=== PATIENT | female | born 1935 | race Caucasian/White ===

== ENCOUNTER → 2017-11-22 14:51 | Outpatient (CLI) | payer OTHER, SELFPAY ==
--- NOTE | 2017-11-22 | DI.MG.S_ITS ---
BILATERAL DIGITAL SCREENING MAMMOGRAM 3D/2D WITH CAD: 11/22/2017 CLINICAL: Routine screening. Family history of breast cancer. Comparison is made to exams dated: 11/16/2016 mammogram, 11/11/2015 mammogram, and 11/04/2014 mammogram - [facility]. The tissue of both breasts is heterogeneously dense. This may lower the sensitivity of mammography. Current study was also evaluated with a Computer Aided Detection (CAD) system. No significant masses, calcifications, or other findings are seen in either breast. There has been no significant interval change. IMPRESSION: NEGATIVE There is no mammographic evidence of malignancy. A 1 year screening mammogram is recommended. This exam was interpreted at Station ID: [id number]. NOTE: For mammograms, a report in lay terms will be sent to the patient. Approximately 15% of breast malignancies will not be visualized mammographically. In the management of a palpable breast mass, a negative mammogram must not discourage biopsy of a clinically suspicious lesion. Electronically Signed By: Eloy marrero/lula:11/22/2017 16:15:07 letter sent: Normal Exam ACR BI-RADS Category 1: Negative 3341F
== END ==
PROVIDERS: PCP Internal Medicine; Visit Provider Internal Medicine
DX: Z12.31 Encounter for screening mammogram for malignant neoplasm of breast (principal); Z80.3 Family history of malignant neoplasm of breast
CPT/HCPCS: 77063; 77067

== ENCOUNTER → 2018-03-01 14:00 | Outpatient (CLI) | payer OTHER, SELFPAY | PROVIDERS: PCP Internal Medicine | DX: Z23 Encounter for immunization (principal) | CPT/HCPCS: 90471; 90686 ==

== ENCOUNTER 2018-07-31 07:24 | Inpatient (IN) | payer OTHER, SELFPAY ==
[2018-07-31] VITALS (18 sets, daily range): BP systolic 114–140; BP diastolic 49–100; PULSE 62–68; RESP 12–23; TEMP 36.6–37.2; O2SAT 90–100; BMI 26.4
--- NOTE | 2018-07-31 07:43 | ED_ITS ---
HPI - General Adult General Chief complaint: Altered Mental Status Stated complaint: thinks having stroke Time Seen by Provider: 07/31/18 07:41 Source: patient and family Mode of arrival: ambulatory Limitations: other (Patient unable to provide any HPI.) History of Present Illness HPI narrative: Most of the history of present illness was provided by the patient's who is at bedside. He states that shortly after 2000 hr last evening they were sitting on the couch watching you to. He states that the patient started having problems like slurring her words. He also states that 1 time she slumped over in the couch. Never lost consciousness. He states he did not seek medical attention because the patient was stating that she was feeling okay. They went to bed last evening. He states when they woke up this morning she was now having problems finding words. He thought that she was getting worse. They arrived by private vehicle. No prior history of strokes. Not on blood thinners. Patient unable to provide any HPI. The only response again when I ask her questions is ?I am fine? Related Data Home Medications Medication Instructions Recorded Confirmed aspirin 81 mg PO DAILY #0 11/02/11 07/31/18 CALCIUM CARBONATE/VITAMIN D3 1 tab PO Q DAY #0 11/03/11 (Calcium 600 + Vit D3 Tablet) amlodipine [Norvasc] 5 mg PO DAILY 07/31/18 07/31/18 metoprolol succinate 07/31/18 simvastatin 20 mg PO BEDTIME 07/31/18 07/31/18 Previous Rx's Medication Instructions Recorded fluticasone 2 spray INTRANASAL HSP PRN #16 gm 08/02/16 Combivent Respimat 1 puff INH QID #4 inh 11/01/16 hydroxyzine HCl 1 tab PO Q4HP PRN #30 tab 07/03/17 azelastine 1 spray INTRANASAL HS #200 08/17/17 actuation mometasone-formoterol [Dulera] 2 inh INH BID #2 ea 09/15/17 Advair HFA 2 puff INH BID #3 ea 09/19/17 omeprazole 40 mg PO QPM #90 cap 06/18/18 Allergies Allergy/AdvReac Type Severity Reaction Status Date / Time cephalexin [CEPHALEXIN] Allergy Mild RASH Unverified 09/13/17 12:03 Cephalosporins Allergy Mild RASH Unverified 09/13/17 12:03 [CEPHALOSPORINS] Sulfa (Sulfonamide Allergy Mild RASH Unverified 09/13/17 12:03 Antibiotics) [SULFA (SULFONAMIDE ANTIBIOTICS)] amoxicillin [AMOXICILLIN] AdvReac Mild rash Unverified 09/13/17 12:03 HORSEFLY BITE Allergy Severe Uncoded 09/13/17 12:03 Review of Systems Review of Systems Provided by ROS Unobtainable: Unobtainable due to medical condition Neurologic Reports behavioral changes Comments: Slurring words and word-finding issues and unsteady this this morning Psychiatric Reports behavioral changes Hematologic/Lymphatic Comments: Not on blood thinners PFSH Medical History Essential hypertension (Chronic) Hyperlipidemia (Chronic) Chronic renal failure, stage 2 (mild) (Chronic 08/17/17) Chronic cholecystitis (Chronic) Menopausal syndrome (Chronic 11/02/11) Asthma (Chronic) Mass of breast (Inactive 11/02/11) History of pulmonary embolism (Inactive 11/02/11) Tachycardia (Acute) Surgical History Status post arthroscopy Family History Child Age: 48 Diabetes mellitus Sister Age: 75 Cancer Heart disease Osteoporosis Social History marital status: lives independently: Yes Family History Child Age: 48 Diabetes mellitus Sister Age: 75 Cancer Heart disease Osteoporosis Social History marital status: lives independently: Yes Exam Initial Vital Signs Initial Vital Signs: Vital Signs Temperature 98.4 F 07/31/18 07:24 Pulse Rate 64 07/31/18 07:24 Respiratory Rate 18 07/31/18 07:24 Blood Pressure 120/100 H 07/31/18 07:24 Pulse Oximetry 100 07/31/18 07:24 Const General: healthy appearing, comfortable and No acute distress Orientation: alert, awake and confused [facility] Head: normal to inspection and normocephalic Resp Effort & Inspection: normal respiratory effort Auscultation: clear to auscultation bilaterally Cardio Rate: regular rate Rhythm: regular rhythm Pulses: radial pulses present GI Inspection: non-distended Palpation: soft Skin Lesions: no lesions Rashes: no rashes Neuro General: alert and awake Speech: expressive aphasia and receptive aphasia Other: Patient would not follow commands. Would hold left and right arm up in the air without any drift. Right lower extremity patient was able to hold it in the air however tripped towards the bed. Left lower extremity she was able to hold it up in the air. Patient was unwilling/unable to do ejtoph-vz-ogml or bgja-ak-uaak. Unwilling/unable to follow commands for cranial nerve exam. Unable/unwilling to participate in orientation questioning. She did spontaneously move all 4 extremities. The words that she does say seem to be clear. Extrem General: normal to inspection and capillary refill normal Psych Appearance: grossly normal and well kempt Scores GCS [place] coma scale eye opening: Spontaneous [place] coma scale verbal response: Words [place] coma scale motor response: Localising [place] coma scale total score: 12 Course Orders Ordered: ED Orders 07/31/18 07:42 EKG-12 Lead Stat 07/31/18 07:56 CT angio head and neck Stat CT head/brain wo con Stat 07/31/18 08:05 Complete Blood Count AUTO DIFF Stat Comprehensive Metabolic Panel Stat Ethanol (ETOH) Stat Lipase Stat Partial Thromboplastin Time Stat Prothrombin Time INR Stat Troponin I Stat 07/31/18 11:36 MR stroke Stat Vital Signs - 8 hr 07/31/18 07:24 07/31/18 08:00 07/31/18 09:02 Temperature 98.4 F Pulse Rate 64 62 62 Respiratory Rate 18 23 17 Blood Pressure 120/100 H Blood Pressure [Right Arm] 129/54 L 127/57 L Pulse Oximetry 100 96 07/31/18 09:30 07/31/18 10:12 07/31/18 10:30 Temperature Pulse Rate 67 63 68 Respiratory Rate 20 15 15 Blood Pressure Blood Pressure [Right Arm] 130/54 L 126/51 L 119/49 L Pulse Oximetry 99 95 97 07/31/18 11:02 07/31/18 11:30 07/31/18 11:45 Temperature Pulse Rate 66 62 Respiratory Rate 17 13 Blood Pressure Blood Pressure [Right Arm] 131/57 L 140/49 L Pulse Oximetry 100 95 93 07/31/18 12:23 Temperature Pulse Rate 63 Respiratory Rate 16 Blood Pressure Blood Pressure [Right Arm] 125/50 L Pulse Oximetry 90 L Medical Decision Making Medical Records Medical records reviewed: Yes I reviewed the patient's medical records. Lab Data Lab results reviewed: Yes I reviewed the patient's lab results. Result diagrams: 07/31/18 08:05 07/31/18 08:05 Lab Results 07/31/18 07/31/18 07/31/18 Range/Units 08:05 08:05 08:05 WBC 11.1 H (4.5-11.0) X10^3/uL RBC 4.68 (4.0-5.2) X10^6/uL Hgb 14.7 (12.0-16.0) g/dL Hct 43.5 (36-46) % MCV 93.0 (80-100) fL MCH 31.5 (26-34) PG MCHC 33.9 (30-36) % RDW 14.2 (11.6-14.8) % Plt Count 280 (150-400) X10^3/uL Neut % (Auto) 71.1 (50-75) % Lymph % (Auto) 20.5 L (25-40) % [place] % (Auto) 6.5 (3-14) % Eos % (Auto) 0.9 L (2-4) % Baso % (Auto) 1.0 (0-2) % Neut # (Auto) 7900 H (6949-0365) /uL Lymph # (Auto) 2300 (3960-5080) /uL [place] # (Auto) 700 (0-900) /uL Eos # (Auto) 100 (0-450) /uL Baso # (Auto) 100 (0-100) /uL PT 11.3 (10.1-12.7) SECONDS INR 1.0 (0.9-1.3) APTT 38 H (26.4-36.2) SECONDS Sodium 141 (137-145) mmol/L Potassium 4.3 (3.4-5.1) mmol/L Chloride 103 (98-107) mmol/L Carbon Dioxide 25 (22-32) mmol/L BUN 20 H (7-17) mg/dL Creatinine 1.00 (0.52-1.04) mg/dL Estimated GFR 53.3 L (>60) mL/min BUN/Creatinine Ratio 20.0 (6-22) Glucose 99 (80-110) mg/dL Calcium 10.3 H (8.4-10.2) mg/dL Total Bilirubin 1.8 H (0.2-1.3) mg/dL AST 35 (14-36) IU/L ALT 23 (9-52) IU/L Alkaline Phosphatase 114 (38-126) U/L Troponin I < 0.012 (0.01-0.034) ng/mL Total Protein 9.1 H (6.3-8.2) g/dL Albumin 5.1 H (3.5-5.0) g/dL Globulin 4.0 (1.7-4.1) g/dL Albumin/Globulin Ratio 1.3 (1.0-2.8) Lipase 63 (23-300) U/L Ethyl Alcohol < 10 mg/dL Point of Care Testing Glucose POC 108 Urine Dip Bedside Urine Glucose Negative Bedside Urine Bilirubin - Negative Bedside Urine Ketone - Negative Urine Specific [place] 1.010 Bedside Urine Occult Blood - Negative Bedside Urine pH 8.5 Bedside Urine Protein - Negative Bedside Urine Urobilinogen - Negative Bedside Urine Nitrite - Negative Bedside Urine Leukocytes - Negative Esterase Point of care testing: Point of Care Testing Glucose POC 108 Urine Dip Bedside Urine Glucose Negative Bedside Urine Bilirubin - Negative Bedside Urine Ketone - Negative Urine Specific [place] 1.010 Bedside Urine Occult Blood - Negative Bedside Urine pH 8.5 Bedside Urine Protein - Negative Bedside Urine Urobilinogen - Negative Bedside Urine Nitrite - Negative Bedside Urine Leukocytes - Negative Esterase Imaging Data CT scan - head: Radiologist's impression: [address] [address] [address] Scan Report Signed Patient: Juliet Tolentino EMR#: [id number] : 8Acct:[id number] Age/Sex: 82 / FDate of Service: 07/31/18 Loc: ED Accession Number: [id number] Procedure: CT head/brain wo con Ordering Provider: Man Nelson D.O. PROCEDURE: CT HEAD/BRAIN WO CON INDICATIONS: possible stroke left sided weakness since yesterday TECHNIQUE: Noncontrast 4.5 mm thick angled axial sections acquired from the foramen magnum to the vertex, with coronal and sagittal reformats. For radiation dose reduction, the following was used: automated exposure control, adjustment of mA and/or kV according to patient size. COMPARISON: [facility], CT, HEAD WITHOUT CONTRAST, 09/29/2009, 20:36. FINDINGS: Image quality: Excellent. CSF spaces: Basal cisterns are patent. No extra-axial fluid collections. The ventricles are symmetric in size and shape. Brain: No intracranial bleeds or masses. There is cerebral volume loss for age, with resultant ventricular and sulcal prominence. There are periventricular and deep white matter chronic small vessel ischemic changes. There is intracranial internal carotid artery atherosclerosis. There is a small focus of low attenuation within the left thalamus, new compared to 2009. Skull and face: Calvarium and visualized facial bones appear intact, without suspicious lesions. Sinuses: Visualized sinuses and mastoids are clear. IMPRESSION: 1. 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 However, subacute ischemia cannot be definitively excluded. As clinically indicated, MRI may be obtained. 2. Moderate atrophy and chronic microvascular ischemic changes. Dictated by: Amelia Macdonald M.D. on 07/31/2018 at 9:12 Approved by: Amelia Macdonald M.D. on 07/31/2018 at 9:15 CTA head and neck: Radiologist's impression: [address] [address] [address] Scan Report Signed Patient: Juliet Tolentino EMR#: [id number] : 8Acct:[id number] Age/Sex: 82 / FDate of Service: 07/31/18 Loc: ED Accession Number: [id number] Procedure: CT angio head and neck Ordering Provider: Man Nelson D.O. PROCEDURE: CT ANGIO HEAD AND NECK INDICATIONS: possible stroke, left sided weakness since yesterday TECHNIQUE: Pre-contrast 4.5 mm thick sections acquired from the foramen magnum to the vertex. After the administration of intravenous contrast, 1 mm thick sections acquired from the aortic arch through the [place] of [place]. Post-contrast 4.5 mm thick sections then re- acquired from the foramen magnum to the vertex. 3-dimensional wtdnsbu-cviomvnor-hemaooalgd (MIP) and/or volume rendering reformats were acquired of the central intracranial vasculature and neck separately. COMPARISON: [facility], CT, HEAD WITHOUT CONTRAST, 09/29/2009, 20:36. [facility], CT, CT HEAD/BRAIN WO CON, 07/31/2018, 8:28. FINDINGS: Image quality: Excellent. BRAIN: The ventricular system and cortical sulci demonstrate atrophy, consistent for the patient's stated age. There are areas of hypodensity within the periventricular and subcortical white matter. There is no acute intra-or extra axial fluid collection. No acute hemorrhage, mass lesion or midline shift. Brainstem is unremarkable. . Globes are symmetrical. Sinuses are aerated. Osseous structures are intact. Previously noted left thalamic focus of hypoattenuation is again noted. . HEAD CT ANGIOGRAPHY: Anterior circulation: Intracranial internal carotid arteries are normal in size and flow. The flow within the paired anterior cerebral arteries is normal and symmetric. The flow within the middle cerebral arteries is normal and symmetric. The anterior communicating artery is seen. No aneurysms are seen. Posterior circulation: Visualized portions of the vertebral arteries demonstrate normal caliber, and join to form a normal appearing basilar artery. Flow within the posterior cerebral arteries is normal and symmetric. No aneurysms are seen. NECK CT ANGIOGRAPHY: Carotid system: The great vessels demonstrate a conventional anatomy as they arise from the aortic arch. The origins of the common carotid arteries appear patent. The common carotid arteries demonstrate normal caliber and courses. The bifurcation regions are both widely patent. The internal carotid arteries demonstrate normal calibers and courses. Posterior circulation: The origins of the vertebral arteries both appear widely patent. The more superior extracranial portions of both vertebral arteries also demonstrate normal courses and calibers. They join to form a normal appearing basilar artery. Soft tissues: Visualized neck soft tissues demonstrate no suspicious abnormalities. Bones: No suspicious bony lesions. Visualized cervical spine appears normally aligned. IMPRESSION: 1. Unchanged appearance of hypoattenuation within the left thalamus possibly representing volume averaging versus subacute ischemia. MRI is recommended if clinically indicated. 2. Moderate atrophy and chronic microvascular ischemic changes. 3.No areas of hemodynamically significant stenosis, vascular occlusion or aneurysmal dilation within the anterior or posterior circulation. 4. No areas of hemodynamically significant stenosis, vascular occlusion or aneurysmal dilation within the neck vasculature. Any quantitative measurements of stenosis were performed using NASCET criteria. Dictated by: Amelia Macdonald M.D. on 07/31/2018 at 9:15 ECG Data Attestation: I personally reviewed and interpreted this ECG as follows: Prior ECG tracings: not available for review Interpretation: Sinus rhythm Ventricular rate is 62 Normal axis Normal intervals Normal QRS No ST T wave changes MDM Narrative Medical decision making narrative: I discussed the case with Dr. Hernandez with Neurology at [facility] who evaluated the patient's CT scans who agreed that the patient was outside of the window for tPA and did not have findings on the CTA that would necessitate a intravascular procedure. Also discussed the case with Dr. Sears with [place] who attempted to find the patient a bed however due to the bed status at all of the local hospitals unable to find bed placement. Discussed the case with Dr. Leigh hospitalist here at this hospital who accepts the patient for continued evaluation and treatment. Patient is status has not changed since she arrived here in the ER. I have a strong suspicion of an acute CVA. Unable to perform the NIH scale secondary to the patient's ability to participate in the exam. MRI stroke protocol ordered out of the emergency department. Discharge Plan Departure Patient Disposition: Admitted As Inpatient Clinical Impression: CVA (cerebral vascular accident) Qualifiers: CVA mechanism: unspecified Qualified Code(s): I63.9 - Cerebral infarction, unspecified Referrals: Geoffrey Melvin MD [Primary Care Provider] -
--- NOTE | 2018-07-31 07:56 | DI.CT.S_ITS ---
PROCEDURE: CT HEAD/BRAIN WO CON INDICATIONS: possible stroke left sided weakness since yesterday TECHNIQUE: Noncontrast 4.5 mm thick angled axial sections acquired from the foramen magnum to the vertex, with coronal and sagittal reformats. For radiation dose reduction, the following was used: automated exposure control, adjustment of mA and/or kV according to patient size. COMPARISON: [facility], CT, HEAD WITHOUT CONTRAST, 09/29/2009, 20:36. FINDINGS: Image quality: Excellent. CSF spaces: Basal cisterns are patent. No extra-axial fluid collections. The ventricles are symmetric in size and shape. Brain: No intracranial bleeds or masses. There is cerebral volume loss for age, with resultant ventricular and sulcal prominence. There are periventricular and deep white matter chronic small vessel ischemic changes. There is intracranial internal carotid artery atherosclerosis. There is a small focus of low attenuation within the left thalamus, new compared to 2009. Skull and face: Calvarium and visualized facial bones appear intact, without suspicious lesions. Sinuses: Visualized sinuses and mastoids are clear. IMPRESSION: 1. Small focus of low attenuation within the left thalamus suspected to be parts sales representative of volume averaging. However, subacute ischemia cannot be definitively excluded. As clinically indicated, MRI may be obtained. 2. Moderate atrophy and chronic microvascular ischemic changes. Dictated by: Amelia Macdonald M.D. on 07/31/2018 at 9:12 Approved by: Amelia Macdonald M.D. on 07/31/2018 at 9:15
--- NOTE | 2018-07-31 07:56 | DI.CT.S_ITS ---
PROCEDURE: CT ANGIO HEAD AND NECK INDICATIONS: possible stroke, left sided weakness since yesterday TECHNIQUE: Pre-contrast 4.5 mm thick sections acquired from the foramen magnum to the vertex. After the administration of intravenous contrast, 1 mm thick sections acquired from the aortic arch through the [place] of [place]. Post-contrast 4.5 mm thick sections then re-acquired from the foramen magnum to the vertex. 3-dimensional hrpdnro-ctdhvuoiw-hrcgjdyuwf (MIP) and/or volume rendering reformats were acquired of the central intracranial vasculature and neck separately. COMPARISON: [facility], CT, HEAD WITHOUT CONTRAST, 09/29/2009, 20:36. [facility], CT, CT HEAD/BRAIN WO CON, 07/31/2018, 8:28. FINDINGS: Image quality: Excellent. BRAIN: The ventricular system and cortical sulci demonstrate atrophy, consistent for the patient's stated age. There are areas of hypodensity within the periventricular and subcortical white matter. There is no acute intra-or extra axial fluid collection. No acute hemorrhage, mass lesion or midline shift. Brainstem is unremarkable. . Globes are symmetrical. Sinuses are aerated. Osseous structures are intact. Previously noted left thalamic focus of hypoattenuation is again noted. . HEAD CT ANGIOGRAPHY: Anterior circulation: Intracranial internal carotid arteries are normal in size and flow. The flow within the paired anterior cerebral arteries is normal and symmetric. The flow within the middle cerebral arteries is normal and symmetric. The anterior communicating artery is seen. No aneurysms are seen. Posterior circulation: Visualized portions of the vertebral arteries demonstrate normal caliber, and join to form a normal appearing basilar artery. Flow within the posterior cerebral arteries is normal and symmetric. No aneurysms are seen. NECK CT ANGIOGRAPHY: Carotid system: The great vessels demonstrate a conventional anatomy as they arise from the aortic arch. The origins of the common carotid arteries appear patent. The common carotid arteries demonstrate normal caliber and courses. The bifurcation regions are both widely patent. The internal carotid arteries demonstrate normal calibers and courses. Posterior circulation: The origins of the vertebral arteries both appear widely patent. The more superior extracranial portions of both vertebral arteries also demonstrate normal courses and calibers. They join to form a normal appearing basilar artery. Soft tissues: Visualized neck soft tissues demonstrate no suspicious abnormalities. Bones: No suspicious bony lesions. Visualized cervical spine appears normally aligned. IMPRESSION: 1. Unchanged appearance of hypoattenuation within the left thalamus possibly representing volume averaging versus subacute ischemia. MRI is recommended if clinically indicated. 2. Moderate atrophy and chronic microvascular ischemic changes. 3.No areas of hemodynamically significant stenosis, vascular occlusion or aneurysmal dilation within the anterior or posterior circulation. 4. No areas of hemodynamically significant stenosis, vascular occlusion or aneurysmal dilation within the neck vasculature. Any quantitative measurements of stenosis were performed using NASCET criteria. Dictated by: Amelia Macdonald M.D. on 07/31/2018 at 9:15 Approved by: Amelia Macdonald M.D. on 07/31/2018 at 9:20
[2018-07-31 08:17] LABS: Add Manual Diff / Slide Review NO; Basophils Absolute Auto 100 /uL (0-100); Eosinophils Absolute Auto 100 /uL (0-450); Eosinophils Percent Auto 0.9 % (2-4); Hematocrit 43.5 % (36-46); Hemoglobin 14.7 g/dL (12.0-16.0); Lymphocytes Absolute Auto 2300 /uL (1100-4500); Lymphocytes Percent Auto 20.5 % (25-40); Mean Corpuscular HGB Conc 33.9 % (30-36); Mean Corpuscular Hemoglobin 31.5 PG (26-34); Monocytes Absolute Auto 700 /uL (0-900); Monocytes Percent Auto 6.5 % (3-14); Neutrophils Absolute Auto 7900 /uL (1500-7000); Neutrophils Percent Auto 71.1 % (50-75); Platelet Count 280 X10^3/uL (150-400); Red Blood Cell Count 4.68 X10^6/uL (4.0-5.2); Red Cell Distribution Width 14.2 % (11.6-14.8); White Blood Cell Count 11.1 X10^3/uL (4.5-11.0)
[2018-07-31 08:28] LABS: Alanine Aminotransferase 23 IU/L (9-52); Albumin 5.1 g/dL (3.5-5.0); Albumin Globulin Ratio 1.3 (1.0-2.8); Alkaline Phosphatase 114 U/L (38-126); Aspartate Aminotransferase 35 IU/L (14-36); Bilirubin Total 1.8 mg/dL (0.2-1.3); Blood Urea Nitrogen 20 mg/dL (7-17); Calcium 10.3 mg/dL (8.4-10.2); Carbon Dioxide 25 mmol/L (22-32); Chloride 103 mmol/L (98-107); Estimated Glomerular Filt Rate 53.3 mL/min (>60); Ethanol (ETOH) < 10 mg/dL; Glucose 99 mg/dL (80-110); HEMOLYSIS < 15 (0-50); Lipase 63 U/L (23-300); Potassium 4.3 mmol/L (3.4-5.1); Sodium 141 mmol/L (137-145); Total Protein 9.1 g/dL (6.3-8.2)
[2018-07-31 08:40] LABS: Troponin I < 0.012 ng/mL (0.01-0.034)
[2018-07-31 09:12] LABS: Prothrombin Time 11.3 SECONDS (10.1-12.7)
[2018-07-31 09:15] LABS: PTT Partial Thromboplastin Tim 38 SECONDS (26.4-36.2)
--- NOTE | 2018-07-31 09:58 | PC.NURSE ---
Patient desatting to low 80's O2 Saturation while sleeping. does not report any history of sleep apnea. Patient does have a dry cough with clear lungs and has for several days per . No other cold or flu symptoms. Dr. Nelson aware. Patient placed on 2L O2 while sleeping.
--- NOTE | 2018-07-31 11:36 | DI.MRI.S_ITS ---
PROCEDURE: MR STROKE Pre- and post-contrast brain MRI, non-contrast brain MR angiogram, pre- and postcontrast neck MR angiogram INDICATIONS: Aphasia. Confusion TECHNIQUE: Brain: Noncontrast axial T1 spin echo, axial T2 fast spin echo, sagittal and axial FLAIR, coronal T2 fast spin echo, axial gradient echo, axial diffusion and ADC through the brain. After the administration of contrast, axial 3D VIBE of the cranial vasculature and brain. Brain MRA: Non-contrast 3-D time of flight MR angiogram, with multiple ipznrth-krpijbyxm-yzngdkysay (MIP) reformats performed. Neck MRA: Axial and sagittal TruFISP through the neck. Coronal dynamic MR angiogram during administration of contrast in the arterial and venous phases, with 3-dimenstional hqchjlf-sisyiqbqc-zhiuubqskj (MIP) reformats constructed from subtraction images. COMPARISON: None. FINDINGS: Image quality: Excellent. BRAIN: CSF spaces: Ventricles are normal in size and shape. Basal cisterns are patent. No extra-axial fluid collections. Brain: No intracranial bleeds or mass effects. Scattered small white matter signal changes, probably represent chronic microvascular ischemic disease, versus statistically less likely demyelination or other infectious, inflammatory, neurodegenerative etiology, technically nonspecific. Bruce-white matter interface is normal. Acute ischemia is seen involving the left temporoparietal lobe, for example image 61 series 10. Brainstem appears normal. Normal intravascular flow voids are present. No abnormal intracranial enhancement. Skull and face: Calvarial marrow signal is normal. Orbits appear normal. Sinuses: Sinuses and mastoids are clear. BRAIN MR ANGIOGRAM: Anterior circulation: Intracranial internal carotid arteries are normal in size and enhancement. The left A1 segment is not seen likely congenitally atretic versus occluded. The flow within the paired anterior cerebral arteries is normal and symmetric. Diffuse sclerotic narrowing of the cavernous segment of the distal left ICA. There is long segment narrowing decreased flow of the distal left M1 segment with reconstitution of the sylvian vessels. No definite occlusion seen on the source images. Posterior circulation: There is short segment narrowing of the right V4 segment without definite occlusion. Normal left vertebral artery and normal appearing basilar artery. The flow within the posterior cerebral arteries is normal and symmetric. No stenoses, occlusions, or aneurysms. NECK MR ANGIOGRAM: Carotids: Great vessels demonstrate a conventional anatomy as they arise from the aortic arch. The origins of the common carotid arteries appear patent. The calibers and courses of both common carotid arteries are normal. The bifurcation regions appear normal bilaterally. The internal carotid arteries demonstrate normal course and caliber. Posterior circulation: Origin of the right vertebral artery not well seen. The origin of the left vertebral artery appears grossly patent. Short segment narrowing of the distal right V4 segment. Normal appearing basilar artery. Miscellaneous: Subclavian arteries appear patent. Pre-contrast images through the neck show no soft tissue abnormalities. Cervical spondylosis and multilevel listhesis. IMPRESSION: BRAIN MRI: Acute ischemia involving the left temporoparietal lobe. Diffuse small white matter signal changes, probably represent chronic microvascular ischemic disease, versus statistically less likely demyelination or other infectious, inflammatory, neurodegenerative etiology, technically nonspecific. BRAIN MR ANGIOGRAM: Narrowing of the distal left M1 segment, and decreased flow, with reconstitution of the sylvian vessels. NECK MR ANGIOGRAM: Short segment narrowing of the distal right V4 segment. No ICA stenosis. Dictated by: Khai Hanna M.D. on 07/31/2018 at 15:49 Approved by: Khai Hanna M.D. on 07/31/2018 at 16:04
--- NOTE | 2018-07-31 11:38 | PC.NURSE ---
Patient continues repeating some intelligible phrases including I'm fine and some scattered words that make sense to . She is worried about her work and has been attempting to get words out to explain to what he needs to do for her. He continues reassuring her I will take care of it, however she remains extremely anxious. She breathes quickly at 35bpm and continues repeating phrases that are mostly unintelligible. Clearly some aphasia is present. She also is having trouble processing information and does not follow all simple commands correctly.
--- NOTE | 2018-07-31 13:54 | PC.NURSE ---
back at bedside, confirmed MRI screening questions with him. Patient still aphasic with some limited understanding and ability to follow commands.
--- NOTE | 2018-07-31 15:08 | PM.HP.1 ---
History of Present Illness Date Patient Seen: 07/31/18 Chief complaint: thinks having stroke Narrative: Juliet Tolentino is a 82-year-old female with a past medical history significant for hypertension, hyperlipidemia, asthma, SVT, and history of prior PE after total hip arthroplasty who presented accompanied by her for garbled speech and ataxia. Due to patient's word salad, the entirety of her history of present illness was gathered from her . The patient's reports that yesterday evening his began having garbled speech at around 8:45 p.m. She told him several times that she was ?fine,? therefore, he did not take her to the ED and they went to bed. When they woke is morning she continued to have worsening garbled speech and he noticed that she was wobbly with ambulation so he decided to take her to the ED at that time. The patient has not been immobilized for prolonged period of time recently. They did travel to [place] on a [place] but this was not a prolonged period of immobilization. She is unable to follow commands. She has clear speech at times but continues to have word salad/incoherent sentences. She is moving all of her extremities therefore it is difficult to assess muscle weakness. She has never had a stroke before. CT brain without contrast did not demonstrate any acute intracranial abnormalities. CTA did not demonstrate acute CVA. MR stroke protocol was obtained and demonstrated an acute left temporoparietal CVA and she was admitted for further management. Patient History Medical History Essential hypertension (Chronic) Hyperlipidemia (Chronic) Chronic renal failure, stage 2 (mild) (Chronic 08/17/17) Chronic cholecystitis (Chronic) Menopausal syndrome (Chronic 11/02/11) Asthma (Chronic) Mass of breast (Inactive 11/02/11) History of pulmonary embolism (Inactive 11/02/11) Tachycardia (Acute) Surgical History H/O cataract removal with insertion of prosthetic lens (Acute) H/O total hip arthroplasty (Acute) Hx of cholecystectomy (Acute) Status post arthroscopy Family History Child Age: 48 Diabetes mellitus Sister Age: 75 Cancer Heart disease Osteoporosis Father Lung disease Mother Lung disease Social History marital status: household members: spouse lives independently: Yes Smoking Status: Never smoker alcohol intake: former Family & Social History Family History Child Age: 48 Diabetes mellitus Sister Age: 75 Cancer Heart disease Osteoporosis Father Lung disease Mother Lung disease Social History: lives independently Yes Meds Home Medications Medication Instructions Recorded Confirmed Type aspirin 81 mg PO DAILY #0 11/02/11 07/31/18 History CALCIUM CARBONATE/VITAMIN D3 1 tab PO DAILY #0 11/03/11 07/31/18 History (Calcium 600 + Vit D3 Tablet) Dulera 2 inh INH BID #2 ea 09/15/17 07/31/18 Rx Advair HFA 2 puff INH BID #3 ea 09/19/17 07/31/18 Rx amlodipine [Norvasc] 5 mg PO DAILY 07/31/18 07/31/18 History fluticasone 2 spray INTRANASAL BEDTIME PRN 07/31/18 07/31/18 History fluticasone-salmeterol 2 puff INHALATION BID 07/31/18 07/31/18 History hydroxyzine HCl 1 tab PO Q4HP PRN 07/31/18 07/31/18 History ipratropium-albuterol 1 puff INHALATION QID 07/31/18 07/31/18 History metoprolol succinate 37.5 mg PO BID 07/31/18 07/31/18 History omeprazole 40 mg PO BEDTIME 07/31/18 07/31/18 History simvastatin 20 mg PO BEDTIME 07/31/18 07/31/18 History Allergies Allergy/AdvReac Type Severity Reaction Status Date / Time cephalexin [CEPHALEXIN] Allergy Mild RASH Unverified 09/13/17 12:03 Cephalosporins Allergy Mild RASH Unverified 09/13/17 12:03 [CEPHALOSPORINS] Sulfa (Sulfonamide Allergy Mild RASH Unverified 09/13/17 12:03 Antibiotics) [SULFA (SULFONAMIDE ANTIBIOTICS)] amoxicillin [AMOXICILLIN] AdvReac Mild rash Unverified 09/13/17 12:03 Review of Systems Review of Systems A 10 system comprehensive review of systems was unobtainable due to patient's condition. Exam Vital Signs (past 8 hours): - 07/31/18 07:24 07/31/18 08:00 07/31/18 09:02 Temperature 98.4 F Pulse Rate 64 62 62 Respiratory Rate 18 23 17 Blood Pressure 120/100 H Blood Pressure [Right Arm] 129/54 L 127/57 L Pulse Oximetry 100 96 02/26/19 09:30 07/31/18 10:12 07/31/18 10:30 Temperature Pulse Rate 67 63 68 Respiratory Rate 20 15 15 Blood Pressure Blood Pressure [Right Arm] 130/54 L 126/51 L 119/49 L Pulse Oximetry 99 95 97 07/31/18 11:02 07/31/18 11:30 07/31/18 11:45 Temperature Pulse Rate 66 62 Respiratory Rate 17 13 Blood Pressure Blood Pressure [Right Arm] 131/57 L 140/49 L Pulse Oximetry 100 95 93 07/31/18 12:00 07/31/18 12:23 07/31/18 13:03 Temperature Pulse Rate 62 63 64 Respiratory Rate 12 16 23 Blood Pressure Blood Pressure [Right Arm] 121/54 L 125/50 L 114/51 L Pulse Oximetry 95 90 L 94 07/31/18 14:28 Temperature Pulse Rate 65 Respiratory Rate 18 Blood Pressure Blood Pressure [Right Arm] 132/65 Pulse Oximetry 92 Oxygen Delivery Method Nasal Cannula Oxygen Flow Rate 2 Narrative Exam Narrative: General: Elderly female lying in bed and in no acute distress, appears younger than stated age, flushed face, well-developed, well-nourished, garbled speech with word salad HEENT: Normocephalic, atraumatic. External ears without defect. Pupils equal, round, and reactive to light and accommodation. Anicteric sclerae, moist conjunctivae, and no lid lag. Oropharynx free of erythema and cobble stoning with moist mucosa. Neck: Supple with full range of motion. No jugular venous distension. No bruits. No lymphadenopathy or thyromegaly. Cardiovascular: Regular rate and rhythm without murmurs, rubs, or gallops appreciated Pulmonary: Clear to auscultation bilaterally without crackles, wheezes, or rhonchi. Normal respiratory effort with no use of accessory muscles. Abdomen: Soft, bowel sounds present, nontender, nondistended. No hepatosplenomegaly or masses appreciated. Extremities: No clubbing, cyanosis, or edema. Skin: Normal temperature, turgor, and texture; no rash, ulcers, or subcutaneous nodules appreciated. Neurological: Garbled speech with word salad, unable to follow commands but moves both upper and lower extremities. Objective Labs Result Diagrams: 07/31/18 08:05 07/31/18 08:05 Labs: Laboratory Results - last 24 hr 07/31/18 07/31/18 07/31/18 08:05 08:05 08:05 WBC 11.1 H RBC 4.68 Hgb 14.7 Hct 43.5 MCV 93.0 MCH 31.5 MCHC 33.9 RDW 14.2 Plt Count 280 Neut % (Auto) 71.1 Lymph % (Auto) 20.5 L Hooker % (Auto) 6.5 Eos % (Auto) 0.9 L Baso % (Auto) 1.0 Neut # (Auto) 7900 H Lymph # (Auto) 2300 Hooker # (Auto) 700 Eos # (Auto) 100 Baso # (Auto) 100 PT 11.3 INR 1.0 APTT 38 H Sodium 141 Potassium 4.3 Chloride 103 Carbon Dioxide 25 BUN 20 H Creatinine 1.00 Estimated GFR 53.3 L BUN/Creatinine Ratio 20.0 Glucose 99 Calcium 10.3 H Total Bilirubin 1.8 H AST 35 ALT 23 Alkaline Phosphatase 114 Troponin I < 0.012 Total Protein 9.1 H Albumin 5.1 H Globulin 4.0 Albumin/Globulin Ratio 1.3 Lipase 63 Ethyl Alcohol < 10 Assessment & Plan Assessment & Plan narrative: Juliet Tolentino is a 82-year-old female with a past medical history significant for hypertension, hyperlipidemia, asthma, SVT, and history of prior PE after total hip arthroplasty who presented accompanied by her for garbled speech and ataxia. 1. Acute left temporoparietal CVA, present on admission. Active. -Patient presented with garbled speech with word salad and ataxia since the night prior to admission to 07/30/2018. -CT brain without contrast and CTA did not demonstrate any acute intracranial abnormalities. -MR stroke protocol demonstrated a left ischemic temporoparietal CVA with narrowing of the M1 segment likely culprit lesion. Not embolic. -Continue NIH neuro checks every 4 hr. Not truly able to perform NIH stroke scale due to patient's inability to follow commands. -Allow for permissive hypertension. -Risk stratify with fasting lipid panel and hemoglobin A1c. -Ordered PT/OT/ST evaluation and treatment, pending. Patient would benefit from aggressive rehabilitation with inpatient stroke rehab. -Patient is on aspirin 81 mg daily and simvastatin now with new CVA. Continue aspirin 81 mg daily, add Plavix 75 mg daily in addition and switch patient from simvastatin 20 mg daily bedtime to atorvastatin 40 mg daily bedtime for stroke prophylaxis. -Continue to monitor closely on telemetry. Patient has been in normal sinus rhythm without ectopy thus far but does have a history of SVT. 2. Hypertension, chronic, present on admission. Stable. -Continue to allow for permissive hypertension for the next 24-48 hours. Blood pressure goal not on thrombolysis is to treat only if > 220 systolic or 120 Diastolic. -Held home amlodipine 5 mg daily and metoprolol succinate 37.5 mg twice daily for now. 3. Hyperlipidemia, chronic, present on admission. Stable. -Switched from simvastatin 20 mg daily to atorvastatin 40 mg daily at bedtime as above. 4. Asthma, present on admission. Stable and controlled. -Continue home inhalers. Patient is admitted under inpatient status with expected length of stay greater than 2 midnights due to severity of presenting symptoms, risk of adverse event, and complexity of treatment plan.
[2018-07-31 16:31] LABS: Cholesterol 221 mg/dL (140-199); HDL Cholesterol 80 mg/dL (40-60); LDL Cholesterol Calculated 118 mg/dL (<100); Triglycerides 114 mg/dL (35-150)
[2018-07-31 16:33] LABS: Hemoglobin A1C% w Est Avg Glu 5.7 % (4.0-6.0)
--- NOTE | 2018-07-31 17:25 | PT.IPTN ---
Physical Therapy Treatment Note M3 PT-IP Subjective Start: 07/31/18 15:10 Freq: NEEDED Status: Active Protocol: Document 07/31/18 17:23 (Rec: 07/31/18 17:25 [id number]) Subjective Physical Therapy Visit Type Type Patient Unavailable Visit Start Time 17:15 Notes Pt is unavailable due to ST eval upon assessment. Re- attempt tomorrow AM
[2018-07-31] MEDS: SODIUM CHLORIDE 0.9% 1,000 ML 100 ML IV (17:28)
--- NOTE | 2018-07-31 17:52 | CM.MNRNOTE ---
Addendum entered by Apryl Perez R.N. 07/31/18 21:54: Pt pleasant, unable to comprehend IVF continue as per orders w/o incidence. UA sent to lab Call light w/in reach, bed alarm on for pt safety. Continue w/plan of care. Original Note: Pt arrived to [facility], unable to express words properly. MD in to see, Speech therapist evaluated. NIH = 8, weakness to arms, expressive aphasia. IV NS @ 100cc/hr infusing via pump w/o incidence. Call light w/in reach, veiw room, bed alarm on for pt safety.
--- NOTE | 2018-07-31 18:19 | ST.IPIE ---
Care Team Visit Care Team Role Provider Type Geoffrey Melvin MD Primary Care Provider Physician Specialty: Internal Medicine Address: [address] [place] [address], [id number] Email: [email or web address] DO Emergency Provider Physician Specialty: Emergency Medicine Address: [address] [place] [address], [id number] Email: Sapphire Leigh DO Admit Provider Physician Attending Provider Specialty: Internal Medicine Address: [address] [place] [address] Email: Past Medical History (Last Reviewed 07/31/18 @ 17:34 by Sapphire Leigh DO) Essential hypertension (Chronic Medical) Hyperlipidemia (Chronic Medical) Chronic renal failure, stage 2 (mild) (Chronic Medical 08/17/17) Chronic cholecystitis (Chronic Medical) Menopausal syndrome (Chronic Medical 11/02/11) Asthma (Chronic Medical) Mass of breast (Inactive Medical 11/02/11) History of pulmonary embolism (Inactive Medical 11/02/11) Tachycardia (Acute Medical) ST IP Initial Evaulation Report [facility] START Clinical Swallow Evaluation Start: 07/31/18 17:49 Freq: Status: Active Protocol: Document 07/31/18 17:50 NASREEN (Rec: 07/31/18 18:19 NASREEN [email or web address]) Clinical Swallow Evaluation Session Time Visit Start Time 16:45 Visit Stop Time 17:45 Total Visit Minutes [address] 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 Per report, yesterday evening his began having garbled speech at around 8:45 p.m. She told him several times that she was ? fine,? therefore, he did not take her to the ED and they went to bed. When they woke is morning she continued to have worsening garbled speech and he noticed that she was wobbly with ambulation so he decided to take her to the ED at that time. MR stroke protocol was obtained and demonstrated an acute left temporoparietal CVA. Subjective Observations Pt was resting in bed and aroused to verbal greeting. Pt attempted to say she was trying to take snooze (I was sloozing) but agreeable to swallow evaluation. She was positioned upright in bed. She did require demonstration and tactile prompts to follow instructions to cross her arms for boosting in bed and c/o of discomfort with pillow behind her head in upright position in bed. She appeared to have some pain at her neck, as demonstrated by pointing to her neck and saying, No, no, no until pillow was removed. Evaluation Liquids Trialed Ice Chips Thin Solids Trialed Puree Dysphagia Mechanical Dysphagia Advanced Regular Administration Type Tea Spoon Cup Single Sip Cup Consecutive Sips Straw Dependent Feeding Oral Impairment Mildly Impaired Oral Strategies Upright at 90 degrees Oral Phase Comments Oral Peripheral Exam limited d /t pt difficulties following directions. Minimal possible right side facial droop present. All other structures appear symmetrical. No significant difference in left vs ride side strength. Pt has natural dentition that appears to be in adequate condition. Unable to visualize full dentition or soft palate as pt opened mouth only partially for visualization. Significant difficulties following oral commands is obvious, with some benefit from visual demonstration and tactile prompts, ~30-40% accuracy with this support. Oral Phase: Pt unable to follow commands for volitional swallow; instead tucked chin. Delayed oral acceptance and manipulation of ice chip upon first presentation. Improved acceptance with second chip but no swallow with either ice chip trial, though pt stated, Oh, that's good. Extensive and effortful mastication was observed with regular texture of dry turkey sandwich. Otherwise, oral prep and swallow phases appear to be WFL with timely swallow and appropriate adequate oral clearance. Pt was able to self-feed cup sips and all solid trials. Some confusion with straw was observed and required intermittent assistance as pt was attempting to drink from the lid of the cup. Pharyngeal Impairment WFL Pharyngeal Strategies Sitting Upright (90 deg) Pharyngeal Phase Comments No overt s/sx of aspiration observed with all trials of thin liquid from spoon, cup, and straw in single and consecutive sips, applesauce, diced peaches, egg salad, and turkey sandwich. Pt maintained clear voice throughout. Findings Dysphagia Type Mild Oral Dysphagia. Rehabilitation Potential Excellent Impressions Pt presents with mild oral dysphagia characterized by extensive and effortful mastication of advanced textures. Prognosis for dysphagia is excellent. General aspiration precautions were explained to the pt verbally but will need reinforcement, possibly with picture board, particularly need to be upright for all intake. Pt also presents with fluent Wernicke's type aphasia characterized by fluent speech primarily consisting of jargon and neologisms with intermittent islands of clear speech which largely appear to be appropriate to situation/ topic. Prosodic features and speech articulation are WNL. She exhibits moderate to severe auditory comprehension deficits for direct commands. Comprehension of conversational speech is improved but still significantly impaired. The pt only intermittently appears aware of her garbled speech, for example when unable to independently state her name. When given direct model of her name, the pt recognized it, attempted to say it with the Clinician but appeared unaware that she had not said it correctly at all. Further assessment of expressive and receptive language skills to be administered and prognosis for rehabilitation to be determined tomorrow. Diet Recommendations Liquids Order Thin Diet Order Dysphagia Advanced Medication Recommendations As Tolerated Aspiration Precautions Recommended Precautions Upright at 90 Degrees Small Bites/Sips Additional Precautions May require setup assistance and assistance drinking from straw. Treatment Plan Placement Recommendations after [facility] Facility Discharge Inpatient Rehab Facility Appropriate for Therapy Yes Therapy Recommendations Ongoing assessment of swallow safety to advance diet. Further assessment of expressive/receptive language skills and development of treatment goals. Dysphagia Goals Pt will tolerate least restrictive diet to meet her nutrition and hydration needs. Pt will follow general aspiration precautions with minimal visual/verbal prompts to reduce risk of aspiration.
[2018-07-31] MEDS: ASPIRIN EC 81 MG TABLET PO (19:28)
[2018-07-31] MEDS: CLOPIDOGREL 75 MG TABLET PO (19:28)
[2018-07-31 20:37] LABS: Bacteria Urine None Seen; RBC Urine None Seen (0-5/HPF); WBC Urine None Seen (0-5/HPF)
[2018-07-31] MEDS: ATORVASTATIN 20 MG TABLET 40 MG PO (20:37)
[2018-07-31 20:41] LABS: Appearance Urine UA CLEAR; Bilirubin Urine UA NEGATIVE (NEGATIVE); Color Urine UA YELLOW; Glucose Urine UA NEGATIVE (Negative); Ketones Urine UA 1+ (NEGATIVE); Leukocyte Esterase Urine UA NEGATIVE (NEGATIVE); Nitrite Urine UA NEGATIVE (Negative); Occult Blood Urine UA NEGATIVE (Negative); Protein Urine UA NEGATIVE (Negative); Urobilinogen Urine UA 0.2 E.U./dL (0.2)
[2018-07-31] MEDS: HEPARIN 5,000 UNIT/ML VIAL 5000 UNIT SUBCUT (20:43)
[2018-07-31 21:01] LABS: Culture Indicated Urine Cult Not Indicated; Urine Comments Microscopic Normal
[2018-07-31] MEDS: ALBUTEROL/IPRATROPIUM MDI 1 PUFF INH (21:27)
--- NOTE | 2018-07-31 21:57 | PC.NURSE ---
Shift summary Patient was admitted to acute care this late afternoon. This patient has severe and unintelligible speech. Patient can repeat I'm fine when asked how she is feeling. Does appear to follow commands to an extent. Constant cuing is needed to perform tasks. Patient denies pain, but has facial grimacing when the head of bed is lowered. Lungs are clear to auscultation. Dry cough present. Patient is on telemetry with normal sinus rhythm this shift. Has continuous normal saline running on left arm. Patient tolerated PO medications well. Urinalysis was performed this shift. Results were negative to growth. Patient appears relaxed and has been resting in bed the entire shift. Call light is placed within reach.
[2018-08-01] VITALS (12 sets, daily range): BP systolic 118–140; BP diastolic 56–67; PULSE 63–72; RESP 16–20; TEMP 36.6–37.1; O2SAT 95–98
[2018-08-01] MEDS: SODIUM CHLORIDE 0.9% 1,000 ML 100 ML IV (02:42)
--- NOTE | 2018-08-01 04:34 | PC.NURSE ---
Patient asleep most of night, but now awake and sitting up in bed. When asked if she needed to use bathroom states yes. Assisted to BSC with 2 assists with some noted weakness/dragging of left LE. Has expressive aphasia but does answer yes/no questions and occasionally one or more words is understandable and appropriate. Does not always follow directions so difficult to assess NIH accurately. Breath sounds CTA with RA sat of 96%. HRR with telemetry reading of SB. Denies nausea. BT present and abdomen is soft. Has been continent of urine. Turns self in bed. Denies pain. Fall risk score is high and bed alarm is activated.
[2018-08-01] MEDS: ALBUTEROL/IPRATROPIUM MDI 1 PUFF INH ×4 (05:43→17:54)
--- NOTE | 2018-08-01 09:29 | PM.PN.1 ---
Subjective Date Patient Seen: 08/01/18 Time Patient Seen: 09:29 Interval history: Patient admitted with a stroke from the ER yesterday to the hospitalist service She has an expressive and receptive aphasia. May have been some left-sided weakness as well. That seems to be improved. Did have evidence of a subacute infarction on MRI. Please see that report for details Exam Vital Signs (past 8 hours): - 08/01/18 04:16 08/01/18 04:17 08/01/18 05:44 Temperature 98.8 F Pulse Rate 64 Respiratory Rate 18 Blood Pressure 131/63 Pulse Oximetry 96 96 97 Oxygen Delivery Method Room Air Oxygen Flow Rate 0 Narrative Exam Narrative: Vitals-as above Eyes-conjunctiva lids and pupils unremarkable Ears, nose, mouth and throat-patient's hearing is unchanged, no new abnormalities of lips teeth and gums or nasal mucosa, hearing unchanged Neck-no bruits no lymphadenopathy Lungs-normal to percussion and palpation anteriorly and posteriorly with good breath sounds throughout. No wheezes no crackles. Heart- Normal S1-S2, regular rate and rhythm, no murmur, rub, or gallop. PMI normal in size and location Abdomen-positive bowel tones, soft, nontender, nondistended, no organomegaly, no masses palpable Extremities-no cyanosis clubbing or edema Neuro-patient moving all 4 extremities, no change in muscle strength which appears normal throughout upper and lower extremities, left and right, deep tendon reflexes normal and unchanged, no new sensory loss that I can determine although patient's aphasia makes it difficult to be sure were communicating appropriately, Objective Labs Result Diagrams: 07/31/18 08:05 07/31/18 08:05 Labs: Laboratory Results - last 24 hr 07/31/18 07/31/18 07/31/18 08:05 08:05 19:40 Hemoglobin A1c 5.7 Triglycerides 114 Cholesterol 221 H LDL Cholesterol, Calc 118 H HDL Cholesterol 80 H Urine Color Yellow Urine Appearance Clear Urine pH 7.0 Ur Specific New Site 1.010 Urine Protein Negative Urine Glucose (UA) Negative Urine Ketones 1+ H Urine Occult Blood Negative Urine Nitrate Negative Urine Bilirubin Negative Urine Urobilinogen 0.2 Ur Leukocyte Esterase Negative Urine RBC None seen Urine WBC None seen Urine Bacteria None seen Ur Culture Indicated? Cult not indicated Micro UA Comment Microscopic normal Assessment & Plan Assessment & Plan narrative: 1. CVA-continue with speech therapy primarily but also have occupational and physical therapy see her. No evidence of dysrhythmia and location and size of her stroke would argue against a being a thrombotic or embolic episode more likely small vessel disease which is consistent lack of findings on her CT angiogram as well. 2. Hypertension-patient remains off her antihypertensives but blood pressure is under good control. Actually might have been somewhat more helpful to have some permissive hypertension to maximize blood flow to the brain matter at risk but for now will remain off her antihypertensives 3. Hyperlipidemia-been switched to atorvastatin which is more affective and might reduce risk of further stroke 4. Asthma-stable. Continue with usual inhalers as ordered by hospitalist upon admission Quality VTE Deep Vein Thrombosis/Pulmonary Embolism Present on Admission: No
[2018-08-01] MEDS: CLOPIDOGREL 75 MG TABLET PO (09:38)
[2018-08-01] MEDS: ASPIRIN EC 81 MG TABLET PO (09:38)
[2018-08-01] MEDS: HEPARIN 5,000 UNIT/ML VIAL 5000 UNIT SUBCUT ×2 (09:38→20:58)
--- NOTE | 2018-08-01 10:53 | PT.IIE ---
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 (07/31/18) Surgical History (Last Updated 07/31/18 @ 17:35 by Sapphire Leigh DO) H/O cataract removal with insertion of prosthetic lens (Acute) H/O total hip arthroplasty (Acute) Hx of cholecystectomy (Acute) Status post arthroscopy Medical History (Last Reviewed 07/31/18 @ 17:34 by Sapphire Leigh DO) Essential hypertension (Chronic) Hyperlipidemia (Chronic) Chronic renal failure, stage 2 (mild) (Chronic 08/17/17) Chronic cholecystitis (Chronic) Menopausal syndrome (Chronic 11/02/11) Asthma (Chronic) Mass of breast (Inactive 11/02/11) History of pulmonary embolism (Inactive 11/02/11) Tachycardia (Acute) Physical Therapy Inpatient Evaluation/Re-Eval M1 PT/OT-IP Prior Functional Status Start: 07/31/18 15:10 Freq: NEEDED Status: Active Protocol: Document 08/01/18 09:45 (Rec: 08/01/18 10:53 [email or web address]) Medical Review Prior Functional Status Medical History Reviewed Yes Communication No deficits noted Mobility and Gait Pt was independent at home and community without using AD. Pt also drives as well. 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 Social History Household Members spouse Living Arrangements House Number of Floors (Floors) One Floor Number of Stairs To Enter/Railing? 2 LUÍS, 1 step down to her room inside of the house Home Environment Standard Height Toilet Tub/Shower Home Equipment Front Wheel Walker Straight Cane Grab Bars In Shower Employment Status Retired Additional Social History Comment Due to patient's word salad, the entirety of her history of present illness was gathered from her . Pt admitted to 07/31/18 due to garbled speech found by her . CT brain without contrast did not demonstrate any acute intracranial abnormalities. CTA did not demonstrate acute CVA. MR stroke protocol was obtained and demonstrated an acute left temporoparietal CVA and she was admitted for further management. Pt lives with her in a 1 story home. Pt was very active and independent who was volunteering at and able to amb couple miles a day occasionally. M2 PT-IP Current Condition Start: 07/31/18 15:10 Freq: NEEDED Status: Active Protocol: Document 08/01/18 09:45 HH (Rec: 08/01/18 10:53 [email or web address]) Physical Therapy Current Condition Current Condition Evaluation Date 08/01/18 Treatment Diagnosis L temporoparietal CVA, impaired gait and balance Onset Date 07/31/18 Weight Bearing Status Weight Bearing Status Weight Bear as Tolerated M3 PT-IP Subjective Start: 07/31/18 15:10 Freq: NEEDED Status: Active Protocol: Document 08/01/18 09:45 HH (Rec: 08/01/18 10:53 [email or web address]) Subjective Physical Therapy Visit Type Type Initial Evaluation Visit Start Time 09:45 Visit Stop Time 10:15 Total Visit Minutes 30 Notes Per RN, pt got up to use BSC with 2pa this am. Pt has aphasia (expressive> receptive ) and noticeable R visual field loss. Number of CIVIL DRAFTING TECHNICIAN Visits 0 Physical Therapy Visit Comments Patient Comments I feel fine but my language is not good. Patient Goals To return home with her . Therapy Pain Assessment Pain Present Pain Present Denied Pain M4 PT-IP Mobility and Gait Start: 07/31/18 15:10 Freq: NEEDED Status: Active Protocol: Document 08/01/18 09:45 HH (Rec: 08/01/18 10:53 [email or web address]) PT-Transfer Assessment Sit to and From Stand Sit to and from Stand Contact Guard Assistance Use of Upper Extremities Equipment Transfer Assistive Device Gait Belt Front Wheeled Walker Transfers Transfer Destination Bed Chair Transfer Technique Stand Step Pivot Transfer Ability Level of Assist Contact Guard Assistance 1 Person Assistance Use of Upper Extremities Comments Mobility Comments Pt was up in bedside chair upon assessment. Pt appeared to have difficulty following commmands from time to time and required constant tactile cues for guidance. Pt was able to stand up with CGA and stand infront of counter to brush teeth and comb hair with SBA. She then transferred herself back to chair with FWW CGA but demonstrated poor eccentric control from stand to sit. Gait Assessment Gait Gait Assistance Required: Contact Guard Assist Minimum Assistance 1 Person Assist Distance (Feet) 200 Able to Maintain Weight Bearing Status Yes During Gait Assistive Devices Assistive Device Gait Belt Front Wheeled Walker Gait Deviations General Gait Pattern Ataxic Decreased Stride Length Decreased Feet Clearance Narrow Based Gait Factors Limiting Gait Function Factors Limiting Gait Function Decreased Activity Tolerance Decreased Strength Poor Balance Poor Safety Awareness Comments Gait Comments Pt amb from bedside chair to hallway and returned to bedside chair. Attempted amb without AD but gait belt for first 20 fts. Pt presented ataxic gait and occasionally cross her steps over midline. She states I feel wobbly. FWW was given after and pt was able to amb with a steadier gait with uneven steps occasionally but cont required CGA/ min A from time to time due to her impaired balance and possible R side visual field loss. Pt also required tactile cues for directional guidance. Stair Climbing Assessment Comments Stair Climbing Comments did not attempt PT-Balance Assessment Sitting Balance and Reactions Static Sitting Balance Ability Good Dynamic Sitting Balance Ability Good Standing Balance and Reactions Static Standing Balance Ability Good Dynamic Standing Balance Ability Fair Comments Other Balance Tests/Deviations/Treatment Pt has difficulty : understanding instructions. M5 PT-IP Objective Assessments Start: 07/31/18 15:10 Freq: NEEDED Status: Active Protocol: Document 08/01/18 09:45 HH (Rec: 08/01/18 10:53 [email or web address]) Orientation Orientation/Cognition Level of Alertness Alert Orientation Name Age Birthday Month Language Function Ability Expressive Aphasia Receptive Aphasia Garbled Speech Word Finding Difficulties Safety Awareness Decreased Safety Awareness Gross Range of Motion Upper Extremity ROM Assessment Within Functional Limits Lower Extremity ROM Assessment Within Functional Limits Strength Upper Extremity Strength Assessment Left Impaired Lower Extremity Strength Assessment Left Impaired Comments Strength Comments Pt has difficulty following commands. She tends to move all of her extremities therefore it is difficult to assess muscle weakness. But she does demonstrate some degree of weakness on L UE while she was asked to pull and push therapist arm; uneven steps during amb. Coordination Assessment Gross Coordination Gross Coordination Impaired Assessment Coordination Comments Pt has difficulty following commands. Sensation Assessment Comments Sensation Comments Pt has difficulty understanding instructions. M6 PT-IP Treatment Start: 07/31/18 15:10 Freq: NEEDED Status: Active Protocol: Document 08/01/18 09:45 HH (Rec: 08/01/18 10:53 [email or web address]) Physical Therapy Treatment Education Education Provided Safety M7 PT-IP Assessment and Plan Start: 07/31/18 15:10 Freq: NEEDED Status: Active Protocol: Document 08/01/18 09:45 HH (Rec: 08/01/18 10:53 [email or web address]) PT Summary Assessment and Plan Potential Rehabilitation Potential Good Status of Condition at Evaluation Evolving Summary Impairments Strength Balance Coordination Cognition Bed Mobility Transfers Gait Activity Tolerance Assessment Summary Juliet Tolentino is a 82-year-old female admitted to post acute left temporoparietal CVA . Upon assessment, She is unable to follow commands. She has clear speech at times but continues to have word salad/incoherent sentences. She is moving all of her extremities therefore it is difficult to assess muscle weakness/ sensation deficits/ balance deficits. However, pt was able to tolerate session quite well with amb 200 ft with FWW CGA/min A. Pt seemed to understand how to use objects (comb/ tooth brush/ chair/ FWW) around but have difficulty understanding instructions and expressing her thoughts. There is noticeable ataxic gait, impaired balance and slight L sided weakness during transfer and gait assessment. Pt is far from baseline in terms of her functional level and is not safe to be d/c home due to high fall risks. But pt will be able to tolerate intensive stroke for 3 hours a day at acute rehab due to her good activity tolerance. Goals Bed Mobility Goal Contact Guard Assistance Transfer Goal Contact Guard Assistance Front Wheeled Walker Gait Goal Contact Guard Assistance Front Wheel Walker Gait Distance 500 Other Goals climb 2 steps with 1 rail Days to Meet Goals 5 Frequency of Treatment Frequency Of Treatment Twice a Day Treatment Plan Physical Therapy Treatment Plan Bed Mobility Training Transfer Training Gait Training Therapeutic Exercise Balance Retraining Discharge Planning Other Recommendations and Next Treatment gait training and transfer Focus training as maurice use FWW due to ataxic gait Recommendations To Nursing Amount of Assist Needed 1 Person Assist Discharge Recommendations PT Discharge Recommendations Acute Rehab Equipment Needed for Home Before FWW, shower chair Discharge
--- NOTE | 2018-08-01 12:24 | ST.IPIE ---
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 (07/31/18) Past Medical History (Last Reviewed 07/31/18 @ 17:34 by Sapphire Leigh DO) Essential hypertension (Chronic Medical) Hyperlipidemia (Chronic Medical) Chronic renal failure, stage 2 (mild) (Chronic Medical 08/17/17) Chronic cholecystitis (Chronic Medical) Menopausal syndrome (Chronic Medical 11/02/11) Asthma (Chronic Medical) Mass of breast (Inactive Medical 11/02/11) History of pulmonary embolism (Inactive Medical 11/02/11) Tachycardia (Acute Medical) ST IP Initial Evaulation Report 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 Per report, yesterday evening his began having garbled speech at around 8:45 p.m. She told him several times that she was ? fine,? therefore, he did not take her to the ED and they went to bed. When they woke is morning she continued to have worsening garbled speech and he noticed that she was wobbly with ambulation so he decided to take her to the ED at that time. MR stroke protocol was obtained and demonstrated an acute left temporoparietal CVA. Subjective Observations Pt was resting in bed and aroused to verbal greeting. Pt attempted to say she was trying to take snooze (I was sloozing) but agreeable to swallow evaluation. She was positioned upright in bed. She did require demonstration and tactile prompts to follow instructions to cross her arms for boosting in bed and c/o of discomfort with pillow behind her head in upright position in bed. She appeared to have some pain at her neck, as demonstrated by pointing to her neck and saying, No, no, no until pillow was removed. Evaluation Liquids Trialed Ice Chips Thin Solids Trialed Puree Dysphagia Mechanical Dysphagia Advanced Regular Administration Type Tea Spoon Cup Single Sip Cup Consecutive Sips Straw Dependent Feeding Oral Impairment Mildly Impaired Oral Strategies Upright at 90 degrees Oral Phase Comments Oral Peripheral Exam limited d /t pt difficulties following directions. Minimal possible right side facial droop present. All other structures appear symmetrical. No significant difference in left vs ride side strength. Pt has natural dentition that appears to be in adequate condition. Unable to visualize full dentition or soft palate as pt opened mouth only partially for visualization. Significant difficulties following oral commands is obvious, with some benefit from visual demonstration and tactile prompts, ~30-40% accuracy with this support. Oral Phase: Pt unable to follow commands for volitional swallow; instead tucked chin. Delayed oral acceptance and manipulation of ice chip upon first presentation. Improved acceptance with second chip but no swallow with either ice chip trial, though pt stated, Oh, that's good. Extensive and effortful mastication was observed with regular texture of dry turkey sandwich. Otherwise, oral prep and swallow phases appear to be WFL with timely swallow and appropriate adequate oral clearance. Pt was able to self-feed cup sips and all solid trials. Some confusion with straw was observed and required intermittent assistance as pt was attempting to drink from the lid of the cup. Pharyngeal Impairment WFL Pharyngeal Strategies Sitting Upright (90 deg) Pharyngeal Phase Comments No overt s/sx of aspiration observed with all trials of thin liquid from spoon, cup, and straw in single and consecutive sips, applesauce, diced peaches, egg salad, and turkey sandwich. Pt maintained clear voice throughout. Findings Dysphagia Type Mild Oral Dysphagia. Rehabilitation Potential Excellent Impressions Pt presents with mild oral dysphagia characterized by extensive and effortful mastication of advanced textures. Prognosis for dysphagia is excellent. General aspiration precautions were explained to the pt verbally but will need reinforcement, possibly with picture board, particularly need to be upright for all intake. Pt also presents with fluent Wernicke's type aphasia characterized by fluent speech primarily consisting of jargon and neologisms with intermittent islands of clear speech which largely appear to be appropriate to situation/ topic. Prosodic features and speech articulation are WNL. She exhibits moderate to severe auditory comprehension deficits for direct commands. Comprehension of conversational speech is improved but still significantly impaired. The pt only intermittently appears aware of her garbled speech, for example when unable to independently state her name. When given direct model of her name, the pt recognized it, attempted to say it with the Clinician but appeared unaware that she had not said it correctly at all. Further assessment of expressive and receptive language skills to be administered and prognosis for rehabilitation to be determined tomorrow. Diet Recommendations Liquids Order Thin Diet Order Dysphagia Advanced Medication Recommendations As Tolerated Aspiration Precautions Recommended Precautions Upright at 90 Degrees Small Bites/Sips Additional Precautions May require setup assistance and assistance drinking from straw. Treatment Plan Placement Recommendations after Snf Facility Discharge Inpatient Rehab Facility Appropriate for Therapy Yes Therapy Recommendations Ongoing assessement of swallow safety to advance diet. Further assessment of expressive/receptive language skills and development of treatment goals. Dysphagia Goals Pt will tolerate least restrictive diet to meet her nutrition and hydration needs. Pt will follow general aspiration precautions with minimal visual/verbal prompts to reduce risk of aspiration. HEALTH SAFETY MANAGER Language Evaluation Start: 07/31/18 17:49 Freq: Status: Active Protocol: Document 08/01/18 09:36 NASREEN (Rec: 08/01/18 09:37 NASREEN [id number]) Language Evaluation Session Time Visit Start Time 08:40 Visit Stop Time 09:25 Total Visit Minutes [address] 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 Per report, yesterday evening his began having garbled speech at around 8:45 p.m. She told him several times that she was ? fine,? therefore, he did not take her to the ED and they went to bed. When they woke is morning she continued to have worsening garbled speech and he noticed that she was wobbly with ambulation so he decided to take her to the ED at that time. MR stroke protocol was obtained and demonstrated an acute left temporoparietal CVA. Hearing Hearing Level Normal Vision Vision Status Not Impaired [place] Language Language(s) Spoken in the Home [place] Subjective Subjective The pt was awake in bed looking at newspaper. Her , Micha, was at bedside. Unclear if pt recognized HEALTH SAFETY MANAGER from yesterday's swallow evaluation. She was agreeable to language evaluation. - Informal Assessment Receptive Language Normal No: Moderate-Severe Expressive Language Normal No: Severe fluent expressive aphasia Articulation Normal Yes Cognition Normal Unable to test d/t receptive/ expressive deficits Assessment Findings Pt presents with severe Wernicke's type aphasia. Expressive language: Severe anomia. Speech is dominated by neologisms so that output consists of prosodic, fluent -sounding jargon with occasional islands of clear speech, which is inconsistently appropriate to topic/situation. Automatic speech, confrontational naming, and repetition: 0% Written expression: Pt able to copy own name with 77% accuracy. Unable to write own name or common item independently. Did not copy other word or alphabet letters, but instead perseverated on writing b and d. Receptive language: Pt only occasionally able to follow directions when part of an automatic task sequence. For example, she did not follow command to give me the spoon , but when a hand was extended toward the spoon, she gave the spoon. All apparent receptive language deficits are at least in part impacted by pt's difficulty following directions, making other aspects of comprehension difficult to measure and requiring ongoing assessment. Yes/No Questions: Unreliable, though pt is stimulable to pointing to Yes No words, which will be a good starting place for therapy. Picture-Word Matchin% acc (1/6 opportunities) Confrontational Identification of words, letters, pictures: 0% (Pt was asked to point to items on a communication board ) Single Word Reading: Given word book, pt expressed extensive utterances with word book produced intermittently x2, indicating some degree of comprehension. The pt exhibited extensive frustration in attempting to speak, sometimes recognizing and attempting to correct errors and at other times making no correction attempts. She seemed adamant to demonstrate or explain what she is able to do or knows in her mind, but she was unable to carry out demonstrations or explanations. During tasks involving real objects and in repetition tasks, the pt grabbed at objects and at the clinician's hands and even mouth, squeezing the clinician 's lips and cheeks. This appeared to demonstrate agitation and frustration as opposed to aggression. Education was provided to the pt and her regarding Wernicke's aphasia and need for intensive therapy from this point forward. Her ask what he could do to help. Yes/No card was left in pt's room, and the pt's was instructed to simply model answering such questions by pointing to the appropriate word in order to familiarize the pt with the task, which will be trained in treatment. Communication with the pt is likely to be very difficult at this time and may be best approached through yes/no questions, field of 2 object choices, and instructions given through natural conversation or actions and demonstration with tactile cues as needed rather than direct commands. Recommendations Intensive aphasia therapy and pt/family education. - Receptive Language - Expressive Language - Treatment Goals Short Term Goals The pt will participate in further assessment of expressive and receptive language skills to guide POC and determine most viable avenue for pt to communicate her wants and needs and comprehend information related to self, family, and care. Recommend training of responses to yes/no questions and word-object matching to facilitate basic communication in hospital setting. Correction Goals Given external supports as needed (e.g., communication board, visual choices, etc.), the pt will communicate her basic wants and needs to participate in medical decisions. Given external supports as needed, the pt will follow simple instructions to participate in therapeutic tasks, ADLs, and medical procedures.
--- NOTE | 2018-08-01 15:00 | PT.IPTN ---
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 (07/31/18) Physical Therapy Treatment Note M2 PT-IP Current Condition Start: 07/31/18 15:10 Freq: NEEDED Status: Active Protocol: Document 08/01/18 09:45 HH (Rec: 08/01/18 10:53 HH [id number]) Physical Therapy Current Condition Current Condition Evaluation Date 08/01/18 Treatment Diagnosis L temporoparietal CVA, impaired gait and balance Onset Date 07/31/18 Weight Bearing Status Weight Bearing Status Weight Bear as Tolerated M3 PT-IP Subjective Start: 07/31/18 15:10 Freq: NEEDED Status: Active Protocol: Document 08/01/18 15:00 GGD (Rec: 08/01/18 16:25 GGD [email or web address]) Subjective Physical Therapy Visit Type Type Treatment Note Visit Start Time 14:35 Visit Stop Time 15:00 Total Visit Minutes 25 Number of MANAGER CAMP Visits 1 Physical Therapy Visit Comments Patient Comments Pt willing to work with therapy. M4 PT-IP Mobility and Gait Start: 07/31/18 15:10 Freq: NEEDED Status: Active Protocol: Document 08/01/18 15:00 GGD (Rec: 08/01/18 16:25 GGD [id number]) PT-Transfer Assessment Sit to and From Stand Sit to and from Stand Contact Guard Assistance Use of Upper Extremities Equipment Transfer Assistive Device Gait Belt Front Wheeled Walker Transfers Transfer Destination Chair Transfer Technique Stand Step Pivot Transfer Ability Level of Assist Contact Guard Assistance 1 Person Assistance Use of Upper Extremities Gait Assessment Gait Gait Assistance Required: Contact Guard Assist Minimum Assistance 1 Person Assist Distance (Feet) 230 Able to Maintain Weight Bearing Status Yes During Gait Assistive Devices Assistive Device Gait Belt Front Wheeled Walker Gait Deviations General Gait Pattern Ataxic Decreased Stride Length Decreased Feet Clearance Narrow Based Gait Factors Limiting Gait Function Factors Limiting Gait Function Decreased Activity Tolerance Decreased Strength Poor Balance Poor Safety Awareness Comments Gait Comments Pt mild LOB with turns needing min A, and min A for FWW management. Stair Climbing Assessment Evaluation Level of Assist On Stairs Contact Guard Assistance Minimal Assistance Devices Stair Climbing Assistive Devices Left Railing Right Railing Technique/Endurance Stair Climbing Direction Ascend and Descend Stair Climbing Technique Step Over Step Number of Steps Climbed 3 Query Text: Stair Climbing Set # Repetitions (reps) 1 Comments Stair Climbing Comments mild LOB with descending steps , needing min A. PT-Balance Assessment Comments Other Balance Tests/Deviations/Treatment sit to stand from chair : without UE M5 PT-IP Objective Assessments Start: 07/31/18 15:10 Freq: NEEDED Status: Active Protocol: Document 08/01/18 09:45 HH (Rec: 08/01/18 10:53 [id number]) Orientation Orientation/Cognition Level of Alertness Alert Orientation Name Age Birthday Month Language Function Ability Expressive Aphasia Receptive Aphasia Garbled Speech Word Finding Difficulties Safety Awareness Decreased Safety Awareness Gross Range of Motion Upper Extremity ROM Assessment Within Functional Limits Lower Extremity ROM Assessment Within Functional Limits Strength Upper Extremity Strength Assessment Left Impaired Lower Extremity Strength Assessment Left Impaired Comments Strength Comments Pt has difficulty following commands. She tends to move all of her extremities therefore it is difficult to assess muscle weakness. But she does demonstrate some degree of weakness on L UE while she was asked to pull and push therapist arm; uneven steps during amb. Coordination Assessment Gross Coordination Gross Coordination Impaired Assessment Coordination Comments Pt has difficulty following commands. Sensation Assessment Comments Sensation Comments Pt has difficulty understanding instructions. M6 PT-IP Treatment Start: 07/31/18 15:10 Freq: NEEDED Status: Active Protocol: Document 08/01/18 09:45 HH (Rec: 08/01/18 10:53 [email or web address]) Physical Therapy Treatment Education Education Provided Safety M7 PT-IP Assessment and Plan Start: 07/31/18 15:10 Freq: NEEDED Status: Active Protocol: Document 08/01/18 15:00 GGD (Rec: 08/01/18 16:25 GGD [id number]) PT Summary Assessment and Plan Summary Assessment Summary Pt impulsive with mobility. She is unable to follow commands. She had mild LOB with gait with FWW. She improved with sit <> stand control. She is a high fall risk and would benefit from skilled rehab. Frequency of Treatment Frequency Of Treatment Twice a Day Treatment Plan Physical Therapy Treatment Plan Bed Mobility Training Transfer Training Gait Training Therapeutic Exercise Balance Retraining Discharge Planning Other Recommendations and Next Treatment gait training and transfer Focus training as maurice use FWW due to ataxic gait Recommendations To Nursing Amount of Assist Needed 1 Person Assist Discharge Recommendations PT Discharge Recommendations Acute Rehab Equipment Needed for Home Before FWW, shower chair Discharge
--- NOTE | 2018-08-01 16:47 | CM.DANOTE ---
DCP/Assessment: Reviewed chart. Patient is a 82yr old female admitted to [facility].. with stroke like symptoms. Pateint's PCP is Dr. Melvin. Primary payor is 1)[facility]. Met with patient explained CM/SW role. Patient sitting in recliner having lunch at time of visit. Per ST in AM rounds patient with speech deficit. PT/OT evaluations pending. Patient somewhat frustrated during assessment because of her limitations with speech. Patient can answer yes/no questions but has obvious difficulty with finding right words. Anticipate that patient may need SNF vs. intensive outpatient ST. Unclear at this time secondary to patient's deficit. Patient's spouse not in room. P: Pending. CM team to continue to follow closely and f/u with therapy recommendations. 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 Yes Advance Directives on File No History Provided By Patient Medical Record Has Patient been admitted in last 30 No days? Prior Living Arrangements House Household Members spouse Independent with ADL's Yes: Patient with speech deficits Is patient alert and oriented? Yes Caregiver for Another No Comment Pending needs Review Status In Process Please Provide Date Initial DC 08/01/18 Assessment Was Performed Next Review Type Continued Stay Review
[2018-08-01] MEDS: FLUTICASONE/SALMETEROL 250/50 14 PUFF DISKUS INH (17:54)
--- NOTE | 2018-08-01 18:01 | PC.NURSE ---
Profound expressive aphasia with word-finding and syntax deficits; comprehensive aphasia present as evidenced by patient's difficulty following directions; pt is cooperative and receptive to gestures and simple sentences; no motor deficits noted; altered gait mainly an issue of impulsive movements; 1-asst to bathroom; pt in chair with chair alarm and call light and belongings in reach.
--- NOTE | 2018-08-01 18:49 | OT.IP.EVAL ---
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 (07/31/18) Past Medical History (Last Reviewed 07/31/18 @ 17:34 by Sapphire Leigh DO) Essential hypertension (Chronic) Hyperlipidemia (Chronic) Chronic renal failure, stage 2 (mild) (Chronic 08/17/17) Chronic cholecystitis (Chronic) Menopausal syndrome (Chronic 11/02/11) Asthma (Chronic) Mass of breast (Inactive 11/02/11) History of pulmonary embolism (Inactive 11/02/11) Tachycardia (Acute) Surgical History (Last Updated 07/31/18 @ 17:35 by Sapphire Leigh DO) H/O cataract removal with insertion of prosthetic lens (Acute) H/O total hip arthroplasty (Acute) Hx of cholecystectomy (Acute) Status post arthroscopy Occupational Therapy Inpatient Evaluation/Re-Eval M1 PT/OT-IP Prior Functional Status Start: 07/31/18 15:10 Freq: NEEDED Status: Active Protocol: us: Active Protocol: Document 08/01/18 18:19 [facility] (Rec: 08/01/18 18:48 [facility] [id number]) Medical Review Prior Functional Status Medical History Reviewed Yes Communication No deficits noted Mobility and Gait Pt was independent at home and community without using AD. Pt also drives as well. 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 Social History Household Members spouse Living Arrangements House Number of Floors (Floors) One Floor Number of Stairs To Enter/Railing? 2 LUÍS, 1 step down to her room inside of the house Home Environment Standard Height Toilet Tub/Shower Home Equipment Front Wheel Walker Straight Cane Grab Bars In Shower Employment Status Retired Additional Social History Comment Due to patient's word salad, the entirety of her history of present illness was gathered from her . Pt admitted to 07/31/18 due to garbled speech found by her . CT brain without contrast did not demonstrate any acute intracranial abnormalities. CTA did not demonstrate acute CVA. MR stroke protocol was obtained and demonstrated an acute left temporoparietal CVA and she was admitted for further management. Pt lives with her in a 1 story home. Pt was very active and independent who was volunteering at and able to amb couple miles a day occasionally. 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 M2 OT-IP Current Condition Start: 08/01/18 18:19 Freq: Status: Active Protocol: Document 08/01/18 18:19 [facility] (Rec: 08/01/18 18:48 [facility] [id number]) Occupational Therapy Current Condition Current Condition Evaluation Date 08/01/18 Treatment Diagnosis Left temporaparietal CVA Diagnosis Onset Date 07/31/18 M3 OT- IP Subjective and Pain Start: 08/01/18 18:19 Freq: Status: Active Protocol: Document 08/01/18 18:19 [facility] (Rec: 08/01/18 18:48 [facility] [id number]) OT- Subjective Occupational Therapy Visit Type Type Initial Evaluation Visit Start Time 16:30 Visit Stop Time 17:15 Total Visit Minutes 45 Occupational Therapy Visit Comments Patient Comments Pt sitting in the recliner and present for OT eval. OT Pain Assessment Pain When Pain Assessed At Rest Pain Present Pain Present Denied Pain M4 OT- IP ADL's Start: 08/01/18 18:19 Freq: Status: Active Protocol: Document 08/01/18 18:19 [facility] (Rec: 08/01/18 18:48 [facility] [id number]) OT [id number] General Evaluation Diet Level for Self-Feeding Dysphagia diet Self-Feeding Ability Standby Assistance Comments OT Self-Feeding Comments Pt able to use utensil appropriately to self feed herself. Pt not actively using left hand to try to cut food with knife even though presented knife for pt to use. Pt able to cut brocoli with side of her fork. M5 OT- IP IADL's Start: 08/01/18 18:19 Freq: Status: Active Protocol: Document 08/01/18 18:19 [facility] (Rec: 08/01/18 18:48 [facility] [id number]) OT-Instrumental Activities of Daily Living Driving Driving Comments Prior pt completely independent with needs. M6 OT- IP Functional Cognition Start: 08/01/18 18:19 Freq: Status: Active Protocol: Document 08/01/18 18:19 [facility] (Rec: 08/01/18 18:48 [facility] [id number]) Cognitive Factors Limiting Selfcare Function Cognitive Ability Level of Alertness Alert Patient Orientation Name Attention Span Ability Capable of Focused Attention Unable to Focus Unable to Sustain Attention Ability to Follow Commands Able to Follow One Step Commands with Increased Time Able to Follow One Step Commands with Repetition Safety Awareness Underestimates Need for Assistance Problem Solving Ability Unable to Identify Errors Needs Assist to Identify Solutions Executive Function Ability Unable to Make Plans Unable to Organize Plans Unable to Remember Details Cognitive Tests ACL Pt not able to follow directions for [employer] at this time. Cognitive Comments Cognitive Assessment Comments Pt having word salad , and gets frustrated when not able have people understand her. Pt at times able to speak clearly esepcially for automatic responses. Pt not able to write letters when asked to copy letters. Pt having a hard time to understand directions. Pt able to follow directions for connecting numbers in sequence however when addition another variable of connecting numbers to letters in numerical and alphabetical sequence, pt unable to complete. Pt at times able to comprehend for example able to point to roses in floral arrrangement when asked , however when asked again not able to follow. Per PT to sequence through some grooming tasks while standing at the sink . OT- Vision and Hearing OT- Hearing Assessment OT- Hearing Assessment WFL OT- Vision Assessment Vision Assessment Comments To further assess. Pt able to scan numbers appropriately for [employer]. M7 OT- IP Mobility and Balance Start: 08/01/18 18:19 Freq: Status: Active Protocol: Document 08/01/18 18:19 [facility] (Rec: 08/01/18 18:48 [facility] [id number]) OT-Transfer Assessment Sit to and From Stand Sit to and from Stand Contact Guard Assistance Transfers Transfer Ability Contact Guard Assistance 1 Person Assistance Technique Transfer Destination Chair Transfer Technique Stand Step Pivot Devices Transfer Assistive Devices Gait Belt Front Wheeled Walker Comments Mobility Comments Pt able to stand with CGA and walk to the sink with CGA, pt a bit unsteady on her feet. OT- Balance Assessment Sitting Balance and Reactions Static Sitting Balance Ability Normal Dynamic Sitting Balance Ability Good Standing Balance and Reactions Static Standing Balance Ability Fair M8 OT- IP Objective Assessments Start: 08/01/18 18:19 Freq: Status: Active Protocol: Document 08/01/18 18:19 [facility] (Rec: 08/01/18 18:48 [facility] [id number]) OT Gross Range of Motion Upper Extremity Range of Motion Assessment Within Functional Limits OT- Coordination Assessment Comments Coordination Comments Pt able to pick pulling machine tender coins with both hands. M9 OT- IP Assessment and Plan Start: 08/01/18 18:19 Freq: Status: Active Protocol: Document 08/01/18 18:19 [facility] (Rec: 08/01/18 18:48 [facility] [id number]) OT Summary Assessment and Plan Potential Rehabilitation Potential Good Analytic Complexity at Evaluation Low Summary OT Impairments Balance Functional Cognition Functional Mobility Self-Feeding Grooming Dressing Toileting Bathing Toilet Transfers Shower Transfers Progress Towards Goals Slow Progress due to Activity Tolerance Slow Progress due to Cognition Assessment Summary Pt MOD complexity and main barriers are receptive and expressive aphasia, decreased dynamic balance, and decreased functional cognition for problem solving and executive thinking. Pt would benefit from intensive acute rehab. Goals Self-Feeding Goal Independent Grooming Goal Independent Dressing Goal Standby Assistance Toileting Goal Independent Bathing Goal Contact Guard Assistance Toilet Transfer Goal Standby Assistance Shower Transfer Goal Contact Guard Assistance Patient/Caregiver Education Goal Caregiver Independent Assisting Patient OT-Other Goals Shower and continue to assess vision. Days to Meet Goals 7 Frequency of Treatment Frequency Of Treatment Once a Day Treatment Plan OT Treatment Plan ADL Training Functional Cognition Training Functional Mobility Patient/Family Education Discharge Planning Other Treatment Recommendations and Next Shower and reassess vision. Treatment Focus Discharge Recommendations OT Discharge Recommendations Acute Rehab versus skilled rehab
--- NOTE | 2018-08-01 19:52 | PC.NURSE ---
Addendum entered by Kimberli Rondon 08/01/18 21:35: *patient continues to need a bed alarm per second to last sentence. Original Note: Patient has remained pleasant and cooperative. It was difficult to preform NIH stroke scale on this patient due to aphasia. Patient is unable to recite the words listed on the NIH scale such as mama and thanks, but when patient responds, the patient had little to no slurring of words. The patient is able to articulate words and phrases, however these responses are not appropriate to the questions asked. Patient has been able to express needs with simple words and gestures this shift. When the patient needs to use the bathroom, the patient says void and points to the bathroom door. The patient also been able to point to a water cup when thirsty, and gesture to move the head of bed up or down for comfort. This patient remains at high risk for falls. While assisting the patient to the bathroom, the patient neglected that there were blankets over lower extremities, then the patient abruptly stood up and tried to take a step with the blankets on. Student nurse moved blanket out of the way. Patient continues to need a bed. Bed is locked and call light is in place.
[2018-08-01] MEDS: ATORVASTATIN 20 MG TABLET 40 MG PO (20:58)
[2018-08-02] VITALS (14 sets, daily range): BP systolic 125–144; BP diastolic 58–80; PULSE 66–80; RESP 14–18; TEMP 36.4–37; O2SAT 94–98; BMI 26.6
--- NOTE | 2018-08-02 02:22 | PC.NURSE ---
Addendum entered by Zakia Gu R.N. 08/02/18 02:53: Attempted to restart IVF but patient adamant no that IVF not be restarted. Very clearly stated not need. Original Note: 0145 Patient awakened for assessment/vitals and displayed anger at any attempts to communicate. Occasional words vocalized including some profanity, but mostly demonstrating expressive aphasia. Not following all commands as also has some receptive aphasia although is able to make known when she needs to be toileted. Unable to perform NIH due to patient being uncooperative. Breath sounds CTA with RA sat of 94%. HRR with telemetry reading of SR. BT present and abdomen is soft. Did get up to BSC with 1-2 assists and did not note any dragging of foot tonight. Can be impulsive so is at high risk for falls and bed alarm is activated. Able to turn self in bed. Denies pain with FLACC of 0.
[2018-08-02] MEDS: ALBUTEROL/IPRATROPIUM MDI 1 PUFF INH ×4 (07:33→19:44)
[2018-08-02] MEDS: FLUTICASONE/SALMETEROL 250/50 14 PUFF DISKUS INH ×2 (07:33→19:44)
--- NOTE | 2018-08-02 08:35 | PM.PN.1 ---
Subjective Date Patient Seen: 08/02/18 Time Patient Seen: 08:35 Interval history: Patient per nursing notes seems to be stronger with her leg. It seems to move more appropriately Speech may be actually a little bit more comprehensible today. Her ability to understand seems to be improved a little bit. These are both fairly minimal however and very subjective Has been seen by PT OT and speech therapy. Recommendations are for detention placement or perhaps an acute rehab facility Exam Vital Signs (past 8 hours): - 08/02/18 01:40 08/02/18 01:45 08/02/18 06:28 Temperature 98.1 F 98.2 F Pulse Rate 67 66 Respiratory Rate 16 15 Blood Pressure 129/64 134/66 Pulse Oximetry 94 94 95 08/02/18 07:36 Temperature Pulse Rate 73 Respiratory Rate 16 Blood Pressure Pulse Oximetry 97 Fraction of Inspired Oxygen 21 Oxygen Delivery Method Room Air Oxygen Flow Rate 0 Objective Labs Result Diagrams: 07/31/18 08:05 07/31/18 08:05 Assessment & Plan Assessment & Plan narrative: 1. CVA-continue with skilled therapies here. I agree if appropriate discharge to an acute rehab facility would be an outstanding option. 2. History of hypertension-patient if anything is modestly hypotensive here. No change in treatment or medications 3. Asthma-patient's inhaled corticosteroid was restarted last evening. Somehow I failed to note that had not been ordered. Thus far she is asymptomatic. Overall patient is if anything perhaps minimally improved. I do expect there to be some degree of improvement given the location and nature of her stroke. She clearly will need some aggressive rehabilitation and I defer to the skilled therapies and discharge planning staff to help arrange appropriate discharged to an appropriate facility. Note: Greater than 30 minutes was spent evaluating the patient on the floor, including examining the patient, discussing clinical course with clinical and nursing staff, reviewing clinical course in the computer, preparing documentation and writing orders for continued management of care, discussing status with family as appropriate, reviewing plans for the next 24 hours with both patient/family and nursing staff as appropriate. Quality VTE Deep Vein Thrombosis/Pulmonary Embolism Present on Admission: No
--- NOTE | 2018-08-02 09:00 | ST.IPTN ---
MACHINE HOSE CUTTER Treatment Note MACHINE HOSE CUTTER Treatment Note Start: 07/31/18 17:49 Freq: Status: Active Protocol: Document 08/02/18 15:36 [facility] (Rec: 08/02/18 15:54 [facility] [id number]) Speech Pathology Treatment Note Session Time Total Visit Minutes 30 Setting Treatment Setting Acute Care Visit Type Note Type Treatment Note Next Note Type Next Note Type Treatment Note Subjective Identification Type Name Observations/Patient Presentation Patient was sitting up in the chair in her room. Her nurse and two student nurses present to give patient medication and administer NIH stroke scale. I observed ~5 minutes of this and then left the room . During this time, patient was observed to swallow her medication whole without liquids while making a grimacing face. She did not pick up truck driver the cup when I pointed to it, but when I placed it in her hand she took a sip and her face showed relief. She perseverated on the words void and agent . I returned ~30 minutes later to provide therapy. Patient's was present. Chief Complaint(s) Language Parent/Caretake Knowledge/Awareness of Fair MACHINE HOSE CUTTER Role in Treatment Objective Short Term Goals The pt will participate in further assessment of expressive and receptive language skills to guide POC and determine most viable avenue for pt to communicate her wants and needs and comprehend information related to self, family, and care. Recommend training of responses to yes/no questions and word-object matching to facilitate basic communication in hospital setting. Alf Goals Given external supports as needed (e.g., communication board, visual choices, etc.), the pt will communicate her basic wants and needs to participate in medical decisions. Given external supports as needed, the pt will follow simple instructions to participate in therapeutic tasks, ADLs, and medical procedures. Treatment Activities Following simple directions: patient was unable to independently follow commands without cues, however, when prompted with a visual model, she imitated actions such as touching her nose or sticking out her tongue. After this activity was over, she continued to perseverate on this task by touching her nose and ears in response to me asking yes/no questions. Yes/ questions: used visual cues for patient to point to yes/no. Earlier during the NIH stroke scale, I wrote down the numbers 20 and 80 and patient successfully pointed to 80 in response to How old are you?. Despite this, she did not point to yes/no questions on multiple attempts . This activity was discontinued when patient began to show frustration. Naming/imitation of speech: Prompted patient to name items around the room. Patient again perseverated by pointing to her nose or touching her ears. She was not able to imitate my words during naming . She was visibly frustrated at this point and gestured showing she did not comprehend my directions. This task was discontinued. Melodic Intonation Therapy: Sang Nathaly had a little martin and the alphabet song with patient. She was able to sing along using the right fatimah and fluent speech however, her words were jargon. She began to tear up at this time and managed to say this is stupid . Education was provided to the patient and her regarding aphasia, neuroplasticity and the importance of therapy. Therapy was discontinued. During discussion with her , patient stood up in her chair twice. She was adamant about proving what she was able to do and stated I want to walk now Assessment Patient Response to Treatment Fair Rehab Potential Good Impairments Identified Aphasia Auditory Comprehension Cognitive-Linguistic Skills Expressive Language Progress Towards Goals Slow Progress Assessment of Overall Progress Improving Assessment of Improvement Patient does have islands of clear speech and she has been able to communicate some ideas /wants. She continues to have moderate-severe receptive and expressive aphasia with lack of awareness of errors. Reviewed with Patient Goals Progress Being Made Patient/Caregiver Understanding Fair Plan Therapy Recommendations Continue with Current Program Comment Inpatient rehab upon d/c
[2018-08-02] MEDS: HEPARIN 5,000 UNIT/ML VIAL 5000 UNIT SUBCUT ×2 (09:15→20:39)
[2018-08-02] MEDS: ASPIRIN EC 81 MG TABLET PO (09:15)
[2018-08-02] MEDS: CLOPIDOGREL 75 MG TABLET PO (09:15)
--- NOTE | 2018-08-02 12:48 | PT.IPTN ---
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 (07/31/18) Physical Therapy Treatment Note M2 PT-IP Current Condition Start: 07/31/18 15:10 Freq: NEEDED Status: Active Protocol: Document 08/01/18 09:45 [facility] (Rec: 08/01/18 10:53 [facility] [id number]) Physical Therapy Current Condition Current Condition Evaluation Date 08/01/18 Treatment Diagnosis L temporoparietal CVA, impaired gait and balance Onset Date 07/31/18 Weight Bearing Status Weight Bearing Status Weight Bear as Tolerated M3 PT-IP Subjective Start: 07/31/18 15:10 Freq: NEEDED Status: Active Protocol: Document 08/02/18 10:55 [facility] (Rec: 08/02/18 12:47 [facility] [email or web address]) Subjective Physical Therapy Visit Type Type Treatment Note Visit Start Time 10:55 Visit Stop Time 11:15 Total Visit Minutes 20 Notes Pt amb with CATALOGUE COMPILER early this morning with FWW for 2 loops. Physical Therapy Visit Comments Patient Comments Pt agreeable to mobilize with PT with at bedside. Therapy Pain Assessment Pain Present Pain Present Denied Pain M4 PT-IP Mobility and Gait Start: 07/31/18 15:10 Freq: NEEDED Status: Active Protocol: Document 08/02/18 10:55 [facility] (Rec: 08/02/18 12:47 [facility] [id number]) PT-Transfer Assessment Sit to and From Stand Sit to and from Stand Contact Guard Assistance Use of Upper Extremities Equipment Transfer Assistive Device None Gait Belt Front Wheeled Walker Transfers Transfer Destination Chair Transfer Technique Stand Step Pivot Transfer Ability Level of Assist Contact Guard Assistance 1 Person Assistance Use of Upper Extremities Comments Mobility Comments Pt cont required cues during transfer to keep her FWW close / slow lowering from stand to sit. Gait Assessment Gait Gait Assistance Required: Contact Guard Assist Minimum Assistance 1 Person Assist Distance (Feet) 300 Able to Maintain Weight Bearing Status Yes During Gait Assistive Devices Assistive Device None Gait Belt Gait Deviations General Gait Pattern Ataxic Decreased Stride Length Decreased Feet Clearance Narrow Based Gait Factors Limiting Gait Function Factors Limiting Gait Function Decreased Activity Tolerance Decreased Strength Poor Balance Poor Safety Awareness Comments Gait Comments First attempt amb without AD today. Pt showed mild LOB with turns needing min A, cues for task sequences/ directional guidance. Stair Climbing Assessment Evaluation Level of Assist On Stairs Contact Guard Assistance Minimal Assistance Devices Stair Climbing Assistive Devices Left Railing Right Railing Technique/Endurance Stair Climbing Direction Ascend and Descend Stair Climbing Technique Step Over Step Number of Steps Climbed 3 Query Text: Stair Climbing Set # Repetitions (reps) 2 Comments Stair Climbing Comments mild LOB with descending steps , needing min A. M5 PT-IP Objective Assessments Start: 07/31/18 15:10 Freq: NEEDED Status: Active Protocol: Document 08/01/18 09:45 (Rec: 08/01/18 10:53 [email or web address]) Orientation Orientation/Cognition Level of Alertness Alert Orientation Name Age Birthday Month Language Function Ability Expressive Aphasia Receptive Aphasia Garbled Speech Word Finding Difficulties Safety Awareness Decreased Safety Awareness Gross Range of Motion Upper Extremity ROM Assessment Within Functional Limits Lower Extremity ROM Assessment Within Functional Limits Strength Upper Extremity Strength Assessment Left Impaired Lower Extremity Strength Assessment Left Impaired Comments Strength Comments Pt has difficulty following commands. She tends to move all of her extremities therefore it is difficult to assess muscle weakness. But she does demonstrate some degree of weakness on L UE while she was asked to pull and push therapist arm; uneven steps during amb. Coordination Assessment Gross Coordination Gross Coordination Impaired Assessment Coordination Comments Pt has difficulty following commands. Sensation Assessment Comments Sensation Comments Pt has difficulty understanding instructions. M6 PT-IP Treatment Start: 07/31/18 15:10 Freq: NEEDED Status: Active Protocol: Document 08/02/18 10:55 (Rec: 08/02/18 12:48 [email or web address]) Physical Therapy Treatment Other Treatments Other Treatment Performed marches in place M7 PT-IP Assessment and Plan Start: 07/31/18 15:10 Freq: NEEDED Status: Active Protocol: Document 08/02/18 10:55 (Rec: 08/02/18 12:47 [email or web address]) PT Summary Assessment and Plan Summary Assessment Summary Pt cont impulsive with mobility and required cues for task instructions. She cont showed mild LOB during turns and occasional foot crossing midline during amb. However, she amb without AD today CGA for a total of 300 feet. Pt cont demonstrates a need for constant SBA/CGA due to her high fall risks and impaired comprehension for safety instructions. Frequency of Treatment Frequency Of Treatment Twice a Day Treatment Plan Physical Therapy Treatment Plan Bed Mobility Training Transfer Training Gait Training Therapeutic Exercise Balance Retraining Discharge Planning Other Recommendations and Next Treatment gait training with or without Focus AD and transfer training as maurice balance training Recommendations To Nursing Amount of Assist Needed 1 Person Assist Discharge Recommendations PT Discharge Recommendations Acute Rehab Equipment Needed for Home Before FWW, shower chair Discharge
--- NOTE | 2018-08-02 12:51 | OT.IP.TRT ---
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 (07/31/18) Occupational Therapy Treatment Note M2 OT-IP Current Condition Start: 08/01/18 18:19 Freq: Status: Active Protocol: Document 08/01/18 18:19 [facility] (Rec: 08/01/18 18:48 [facility] [email or web address]) Occupational Therapy Current Condition Current Condition Evaluation Date 08/01/18 Treatment Diagnosis Left temporaparietal CVA Diagnosis Onset Date 07/31/18 M3 OT- IP Subjective and Pain Start: 08/01/18 18:19 Freq: Status: Active Protocol: Document 08/02/18 12:13 [facility] (Rec: 08/02/18 12:51 [facility] [email or web address]) OT- Subjective Occupational Therapy Visit Type Type Treatment Note Visit Start Time 11:30 Visit Stop Time 12:10 Total Visit Minutes 40 Occupational Therapy Visit Comments Patient Comments After encouragement, pt willing to take a shower. Pt agreeable to try to go to acute rehab for pt to get best possible outcomes for her speech and cognition before going home. OT Pain Assessment Pain When Pain Assessed At Rest Pain Present Pain Present Denied Pain M4 OT- IP ADL's Start: 08/01/18 18:19 Freq: Status: Active Protocol: Document 08/02/18 12:13 [facility] (Rec: 08/02/18 12:51 [facility] [email or web address]) OT ADL-Grooming General Evaluation Grooming Ability Standby Assistance Areas Needing Assistance Retrieving/Set-up of Grooming Items Comments OT Grooming Comments Pt able to comb her hair, wash her hands and face, OT ADL-Dressing General Eval Lower Body Dressing Ability Minimal Assistance Areas Needing Assistance Retrieving/Set-up of Clothing Socks Comments OT Dressing Comments Pt needing orientation for brief and assist to hope socks over her feet. OT ADL-Toileting General Evaluation Toileting Ability Standby Assistance Comments OT Toileting Comments Pt needing cues to point and give toilet paper to pt as forgot to wipe after using the toilet. OT ADL-Bathing Bathing Type Bathing Type Shower General Evaluation Bathing Ability Minimal Assistance Areas Needing Assistance Retrieving/Setting Up Items Wash/Dry Back Wash/Dry Lower Extremities Devices Bathing Equipment Hand Held Shower Sprayer Shower Chair without Arms Grab Bars Comments OT Bathing Comments Pt able to shower but needing REN to dry her feet, wash and dry back. Pt needing MOD vc for sequencing through task as pt forgetting to wash underneath her arms, and pericare area. Pt has a tub/shower at home and would benefit from a shower chair and in addition a grab bar or to assist to help get into and out of the shower and assist throughout task of showering for completeness and safety. M5 OT- IP IADL's Start: 08/01/18 18:19 Freq: Status: Active Protocol: Document 08/01/18 18:19 [facility] (Rec: 08/01/18 18:48 [facility] [email or web address]) OT-Instrumental Activities of Daily Living Driving Driving Comments Prior pt completely independent with needs. M6 OT- IP Functional Cognition Start: 08/01/18 18:19 Freq: Status: Active Protocol: Document 08/02/18 12:13 [facility] (Rec: 08/02/18 12:51 [facility] [email or web address]) Cognitive Factors Limiting Selfcare Function Cognitive Ability Level of Alertness Alert Patient Orientation Name Attention Span Ability Capable of Focused Attention Capable of Sustained Attention Unable to Sustain Attention Ability to Follow Commands Able to Follow One Step Commands with Increased Time Able to Follow One Step Commands with Repetition Memory Description Short Term Impaired Safety Awareness Underestimates Need for Assistance Problem Solving Ability Unable to Identify Errors Needs Assist to Identify Solutions Executive Function Ability Unable to Make Plans Unable to Organize Plans Unable to Remember Details Cognitive Comments Cognitive Assessment Comments Pt able to get appropriate words and phrases out at times , the water is too hot, oh I like that, I am just too tired. However mostly word salad. Pt able to read the words chocolate pudding, however when asked to read it again not able read it. OT- Vision and Hearing OT- Vision Assessment Vision Assessment Comments Noted some right neglect as not able to see tea on the right side of tray initially and knocked it over onto her lap and could not figure out what had happened. Pt also having difficulty to see and feel right side while trying to detach heart monitor leads. M7 OT- IP Mobility and Balance Start: 08/01/18 18:19 Freq: Status: Active Protocol: Document 08/02/18 12:13 [facility] (Rec: 08/02/18 12:51 [facility] [email or web address]) OT-Transfer Assessment Sit to and From Stand Sit to and from Stand Contact Guard Assistance Transfers Transfer Ability Contact Guard Assistance Minimal Assistance 1 Person Assistance Technique Transfer Destination Chair Shower Stall Toilet Transfer Technique Stand Step Pivot Devices Transfer Assistive Devices Gait Belt Front Wheeled Walker Comments Mobility Comments CGA for balance as a bit unsteady of her feet and REN for uneven surfaces REN for balance to step over threshold or shower. Pt a bit unsteady when lowering herself down to commode and needing use of grab bar to assist as well. OT- Balance Assessment Sitting Balance and Reactions Static Sitting Balance Ability Normal Dynamic Sitting Balance Ability Good Standing Balance and Reactions Static Standing Balance Ability Fair M8 OT- IP Objective Assessments Start: 08/01/18 18:19 Freq: Status: Active Protocol: Document 08/01/18 18:19 [facility] (Rec: 08/01/18 18:48 [facility] [email or web address]) OT Gross Range of Motion Upper Extremity Range of Motion Assessment Within Functional Limits OT- Coordination Assessment Comments Coordination Comments Pt able to mushroom picker coins with both hands. M9 OT- IP Assessment and Plan Start: 08/01/18 18:19 Freq: Status: Active Protocol: Document 08/02/18 12:13 [facility] (Rec: 08/02/18 12:51 [facility] [email or web address]) OT Summary Assessment and Plan Potential Rehabilitation Potential Good Analytic Complexity at Evaluation Low Summary OT Impairments Balance Functional Cognition Functional Mobility Self-Feeding Grooming Dressing Toileting Bathing Toilet Transfers Shower Transfers Progress Towards Goals Progressing Toward Goals Slow Progress due to Activity Tolerance Slow Progress due to Cognition Assessment Summary Pt able to get more appropriate words out especially during functional tasks when set-up for eating and doing showering needs. Pt still having trouble with problem solving through tasks of ADL's. Pt still having difficulty and dynamic balance and would benefit from acute rehab. Goals Self-Feeding Goal Independent Grooming Goal Independent Dressing Goal Standby Assistance Toileting Goal Independent Bathing Goal Contact Guard Assistance Toilet Transfer Goal Standby Assistance Shower Transfer Goal Contact Guard Assistance Patient/Caregiver Education Goal Caregiver Independent Assisting Patient Days to Meet Goals 6 Frequency of Treatment Frequency Of Treatment Once a Day Treatment Plan OT Treatment Plan ADL Training Functional Cognition Training Functional Mobility Patient/Family Education Discharge Planning Discharge Recommendations OT Discharge Recommendations Acute Rehab
--- NOTE | 2018-08-02 14:45 | PT.IPTN ---
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 (07/31/18) Physical Therapy Treatment Note M2 PT-IP Current Condition Start: 07/31/18 15:10 Freq: NEEDED Status: Active Protocol: Document 08/01/18 09:45 [facility] (Rec: 08/01/18 10:53 [facility] [id number]) Physical Therapy Current Condition Current Condition Evaluation Date 08/01/18 Treatment Diagnosis L temporoparietal CVA, impaired gait and balance Onset Date 07/31/18 Weight Bearing Status Weight Bearing Status Weight Bear as Tolerated M3 PT-IP Subjective Start: 07/31/18 15:10 Freq: NEEDED Status: Active Protocol: Document 08/02/18 14:47 [facility] (Rec: 08/02/18 15:05 [facility] [id number]) Subjective Physical Therapy Visit Type Type Treatment Note Visit Start Time 14:10 Visit Stop Time 14:40 Total Visit Minutes 30 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 M4 PT-IP Mobility and Gait Start: 07/31/18 15:10 Freq: NEEDED Status: Active Protocol: Document 08/02/18 14:47 [facility] (Rec: 08/02/18 15:05 [facility] [id number]) PT-Bed Mobility Assessment Rolling Level of Assist Independent Supine to Sit Supine to Sit Standby Assistance Sit to Supine Sit to Supine Standby Assistance Scooting Scooting to Edge of Bed Independent Scooting Up and Down in Bed Independent PT-Transfer Assessment Sit to and From Stand Sit to and from Stand Contact Guard Assistance Use of Upper Extremities Equipment Transfer Assistive Device None Gait Belt Transfers Transfer Destination Bed Transfer Ability Level of Assist Contact Guard Assistance 1 Person Assistance Use of Upper Extremities Gait Assessment Gait Gait Assistance Required: Contact Guard Assist 1 Person Assist Distance (Feet) 300 Able to Maintain Weight Bearing Status Yes During Gait Assistive Devices Assistive Device None Gait Belt Gait Deviations General Gait Pattern Ataxic Decreased Stride Length Decreased Feet Clearance Narrow Based Gait Factors Limiting Gait Function Factors Limiting Gait Function Decreased Activity Tolerance Decreased Strength Poor Balance Poor Safety Awareness Comments Gait Comments Mild unsteadiness with gait, but no LOB. Stair Climbing Assessment Evaluation Level of Assist On Stairs Contact Guard Assistance Minimal Assistance Devices Stair Climbing Assistive Devices Right Railing Technique/Endurance Stair Climbing Direction Ascend and Descend Stair Climbing Technique Step Over Step Number of Steps Climbed 3 Query Text: Stair Climbing Set # Repetitions (reps) 1 Comments Stair Climbing Comments Mild unsteadiness with descening steps. Functional Assessments Functional Tests Timed Up and Go 15 M5 PT-IP Objective Assessments Start: 07/31/18 15:10 Freq: NEEDED Status: Active Protocol: Document 08/01/18 09:45 [facility] (Rec: 08/01/18 10:53 [facility] [email or web address]) Orientation Orientation/Cognition Level of Alertness Alert Orientation Name Age Birthday Month Language Function Ability Expressive Aphasia Receptive Aphasia Garbled Speech Word Finding Difficulties Safety Awareness Decreased Safety Awareness Gross Range of Motion Upper Extremity ROM Assessment Within Functional Limits Lower Extremity ROM Assessment Within Functional Limits Strength Upper Extremity Strength Assessment Left Impaired Lower Extremity Strength Assessment Left Impaired Comments Strength Comments Pt has difficulty following commands. She tends to move all of her extremities therefore it is difficult to assess muscle weakness. But she does demonstrate some degree of weakness on L UE while she was asked to pull and push therapist arm; uneven steps during amb. Coordination Assessment Gross Coordination Gross Coordination Impaired Assessment Coordination Comments Pt has difficulty following commands. Sensation Assessment Comments Sensation Comments Pt has difficulty understanding instructions. M6 PT-IP Treatment Start: 07/31/18 15:10 Freq: NEEDED Status: Active Protocol: Document 08/02/18 14:47 [facility] (Rec: 08/02/18 15:05 [facility] [id number]) Physical Therapy Treatment Other Treatments Other Treatment Performed Heel toe gait M7 PT-IP Assessment and Plan Start: 07/31/18 15:10 Freq: NEEDED Status: Active Protocol: Document 08/02/18 14:47 [facility] (Rec: 08/02/18 15:05 [facility] [id number]) PT Summary Assessment and Plan Summary Assessment Summary Pt impulsive with mobility. She is improving with balance and stability with gait. Pt is at risk for falls. Frequency of Treatment Frequency Of Treatment Twice a Day Treatment Plan Physical Therapy Treatment Plan Bed Mobility Training Transfer Training Gait Training Therapeutic Exercise Balance Retraining Discharge Planning Other Recommendations and Next Treatment balance and dynamic gait. Focus Recommendations To Nursing Amount of Assist Needed 1 Person Assist Discharge Recommendations PT Discharge Recommendations Acute Rehab Equipment Needed for Home Before FWW, shower chair Discharge
--- NOTE | 2018-08-02 19:32 | PC.NURSE ---
Addendum entered by Sun Hernandez R.N. 08/02/18 22:32: @2210 pt tachycardic in the 150's per ICU and Tele; pt found sleeping and asymptomatic, although unable to verbally deny chest pain; BP 146/67; pulse strong and tachy in 130's; after 2 minutes, HR returned into the 80's; therapeutic communication provided to patient; Dr. Guevara notified regarding tachy episode; requests follow-up notification in the event of future tachycardia. Original Note: Comprehensive and active aphasia; NIH 4 r/t aphasia; pt expresses frustration with word-finding deficit, but receptive to reassurance; motor and sensory function intact; SBA with ambulation in hallway; bed alarm active
[2018-08-02] MEDS: ATORVASTATIN 20 MG TABLET 40 MG PO (20:40)
[2018-08-03] VITALS (16 sets, daily range): BP systolic 107–144; BP diastolic 59–74; PULSE 67–96; RESP 13–18; TEMP 36.3–37; O2SAT 94–99
--- NOTE | 2018-08-03 03:38 | PC.NURSE ---
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 More cooperative tonight by waiting until patient woke to go to the bathroom. NIH still difficult to assess due to patient's speech impairment but did mimic some of RN actions and words she does speak sound clear. Breath sounds CTA with RA sat of 96%. HRR. BT present and abdomen is soft. Is continent of urine and gets up with 1 assist + walker to bathroom. Able to turn self in bed. When asked denies pain. Fall risk score is high and bed alarm is activated.
[2018-08-03] MEDS: ALBUTEROL/IPRATROPIUM MDI 1 PUFF INH ×3 (06:05→17:37)
[2018-08-03] MEDS: FLUTICASONE/SALMETEROL 250/50 14 PUFF DISKUS INH ×2 (06:05→17:37)
--- NOTE | 2018-08-03 08:30 | P.PN_ITS ---
Subjective Date Patient Seen: 08/03/18 Time Patient Seen: 08:27 Interval history: I will patient from sleep this morning. She took a few moments or a couple of minutes to really orient. I think her speech is better this morning she is able to get more out that is intelligible and I think her ability to understand spoken word is much more significantly improved She got upset as I suggested that a inpatient rehab unit would be the best for her No other new complaints or issues identified Did have an episode of accelerated heart rate overnight and again while I was speaking with her this morning Exam Vital Signs (past 8 hours): - 08/03/18 02:22 08/03/18 02:23 08/03/18 05:32 Temperature 98.6 F 98.3 F Pulse Rate 73 81 Respiratory Rate 16 16 Blood Pressure 121/69 129/59 L Pulse Oximetry 96 96 96 08/03/18 06:05 Temperature Pulse Rate 70 Respiratory Rate 16 Blood Pressure Pulse Oximetry 99 Fraction of Inspired Oxygen 21 Oxygen Delivery Method Room Air Oxygen Flow Rate 0 Objective Labs Result Diagrams: 07/31/18 08:05 07/31/18 08:05 Assessment & Plan Assessment & Plan narrative: 1. CVA-patient's slowly improving to some degree with her aphasic both recept glo and expressive. I think she would benefit from an inpatient rehab unit for a couple of weeks anyway. Failing that the next best option I guess is going to be sending her home with outpatient in speech therapy as often as we can get that arranged for in the local community. She continues on Plavix plus aspirin as well as a high intensity statin therapy as the best method to prevent future strokes 2. SVT-patient with longstanding history of an SVT. She had her beta-js discontinued upon admission to allow for some permissive hypertension. Obviously she needs to be back on her beta-js which has been helpful in reducing her episodes of this SVT and I have restarted that this morning. Her other antihypertensive or so will remain off given her modest hypotension if anything. 3. Asthma-stable not an issue continue inhalers Overall patient I think would benefit from intensive rehab such as an acute inpatient unit. Note: Greater than 30 minutes was spent evaluating the patient on the floor, including examining the patient, discussing clinical course with clinical and nursing staff, reviewing clinical course in the computer, preparing documentation and writing orders for continued management of care, discussing status with family as appropriate, reviewing plans for the next 24 hours with both patient/family and nursing staff as appropriate. Quality VTE Deep Vein Thrombosis/Pulmonary Embolism Present on Admission: No
[2018-08-03] MEDS: HEPARIN 5,000 UNIT/ML VIAL 5000 UNIT SUBCUT ×2 (08:32→21:23)
[2018-08-03] MEDS: ASPIRIN EC 81 MG TABLET PO (08:32)
[2018-08-03] MEDS: SODIUM CHLORIDE 0.9% FLUSH 10 ML IV ×2 (08:32→21:43)
[2018-08-03] MEDS: CLOPIDOGREL 75 MG TABLET PO (08:32)
[2018-08-03] MEDS: POLYETHYLENE GLYCOL 3350 17 GM POWD.PACK PO (08:56)
[2018-08-03] MEDS: METOPROLOL ER 25 MG TABLET 37.5 MG PO ×2 (08:57→21:23)
--- NOTE | 2018-08-03 09:28 | PT.IPTN ---
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 (07/31/18) Physical Therapy Treatment Note M2 PT-IP Current Condition Start: 07/31/18 15:10 Freq: NEEDED Status: Active Protocol: Document 08/01/18 09:45 [facility] (Rec: 08/01/18 10:53 [email or web address]) Physical Therapy Current Condition Current Condition Evaluation Date 08/01/18 Treatment Diagnosis L temporoparietal CVA, impaired gait and balance Onset Date 07/31/18 Weight Bearing Status Weight Bearing Status Weight Bear as Tolerated M3 PT-IP Subjective Start: 07/31/18 15:10 Freq: NEEDED Status: Active Protocol: Document 08/03/18 08:58 [facility] (Rec: 08/03/18 09:28 [facility] [email or web address]) Subjective Physical Therapy Visit Type Type Treatment Note Visit Start Time 08:58 Visit Stop Time 09:19 Total Visit Minutes 21 Physical Therapy Visit Comments Patient Comments in room. Pt willing to get up and ambulate M4 PT-IP Mobility and Gait Start: 07/31/18 15:10 Freq: NEEDED Status: Active Protocol: Document 08/03/18 08:58 [facility] (Rec: 08/03/18 09:28 [facility] [email or web address]) PT-Transfer Assessment Sit to and From Stand Sit to and from Stand Standby Assistance Use of Upper Extremities Equipment Transfer Assistive Device None Gait Belt Transfers Transfer Destination Chair Transfer Technique Stand Step Pivot Transfer Ability Level of Assist Standby Assistance Use of Upper Extremities Comments Mobility Comments SBA for transfers. Able to follow directions for controlling stand>sit. Gait Assessment Gait Gait Assistance Required: Standby Assistance Contact Guard Assist Distance (Feet) 450 Able to Maintain Weight Bearing Status Yes During Gait Assistive Devices Assistive Device None Gait Belt Gait Deviations General Gait Pattern Ataxic Decreased Stride Length Decreased Feet Clearance Narrow Based Gait Factors Limiting Gait Function Factors Limiting Gait Function Decreased Activity Tolerance Decreased Strength Poor Balance Poor Safety Awareness Comments Gait Comments Mild unsteadiness with gait, but no LOB. M5 PT-IP Objective Assessments Start: 07/31/18 15:10 Freq: NEEDED Status: Active Protocol: Document 08/01/18 09:45 [facility] (Rec: 08/01/18 10:53 [email or web address]) Orientation Orientation/Cognition Level of Alertness Alert Orientation Name Age Birthday Month Language Function Ability Expressive Aphasia Receptive Aphasia Garbled Speech Word Finding Difficulties Safety Awareness Decreased Safety Awareness Gross Range of Motion Upper Extremity ROM Assessment Within Functional Limits Lower Extremity ROM Assessment Within Functional Limits Strength Upper Extremity Strength Assessment Left Impaired Lower Extremity Strength Assessment Left Impaired Comments Strength Comments Pt has difficulty following commands. She tends to move all of her extremities therefore it is difficult to assess muscle weakness. But she does demonstrate some degree of weakness on L UE while she was asked to pull and push therapist arm; uneven steps during amb. Coordination Assessment Gross Coordination Gross Coordination Impaired Assessment Coordination Comments Pt has difficulty following commands. Sensation Assessment Comments Sensation Comments Pt has difficulty understanding instructions. M6 PT-IP Treatment Start: 07/31/18 15:10 Freq: NEEDED Status: Active Protocol: Document 08/02/18 14:47 [facility] (Rec: 08/02/18 15:05 [facility] [id number]) Physical Therapy Treatment Other Treatments Other Treatment Performed Heel toe gait M7 PT-IP Assessment and Plan Start: 07/31/18 15:10 Freq: NEEDED Status: Active Protocol: Document 08/03/18 08:58 [facility] (Rec: 08/03/18 09:28 [facility] [email or web address]) PT Summary Assessment and Plan Summary Assessment Summary Pt impulsive with mobility. She is improving with balance and stability with gait. Pt is at risk for falls. Requiring cues for slowing down during ambulation. Frequency of Treatment Frequency Of Treatment Twice a Day Treatment Plan Physical Therapy Treatment Plan Bed Mobility Training Transfer Training Gait Training Therapeutic Exercise Balance Retraining Discharge Planning Other Recommendations and Next Treatment balance and dynamic gait. Focus Recommendations To Nursing Amount of Assist Needed 1 Person Assist Discharge Recommendations PT Discharge Recommendations Acute Rehab Equipment Needed for Home Before FWW, shower chair Discharge
--- NOTE | 2018-08-03 11:30 | ST.IPTN ---
Care Team Visit Care Team Role Provider Type Man Nelson DO Emergency Provider Physician Address: [address] [place] [address], [id number] Geoffrey Melvin MD Attending Provider Physician Primary Care Provider Address: [address] [place] [address], [id number] Sapphire Leigh DO Admit Provider Physician Other Providers Address: [address] [place] [address] REGISTERED NURSE PRACTITIONER Treatment Note REGISTERED NURSE PRACTITIONER Treatment Note Start: 07/31/18 17:49 Freq: Status: Active Protocol: Document 08/03/18 11:18 MRM (Rec: 08/03/18 11:30 MRM [id number]) Speech Pathology Treatment Note Session Time Visit Start Time 09:15 Visit Stop Time 09:45 Total Visit Minutes 30 Setting Treatment Setting Acute Care Visit Type Note Type Treatment Note Next Note Type Next Note Type Treatment Note Subjective Identification Type Name Observations/Patient Presentation Patient awake, but tired, sitting up in chair with , Micha, present in room . She was improved from yesterday in that her expressive langauge was more fluent and her islands of clear speech were increased in conversation. Chief Complaint(s) Language Parent/Caretake Knowledge/Awareness of Good REGISTERED NURSE PRACTITIONER Role in Treatment Objective Short Term Goals The pt will participate in further assessment of expressive and receptive language skills to guide POC and determine most viable avenue for pt to communicate her wants and needs and comprehend information related to self, family, and care. Recommend training of responses to yes/no questions and word-object matching to facilitate basic communication in hospital setting. Shelter Goals Given external supports as needed (e.g., communication board, visual choices, etc.), the pt will communicate her basic wants and needs to participate in medical decisions. Given external supports as needed, the pt will follow simple instructions to participate in therapeutic tasks, ADLs, and medical procedures. Treatment Activities Expressive langauge training: Identificaiton of various pictures and providing names. Able to accurately describe pictures on communicaiton board and in aphasia work book [id number]. Word finding continues to be challenging, but she was able to use sentence-length context to describe the object and function of each item pictured . She was able to provide the appropriate name for the items pictured ~65% of the time. In conversation, she was able to indicate how she was feeling, describe her morning and request to stop therapy when she was tired. Receptive langauge: Improving receptive lanuage skills, but continue to be impaired. She is able to participate in conversation and can keep up with topical discussions WFL. However, following 1-step directions (ex: point to the nurse) continue to be very challenging. Specific requests and/or instructions are difficult for her to complete. With [id number] assistance, she was able to point to specific items on a page, but unable from verbal cues only. She can follow general instructions, however. REGISTERED NURSE PRACTITIONER provided page and asked What can you tell me about what you see here? REGISTERED NURSE PRACTITIONER also pointed to page. Patient was then able to discern what was being asked and successfully began describing what was on each page. She informed REGISTERED NURSE PRACTITIONER that writing was still hard for her, but she declined to participate in any writing tasks. Able to demonstrate ability to read in that she looked on the communication board and located the alphabet, stated the day of the week from written list and month from written list. Assessment Patient Response to Treatment Good Rehab Potential Excellent Impairments Identified Aphasia Auditory Comprehension Cognitive-Linguistic Skills Expressive Language Progress Towards Goals Good Progress Assessment of Overall Progress Improving Assessment of Improvement Patient improving in expressive and receptive language skills. She was able to particiapte in yes/no questions in coversation and provide approriate responses to indicate that her breakfast went well, she had talked with her doctor today and worked wiht physical therapy. She was able to successfully particiapte in word finding task with REGISTERED NURSE PRACTITIONER and demonstrate improved conversational fluency with maintenance of appropriate topics. She was able to successfully shift from one topic to another, demonstrating improved receptive langauge skills. However, when asked specific detail-oriented questions or when given a specific instruction, she had difficulty comprehending this. Written expression has yet to be assessed due to patient's request to not do this today. Patient's asked REGISTERED NURSE PRACTITIONER several questions about inpatient rehab. REGISTERED NURSE PRACTITIONER provided eduation regarding how inpatient rehab can prepare pateints for discharge home and provide intensive intervention to address remanining deficits from CVA. Patient's stated that he would like to have his discharge to inpatient rehab and the patient indicated that she would be okay with this option. They appear to understand the great challenge of discharging home without any extended therapy after leaving [facility]. Excellent session. Continue skilled intervention to address aphasia. Reviewed with Patient Goals Progress Being Made Patient/Caregiver Understanding Good Plan Therapy Recommendations Continue with Current Program Comment Inpatient rehab upon d/c
--- NOTE | 2018-08-03 13:04 | OT.IP.TRT ---
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 (07/31/18) Occupational Therapy Treatment Note M2 OT-IP Current Condition Start: 08/01/18 18:19 Freq: Status: Active Protocol: Document 08/01/18 18:19 [facility] (Rec: 08/01/18 18:48 [facility] [email or web address]) Occupational Therapy Current Condition Current Condition Evaluation Date 08/01/18 Treatment Diagnosis Left temporaparietal CVA Diagnosis Onset Date 07/31/18 M3 OT- IP Subjective and Pain Start: 08/01/18 18:19 Freq: Status: Active Protocol: Document 08/03/18 12:31 [facility] (Rec: 08/03/18 13:04 [facility] [email or web address]) OT- Subjective Occupational Therapy Visit Type Type Treatment Note Visit Start Time 11:13 Visit Stop Time 11:38 Total Visit Minutes 25 Occupational Therapy Visit Comments Patient Comments Pt agreeable to do OT . M4 OT- IP ADL's Start: 08/01/18 18:19 Freq: Status: Active Protocol: Document 08/03/18 12:31 [facility] (Rec: 08/03/18 13:04 [facility] [email or web address]) OT ADL-Grooming General Evaluation Grooming Ability Independent Comments OT Grooming Comments Today pt able to scan appropriately for all grooming items by the sink and able to do all grooming needs, even trying to use tweezers to pick hairs on her chin. OT ADL-Oral Care General Eval Oral Care Ability Independent M5 OT- IP IADL's Start: 08/01/18 18:19 Freq: Status: Active Protocol: Document 08/01/18 18:19 [facility] (Rec: 08/01/18 18:48 [facility] [email or web address]) OT-Instrumental Activities of Daily Living Driving Driving Comments Prior pt completely independent with needs. M6 OT- IP Functional Cognition Start: 08/01/18 18:19 Freq: Status: Active Protocol: Document 08/03/18 12:31 [facility] (Rec: 08/03/18 13:04 [facility] [email or web address]) Cognitive Factors Limiting Selfcare Function Cognitive Ability Level of Alertness Alert Patient Orientation Name Place Situation Attention Span Ability Capable of Focused Attention Capable of Sustained Attention Ability to Follow Commands Able to Follow One Step Commands Memory Description Short Term Impaired Safety Awareness Underestimates Need for Assistance Problem Solving Ability Needs Assist to Identify Solutions Cognitive Comments Cognitive Assessment Comments Pt able to get words and phrases out better today , especially when talking about functional tasks at hand. Oh the water is low for the foster. ( as noticing flower vase needing water) I want to pluck the hair on my chin. ( while pt looking at the mirror ) It was nice to see you. He is 89years old and doing great ( while talking to friends who came to visit). Pt able to make some needs known verbally , at times in conjuction with hand gestures, pt increased awareness for contact cause and effect for situations. OT- Vision and Hearing OT- Vision Assessment Vision Assessment Comments Double checked visual scanning and pt able able to appropriately scan right and left , okay for peripheral vision as well. Pt able to look appropriately to the right in order to find foster on the window sill. M7 OT- IP Mobility and Balance Start: 08/01/18 18:19 Freq: Status: Active Protocol: Document 08/03/18 12:31 [facility] (Rec: 08/03/18 13:04 [facility] [email or web address]) OT-Transfer Assessment Sit to and From Stand Sit to and from Stand Standby Assistance Transfers Transfer Ability Standby Assistance Contact Guard Assistance Technique Transfer Destination Chair Transfer Technique Stand Step Pivot Devices Transfer Assistive Devices None Comments Mobility Comments Pt doing better with mobility , however had loss of balance when trying to reach up to get item from closet. Pt able to place knee on the window sill to water and tends to her foster. OT- Balance Assessment Sitting Balance and Reactions Static Sitting Balance Ability Normal Dynamic Sitting Balance Ability Normal Standing Balance and Reactions Static Standing Balance Ability Good Dynamic Standing Balance Ability Fair M8 OT- IP Objective Assessments Start: 08/01/18 18:19 Freq: Status: Active Protocol: Document 08/01/18 18:19 [facility] (Rec: 08/01/18 18:48 [facility] [email or web address]) OT Gross Range of Motion Upper Extremity Range of Motion Assessment Within Functional Limits OT- Coordination Assessment Comments Coordination Comments Pt able to potato picker coins with both hands. M9 OT- IP Assessment and Plan Start: 08/01/18 18:19 Freq: Status: Active Protocol: Document 08/03/18 12:31 [facility] (Rec: 08/03/18 13:04 [facility] [email or web address]) OT Summary Assessment and Plan Potential Rehabilitation Potential Excellent Analytic Complexity at Evaluation Low Summary OT Impairments Balance Functional Cognition Functional Mobility Dressing Toileting Bathing Toilet Transfers Shower Transfers Progress Towards Goals Progressing Toward Goals Slow Progress due to Cognition Assessment Summary Pt able to make needs know better today. Pt will benefit from acute rehab to focus on receptive and expressive aphasia, dynamic balance, and independence for IADL needs. Goals Self-Feeding Goal Independent Grooming Goal Independent Dressing Goal Independent Toileting Goal Independent Bathing Goal Contact Guard Assistance Toilet Transfer Goal Standby Assistance Shower Transfer Goal Contact Guard Assistance Patient/Caregiver Education Goal Caregiver Independent Assisting Patient Days to Meet Goals 5 Frequency of Treatment Frequency Of Treatment Once a Day Treatment Plan OT Treatment Plan ADL Training Functional Cognition Training Functional Mobility Patient/Family Education Discharge Planning Discharge Recommendations OT Discharge Recommendations Acute Rehab
--- NOTE | 2018-08-03 14:24 | PT.IPTN ---
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 (07/31/18) Physical Therapy Treatment Note M2 PT-IP Current Condition Start: 07/31/18 15:10 Freq: NEEDED Status: Active Protocol: Document 08/01/18 09:45 [facility] (Rec: 08/01/18 10:53 [facility] [id number]) Physical Therapy Current Condition Current Condition Evaluation Date 08/01/18 Treatment Diagnosis L temporoparietal CVA, impaired gait and balance Onset Date 07/31/18 Weight Bearing Status Weight Bearing Status Weight Bear as Tolerated M3 PT-IP Subjective Start: 07/31/18 15:10 Freq: NEEDED Status: Active Protocol: Document 08/03/18 14:23 [facility] (Rec: 08/03/18 14:24 [facility]GD [id number]) Subjective Physical Therapy Visit Type Type Patient Refusal Notes Pt refused states that she is tired and want's to sleep. M4 Discharge Recommendations PT Discharge Recommendations Acute Rehab Equipment Needed for Home Before FWW, shower chair Discharge
--- NOTE | 2018-08-03 15:28 | CM.DPNOTE ---
Reviewed chart and discussed pt's needs in multi-disciplinary rounds this morning. Therapy team continues to recommend acute inpt rehab. Met w/pt, spouse and Dr Melvin at bedside this morning; reviewed recommendations for DC. Dr Melvin agrees w/therapy team and is recommending acute inpt rehab. Pt feeling very overwhelmed this morning, teary and continues to repeat I want to go home, I want to go home. With more discussion, pt agreeable, as is spouse, to attempt acute inpt rehab at [facility]. This PROPERTY ASSISTANT discussed process through [facility] and [facility]. All understand and agree this will be attempted and b/u plan will likely be home w/supportive spouse and weekly outpt [employer] in clinic setting. Discussed referral w/ Quyn[facility] at [facility] P# [phone] F# [phone]. Faxed clinical packet. Then faxed clinical packet w/request to review for auth for acute inpt rehab attn Gorge Tao. Gorge W/e contact will be different. Following closely. Monday: f/u w/ both Gorge and [facility]. DEE DEE Drummond
--- NOTE | 2018-08-03 18:27 | PC.NURSE ---
Pt. visiting with family and friends. Pt has aphasia and is frustrated but in good spirits. She get's frustrated w/ stumbling over words, but there is improvement from yesterday. Pt. wants to be ambulating by herself, still needs stand by assist, and is impulsive with getting out of chair and bed, Pt. has bed alarm. She ate dinner with no difficulty tonight.
[2018-08-03] MEDS: ATORVASTATIN 20 MG TABLET 40 MG PO (21:22)
[2018-08-04] VITALS (12 sets, daily range): BP systolic 110–148; BP diastolic 47–82; PULSE 62–92; RESP 15–20; TEMP 36.3–37.1; O2SAT 94–100
--- NOTE | 2018-08-04 01:48 | PC.NURSE ---
Addendum entered by Mehnaz Gale R.N. 08/04/18 04:38: pt up to [facility] and I was able to complete my NIH assessment. pt denying pain. SBA with FWW, but patient is impulsive and quick to change positions. pt has distinct expressive aphasia with word salad. Patient unable to communicate what town she was in or what the date is. She was able to formulate words, but the words didn't make sense to the question/topic. Original Note: pt awakes to verbal cues. Receptive to care and vital signs, but fell right asleep afterwards. pt able to communicate her lack of pain and that she is comfortable. Patient responds appropriately regarding use of call light. VS stable. Unwilling/wants to sleep and unable to conduct full NIH assessment.
[2018-08-04] MEDS: FLUTICASONE/SALMETEROL 250/50 14 PUFF DISKUS INH ×2 (05:40→20:01)
[2018-08-04] MEDS: ALBUTEROL/IPRATROPIUM MDI 1 PUFF INH ×4 (05:40→20:01)
[2018-08-04] MEDS: ASPIRIN EC 81 MG TABLET PO (08:48)
[2018-08-04] MEDS: METOPROLOL ER 25 MG TABLET 37.5 MG PO ×2 (08:48→22:44)
[2018-08-04] MEDS: CLOPIDOGREL 75 MG TABLET PO (08:48)
[2018-08-04] MEDS: HEPARIN 5,000 UNIT/ML VIAL 5000 UNIT SUBCUT ×2 (08:48→22:45)
[2018-08-04] MEDS: POLYETHYLENE GLYCOL 3350 17 GM POWD.PACK PO (08:51)
[2018-08-04] MEDS: SODIUM CHLORIDE 0.9% FLUSH 10 ML IV ×2 (08:52→22:45)
--- NOTE | 2018-08-04 09:25 | PT.IPTN ---
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 (07/31/18) Physical Therapy Treatment Note M2 PT-IP Current Condition Start: 07/31/18 15:10 Freq: NEEDED Status: Active Protocol: Document 08/01/18 09:45 [facility] (Rec: 08/01/18 10:53 [facility] [id number]) Physical Therapy Current Condition Current Condition Evaluation Date 08/01/18 Treatment Diagnosis L temporoparietal CVA, impaired gait and balance Onset Date 07/31/18 Weight Bearing Status Weight Bearing Status Weight Bear as Tolerated M3 PT-IP Subjective Start: 07/31/18 15:10 Freq: NEEDED Status: Active Protocol: Document 08/04/18 09:25 [facility] (Rec: 08/04/18 12:12 [facility] [email or web address]) Subjective Physical Therapy Visit Type Type Treatment Note Visit Start Time 10:30 Visit Stop Time 11:00 Total Visit Minutes 30 Number of DATABASE REPORTING CONSULTANT Visits 3 Physical Therapy Visit Comments Patient Comments Pt willing to work with therapy. reports pt had balance issues before and she is walking about the same. M4 PT-IP Mobility and Gait Start: 07/31/18 15:10 Freq: NEEDED Status: Active Protocol: Document 08/04/18 09:25 [facility] (Rec: 08/04/18 12:12 [facility] [email or web address]) PT-Transfer Assessment Sit to and From Stand Sit to and from Stand Contact Guard Assistance Use of Upper Extremities Equipment Transfer Assistive Device None Gait Belt Transfers Transfer Destination Chair Transfer Ability Level of Assist Contact Guard Assistance Use of Upper Extremities Comments Mobility Comments Pt had LOB with first sit to stand from bed pt LOB and returnded to sitting on bed. PT need cues for controlled sit to stand. Gait Assessment Gait Gait Assistance Required: Standby Assistance Contact Guard Assist Distance (Feet) 300 Able to Maintain Weight Bearing Status Yes During Gait Assistive Devices Assistive Device None Gait Belt Gait Deviations General Gait Pattern Decreased Stride Length Decreased Feet Clearance Narrow Based Gait Factors Limiting Gait Function Factors Limiting Gait Function Difficulty Following Directions Poor Balance Poor Safety Awareness Comments Gait Comments Pt able to turn with steadiness and has fast gait pace. Stair Climbing Assessment Evaluation Level of Assist On Stairs Contact Guard Assistance Devices Stair Climbing Assistive Devices None Technique/Endurance Stair Climbing Direction Ascend and Descend Stair Climbing Technique Step Over Step Number of Steps Climbed 3 Query Text: Stair Climbing Set # Repetitions (reps) 1 Comments Stair Climbing Comments mild unsteadiness with steps. PT-Balance Assessment Comments Other Balance Tests/Deviations/Treatment NBOS with EC, SLS with min A : on Left. R 8 secs and L 2 secs . M5 PT-IP Objective Assessments Start: 07/31/18 15:10 Freq: NEEDED Status: Active Protocol: Document 08/01/18 09:45 [facility] (Rec: 08/01/18 10:53 [facility] [email or web address]) Orientation Orientation/Cognition Level of Alertness Alert Orientation Name Age Birthday Month Language Function Ability Expressive Aphasia Receptive Aphasia Garbled Speech Word Finding Difficulties Safety Awareness Decreased Safety Awareness Gross Range of Motion Upper Extremity ROM Assessment Within Functional Limits Lower Extremity ROM Assessment Within Functional Limits Strength Upper Extremity Strength Assessment Left Impaired Lower Extremity Strength Assessment Left Impaired Comments Strength Comments Pt has difficulty following commands. She tends to move all of her extremities therefore it is difficult to assess muscle weakness. But she does demonstrate some degree of weakness on L UE while she was asked to pull and push therapist arm; uneven steps during amb. Coordination Assessment Gross Coordination Gross Coordination Impaired Assessment Coordination Comments Pt has difficulty following commands. Sensation Assessment Comments Sensation Comments Pt has difficulty understanding instructions. M6 PT-IP Treatment Start: 07/31/18 15:10 Freq: NEEDED Status: Active Protocol: Document 08/02/18 14:47 GGD (Rec: 08/02/18 15:05 GGD [id number]) Physical Therapy Treatment Other Treatments Other Treatment Performed Heel toe gait M7 PT-IP Assessment and Plan Start: 07/31/18 15:10 Freq: NEEDED Status: Active Protocol: Document 08/04/18 09:25 [facility]GD (Rec: 08/04/18 12:12 GGD [email or web address]) PT Summary Assessment and Plan Summary Assessment Summary Pt is impulsive with mobility with mobility and difficulty to follow direction. She had decrease balance on right le needing min A. She would benefit from IRF to improve balance and return to baseline . Frequency of Treatment Frequency Of Treatment Twice a Day Treatment Plan Physical Therapy Treatment Plan Bed Mobility Training Transfer Training Gait Training Therapeutic Exercise Balance Retraining Discharge Planning Other Recommendations and Next Treatment balance and dynamic gait. Focus Recommendations To Nursing Amount of Assist Needed 1 Person Assist Discharge Recommendations PT Discharge Recommendations Acute Rehab Equipment Needed for Home Before FWW, shower chair Discharge
--- NOTE | 2018-08-04 10:49 | OT.IP.TRT ---
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 (07/31/18) Occupational Therapy Treatment Note M2 OT-IP Current Condition Start: 08/01/18 18:19 Freq: Status: Active Protocol: Document 08/01/18 18:19 CCC (Rec: 08/01/18 18:48 CCC [email or web address]) Occupational Therapy Current Condition Current Condition Evaluation Date 08/01/18 Treatment Diagnosis Left temporparietal CVA Diagnosis Onset Date 07/31/18 M3 OT- IP Subjective and Pain Start: 08/01/18 18:19 Freq: Status: Active Protocol: Document 08/04/18 11:49 PJM (Rec: 08/04/18 16:59 PJM [id number]) OT- Subjective Occupational Therapy Visit Type Type Treatment Note Visit Start Time 11:01 Visit Stop Time 11:49 Notes Pt's here at start of session, but he had to leave to go to a meeting. Pt agreeable to shower with gestures and context needed to improve her comprehension. Occupational Therapy Visit Comments Patient Comments Expressive language interferes with pt speaking fluently and in context about 50% of the time. Significant word finding deficits and occasional jargon noted. Patient/Caregiver Goals to go home and get back to normal. OT Pain Assessment Pain When Pain Assessed After Treatment Pain Present Pain Present Denied Pain M4 OT- IP ADL's Start: 08/01/18 18:19 Freq: Status: Active Protocol: Document 08/04/18 11:49 PJM (Rec: 08/04/18 16:59 PJM [id number]) OT ADL-Grooming General Evaluation Grooming Ability Standby Assistance Areas Needing Assistance Combing/Brushing Hair OT ADL-Oral Care General Eval Oral Care Ability Minimal Assistance Devices Oral Care Devices Toothbrush Comments Oral Care Comments Pt needs min verbal cues and gestures to initiate rinsing mouth after brushing teeth to avoid skipping this step of task. OT ADL-Dressing General Eval Upper Body Dressing Ability Standby Assistance Areas Needing Assistance Underpants/Brief Socks Comments OT Dressing Comments hospital gown OT ADL-Toileting General Evaluation Toileting Ability Standby Assistance OT ADL-Bathing General Evaluation Bathing Ability Minimal Assistance Devices Bathing Equipment Shower Chair without Arms Grab Bars Comments OT Bathing Comments Pt impulsive and disorganized during shower with 2 episodes of mild loss of balance. Pt needs mod verbal cues to use grab bars for safety. Pt unable to problem solve unfamiliar soap dispenser (but did have previous shower here 2 days ago) and appears apraxic when attempting to use it. M5 OT- IP IADL's Start: 08/01/18 18:19 Freq: Status: Active Protocol: Document 08/04/18 11:49 PJM (Rec: 08/04/18 16:59 PJ [email or web address]) OT-Instrumental Activities of Daily Living Deficits IADL Deficits Identified Deficits Home Safety Awareness Awareness of Need for Assistance at Home Decreased Awareness Ability to Problem Solve Emergency Unable to Problem Solve Situations Medication Management Medication Management Comments Pt will need close supervision of all medication management due to inability to read labels. Money Management Money Management Comments Pt will need close supervision for all money management due to potential for aphasic errors. Meal Preparation Meal Preparation Comments Pt will need close supervision/assistance due to impulsivity, decreased attention/concentration and decreased sequencing. Public Health Technologist Public Health Technologist Comments Pt will need close supervision for safety Driving Driving Concerns Identified Regarding Safety Driving Comments pt should not drive at this time due to decreased attention/concentration, impulsivity M6 OT- IP Functional Cognition Start: 08/01/18 18:19 Freq: Status: Active Protocol: Document 08/04/18 11:49 PJM (Rec: 08/04/18 16:59 PJ [id number]) Cognitive Factors Limiting Selfcare Function Cognitive Ability Level of Alertness Alert Attention Span Ability Capable of Focused Attention Unable to Sustain Attention Ability to Follow Commands Able to Follow One Step Commands with Increased Time Able to Follow One Step Commands with Repetition Safety Awareness Underestimates Need for Assistance Problem Solving Ability Unable to Identify Errors Needs Assist to Identify Solutions Executive Function Ability Unable to Filter Distractions Cognitive Comments Cognitive Assessment Comments Pt presents with significant impulsivity, significantly decreased attention/ concentration and appears internally distracted at times as she tries to process information. She is unorganized and sometimes skips steps during basic self care tasks. Significant receptive language deficits noted but pt able to follow one step commands with repetition, context and demo. She appears to have significantly decreased insight into her deficits, but is aware that her words don't come out right. OT- Vision and Hearing OT- Hearing Assessment OT- Hearing Assessment WFL OT- Vision Assessment Visual Acuity WFL Glasses All The Time M7 OT- IP Mobility and Balance Start: 08/01/18 18:19 Freq: Status: Active Protocol: Document 08/04/18 11:49 PJM (Rec: 08/04/18 16:59 PJM [email or web address]) OT-Transfer Assessment Sit to and From Stand Sit to and from Stand Contact Guard Assistance Transfers Transfer Ability Contact Guard Assistance Technique Transfer Destination Chair Shower Stall Toilet Transfer Technique Stand Step Pivot Devices Transfer Assistive Devices Gait Belt OT- Gait Assessment Gait Gait Assistance Required: Contact Guard Assist Distance (Feet) 20 Assistive Devices Assistive Device Gait Belt OT- Balance Assessment Sitting Balance and Reactions Static Sitting Balance Ability Good Dynamic Sitting Balance Ability Good Standing Balance and Reactions Static Standing Balance Ability Good Dynamic Standing Balance Ability Fair Comments Other Balance Tests/Deviations/Treatment Two episodes of mild loss of : balance noted during standing portion of shower. M8 OT- IP Objective Assessments Start: 08/01/18 18:19 Freq: Status: Active Protocol: Document 08/04/18 11:49 PJM (Rec: 08/04/18 16:59 PJM [email or web address]) OT Gross Range of Motion Upper Extremity Range of Motion Assessment Within Functional Limits OT Strength Upper Extremity Strength Assessment Within Functional Limits OT- Coordination Assessment Comments Coordination Comments apraxia interferes with dexterity at times OT-Muscle Tone Assessment Muscle Tone WNL Yes OT Sensation Assessment Comments Summary Comments no functional deficits noted; unable to formally assess due to aphasia Edema Edema Absent M9 OT- IP Assessment and Plan Start: 08/01/18 18:19 Freq: Status: Active Protocol: Document 08/04/18 11:49 PJM (Rec: 08/04/18 16:59 PJM [email or web address]) OT Summary Assessment and Plan Potential Rehabilitation Potential Good Summary OT Impairments Balance Functional Cognition Functional Mobility Grooming Dressing Toileting Bathing Toilet Transfers Shower Transfers Progress Towards Goals Progressing Toward Goals Assessment Summary Pt making daily progress but still has significant deficits in expressive/receptive language ,functional cognition, mobility, self care skills and IADLS as described above. She is alert, pleasant and cooperative but continues to demonstrate significant impulsivity, poor attention/ concentration and appears internally distracted at times as she tries to process information. She is unorganized and sometimes skips steps during basic self care tasks. Significant receptive language deficits noted but pt able to follow one step commands with repetition, context and demo. She appears to have significantly decreased insight into her deficits, but is aware that her words don't come out right. Due to her receptive language skills she is unable to fully comprehend her discharge options. Pt would significantly benefit from an intensive acute in pt rehab program to address all her deficits and progress to some selected IADL tasks, as she is far below her baseline level of function. Her supportive is strongly in favor of this rehab plan and can provide 24 hr assistance at home after rehab program. Frequency of Treatment Frequency Of Treatment Once a Day Treatment Plan OT Treatment Plan ADL Training Functional Cognition Training Functional Mobility Patient/Family Education Discharge Planning Discharge Recommendations OT Discharge Recommendations Acute Rehab
--- NOTE | 2018-08-04 12:28 | CM.DPC ---
Addendum entered by DEE DEE Kerns 08/04/18 16:00: ADD: HOMERO spoke to Rain at [facility] and she has been in contact with Eli at [facility] and both are still working on auth/acceptance. HOMERO called Eli ([phone]) at [facility] and she confirms that pt's clinicals are on their Medical Directors desk to review right away in the morning and Eli stated that their two questions were 1) Does pt have a strong d/c plan to home from Inpt Rehab? 2) Is pt still agreeable to Inpt Rehab. HOMERO updated her that therapy team feel pt has strong d/c plan and also pt's Expressive and Receptive Aphasia will make it difficult for pt to fully agree/understand her decision and difference between home and Inpt Rehab. Eli requested SW to call her in the morning to determine if pt has been accepted. DEE DEE Kerns Original Note: DCP Acute Inpt Rehab planning: Per MD, still recommending Inpt Rehab at d/ and pt could be stable for discharge today if rehab facility found. HOMERO called [facility] w/e number and My will confirm that pt is being reviewed for Inpt Rehab auth. Return call from Rain at [facility] requesting additional PT/OT/ST notes to review and Rain provided with the contact phone numbers from [facility] as Rain plans to call [facility] to confirm they can accept prior to providing auth. HOMERO faxed requested PT/OT/ST notes to [facility] at [facility] to review. HOMERO called Jennifer at [facility] ([phone]) who confirmed that their Dramatic Reader is reviewing pt's clinicals towards determining if pt meets criteria for Inpt Rehab. HOMERO updated RN and senior financial consultant. Plan: HOMERO to follow closely for return call from Rain at [facility] for determination of Inpt Rehab auth and confirmation from [facility] that they can accept. DEE DEE Kerns
--- NOTE | 2018-08-04 12:58 | PM.PN.1 ---
Subjective Date Patient Seen: 08/04/18 Time Patient Seen: 11:15 Interval history: Pt continues to have significant expressive and receptive aphasia. As per nursing and OT, has been somewhat impulsive with movements as well, rapidly rising from bed, etc. OT noted some mild apraxia and motor issues when performing movements that were not familiar to her, such as using the soap dispenser. She was unable to express any concerns to me this morning. Exam Vital Signs (past 8 hours): - 08/04/18 05:41 08/04/18 08:00 08/04/18 08:25 Temperature 97.4 F L Pulse Rate 68 66 Respiratory Rate 16 16 Blood Pressure 127/59 L Pulse Oximetry 97 97 97 Fraction of Inspired Oxygen 21 Oxygen Delivery Method Room Air Oxygen Flow Rate 0 Narrative Exam Narrative: Gen: NAD, sitting comfortably in chair, speaking clearly word choices not forming coherent sentences CV: RRR, no murmurs REsp: clear to auscultation bilaterally Abd: soft, nontender, normoactive bowel sounds Ext: no edema Neuro: CN II-XII intact, ambulating well, 5/5 strength UE and LE Objective Labs Result Diagrams: 07/31/18 08:05 07/31/18 08:05 Assessment & Plan Assessment & Plan narrative: 82yo woman with HTN, hyperlipidemia, CKD stage 2, paroxysmal SVT, and asthma who presented with significant aphasia, found to have acute CVA. 1) CVA: With receptive and expressive aphasia, some motor processing issues as well. Very slow improvement from prior days. - Agree with need for intensive inpatient therapy - On Statin, Plavix, Aspirin as appropriate 2) SVT: Paroxysmal. Multiple episodes in hospital when beta-js initially held due to hypotension. Restarted yesterday, no recurrence of SVT overnight. - Continue Metoprolol 3) Hypertension: With relative hypotension more recently. - Continue to hold home Amlodipine 4) Asthma: Symptoms stable - Continue home inhalers FEN: Advanced dysphagia diet DVT prophylaxis: Heparin BID Dispo: Pt medically stable for discharge at this point. Strongly recommend inpatient rehab. If this is not possible, then will need intensive outpatient therapy. Anticipate will end up with difficulty caring for the pt at home as well, would benefit from home health if possible. Quality VTE Deep Vein Thrombosis/Pulmonary Embolism Present on Admission: No
--- NOTE | 2018-08-04 14:15 | PT.IPTN ---
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 (07/31/18) Physical Therapy Treatment Note M2 PT-IP Current Condition Start: 07/31/18 15:10 Freq: NEEDED Status: Active Protocol: Document 08/01/18 09:45 HH (Rec: 08/01/18 10:53 HH [email or web address]) Physical Therapy Current Condition Current Condition Evaluation Date 08/01/18 Treatment Diagnosis L temporoparietal CVA, impaired gait and balance Onset Date 07/31/18 Weight Bearing Status Weight Bearing Status Weight Bear as Tolerated M3 PT-IP Subjective Start: 07/31/18 15:10 Freq: NEEDED Status: Active Protocol: Document 08/04/18 14:15 GGD (Rec: 08/04/18 15:52 GGD [email or web address]) Subjective Physical Therapy Visit Type Type Treatment Note Visit Start Time 14:15 Visit Stop Time 14:50 Total Visit Minutes 35 Number of VP HR DIVERSITY Visits 4 Physical Therapy Visit Comments Patient Comments Pt willing to work with therapy. M4 PT-IP Mobility and Gait Start: 07/31/18 15:10 Freq: NEEDED Status: Active Protocol: Document 08/04/18 14:15 GGD (Rec: 08/04/18 15:52 GGD [email or web address]) PT-Transfer Assessment Sit to and From Stand Sit to and from Stand Contact Guard Assistance Use of Upper Extremities Equipment Transfer Assistive Device None Gait Belt Transfers Transfer Destination Chair Toilet Transfer Ability Level of Assist Contact Guard Assistance Use of Upper Extremities Comments Mobility Comments control sit to stand from chair x 5 Gait Assessment Gait Gait Assistance Required: Standby Assistance Contact Guard Assist Distance (Feet) 720 Able to Maintain Weight Bearing Status Yes During Gait Assistive Devices Assistive Device None Gait Belt Gait Deviations General Gait Pattern Decreased Stride Length Decreased Feet Clearance Narrow Based Gait Factors Limiting Gait Function Factors Limiting Gait Function Difficulty Following Directions Poor Balance Poor Safety Awareness Comments Gait Comments Pt SBA for use of toilet. PT-Balance Assessment Comments Other Balance Tests/Deviations/Treatment tandem balance EO, SLS with : min A on Left. Heel/toe gait, heel raises, standing hip abduction, mini squats Functional Assessments Functional Tests 6 Minute Walk Test 708 Other Functional Tests Performed Coyne balance 44/56 M5 PT-IP Objective Assessments Start: 07/31/18 15:10 Freq: NEEDED Status: Active Protocol: Document 08/01/18 09:45 HH (Rec: 08/01/18 10:53 [id number]) Orientation Orientation/Cognition Level of Alertness Alert Orientation Name Age Birthday Month Language Function Ability Expressive Aphasia Receptive Aphasia Garbled Speech Word Finding Difficulties Safety Awareness Decreased Safety Awareness Gross Range of Motion Upper Extremity ROM Assessment Within Functional Limits Lower Extremity ROM Assessment Within Functional Limits Strength Upper Extremity Strength Assessment Left Impaired Lower Extremity Strength Assessment Left Impaired Comments Strength Comments Pt has difficulty following commands. She tends to move all of her extremities therefore it is difficult to assess muscle weakness. But she does demonstrate some degree of weakness on L UE while she was asked to pull and push therapist arm; uneven steps during amb. Coordination Assessment Gross Coordination Gross Coordination Impaired Assessment Coordination Comments Pt has difficulty following commands. Sensation Assessment Comments Sensation Comments Pt has difficulty understanding instructions. M6 PT-IP Treatment Start: 07/31/18 15:10 Freq: NEEDED Status: Active Protocol: Document 08/02/18 14:47 GGD (Rec: 08/02/18 15:05 GGD [id number]) Physical Therapy Treatment Other Treatments Other Treatment Performed Heel toe gait M7 PT-IP Assessment and Plan Start: 07/31/18 15:10 Freq: NEEDED Status: Active Protocol: Document 08/04/18 14:15 GGD (Rec: 08/04/18 15:52 GGD [email or web address]) PT Summary Assessment and Plan Summary Assessment Summary Pt improving with gait. She had decrease unsteadiness. She need min A for balance with heel/toe gait, SLS and tandem. She is at greater fall risk with a coyne of 44/56. She is impulsive and needs mod visual cues. She would benefit from IRF. Frequency of Treatment Frequency Of Treatment Twice a Day Treatment Plan Physical Therapy Treatment Plan Bed Mobility Training Transfer Training Gait Training Therapeutic Exercise Balance Retraining Discharge Planning Other Recommendations and Next Treatment balance and dynamic gait. Focus Recommendations To Nursing Amount of Assist Needed 1 Person Assist Discharge Recommendations PT Discharge Recommendations Acute Rehab
[2018-08-04] MEDS: ATORVASTATIN 20 MG TABLET 40 MG PO (22:45)
[2018-08-05] VITALS (8 sets, daily range): BP systolic 114–123; BP diastolic 56–76; PULSE 59–73; RESP 12–18; TEMP 36.7–36.8; O2SAT 94–98
[2018-08-05] MEDS: FLUTICASONE/SALMETEROL 250/50 14 PUFF DISKUS INH (04:30)
[2018-08-05] MEDS: ALBUTEROL/IPRATROPIUM MDI 1 PUFF INH ×2 (04:30→08:49)
--- NOTE | 2018-08-05 04:58 | PC.NURSE ---
Refused to restart her IV access. States leave me alone, I'm tired & want to sleep. Checked CBG. @ 0300 83, will cont. POC & monitor.
[2018-08-05] MEDS: HEPARIN 5,000 UNIT/ML VIAL 5000 UNIT SUBCUT (09:06)
[2018-08-05] MEDS: ASPIRIN EC 81 MG TABLET PO (09:06)
[2018-08-05] MEDS: CLOPIDOGREL 75 MG TABLET PO (09:06)
[2018-08-05] MEDS: METOPROLOL ER 25 MG TABLET 37.5 MG PO (09:06)
[2018-08-05] MEDS: SODIUM CHLORIDE 0.9% FLUSH 10 ML IV (09:07)
--- NOTE | 2018-08-05 10:03 | CM.DPC ---
Addendum entered by DEE DEE Kerns 08/05/18 12:22: ADD: Return call from Eli at [facility] stating that their J2Ee Programmer does not feel that pt meets criteria for Inpt Rehab as her main discipline is ST and no real other disciplines. HOMERO discussed pt's need for PT/OT constant cues and physical examples rather than her ability to ambulate distances and Doreenradha stated that if [facility] auth'd Inpt Rehab she could make a good case and advocate for pt to be accepted at their facility. HOMERO called [facility] with update and requested Physician Review for Inpt Rehab auth. Return call from [facility] stating she had spoken with Eli and was told that they cannot accept the pt and she does not meet criteria. Therefore [facility] also does not feel pt would meet criteria for inpt rehab auth[facility]obe [facility] stated that if family were agreeable the next closest Inpt Rehab is [facility] but no guarantee that they will accept pt either. HOMERO updated Dr. Whitley and she requests PT to see pt prior to d/c and before she rounds on the pt again for discharge towards plan of likely home with outpt ST. HOMERO met bedside with pt, spouse, and adult son and updated on above information and they are disappointed as they were anticipating intensive Inpt Rehab to help the pt with her expressive and receptive aphasia. SW discussed HH and the need for pt to be homebound and they confirm that they do not feel pt would meet criteria for HH. HOMERO discussed outpt ST and likely need to call outpt facilities and [facility] to determine pt's benefits for outpt ST and they acknowledge understanding. SW provided the pt's Medicare Rights and spouse and son acknowledge understanding and pt was able to mostly participate in discussion but still has word salad. Spouse gave verbal signature on Medicare Message as he was helping pt with her lunch. No current concerns with discharging home today. HOMERO updated RN, PT, and efficiency miner. Plan: SW to follow for likely pt d/c home this afternoon with family assist and outpt ST. PT providing family with list of local DME companies and loner companies for any home needs. No SW needs at this time. DEE DEE Kerns Original Note: DCP Cont: HOMERO called Eli at [facility] right away this morning to follow up on the status of pt review and Eli stated that she was also reviewing the clinicals to assist their medical microbiologist towards an answer today and HOMERO updated that pt is medically stable for discharge today still and Eli is trying to expedite the review. Return call from Eli stating their J2Ee Programmer is requesting an updated MD note (yesterdays is alright) and vitals from today. HOMERO faxed those requested documents to Eli at [phone] and called her per her request on her cell ([phone]) and informed her the fax was on its way. HOMERO called Nan at [facility] to update on status and confirmed that they need an accepting facility prior to having their J2Ee Programmer review pt's clinicals to make their own determination on insurance auth. HOMERO updated Dr. Whitley who will check back in once we have heard back from [facility] and [facility]. Plan: HOMERO to follow closely for final review from [facility] before [facility] can make an auth determination. Both aware that pt is medically stable for discharge. DEE DEE Kerns
--- NOTE | 2018-08-05 11:29 | PM.DS.1 ---
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 Due to patient's word salad, the entirety of her history of present illness was gathered from her . The patient's reports that yesterday evening his began having garbled speech at around 8:45 p.m. She told him several times that she was ?fine,? therefore, he did not take her to the ED and they went to bed. When they woke is morning she continued to have worsening garbled speech and he noticed that she was wobbly with ambulation so he decided to take her to the ED at that time. The patient has not been immobilized for prolonged period of time recently. They did travel to [place] on a [place] but this was not a prolonged period of immobilization. She is unable to follow commands. She has clear speech at times but continues to have word salad/incoherent sentences. She is moving all of her extremities therefore it is difficult to assess muscle weakness. She has never had a stroke before. CT brain without contrast did not demonstrate any acute intracranial abnormalities. CTA did not demonstrate acute CVA. MR stroke protocol was obtained and demonstrated an acute left temporoparietal CVA and she was admitted for further management. Discharge Providers Date of admission: 07/31/18 14:12 Discharge Date: 08/05/18 Primary care physician: Geoffrey Melvin MD Consults: 07/31/18 14:25 Consult to Occupational Therapy Evaluate & Treat Comment: Physician Instructions: Evaluate and treat Consult to Physical Therapy Evaluate & Treat Comment: Physician Instructions: Evaluate and Treat 07/31/18 16:58 Consult to Dietitian, Adult Routine Comment: Reason For Exam: Stroke protocal 07/31/18 17:48 Consult to Speech Therapy Evaluate & Treat Comment: Physician Instructions: Evaluate and treat Discharge provider: Thi Whitley MD Summary Discharge Diagnosis: Acute CVA Paroxysmal SVT Hypertension Asthma Hospital Course: The pt presented with new onset expressive and receptive aphasia, 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 The pt had no worsening of her symptoms during her hospitalization, and minimal improvement in her symptoms with therapy. She was started on Plavix in addition to her daily baby Aspirin, and her statin was transitioned from simvastatin to atorvastatin. Her antihypertensives were initially held to allow for permissive hypertension. Her BP never morris above 140 systolic. She did have several brief episodes of SVT, and her PO Metoprolol was restarted. No further episodes of SVT were noted. The pt was evaluated by PT and OT. Both recommend acute inpatient rehab to help with her aphasia. Despite working with the pts [facility], [place], and [facility] closely, the pt was denied placement in acute rehab. She will be discharged home with outpatient therapy, ideally for speech and occupational therapy. These referrals will be made as an outpatient. We will continue to hold her home Amlodipine due to consistently lower BPs while in the hospital. At the time of discharge, the pt continued to have profound receptive and expressive aphasia, with little ability to effectively communicate. She will f/u with Dr Melvin within the next week. Status at Discharge Functional status at discharge: independent ambulation Overall status at discharge: patient is not back to baseline Time Spent with Patient Greater than 30 minutes Exam Vital Signs (past 8 hours): - 08/05/18 04:21 08/05/18 04:30 08/05/18 08:25 Temperature 98.1 F 98.3 F Pulse Rate 59 L 62 68 Respiratory Rate 18 12 16 Blood Pressure 115/60 122/73 Pulse Oximetry 94 98 95 08/05/18 08:53 08/05/18 08:58 08/05/18 11:22 Temperature 98.0 F Pulse Rate 73 73 Respiratory Rate 14 17 Blood Pressure 123/76 Pulse Oximetry 97 97 94 Fraction of Inspired Oxygen 21 Oxygen Delivery Method Room Air Oxygen Flow Rate 0 Narrative Exam Narrative: Gen: NAD, sitting comfortably in chair, speaking clearly word choices not forming coherent sentences CV: RRR, no murmurs REsp: clear to auscultation bilaterally Abd: soft, nontender, normoactive bowel sounds Ext: no edema Neuro: CN II-XII intact, 5/5 strength UE and LE Objective Imaging CT scan - head: Radiologist's impression: PROCEDURE: CT HEAD/BRAIN WO CON INDICATIONS: possible stroke left sided weakness since yesterday TECHNIQUE: Noncontrast 4.5 mm thick angled axial sections acquired from the foramen magnum to the vertex, with coronal and sagittal reformats. For radiation dose reduction, the following was used: automated exposure control, adjustment of mA and/or kV according to patient size. COMPARISON: [facility], CT, HEAD WITHOUT CONTRAST, 09/29/2009, 20:36. FINDINGS: Image quality: Excellent. CSF spaces: Basal cisterns are patent. No extra-axial fluid collections. The ventricles are symmetric in size and shape. Brain: No intracranial bleeds or masses. There is cerebral volume loss for age, with resultant ventricular and sulcal prominence. There are periventricular and deep white matter chronic small vessel ischemic changes. There is intracranial internal carotid artery atherosclerosis. There is a small focus of low attenuation within the left thalamus, new compared to 2010. Skull and face: Calvarium and visualized facial bones appear intact, without suspicious lesions. Sinuses: Visualized sinuses and mastoids are clear. IMPRESSION: 1. Small focus of low attenuation within the left thalamus suspected to be metals sales representative of volume averaging. However, subacute ischemia cannot be definitively excluded. As clinically indicated, MRI may be obtained. 2. Moderate atrophy and chronic microvascular ischemic changes. Dictated by: Amelia Macdonald M.D. on 07/31/2018 at 9:12 MRI - head: Radiologist's impression: PROCEDURE: MR STROKE Pre- and post-contrast brain MRI, non-contrast brain MR angiogram, pre- and postcontrast neck MR angiogram INDICATIONS: Aphasia. Confusion TECHNIQUE: Brain: Noncontrast axial T1 spin echo, axial T2 fast spin echo, sagittal and axial FLAIR, coronal T2 fast spin echo, axial gradient echo, axial diffusion and ADC through the brain. After the administration of contrast, axial 3D VIBE of the cranial vasculature and brain. Brain MRA: Non-contrast 3-D time of flight MR angiogram, with multiple ryucbpx-ftkkjotnv-fnocbugjjr (MIP) reformats performed. Neck MRA: Axial and sagittal TruFISP through the neck. Coronal dynamic MR angiogram during administration of contrast in the arterial and venous phases, with 3-dimenstional ydangvb-gmxnbkcxy-rjxuztabst (MIP) reformats constructed from subtraction images. COMPARISON: None. FINDINGS: Image quality: Excellent. BRAIN: CSF spaces: Ventricles are normal in size and shape. Basal cisterns are patent. No extra-axial fluid collections. Brain: No intracranial bleeds or mass effects. Scattered small white matter signal changes, probably represent chronic microvascular ischemic disease, versus statistically less likely demyelination or other infectious, inflammatory, neurodegenerative etiology, technically nonspecific. Bruce-white matter interface is normal. Acute ischemia is seen involving the left temporoparietal lobe, for example image 61 series 10. Brainstem appears normal. Normal intravascular flow voids are present. No abnormal intracranial enhancement. Skull and face: Calvarial marrow signal is normal. Orbits appear normal. Sinuses: Sinuses and mastoids are clear. BRAIN MR ANGIOGRAM: Anterior circulation: Intracranial internal carotid arteries are normal in size and enhancement. The left A1 segment is not seen likely congenitally atretic versus occluded. The flow within the paired anterior cerebral arteries is normal and symmetric. Diffuse sclerotic narrowing of the cavernous segment of the distal left ICA. There is long segment narrowing decreased flow of the distal left M1 segment with reconstitution of the sylvian vessels. No definite occlusion seen on the source images. Posterior circulation: There is short segment narrowing of the right V4 segment without definite occlusion. Normal left vertebral artery and normal appearing basilar artery. The flow within the posterior cerebral arteries is normal and symmetric. No stenoses, occlusions, or aneurysms. NECK MR ANGIOGRAM: Carotids: Great vessels demonstrate a conventional anatomy as they arise from the aortic arch. The origins of the common carotid arteries appear patent. The calibers and courses of both common carotid arteries are normal. The bifurcation regions appear normal bilaterally. The internal carotid arteries demonstrate normal course and caliber. Posterior circulation: Origin of the right vertebral artery not well seen. The origin of the left vertebral artery appears grossly patent. Short segment narrowing of the distal right V4 segment. Normal appearing basilar artery. Miscellaneous: Subclavian arteries appear patent. Pre-contrast images through the neck show no soft tissue abnormalities. Cervical spondylosis and multilevel listhesis. IMPRESSION: BRAIN MRI: Acute ischemia involving the left temporoparietal lobe. Diffuse small white matter signal changes, probably represent chronic microvascular ischemic disease, versus statistically less likely demyelination or other infectious, inflammatory, neurodegenerative etiology, technically nonspecific. BRAIN MR ANGIOGRAM: Narrowing of the distal left M1 segment, and decreased flow, with reconstitution of the sylvian vessels. NECK MR ANGIOGRAM: Short segment narrowing of the distal right V4 segment. No ICA stenosis. Dictated by: Khai Hanna M.D. on 07/31/2018 at 15:49 head/neck CTA: Radiologist's impression: PROCEDURE: CT ANGIO HEAD AND NECK INDICATIONS: possible stroke, left sided weakness since yesterday TECHNIQUE: Pre-contrast 4.5 mm thick sections acquired from the foramen magnum to the vertex. After the administration of intravenous contrast, 1 mm thick sections acquired from the aortic arch through the [place] of [place]. Post-contrast 4.5 mm thick sections then re-acquired from the foramen magnum to the vertex. 3-dimensional tvajjiv-eocmuxhwp-negexftukw (MIP) and/or volume rendering reformats were acquired of the central intracranial vasculature and neck separately. COMPARISON: [facility], CT, HEAD WITHOUT CONTRAST, 09/29/2009, 20:36. [facility], CT, CT HEAD/BRAIN WO CON, 07/31/2018, 8:28. FINDINGS: Image quality: Excellent. BRAIN: The ventricular system and cortical sulci demonstrate atrophy, consistent for the patient's stated age. There are areas of hypodensity within the periventricular and subcortical white matter. There is no acute intra-or extra axial fluid collection. No acute hemorrhage, mass lesion or midline shift. Brainstem is unremarkable. . Globes are symmetrical. Sinuses are aerated. Osseous structures are intact. Previously noted left thalamic focus of hypoattenuation is again noted. . HEAD CT ANGIOGRAPHY: Anterior circulation: Intracranial internal carotid arteries are normal in size and flow. The flow within the paired anterior cerebral arteries is normal and symmetric. The flow within the middle cerebral arteries is normal and symmetric. The anterior communicating artery is seen. No aneurysms are seen. Posterior circulation: Visualized portions of the vertebral arteries demonstrate normal caliber, and join to form a normal appearing basilar artery. Flow within the posterior cerebral arteries is normal and symmetric. No aneurysms are seen. NECK CT ANGIOGRAPHY: Carotid system: The great vessels demonstrate a conventional anatomy as they arise from the aortic arch. The origins of the common carotid arteries appear patent. The common carotid arteries demonstrate normal caliber and courses. The bifurcation regions are both widely patent. The internal carotid arteries demonstrate normal calibers and courses. Posterior circulation: The origins of the vertebral arteries both appear widely patent. The more superior extracranial portions of both vertebral arteries also demonstrate normal courses and calibers. They join to form a normal appearing basilar artery. Soft tissues: Visualized neck soft tissues demonstrate no suspicious abnormalities. Bones: No suspicious bony lesions. Visualized cervical spine appears normally aligned. IMPRESSION: 1. Unchanged appearance of hypoattenuation within the left thalamus possibly representing volume averaging versus subacute ischemia. MRI is recommended if clinically indicated. 2. Moderate atrophy and chronic microvascular ischemic changes. 3.No areas of hemodynamically significant stenosis, vascular occlusion or aneurysmal dilation within the anterior or posterior circulation. 4. No areas of hemodynamically significant stenosis, vascular occlusion or aneurysmal dilation within the neck vasculature. Any quantitative measurements of stenosis were performed using NASCET criteria. Dictated by: Amelia Macdonald M.D. on 07/31/2018 at 9:15 Labs Result Diagrams: 07/31/18 08:05 07/31/18 08:05 Discharge Plan Discharge Plan Patient Disposition: Home Discharge Med Rec/Prescriptions Prescriptions: New atorvastatin 40 mg tablet 40 mg PO DAILY Qty: 30 RF: 5 clopidogrel 75 mg tablet 75 mg PO DAILY Qty: 30 RF: 6 ranitidine HCl 150 mg tablet 150 mg PO BID Qty: 60 RF: 4 Continued aspirin 81 mg Tablet,Delayed Release (Dr/Ec) 81 mg PO DAILY Qty: 0 RF: 0 CALCIUM CARBONATE/VITAMIN D3 (Calcium 600 + Vit D3 Tablet) 1 tab PO DAILY Qty: 0 RF: 0 Dulera 100 MCG/5 MCG HFA aerosol inhaler 2 inh INH BID Qty: 2 RF: 11 Advair HFA 230 MCG/21 MCG HFA aerosol inhaler 2 puff INH BID Qty: 3 RF: 3 metoprolol succinate 25 mg Tablet Extended Release 24 Hr 37.5 mg PO BID RF: 0 fluticasone-salmeterol 230-21 mcg/actuation Hfa Aerosol Inhaler 2 puff INHALATION BID RF: 0 ipratropium-albuterol 20-100 mcg/actuation Mist 1 puff INHALATION QID RF: 0 fluticasone 16 GM spray,suspension 2 spray Intranasal BEDTIME PRN (Reason: Allergy Symptoms) RF: 0 Discontinued amlodipine [Norvasc] 5 mg tablet 5 mg PO DAILY RF: 0 simvastatin 20 MG tablet 20 mg PO BEDTIME RF: 0 omeprazole 40 mg capsule,delayed release(DR/EC) 40 mg PO BEDTIME RF: 0 hydroxyzine HCl 25 MG tablet 1 tab PO Q4HP PRN (Reason: unknown) RF: 0 Follow up/Referrals: Geoffrey Melvin MD [Primary Care Provider] - 1 Week Provider Discharge Instructions Diet: Diet as Tolerated Visit Report/Discharge Packet Instructions: Aphasia, Receptive Aphasia, DI for Aphasia, Left-side Stroke, DI for Visual Field Disturbances Discharge Data Primary Care Provider: Geoffrey Melvin Attending Provider: Geoffrey Melvin Admit Date/Time: 07/31/18 14:12 Quality VTE Deep Vein Thrombosis/Pulmonary Embolism Present on Admission: No
--- NOTE | 2018-08-05 15:00 | PT.IPTN ---
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 (07/31/18) Physical Therapy Treatment Note M2 PT-IP Current Condition Start: 07/31/18 15:10 Freq: NEEDED Status: Active Protocol: Document 08/01/18 09:45 HH (Rec: 08/01/18 10:53 HH [id number]) Physical Therapy Current Condition Current Condition Evaluation Date 08/01/18 Treatment Diagnosis L temporoparietal CVA, impaired gait and balance Onset Date 07/31/18 Weight Bearing Status Weight Bearing Status Weight Bear as Tolerated M3 PT-IP Subjective Start: 07/31/18 15:10 Freq: NEEDED Status: Active Protocol: Document 08/05/18 13:30 CLB (Rec: 08/05/18 14:59 CLB [id number]) Subjective Physical Therapy Visit Type Type Treatment Note Visit Start Time 13:30 Visit Stop Time 14:00 Total Visit Minutes 30 Number of ENVIRONMENTAL FIELD TEAM MEMBER Visits 5 Physical Therapy Visit Comments Patient Comments Pt up walking in room and willing to work with therapy. M4 PT-IP Mobility and Gait Start: 07/31/18 15:10 Freq: NEEDED Status: Active Protocol: Document 08/05/18 13:30 CLB (Rec: 08/05/18 14:59 CLB [id number]) PT-Transfer Assessment Sit to and From Stand Sit to and from Stand Contact Guard Assistance Use of Upper Extremities Equipment Transfer Assistive Device None Gait Belt Transfers Transfer Destination Chair Transfer Ability Level of Assist Contact Guard Assistance Use of Upper Extremities Comments Mobility Comments Pt able to hope her own shoes. Gait Assessment Gait Gait Assistance Required: Standby Assistance Contact Guard Assist Distance (Feet) 600 Able to Maintain Weight Bearing Status Yes During Gait Assistive Devices Assistive Device None Gait Belt Gait Deviations General Gait Pattern Decreased Stride Length Decreased Feet Clearance Narrow Based Gait Factors Limiting Gait Function Factors Limiting Gait Function Difficulty Following Directions Poor Balance Poor Safety Awareness Comments Gait Comments Pt able to ambulate in chavez with SBA-CGA w/o AD. Pt required cues to watch obstacles on right side. Stair Climbing Assessment Evaluation Level of Assist On Stairs Contact Guard Assistance Devices Stair Climbing Assistive Devices None Technique/Endurance Stair Climbing Direction Ascend and Descend Stair Climbing Technique Step Over Step Number of Steps Climbed 3 Query Text: Stair Climbing Set # Repetitions (reps) 1 Comments Stair Climbing Comments Pt able to climb stairs with CGA. M5 PT-IP Objective Assessments Start: 07/31/18 15:10 Freq: NEEDED Status: Active Protocol: Document 08/01/18 09:45 HH (Rec: 08/01/18 10:53 HH [id number]) Orientation Orientation/Cognition Level of Alertness Alert Orientation Name Age Birthday Month Language Function Ability Expressive Aphasia Receptive Aphasia Garbled Speech Word Finding Difficulties Safety Awareness Decreased Safety Awareness Gross Range of Motion Upper Extremity ROM Assessment Within Functional Limits Lower Extremity ROM Assessment Within Functional Limits Strength Upper Extremity Strength Assessment Left Impaired Lower Extremity Strength Assessment Left Impaired Comments Strength Comments Pt has difficulty following commands. She tends to move all of her extremities therefore it is difficult to assess muscle weakness. But she does demonstrate some degree of weakness on L UE while she was asked to pull and push therapist arm; uneven steps during amb. Coordination Assessment Gross Coordination Gross Coordination Impaired Assessment Coordination Comments Pt has difficulty following commands. Sensation Assessment Comments Sensation Comments Pt has difficulty understanding instructions. M6 PT-IP Treatment Start: 07/31/18 15:10 Freq: NEEDED Status: Active Protocol: Document 08/05/18 13:30 CLB (Rec: 08/05/18 14:59 CLB [id number]) Physical Therapy Treatment Other Treatments Other Treatment Performed SLS with Min A on Left. heel/ toe gait CGA, standing hip abduction,Mini squats M7 PT-IP Assessment and Plan Start: 07/31/18 15:10 Freq: NEEDED Status: Active Protocol: Document 08/05/18 13:30 CLB (Rec: 08/05/18 14:59 CLB [id number]) PT Summary Assessment and Plan Summary Assessment Summary Pt requires Mod visual cues for theraputic activites. Pt able to wash hands at sink and brush her teeth. Pt required Min A for SLS and CGA for heel /toes walking. Pt was given list of DME equipment as OT suggested shower chair and pt may also requires use of FWW for home use. 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 Goals Bed Mobility Goal Contact Guard Assistance Transfer Goal Contact Guard Assistance Front Wheeled Walker Gait Goal Contact Guard Assistance Front Wheel Walker Gait Distance 500 Other Goals climb 2 steps with 1 rail Days to Meet Goals 5 Frequency of Treatment Frequency Of Treatment Twice a Day Treatment Plan Physical Therapy Treatment Plan Bed Mobility Training Transfer Training Gait Training Therapeutic Exercise Balance Retraining Discharge Planning Other Recommendations and Next Treatment balance and dynamic gait. Focus Recommendations To Nursing Amount of Assist Needed 1 Person Assist Discharge Recommendations PT Discharge Recommendations Acute Rehab Equipment Needed for Home Before FWW, shower chair Discharge
--- NOTE | 2018-08-05 15:06 | PC.NURSE ---
Discharge d/c instructions provided to pt and her . aware to contact Dr Melvin tomorrow to make f/u apt. to make referral for outpt therapy. PIV removed without issue. pt gets frustrated with education as she is confused about discussion with therapy apts. She continues to have expressive/receptive aphasia. questions about how much therapy insurance will cover, referred pt to contact insurance company tomorrow when outpt representatives are working. Pt left in w/c with RN escort and to car.
== END 2018-08-05 14:30 | disposition home or self-care (01) | DRG 65 ==
LOC: ED 13:42 → AC 14:12
PROVIDERS: Admitting Provider Internal Medicine; Emergency Provider Emergency Medicine; PCP Internal Medicine; Visit Provider Internal Medicine
DX: I63.512 Cerebral infarction due to unspecified occlusion or stenosis of left middle cerebral artery (principal); I47.1 Supraventricular tachycardia; R47.02 Dysphasia; R27.8 Other lack of coordination; I12.9 Hypertensive chronic kidney disease with stage 1 through stage 4 chronic kidney disease, or unspecified chronic kidney disease; N18.2 Chronic kidney disease, stage 2 (mild); E78.5 Hyperlipidemia, unspecified; J45.909 Unspecified asthma, uncomplicated
CPT/HCPCS: 36591; 70450; 70496; 70498; 70553; 80053; 80061; 80320; 81001; 81003; 82962; 83036; 83690; 84484; 85025; 85610; 85730; 92507; 92523; 92610; 93005; 93010; 94640; 94760; 97110; 97112; 97116; 97162; 97166; 97530; 97535; 99232; 99233; 99238; 99285; J1644; Q9967

== ENCOUNTER → 2018-11-02 14:41 | Outpatient (CLI) | payer OTHER, SELFPAY ==
[2018-07-31 16:51] VITALS: BMI 26.4
[2018-11-02 15:39] LABS: BUN Creatinine Ratio 20.7 (6-22); Blood Urea Nitrogen 31 mg/dL (7-17); Carbon Dioxide 32 mmol/L (22-32); Chloride 97 mmol/L (98-107); Estimated Glomerular Filt Rate 33.3 mL/min (>60); Glucose 108 mg/dL (80-110); HEMOLYSIS < 15 (0-50); Potassium 3.3 mmol/L (3.4-5.1); Sodium 139 mmol/L (137-145)
[2018-11-02 16:19] LABS: Free T4, Direct Thyroxine 1.45 ng/dL (0.78-2.19)
[2018-11-02 16:33] LABS: Thyroid Stimulating Hormone 1.02 uIU/mL (0.47-4.68)
== END ==
PROVIDERS: PCP Internal Medicine; Visit Provider Internal Medicine
DX: I10 Essential (primary) hypertension (principal); E78.5 Hyperlipidemia, unspecified
CPT/HCPCS: 36415; 80048; 84439; 84443

== ENCOUNTER → 2018-11-23 12:10 | Outpatient (CLI) | payer OTHER, SELFPAY ==
[2018-07-31 16:51] VITALS: BMI 26.4
--- NOTE | 2018-11-23 | DI.MG.S_ITS ---
BILATERAL DIGITAL SCREENING MAMMOGRAM 3D/2D WITH CAD: 11/23/2018 CLINICAL: Routine screening. Family history of breast cancer. Comparison is made to exams dated: 11/22/2017 mammogram, 11/16/2016 mammogram, 11/11/2015 mammogram, and 11/04/2014 mammogram - [facility]. The tissue of both breasts is heterogeneously dense. This may lower the sensitivity of mammography. Current study was also evaluated with a Computer Aided Detection (CAD) system. There are calcifications in the left breast central to the nipple anterior depth which appear more prominent than prior exams. No other significant masses, calcifications, or other findings are seen in either breast. IMPRESSION: INCOMPLETE: NEEDS ADDITIONAL IMAGING EVALUATION The calcifications in the left breast central to the nipple anterior depth are indeterminate. Magnification views as well as additional views with possible ultrasound are recommended. This exam was interpreted at Station ID: [id number]. NOTE: For mammograms, a report in lay terms will be sent to the patient. Approximately 15% of breast malignancies will not be visualized mammographically. In the management of a palpable breast mass, a negative mammogram must not discourage biopsy of a clinically suspicious lesion. Electronically Signed By: Richy Turner M.D. ecl/:11/23/2018 18:54:00 letter sent: Additional Imaging Needed ACR BI-RADS Category 0: Incomplete 3340F
== END ==
PROVIDERS: PCP Internal Medicine; Visit Provider Internal Medicine
DX: Z12.31 Encounter for screening mammogram for malignant neoplasm of breast (principal); Z80.3 Family history of malignant neoplasm of breast
CPT/HCPCS: 77063; 77067

== ENCOUNTER → 2018-12-21 08:25 | Outpatient (CLI) | payer OTHER, SELFPAY ==
[2018-07-31 16:51] VITALS: BMI 26.4
--- NOTE | 2018-12-21 | DI.MG.S_ITS ---
UNILATERAL LEFT DIGITAL DIAGNOSTIC MAMMOGRAM 3D/2D WITH ADDITIONAL VIEWS: 12/21/2018 Comparison is made to exams dated: 11/23/2018 mammogram, 11/22/2017 mammogram, and 11/16/2016 mammogram - [facility]. The tissue of left breast is heterogeneously dense. This may lower the sensitivity of mammography. There is a round equal density mass with a circumscribed margin in the left breast at 1 o'clock anterior depth. There also are a regional round calcifications in the left breast central to the nipple anterior depth. These are seen in additional views. IMPRESSION: INCOMPLETE: NEEDS ADDITIONAL IMAGING EVALUATION The round equal density mass in the left breast at 1 o'clock anterior depth is indeterminate. An ultrasound is recommended. The regional round calcifications in the left breast central to the nipple anterior depth are probably benign. These calcifications were more prominant on the screening mammogram. A follow-up mammogram in 6 months is recommended. A follow-up mammogram in 6 months is recommended to demonstrate stability. This exam was interpreted at Station ID: [id number]. NOTE: For mammograms, a report in lay terms will be sent to the patient. Approximately 15% of breast malignancies will not be visualized mammographically. In the management of a palpable breast mass, a negative mammogram must not discourage biopsy of a clinically suspicious lesion. Electronically Signed By: Vinicio Rivero M.D. slc/:12/21/2018 09:25:55 letter sent: Additional Imaging Needed ACR BI-RADS Category 0: Incomplete 3340F
--- NOTE | 2018-12-21 08:26 | DI.US.S_ITS ---
LIMITED ULTRASOUND OF LEFT BREAST: 12/21/2018 CLINICAL: Additional evaluation requested from prior study. Comparison is made to exams dated: 12/21/2018 mammogram, 11/23/2018 mammogram, 11/22/2017 mammogram, and 11/16/2016 mammogram - [facility]. Real-time and Doppler ultrasound of the left breast 1 o'clock region were performed. Bruce scale images of the real-time examination were reviewed. There is an 8 x 6 x 5 mm round complicated cyst with a septated internal wall in the left breast central at 1:00 o'clock middle depth 3 cm from the nipple. This round complicated cyst is hypoechoic with a well-defined boundary and posterior acoustic enhancement. This correlates with mammography findings. There are related rim calcifications. Color flow imaging demonstrates that there is no increase in vascularity. IMPRESSION: PROBABLY BENIGN The 8 mm round complicated cyst in the left breast is consistent with a complicated cyst and is probably benign. A follow-up mammogram and an ultrasound in 6 months is recommended to demonstrate stability. This exam was interpreted at Station ID: [id number]. Electronically Signed By: Vinicio Rivero M.D. [facility]/:12/21/2018 11:09:49 letter sent: Followup Recommended Ultrasound BI-RADS: 3 Probably benign
== END ==
PROVIDERS: PCP Internal Medicine; Visit Provider Internal Medicine
DX: N63.20 Unspecified lump in the left breast, unspecified quadrant (principal)
CPT/HCPCS: 76642; 77065; G0279

== ENCOUNTER 2019-01-23 10:30 | Outpatient (RCR) | payer OTHER, SELFPAY ==
[2018-07-31 16:51] VITALS: BMI 26.4
--- NOTE | 2018-10-17 15:47 | ST.OPTN ---
Care Team Visit Care Team Role Provider Type Geoffrey Melvin MD Attending Provider Physician Primary Care Provider Address: [address] [place] [address], [id number] PLANT OPERATIONS VICE PRESIDENT Treatment Note PLANT OPERATIONS VICE PRESIDENT Treatment Note Start: 08/15/18 17:53 Freq: Status: Active Protocol: Document 10/17/18 15:31 NASREEN (Rec: 10/17/18 15:47 NASREEN [id number]) Speech Pathology Treatment Note Session Time Visit Start Time 14:30 Visit Stop Time 15:22 Total Visit Minutes 52 Visit Information Visit Number 11/12 Plan of Care Dates 08/13/18 - 11/03/18 Insurance Information [employer] *$20 copay Setting Treatment Setting Outpatient Care Visit Type Note Type Treatment Note Next Note Type Next Note Type Treatment Note General Information General Information This 82-yr-old female was hospitalized at [facility] from 07/31/18 - 08/05, presenting with new onset expressive and receptive aphasia, 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 The pt had no worsening of her symptoms during her hospitalization, and minimal improvement in her symptoms with therapy. 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 Subjective Others Present Family Observations/Patient Presentation Pt arrived on time with , who was present throughout. The pt has stopped volunteering at [facility] and [employer] d/t difficulty completing tasks secondary to stroke. She brought a book with her that she is enjoying reading about the history of [place]. Chief Complaint(s) Speech Language Rehab Expectation/Goals: Patient Goals Improve expressive language ability Patient Knowledge/Awareness of PLANT OPERATIONS VICE PRESIDENT Role Good in Treatment Parent/Caretake Knowledge/Awareness of Excellent PLANT OPERATIONS VICE PRESIDENT Role in Treatment Patient/Caregiver Compliance with Home Excellent Exercise Program Objective Short Term Goals 1. Given descriptions of objects in writing, the pt will match descriptions to pictures/names of objects with 80% accuracy to improve her naming and reading skills. 2. Given visual/written prompts as needed, the pt will follow simple oral instructions to increase her ability to perform ADLs and maintain highest level of independence. 3. Given minimal v/v prompts, the pt will write her first and last names with 80% accuracy to increase functional writing skills. [facility] Goals 1. Given visual/written prompts as needed, the pt will produce simple sentences with 80% accuracy to express her wants/needs/opinions and increase ability to participate in functional conversations. 2. Given minimal v/v prompts, the pt will write biographical information with 80% accuracy to increase functional writing skills. GOAL DISCONTINUED. PT ABLE TO WRITE 1ST/LAST NAMES. 3. Given short paragraphs in writing, the pt will demonstrate reading comprehension by answering questions or matching pictures with 80% accuracy to improve reading skills and maintain/ improve ability to participate in hobbies and ADLs. 3. The pt will follow 2-step oral instructions to increase her ability to perform ADLs and maintain highest level of independence. Treatment Activities The pt read aloud a few sentences from her book, exhibiting significant apraxic and paraphasia symptoms, primarily with multisyllabic words. Difficult to determine reading comprehension via conversation and oral questions and answers. The pt reports comprehension from reading silents but acknowledged difficulty in oral production. Education was provided to pt/ spouse RE Aphasia vs Apraxia of Speech. Questions were answered. The pt reported ongoing difficulty and frustration producing address and phone number. Attempted to train phone number recall with written sequencing task including area code only. Given initial demonstration only, the pt was unable to accurately sequence 3 numbers. Given visual model, she sequenced numbers correctly in 4/4 (100%) attempts and independently stopped referring to visual model. The model was removed and she sequenced numbers correctly in 5/6 (83%) of attempts. Two distractor numbers were added, and the pt chose and sequenced numbers in 3/5 (60%) attempts. With errors, however, she became extremely frustrated and then tearful. The task was ended and the pt communicated that she does not care about her phone number or need to know it because it is written down at home. Discussed with pt the option of keeping an identification card in her purse containing address and phone number and abandoning attempts to verbally recall personal information. She was in agreement with this recommendation. An Aphasia Identification Card was provided to her, which she agreed to complete. Assessment Patient Response to Treatment Good Rehab Potential Good Impairments Identified Aphasia Attention Auditory Comprehension Expressive Language Reading Comprehension Receptive Language Speech Intelligibility Progress Towards Goals Good Progress Assessment of Overall Progress Improving Assessment of Improvement The pt exhibited stimulability to sequencing digits of phone number. However, the task is extremely frustrating and discouraging to her and will therefore be abandoned. In it' s place, the pt will carry biographical information with her, as well as information indicating she has had a stroke. This tool will aid her in communicating personal information in functional situations and communicating with people who are unfamiliar with her situation/condition. The pt was appreciative of this modification. Reviewed with Patient Goals Progress Being Made Home Exercise Program Patient/Caregiver Understanding Good Plan Length of Session 45 Minutes Therapeutic Contents Auditory Comprehension Client Education Expressive Language Training Home Exercise Program Intelligibility Reading Comprehension Receptive Language Training Written Expression Provided Patient/Caregiver Instruction Home Exercise Program Plan of Care Questions/Concerns Therapy Recommendations Continue with Current Program
--- NOTE | 2018-10-22 11:36 | ST.OPTN ---
Care Team Visit Care Team Role Provider Type Geoffrey Melvin MD Attending Provider Physician Primary Care Provider Address: [address] [address], [id number] TERRITORY BUSINESS MANAGER Treatment Note TERRITORY BUSINESS MANAGER Treatment Note Start: 08/15/18 17:53 Freq: Status: Active Protocol: Document 10/22/18 09:22 NASREEN (Rec: 10/22/18 10:32 NASREEN [id number]) Speech Pathology Treatment Note Session Time Visit Start Time 09:30 Visit Stop Time 10:15 Total Visit Minutes 45 Visit Information Visit Number /10 Plan of Care Dates 08/13/18 - 11/03/18 Insurance Information [employer] *$20 copay Setting Treatment Setting Outpatient Care Visit Type Note Type Treatment Note Next Note Type Next Note Type Treatment Note General Information General Information This 82-yr-old female was hospitalized at [facility] from 07/31/18 - 08/05, presenting with new onset expressive and receptive aphasia, 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 The pt had no worsening of her symptoms during her hospitalization, and minimal improvement in her symptoms with therapy. 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 Subjective Others Present Family Observations/Patient Presentation Pt arrived on time with , who was present throughout. Chief Complaint(s) Speech Language Rehab Expectation/Goals: Patient Goals Improve expressive language ability Patient Knowledge/Awareness of TERRITORY BUSINESS MANAGER Role Good in Treatment Parent/Caretake Knowledge/Awareness of Excellent TERRITORY BUSINESS MANAGER Role in Treatment Patient/Caregiver Compliance with Home Excellent Exercise Program Objective Short Term Goals 1. Given descriptions of objects in writing, the pt will match descriptions to pictures/names of objects with 80% accuracy to improve her naming and reading skills. 2. Given visual/written prompts as needed, the pt will follow simple oral instructions to increase her ability to perform ADLs and maintain highest level of independence. 3. Given minimal v/v prompts, the pt will write her first and last names with 80% accuracy to increase functional writing skills. GOAL MET Long-Term Goals 1. Given visual/written prompts as needed, the pt will produce simple sentences with 80% accuracy to express her wants/needs/opinions and increase ability to participate in functional conversations. 2. Given minimal v/v prompts, the pt will write biographical information with 80% accuracy to increase functional writing skills. GOAL DISCONTINUED. PT ABLE TO WRITE 1ST/LAST NAMES. 3. Given short paragraphs in writing, the pt will demonstrate reading comprehension by answering questions or matching pictures with 80% accuracy to improve reading skills and maintain/ improve ability to participate in hobbies and ADLs. 3. The pt will follow 2-step oral instructions to increase her ability to perform ADLs and maintain highest level of independence. Treatment Activities Pt returned with Aphasia ID/ Communication card completed, which was laminated and returned to her. Using [employer] [facility] isaias, the pt matched words to pictures: Fo2 words 100%, Fo4 Words 95% acc min verbal cues. She matched written descriptions to pictures: Fx2 descriptions 100%. She completed written [id number] blank sentences with Fo4 words with 100% acc in 5 trials with min-mod verbal cues. The pt read words aloud with 63% acc and sentences with with 70% accuracy. Errors tended to be phonemic pharaphasias with perseveration on a word in a previous sentence x1. She benefited somewhat from segmentation of words/ sentences to increase attention and reduce assumptions and/or too-rapid of processing attempts. Skilled feedback was provided. Assessment Patient Response to Treatment Good Rehab Potential Good Impairments Identified Aphasia Attention Auditory Comprehension Expressive Language Reading Comprehension Receptive Language Speech Intelligibility Progress Towards Goals Good Progress Assessment of Overall Progress Improving Assessment of Improvement The pt's reading skills are improving with some benefit from segmentation. She frequently self-corrects and improves speech/reading production with repetition. Matching written text to pictures is strong, indicating greater comprehension than is necessarily evidenced by oral productions. She continues to require cues for attention, as accuracy decreases with increased rate of speech. Reviewed with Patient Goals Progress Being Made Home Exercise Program Patient/Caregiver Understanding Good Plan Length of Session 45 Minutes Therapeutic Contents Auditory Comprehension Client Education Expressive Language Training Home Exercise Program Intelligibility Reading Comprehension Receptive Language Training Written Expression Provided Patient/Caregiver Instruction Home Exercise Program Plan of Care Questions/Concerns Therapy Recommendations Continue with Current Program
--- NOTE | 2018-11-14 13:55 | ST.OPTN ---
Care Team Visit Care Team Role Provider Type Geoffrey Melvin MD Attending Provider Physician Primary Care Provider Address: [address] [place] [address], [id number] CONFIGURATION MANAGEMENT ANALYST Treatment Note CONFIGURATION MANAGEMENT ANALYST Treatment Note Start: 08/15/18 17:53 Freq: Status: Active Protocol: Document 11/14/18 13:23 NASREEN (Rec: 11/14/18 13:34 NASREEN [id number]) Speech Pathology Treatment Note Session Time Visit Start Time 13:30 Visit Stop Time 14:20 Total Visit Minutes 50 Visit Information Visit Number 06/14 Plan of Care Dates 11/14/18 - 02/14/19 Insurance Information [employer] *$20 copay Setting Treatment Setting Outpatient Care Visit Type Note Type Progress Note Next Note Type Next Note Type Treatment Note General Information General Information This 82-yr-old female was hospitalized at [facility] from 07/31/18 - 08/05, presenting with new onset expressive and receptive aphasia, 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 The pt had no worsening of her symptoms during her hospitalization, and minimal improvement in her symptoms with therapy. 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 Subjective Others Present Family Observations/Patient Presentation Pt arrived on time with , who was present throughout. Chief Complaint(s) Speech Language Rehab Expectation/Goals: Patient Goals Improve expressive language ability Patient Knowledge/Awareness of CONFIGURATION MANAGEMENT ANALYST Role Good in Treatment Parent/Caretake Knowledge/Awareness of Excellent CONFIGURATION MANAGEMENT ANALYST Role in Treatment Patient/Caregiver Compliance with Home Excellent Exercise Program Objective Short Term Goals 1. Given descriptions of objects in writing, the pt will match descriptions to pictures/names of objects with 80% accuracy to improve her naming and reading skills. 2. Given visual/written prompts as needed, the pt will follow simple oral instructions to increase her ability to perform ADLs and maintain highest level of independence. 3. Given minimal v/v prompts, the pt will write her first and last names with 80% accuracy to increase functional writing skills. GOAL MET [facility] Goals 1. Given visual/written prompts as needed, the pt will produce simple sentences with 80% accuracy to express her wants/needs/opinions and increase ability to participate in functional conversations. GOAL MET NEW GOAL: Given conversation topics salient to the pt and visual aids as needed (e.g., maps/pictures related to topics), she will communicate with <25% of speech exhibiting paraphasias and WFD in order to increase expressive communication skills. 2. Given minimal v/v prompts, the pt will write biographical information with 80% accuracy to increase functional writing skills. GOAL DISCONTINUED. PT ABLE TO WRITE 1ST/LAST NAMES. 3. Given short paragraphs in writing, the pt will demonstrate reading comprehension by answering questions or matching pictures with 80% accuracy to improve reading skills and maintain/ improve ability to participate in hobbies and ADLs. EXCELLENT PROGRESS, CONTINUE 3. The pt will follow 2-step oral instructions to increase her ability to perform ADLs and maintain highest level of independence. MAKING PROGRESS, CONTINUE Treatment Activities Conversation: Pt conversed with greater ease and real word usage as compared to previous sessions. She retold stories from a book she is reading, demonstrating adequate reading comprehension and recall skills. She exhibited occasional WFD, which were often supplied by her and/or produced by pt with phonemic cues. Pt completed written directions task. She read instructions aloud with 78% accuracy, mild perseveration on previous word displayed. She frequently self-corrected or was able to correct with min prompts. Occasional need to segment multisyllabic words , which was beneficial. She completed directions with 86% accuracy, mod verbal prompts. Assessment Patient Response to Treatment Good Rehab Potential Good Impairments Identified Aphasia Attention Auditory Comprehension Expressive Language Reading Comprehension Receptive Language Speech Intelligibility Progress Towards Goals Good Progress Assessment of Overall Progress Improving Assessment of Improvement Over course of tx, Juliet has demonstrated improved reading skills (both oral motor reading tasks and comprehension), which brings her much jennifer as reading is a valued hobby. Oral expression has improved significantly with fewer episodes of paraphasias. Challenges remain in area of word-finding difficulties and articulation of multisyllabic words. She is moderately responsive to phonemic cues and even more responsive to reading the target word with use of spelling and segmentation strategies as needed. She has also progressed nicely with her ability to write personal information, which increases her independence in checking into appointments, etc. She struggles with recall of her house address and phone number; however, these are available to her in formats that allow her to show them to others or copy them herself as needed. She carries a card with her that contains such information as well as informs the reader of her stroke and difficulty with communication. Juliet continues to be easily frustrated with deficits in areas of oral production and word retrieval, particularly as they related to stories she is trying to tell or questions she wants to ask. Occasional tearfulness accompanies her frustration, although she tends to redirect to new tasks with some ease. Reviewed with Patient Goals Progress Being Made Home Exercise Program Patient/Caregiver Understanding Good Plan Amount of Therapy Recommended 2-3 Months Frequency of Treatment Once a Week Length of Session 45 Minutes Treatment Emphasis Next Session Word/memory recall and oral directions with map use Therapeutic Contents Auditory Comprehension Client Education Expressive Language Training Home Exercise Program Intelligibility Reading Comprehension Receptive Language Training Written Expression Provided Patient/Caregiver Instruction Home Exercise Program Plan of Care Questions/Concerns Therapy Recommendations Continue with Current Program
--- NOTE | 2018-11-19 13:34 | ST.OPTN ---
Care Team Visit Care Team Role Provider Type Geoffrey Melvin MD Attending Provider Physician Primary Care Provider Address: [address] [place] [address], [id number] STRAIN TECHNICIAN Treatment Note STRAIN TECHNICIAN Treatment Note Start: 08/15/18 17:53 Freq: Status: Active Protocol: Document 11/19/18 13:24 NASREEN (Rec: 11/19/18 13:34 NASREEN [email or web address]) Speech Pathology Treatment Note Session Time Visit Start Time 12:30 Visit Stop Time 13:15 Total Visit Minutes 45 Visit Information Visit Number 07/15 Plan of Care Dates 11/14/18 - 02/14/19 Insurance Information [employer] *$20 copay Setting Treatment Setting Outpatient Care Visit Type Note Type Progress Note Next Note Type Next Note Type Treatment Note General Information General Information This 82-yr-old female was hospitalized at from 07/31/18 - 08/05, presenting with new onset expressive and receptive aphasia, 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 The pt had no worsening of her symptoms during her hospitalization, and minimal improvement in her symptoms with therapy. 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 Subjective Others Present Family Observations/Patient Presentation Pt arrived on time with , who was present throughout. The pt brought back homework targeting following written directions, which the couple reported she had some difficulty with. Chief Complaint(s) Speech Language Rehab Expectation/Goals: Patient Goals Improve expressive language ability Patient Knowledge/Awareness of STRAIN TECHNICIAN Role Good in Treatment Parent/Caretake Knowledge/Awareness of Excellent STRAIN TECHNICIAN Role in Treatment Patient/Caregiver Compliance with Home Excellent Exercise Program Objective Short Term Goals 1. Given descriptions of objects in writing, the pt will match descriptions to pictures/names of objects with 80% accuracy to improve her naming and reading skills. 2. Given visual/written prompts as needed, the pt will follow simple oral instructions to increase her ability to perform ADLs and maintain highest level of independence. 3. Given minimal v/v prompts, the pt will write her first and last names with 80% accuracy to increase functional writing skills. GOAL MET Trip Follower Goals 1. Given visual/written prompts as needed, the pt will produce simple sentences with 80% accuracy to express her wants/needs/opinions and increase ability to participate in functional conversations. GOAL MET NEW GOAL: Given conversation topics salient to the pt and visual aids as needed (e.g., maps/pictures related to topics), she will communicate with <25% of speech exhibiting paraphasias and WFD in order to increase expressive communication skills. 2. Given minimal v/v prompts, the pt will write biographical information with 80% accuracy to increase functional writing skills. GOAL DISCONTINUED. PT ABLE TO WRITE 1ST/LAST NAMES. 3. Given short paragraphs in writing, the pt will demonstrate reading comprehension by answering questions or matching pictures with 80% accuracy to improve reading skills and maintain/ improve ability to participate in hobbies and ADLs. EXCELLENT PROGRESS, CONTINUE 3. The pt will follow 2-step oral instructions to increase her ability to perform ADLs and maintain highest level of independence. MAKING PROGRESS, CONTINUE Treatment Activities Reading sentences aloud: 91% accuracy. Error: incorrect prepositions, object names. When prompted to re-read, she corrected words ~90% of the time. Naming shapes: 4/4 (100% acc) Following written 1-step 2- component instructions: Simple instructions 100%, min cues; Moderately complex instructions 65% cues increasing over duration of task. Pt required reading all instructions multiple times prior to carrying out task. Confusion observed with segmenting components of instructions. Assessment Patient Response to Treatment Good Rehab Potential Good Impairments Identified Aphasia Attention Auditory Comprehension Expressive Language Reading Comprehension Receptive Language Speech Intelligibility Progress Towards Goals Good Progress Assessment of Overall Progress Improving Assessment of Improvement The pt exhibited increased difficulty/confusion following 1-step, 2-component written instructions over duration of task, seemingly due to fatigue and increased difficulty with moderately increased complexity of task. As she progressed with the task, she exhibited greater difficulty differentiating between the object to manipulate and the action to be taken. She benefited from visual and verbal isolation of the components. At one point she did become weepy and was suggested a break but she declined and kept working. Skilled feedback was provided including importance of taking breaks. The pt was given additional HEP tasks including the ones completed today and new tasks. She exhibited interest in the task, despite mild frustration. Reviewed with Patient Goals Progress Being Made Home Exercise Program Patient/Caregiver Understanding Good Plan Amount of Therapy Recommended 2-3 Months Frequency of Treatment Once a Week Length of Session 45 Minutes Treatment Emphasis Next Session Word/memory recall and oral directions with map use Therapeutic Contents Auditory Comprehension Client Education Expressive Language Training Home Exercise Program Intelligibility Reading Comprehension Receptive Language Training Written Expression Provided Patient/Caregiver Instruction Home Exercise Program Plan of Care Questions/Concerns Therapy Recommendations Continue with Current Program
--- NOTE | 2018-12-12 17:15 | ST.OPTN ---
Care Team Visit Care Team Role Provider Type Geoffrey Melvin MD Attending Provider Physician Primary Care Provider Address: [address] [place] [address], [id number] BEAD SUPERVISOR Treatment Note BEAD SUPERVISOR Treatment Note Start: 08/15/18 17:53 Freq: Status: Active Protocol: Document 12/12/18 13:39 NASREEN (Rec: 12/12/18 13:45 NASREEN [id number]) Speech Pathology Treatment Note Session Time Visit Start Time 12:30 Visit Stop Time 13:18 Total Visit Minutes 48 Visit Information Visit Number 08/12 Plan of Care Dates 11/14/18 - 02/14/19 Insurance Information [employer] *$20 copay Setting Treatment Setting Outpatient Care Visit Type Note Type Treatment Note Next Note Type Next Note Type Treatment Note General Information General Information This 82-yr-old female was hospitalized at [facility] from 07/31/18 - 08/05, presenting with new onset expressive and receptive aphasia, 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 The pt had no worsening of her symptoms during her hospitalization, and minimal improvement in her symptoms with therapy. 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 Subjective Others Present Family Observations/Patient Presentation Pt arrived on time with , who was present throughout. Chief Complaint(s) Speech Language Rehab Expectation/Goals: Patient Goals Improve expressive language ability Patient Knowledge/Awareness of BEAD SUPERVISOR Role Good in Treatment Parent/Caretake Knowledge/Awareness of Excellent BEAD SUPERVISOR Role in Treatment Patient/Caregiver Compliance with Home Excellent Exercise Program Objective Short Term Goals 1. Given descriptions of objects in writing, the pt will match descriptions to pictures/names of objects with 80% accuracy to improve her naming and reading skills. GOAL MET 2. Given visual/written prompts as needed, the pt will follow simple oral instructions to increase her ability to perform ADLs and maintain highest level of independence. 3. Given minimal v/v prompts, the pt will write her first and last names with 80% accuracy to increase functional writing skills. GOAL MET Fdc Goals 1. Given visual/written prompts as needed, the pt will produce simple sentences with 80% accuracy to express her wants/needs/opinions and increase ability to participate in functional conversations. GOAL MET NEW GOAL: Given conversation topics salient to the pt and visual aids as needed (e.g., maps/pictures related to topics), she will communicate with <25% of speech exhibiting paraphasias and WFD in order to increase expressive communication skills. 2. Given minimal v/v prompts, the pt will write biographical information with 80% accuracy to increase functional writing skills. GOAL DISCONTINUED. PT ABLE TO WRITE 1ST/LAST NAMES. 3. Given short paragraphs in writing, the pt will demonstrate reading comprehension by answering questions or matching pictures with 80% accuracy to improve reading skills and maintain/ improve ability to participate in hobbies and ADLs. EXCELLENT PROGRESS, CONTINUE 3. The pt will follow 2-step oral instructions to increase her ability to perform ADLs and maintain highest level of independence. MAKING PROGRESS, CONTINUE Treatment Activities Conversation: The pt was very verbose, telling about her and her 's recent travels. She spoke in complete phrases /sentences >90% of opportunities with occasional paraphasias, greater semantic than phonemic, and self- correcting ~60% of such errors . Given a map, the pt was able to name cities, [place] and highways accurately and easily and discuss routes driven and places visited with significantly improved ease. Confrontational namin% acc, min phonemic cues or carrier phrases Convergent Namin% acc, min cues Reading short sentences: 86% word accuracy. Pt tends to make assumptions and read ahead or very quickly and errors are produced. Moderate self-monitoring occurring, greater need for redirection than in conversation. When redirected, pt is usually able to correctly read, with some assistance required occasionally for multisyllabic words. The pt is self- segmenting and cueing to work through many multisyllabic words. Assessment Patient Response to Treatment Good Rehab Potential Good Impairments Identified Aphasia Attention Auditory Comprehension Expressive Language Reading Comprehension Receptive Language Speech Intelligibility Progress Towards Goals Good Progress Assessment of Overall Progress Improving Assessment of Improvement Excellent progress in real word production and speech intellgibility. The pt is producing complete phrases and sentences with syntax WNL. Occasional semantic greater than phonemic paraphasias and WFD occur. The pt self- monitors well and self- corrects or attempts to self- correct most errors in speech. She is highly responsive to phonemic cueing. Pt has progressed well with naming tasks, again with similar paraphasias and receptivity to phonemic cues. Her frequently provides target words, which the pt appears to appreciate, as she uses them and often looks to him for assistance. ' Reading: Pt demonstrates consistent reading skills, with occasional errors in reading aloud but demonstrating excellent comprehension. Reviewed with Patient Goals Progress Being Made Home Exercise Program Patient/Caregiver Understanding Good Plan Amount of Therapy Recommended 2-3 Months Frequency of Treatment Once a Week Length of Session 45 Minutes Treatment Emphasis Next Session Review goals and discuss POC with pt/spouse Therapeutic Contents Auditory Comprehension Client Education Expressive Language Training Home Exercise Program Intelligibility Reading Comprehension Receptive Language Training Written Expression Provided Patient/Caregiver Instruction Home Exercise Program Plan of Care Questions/Concerns Therapy Recommendations Continue with Current Program
--- NOTE | 2018-12-17 14:41 | ST.OPTN ---
Care Team Visit Care Team Role Provider Type Geoffrey Melvin MD Attending Provider Physician Primary Care Provider Address: [address] [place] [address], [phone] OIL SALES AND SERVICE REP Treatment Note OIL SALES AND SERVICE REP Treatment Note Start: 08/15/18 17:53 Freq: Status: Active Protocol: Document 12/17/18 14:26 NASREEN (Rec: 12/17/18 14:33 NASREEN [email or web address]) Speech Pathology Treatment Note Session Time Visit Start Time 13:30 Visit Stop Time 14:15 Total Visit Minutes 45 Visit Information Visit Number 09/12 Plan of Care Dates 11/14/18 - 02/14/19 Insurance Information [employer] *$20 copay Setting Treatment Setting Outpatient Care Visit Type Note Type Treatment Note Next Note Type Next Note Type Treatment Note General Information General Information This 82-yr-old female was hospitalized at [facility] from 07/31/18 - 08/05, presenting with new onset expressive and receptive aphasia, 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 The pt had no worsening of her symptoms during her hospitalization, and minimal improvement in her symptoms with therapy. 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 Subjective Others Present Family Observations/Patient Presentation Pt arrived on time with , who was present throughout. Chief Complaint(s) Speech Language Rehab Expectation/Goals: Patient Goals Improve expressive language ability Patient Knowledge/Awareness of OIL SALES AND SERVICE REP Role Good in Treatment Parent/Caretake Knowledge/Awareness of Excellent OIL SALES AND SERVICE REP Role in Treatment Patient/Caregiver Compliance with Home Excellent Exercise Program Objective Short Term Goals 1. Given visual/written prompts as needed, the pt will complete auditory comprehension tasks (e.g., follow simple oral instructions, answer questions about voice mail messages, etc.) with 80% accuracy to increase her ability to perform ADLs and maintain highest level of independence. 2. The pt will complete [facility] intake form ( completed by volunteers) accurately in 90% of opportunities to improve communication skills necessary to resume volunteer position as per PLOF. Inbound Sales Advisor Goals 1. Given conversation topics salient to the pt and visual aids as needed (e.g., maps/ pictures related to topics), she will communicate with <25% of speech exhibiting paraphasias and WFD in order to increase expressive communication skills. 2. Given short paragraphs in writing, the pt will demonstrate reading comprehension by answering questions or matching pictures with 80% accuracy to improve reading skills and maintain/ improve ability to participate in hobbies and ADLs. GOAL MET 3. The pt will complete auditory comprehension tasks ( e.g., recording others' personal information, following 2-step oral instructions,e tc.) to increase her ability to resume volunteer responsibilities maintain highest level of independence. Treatment Activities Skilled education/feedback provided RE tx goals and POC. Reviewed goals and progress and consulted with pt/spouse RE current function and personal goals. 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 Pt's spouse identified auditory comprehension of TV programs as more challenging compared to PLOF. Agreed to continue auditory comprehension goals and incorporate writing goal targeting volunteer work responsibilities. Assessment Patient Response to Treatment Good Rehab Potential Good Impairments Identified Aphasia Attention Auditory Comprehension Expressive Language Reading Comprehension Receptive Language Speech Intelligibility Progress Towards Goals Good Progress Assessment of Overall Progress Improving Assessment of Improvement Pt continues to make excellent progress in verbal expression with occasional paraphasias and WFDs present, 25% or less. Paraphasia examples: back seat or back side for back room; by my house and by my alone for by myself; and shuff for stuff. Paraphasias infrequently result in communication breakdowns. The pt exhibited excellent circumlocution to elicit word from listeners when she was unable to recall the word herself, thereby avoiding a communication breakdown. Reviewed with Patient Goals Progress Being Made Home Exercise Program Patient/Caregiver Understanding Good Plan Amount of Therapy Recommended 2-3 Months Frequency of Treatment Once a Week Length of Session 45 Minutes Treatment Emphasis Next Session Review goals and discuss POC with pt/spouse Therapeutic Contents Auditory Comprehension Client Education Expressive Language Training Home Exercise Program Intelligibility Reading Comprehension Receptive Language Training Written Expression Provided Patient/Caregiver Instruction Home Exercise Program Plan of Care Questions/Concerns Therapy Recommendations Continue with Current Program
--- NOTE | 2018-12-24 17:55 | ST.OPTN ---
Care Team Visit Care Team Role Provider Type Geoffrey Melvin MD Attending Provider Physician Primary Care Provider Address: [address] [place] [address], [id number] NYLON HOT WIRE CUTTER Treatment Note NYLON HOT WIRE CUTTER Treatment Note Start: 08/15/18 17:53 Freq: Status: Active Protocol: Document 12/24/18 17:45 NASREEN (Rec: 12/24/18 17:55 NASREEN [id number]) Speech Pathology Treatment Note Session Time Visit Start Time 13:30 Visit Stop Time 14:15 Total Visit Minutes 45 Visit Information Visit Number 10/12 Plan of Care Dates 11/14/18 - 02/14/19 Insurance Information [employer] *$20 copay Setting Treatment Setting Outpatient Care Visit Type Note Type Treatment Note Next Note Type Next Note Type Treatment Note General Information General Information This 82-yr-old female was hospitalized at [facility] from 07/31/18 - 08/05, presenting with new onset expressive and receptive aphasia, 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 The pt had no worsening of her symptoms during her hospitalization, and minimal improvement in her symptoms with therapy. 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 Subjective Others Present Family Observations/Patient Presentation Pt arrived on time with , who was present throughout. Chief Complaint(s) Speech Language Rehab Expectation/Goals: Patient Goals Improve expressive language ability Patient Knowledge/Awareness of NYLON HOT WIRE CUTTER Role Good in Treatment Parent/Caretake Knowledge/Awareness of Excellent NYLON HOT WIRE CUTTER Role in Treatment Patient/Caregiver Compliance with Home Excellent Exercise Program Objective Short Term Goals 1. Given visual/written prompts as needed, the pt will complete auditory comprehension tasks (e.g., follow simple oral instructions, answer questions about voice mail messages, etc.) with 80% accuracy to increase her ability to perform ADLs and maintain highest level of independence. 2. 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 Carpet Binder Goals 1. Given conversation topics salient to the pt and visual aids as needed (e.g., maps/ pictures related to topics), she will communicate with <25% of speech exhibiting paraphasias and WFD in order to increase expressive communication skills. 2. Given short paragraphs in writing, the pt will demonstrate reading comprehension by answering questions or matching pictures with 80% accuracy to improve reading skills and maintain/ improve ability to participate in hobbies and ADLs. GOAL MET 3. The pt will complete auditory comprehension tasks ( e.g., recording others' personal information, following 2-step oral instructions,e tc.) to increase her ability to resume volunteer responsibilities maintain highest level of independence. Treatment Activities Pt completed auditory comprehension tasks: Following 1-step directions 75% acc; 2- step directions 40% acc. Pt benefited from verbal repetition of each step x2 each but still required mod- max verbal cues to complete 2- step directions. Pt able to complete steps when able to read directions, however still required min-mod cues to orient between target object and action to be taken on it. Assessment Patient Response to Treatment Good Rehab Potential Good Impairments Identified Aphasia Attention Auditory Comprehension Expressive Language Reading Comprehension Receptive Language Speech Intelligibility Progress Towards Goals Good Progress Assessment of Overall Progress Improving Assessment of Improvement Mild auditory comprehension deficits in simple 1-step tasks, increased to moderate- severe deficits in following 2 -step directions. Reading is a strength for the pt, though following written directions continues to require effort and multiple reading, extended time with occasional cueing. The pt initially was in good spirits and engaged in lively conversation about volunteer opportunities and visits with friends. Once experiencing difficulties with tasks, her disposition became much more disheartened and frustrated, demonstrating impact of deficits on emotional state. Reviewed with Patient Goals Progress Being Made Home Exercise Program Patient/Caregiver Understanding Good Plan Amount of Therapy Recommended 2-3 Months Frequency of Treatment Once a Week Length of Session 45 Minutes Treatment Emphasis Next Session Review goals and discuss POC with pt/spouse Therapeutic Contents Auditory Comprehension Client Education Expressive Language Training Home Exercise Program Intelligibility Reading Comprehension Receptive Language Training Written Expression Provided Patient/Caregiver Instruction Home Exercise Program Plan of Care Questions/Concerns Therapy Recommendations Continue with Current Program
--- NOTE | 2018-12-31 17:22 | ST.OPTN ---
Care Team Visit Care Team Role Provider Type Geoffrey Melvin MD Attending Provider Physician Primary Care Provider Address: [address] [place] [address], [id number] LEGAL INSTRUMENTS EXAMINER Treatment Note LEGAL INSTRUMENTS EXAMINER Treatment Note Start: 08/15/18 17:53 Freq: Status: Active Protocol: Document 12/31/18 16:58 NASREEN (Rec: 12/31/18 17:22 NASREEN [id number]) Speech Pathology Treatment Note Session Time Visit Start Time 13:30 Visit Stop Time 14:15 Total Visit Minutes 45 Visit Information Visit Number 11/12 Plan of Care Dates 11/14/18 - 02/14/19 Insurance Information [employer] *$20 copay Setting Treatment Setting Outpatient Care Visit Type Note Type Treatment Note Next Note Type Next Note Type Treatment Note General Information General Information This 82-yr-old female was hospitalized at [facility] from 07/31/18 - 08/05, presenting with new onset expressive and receptive aphasia, 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 The pt had no worsening of her symptoms during her hospitalization, and minimal improvement in her symptoms with therapy. 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 Subjective Others Present Family Observations/Patient Presentation Pt arrived on time with , who was present throughout. Chief Complaint(s) Speech Language Rehab Expectation/Goals: Patient Goals Improve expressive language ability Patient Knowledge/Awareness of LEGAL INSTRUMENTS EXAMINER Role Good in Treatment Parent/Caretake Knowledge/Awareness of Excellent LEGAL INSTRUMENTS EXAMINER Role in Treatment Patient/Caregiver Compliance with Home Excellent Exercise Program Objective Short Term Goals 1. Given visual/written prompts as needed, the pt will complete auditory comprehension tasks (e.g., follow simple oral instructions, answer questions about voice mail messages, etc.) with 80% accuracy to increase her ability to perform ADLs and maintain highest level of independence. 2. The pt will complete [facility] intake form ( completed by volunteers) accurately in 90% of opportunities to improve communication skills necessary to resume volunteer position as per PLOF. Tip Length Checker Goals 1. Given conversation topics salient to the pt and visual aids as needed (e.g., maps/ pictures related to topics), she will communicate with <25% of speech exhibiting paraphasias and WFD in order to increase expressive communication skills. 2. Given short paragraphs in writing, the pt will demonstrate reading comprehension by answering questions or matching pictures with 80% accuracy to improve reading skills and maintain/ improve ability to participate in hobbies and ADLs. GOAL MET 3. The pt will complete auditory comprehension tasks ( e.g., recording others' personal information, following 2-step oral instructions,e tc.) to increase her ability to resume volunteer responsibilities maintain highest level of independence. 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 The pt strongly desires to return to this position. Attempted to perform role-play tasks in which the pt would gather and write appropriate questions and information. She exhibited initial confusion and was assisted in understanding by both the Clinician and the pt' s . The pt performed role playing task with ~30% accuracy of expressive language. When having difficulty writing numbers, she effectively solved the problem by asking the person to write their phone number in the appropriate place. Simple statements were generated, which the pt was able to read in isolation. When attempting to carryover to role play activity, she became increasingly flustered and frustrated. In simple writing tasks (written description of person), she exhibited semantic paraphasias (e.g., jacket for shirt) which could cause significant confusion in real time activities. The pt insisted she would not be left alone to complete her role, would therefore always have assistance, and that the LEGAL INSTRUMENTS EXAMINER and were making too big a deal of it. Consulted with pt/spouse RE POC. The pt will be resuming limited volunteer work at [facility] in the next 2 wks. Agreed to f/u in 3 wks ( after these experiences) and determine duration of tx at that time. Assessment Patient Response to Treatment Good Rehab Potential Good Impairments Identified Aphasia Attention Auditory Comprehension Expressive Language Reading Comprehension Receptive Language Speech Intelligibility Progress Towards Goals Good Progress Assessment of Overall Progress Improving Assessment of Improvement The pt continues to exhibit improving expressive language in spontaneous conversation with intermittent paraphasias which do not typically create communication breakdowns. She exhibits greater difficulty producing specific targeted language during structured tasks, with interference from increased stress. She was not responsive to attempts to role play functional tasks, which resulted in frustration counterproductive to treatment goals. Given the progress the pt has made to date, her thorough enjoyment of talking with others and the benefit that practice has had on her rehabilitation, and her desire and opportunity to return to volunteer work (albeit limited ), it is recommended and was agreed to follow up with treatment in 3 weeks for evaluation of continuation or discharge from skilled intervention. Reviewed with Patient Goals Home Exercise Program Patient/Caregiver Understanding Good Plan Comment Follow up in 3 wks. Treatment Emphasis Next Session Review goals and discuss POC with pt/spouse Therapeutic Contents Auditory Comprehension Client Education Expressive Language Training Home Exercise Program Intelligibility Reading Comprehension Receptive Language Training Written Expression Provided Patient/Caregiver Instruction Home Exercise Program Plan of Care Questions/Concerns Therapy Recommendations Continue with Current Program
--- NOTE | 2019-01-23 11:55 | ST.OPDS ---
Care Team Visit Care Team Role Provider Type Geoffrey Melvin MD Attending Provider Physician Primary Care Provider Address: [address] [place] [address], [address], [place], [address] APPLICATIONS SUPPORT ENGINEER Treatment Note APPLICATIONS SUPPORT ENGINEER Treatment Note Start: 08/15/18 17:53 Freq: Status: Active Protocol: Document 01/23/19 11:19 NASREEN (Rec: 01/23/19 11:55 NASREEN [id number]) Speech Pathology Treatment Note Session Time Visit Start Time 10:30 Visit Stop Time 11:05 Total Visit Minutes 35 Visit Information Visit Number 12/12 Plan of Care Dates 11/14/18 - 02/14/19 Insurance Information [employer] *$20 copay Setting Treatment Setting Outpatient Care Visit Type Note Type Discharge Summary General Information General Information This 82-yr-old female was hospitalized at 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 The pt had no worsening of her symptoms during her hospitalization, and minimal improvement in her symptoms with therapy. 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 Subjective Others Present Family Observations/Patient Presentation Pt arrived on time with , who was present throughout. The pt informed that she had attempted volunteering with 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 She resigned from that work and expressed being disappointed in having to give that up. She was intermittently tearful throughout the session, expressing concern that she would never recover her communication skills as per PLOF. I loved my life. I want to be like I was. I don't want to like this. She expressed continued frustration with WFDs but declined the APPLICATIONS SUPPORT ENGINEER's invitation to continue skilled intervention around this skill . Discussed options of discharge from services for a while to give the pt a break, with the option to resume again if/when she felt services could again be beneficial. This plan was agreed to by the pt, her and the Clinician. Chief Complaint(s) Speech Language Rehab Expectation/Goals: Patient Goals Improve expressive language ability Patient Knowledge/Awareness of APPLICATIONS SUPPORT ENGINEER Role Good in Treatment Parent/Caretake Knowledge/Awareness of Excellent APPLICATIONS SUPPORT ENGINEER Role in Treatment Patient/Caregiver Compliance with Home Excellent Exercise Program Objective Short Term Goals 1. Given visual/written prompts as needed, the pt will complete auditory comprehension tasks (e.g., follow simple oral instructions, answer questions about voice mail messages, etc.) with 80% accuracy to increase her ability to perform ADLs and maintain highest level of independence. GOAL NOT MET. ~65% ACCURACY ACHIEVED. 2. The pt will complete [facility] intake form ( completed by volunteers) accurately in 90% of opportunities to improve communication skills necessary to resume volunteer position as per PLOF. GOAL DISCONTINUED. Brake Repairer Air Goals 1. Given conversation topics salient to the pt and visual aids as needed (e.g., maps/ pictures related to topics), she will communicate with <25% of speech exhibiting paraphasias and WFD in order to increase expressive communication skills. GOAL MET 2. Given short paragraphs in writing, the pt will demonstrate reading comprehension by answering questions or matching pictures with 80% accuracy to improve reading skills and maintain/ improve ability to participate in hobbies and ADLs. GOAL MET 3. The pt will complete auditory comprehension tasks ( e.g., recording others' personal information, following 2-step oral instructions,e tc.) to increase her ability to resume volunteer responsibilities maintain highest level of independence. GOAL NOT MET Treatment Activities Consulted with pt/spouse RE POC. Education and skilled feedback provided RE progress to date and prognosis. During conversation, the pt exhibited minimal episodes of paraphasias (~15% of speech) and 2 episodes of WFD that briefly interfered with communication, which is a significant improvement in expressive language skills. During WFD episodes, the pt deferred to her , who was able to provide target words. During one episode, the pt's did not immediately know to what she was referring, and the pt's frustration level significantly increased. She independently employed word recall strategies including describing the person/ situation to which she was referring, which eventually assisted her in repairing the potential communication breakdown. Skilled feedback was provided, as well as prompts and recommendation for the pt to slow down, take a deep breath to help her relax and work through the episode. She verbalized understanding but was not immediately responsive to prompts. Assessment Patient Response to Treatment Good Rehab Potential Good Impairments Identified Aphasia Attention Auditory Comprehension Expressive Language Reading Comprehension Receptive Language Speech Intelligibility Progress Towards Goals Good Progress Assessment of Overall Progress Improving Assessment of Improvement The pt continues to exhibit improving expressive language in spontaneous conversation with intermittent paraphasias which do not typically create communication breakdowns. Significant progress was perceived today as compared to previous sessions, as the pt spoke in complete sentences of increased length and syntactic complexity as compared to previous sessions. Paraphasias and WFDs were minimal; however, when WFDs occurred, the pt became highly frustrated. She independently employed word recall strategies, which were successful in either the pt or her producing target words. No unrepaired communication breakdown occurred. Over the course of treatment, the pt has also made good progress with reading skills. Errors appear to be impacted by attention deficits vs comprehension impairments. Auditory comprehension is strong in spontaneous conversation, reduced moderately in structured tasks , which again appears to be impacted by attention and memory skills vs comprehension . Prognosis is good for this patient to continue making progress, particularly in expressive language skills, as evidenced by progress made to date and most recently since last session. She benefits from her enthusiasm for socializing and conversing with others. She continues to express frustration with her deficits and fear of not regaining skills and ability to participate in activities as per PLOF. Over the course of treatment, she has exhibited occasional resistance to certain therapeutic tasks, likely because they reveal areas of challenge, which then increase her frustration and grief. The pt has expressed a desire to discontinue skilled intervention. This clinician agrees that a break from Speech Therapy may benefit the pt to relieve some of the attention and stress of her deficits. It is highly recommended that, with her 's assistance, the pt pursue new volunteer opportunities in order to maintain highest level of quality of life and opportunities for ongoing socialization and conversation to promote expressive language rehabilitation in the absence of skilled intervention. Several suggestions of volunteer opportunities were presented to the pt, none of which she expressed interest in. It is expected that the pt would benefit from resuming Speech Therapy in 4-6 mos, and this recommendation was made. Reviewed with Patient Goals Progress Being Made Home Exercise Program Patient/Caregiver Understanding Good Plan Therapeutic Contents Auditory Comprehension Client Education Expressive Language Training Home Exercise Program Intelligibility Reading Comprehension Receptive Language Training Written Expression Provided Patient/Caregiver Instruction Home Exercise Program Plan of Care Questions/Concerns Therapy Recommendations Discharge from Speech Therapy
== END 2019-01-25 10:13 | disposition home or self-care (01) ==
LOC: SP 10:30
PROVIDERS: PCP Internal Medicine; Visit Provider Internal Medicine
DX: I63.9 Cerebral infarction, unspecified (principal); Z86.73 Personal history of transient ischemic attack (TIA), and cerebral infarction without residual deficits; R47.01 Aphasia
CPT/HCPCS: 92507; 96105

== ENCOUNTER 2019-04-15 20:35 | Emergency (ER) | payer OTHER, SELFPAY ==
[2018-07-31 16:51] VITALS: BMI 26.4
--- NOTE | 2019-04-15 20:49 | ED.DIZZY ---
HPI - Dizziness General Chief Complaint: Dizziness Stated Complaint: DIZZY COLD Time Seen by Provider: 04/15/19 20:49 Source: patient and family (Her ) Mode of arrival: Ambulatory Limitations: no limitations History of Present Illness HPI Narrative: The patient suffered from a CVA earlier this year. As well she has a right facial droop, and right-sided weakness. She has issues with confusion, and occasionally slurs her speech. She has ataxia, but is ambulatory. She had her took a walk earlier today. After returning home she laid down to take a nap. However she slept for 3 hours, much longer than she generally naps in the afternoon. Upon awakening she seemed dizzy. Her feels she was more confused than normal. She does have memory problems. The patient answers questions for herself. She follows commands and shows no acute clinical concerns other than the dizziness. She denies headache. She has no visual changes. She has no ear pressure or rhinorrhea. She has no sore throat. She denies chest pain, palpitations or dyspnea. She has not been coughing. The right-sided weakness is noted, but is apparently at baseline. She takes aspirin include Plavix daily. Related Data Home Medications Medication Instructions Recorded Confirmed aspirin 81 mg PO DAILY #0 11/02/11 03/11/19 CALCIUM CARBONATE/VITAMIN D3 1 tab PO DAILY #0 11/03/11 03/11/19 (Calcium 600 + Vit D3 Tablet) Previous Rx's Medication Instructions Recorded fluticasone propionate 50 2 spray INTRANASAL BEDTIME #16 gram 08/06/18 mcg/actuation nasal spray,suspension metoprolol succinate 50 mg 50 mg PO DAILY #90 tab 08/20/18 tablet,extended release 24 hr pantoprazole 40 mg tablet,delayed 40 mg PO DAILY #90 tab 08/20/18 release hydrochlorothiazide 25 mg tablet 25 mg PO DAILY #90 tab 09/18/18 fluticasone propionate-salmeterol 2 puff INHALATION BID #32 gram 09/25/18 230 mcg-21 mcg/actuation HFA inhaler potassium chloride 10 mEq 10 meq PO DAILY #90 cap 11/05/18 capsule,extended release ipratropium 20 mcg-albuterol 100 1 puff INHALATION QID #4 gram 11/13/18 mcg/actuation mist for inhalation atorvastatin 40 mg tablet 40 mg PO DAILY #90 tab 12/31/18 citalopram 10 mg tablet 10 mg PO DAILY #90 tab 12/31/18 clopidogrel 75 mg tablet 75 mg PO DAILY #90 tab 03/11/19 meclizine 25 mg PO TID PRN #20 tab 04/15/19 Allergies Allergy/AdvReac Type Severity Reaction Status Date / Time cephalexin [CEPHALEXIN] Allergy Mild RASH Verified 03/11/19 11:57 Cephalosporins Allergy Mild RASH Verified 03/11/19 11:57 [CEPHALOSPORINS] Sulfa (Sulfonamide Allergy Mild RASH Verified 03/11/19 11:57 Antibiotics) [SULFA (SULFONAMIDE ANTIBIOTICS)] amoxicillin [AMOXICILLIN] AdvReac Mild rash Verified 03/11/19 11:57 Review of Systems Review of Systems ROS Unobtainable: All systems reviewed & are unremarkable except as noted in HPI and below Constitutional Constitutional: Denies body ache(s), Denies chills, Denies difficulty sleeping, Denies fever(s), Denies frequent falls, Denies headache(s), Denies lethargy and Denies weakness (No change from baseline) Eyes Eyes: Denies blind spots, Denies change in vision, Denies eye discharge and Denies loss of vision ENT Ears, Nose, Mouth, and Throat: Denies change in voice, Reports dizziness, Denies headache(s), Denies neck pain and Denies sore throat Cardiovascular Cardiovascular: Denies chest pain, Denies irregular heart rhythm, Denies lightheadedness, Denies palpitations, Denies dyspnea and Denies orthopnea Respiratory Respiratory: Denies cough, Denies dyspnea and Denies wheezing Gastrointestinal Gastrointestinal: Denies abdominal pain, Denies change in bowel habits, Denies diarrhea, Denies nausea and Denies vomiting Genitourinary Genitourinary: Denies dysuria Musculoskeletal Musculoskeletal: Reports abnormal gait (Normal for her), Denies back pain and Denies neck pain Integumentary/Breasts Skin/Breast: Denies pruritus, Denies erythema, Denies rash and Denies wounds Neurologic Neurologic: Reports abnormal gait (Normal for her), Reports confusion, Reports dizziness, Denies frequent falls, Denies headache(s), Denies loss of vision, Reports memory loss and Denies weakness (No change from baseline) Psychiatric Psychiatric: Denies anxiety, Reports confusion, Denies depression and Reports memory loss Endocrine Endocrine: Denies palpitations Allergic/Immunologic Allergic/Immunologic: Denies wheezing Patient History Medical History Asthma (Chronic) Chronic cholecystitis (Chronic) Chronic renal failure, stage 2 (mild) (Chronic 08/17/17) Essential hypertension (Chronic) History of pulmonary embolism (Inactive 11/02/11) History of stroke (Chronic ~07/2018) Hyperlipidemia (Chronic) Mass of breast (Inactive 11/02/11) Menopausal syndrome (Chronic 11/02/11) Paroxysmal SVT (supraventricular tachycardia) (Chronic) Tachycardia (Acute) Surgical History H/O cataract removal with insertion of prosthetic lens (Acute) H/O total hip arthroplasty (Acute) Hx of cholecystectomy (Acute) Status post arthroscopy Family History Child Age: 49 Diabetes mellitus Sister Age: 76 Cancer Heart disease Osteoporosis Father Lung disease Mother Lung disease Social History marital status: household members: spouse lives independently: Yes Smoking Status: Never smoker alcohol intake: former alcohol intake frequency: a few times a week Substance Use Type: does not use Exam Initial Vital Signs Initial Vital Signs: Vital Signs Temperature 98.0 F 04/15/19 20:50 Pulse Rate 58 L 04/15/19 20:50 Respiratory Rate 14 04/15/19 20:50 Blood Pressure 117/67 04/15/19 20:50 Pulse Oximetry 100 04/15/19 20:50 Const General: cooperative and well developed Nutritional Appearance: well nourished Orientation: alert, awake, oriented x3 and confused Other: She generally answers all questions, but is seeming slightly inaccurate at times. Her notes confusion daily, perhaps a little more now than usual. HENMO Head: normocephalic and atraumatic Ears: external ears normal and TM's normal bilaterally Nose: external nose normal Face and sinus: sinuses nontender and No dry mucous membranes Mouth: oral mucosae normal and moist mucous membranes Throat: tonsils normal and uvula midline Eyes General: appearance normal, both eyes and all related structures Eyelids: eyelids normal Conjunctivae: conjunctivae normal Sclera: sclerae normal Pupils: PERRL EOM: EOM intact bilaterally Neck Neck: No supple, No lymphadenopathy, No tender and No JVD Chest Chest: normal inspection of the chest Resp Effort & Inspection: normal respiratory effort and able to speak in complete sentences Auscultation: clear to auscultation bilaterally, no rales, no rhonchi and no wheezes Cardio Rate: regular rate Rhythm: regular rhythm Heart Sounds: S1 normal, S2 normal, no click, no gallops, no murmurs and no rubs Pulses: normal peripheral pulses GI Inspection: non-distended Palpation: soft, no hepatosplenomegaly, No guarding, No pulsatile mass and No tender Auscultation: normal bowel sounds Back/Spine/Pelvis Back: No CVA tenderness Skin General: no rashes or lesions noted and No petechiae Neuro General: alert, oriented x3, gait normal and no focal motor deficits Speech: speech normal Sensory Exam: no sensory deficits noted Extrem Other: No acute deficits in her extremities. Slight right hand weakness with [employer]. Bilateral lower extremity weakness, but symmetric. She is apparently baseline. Psych Appearance: well kempt Mental Status: mental status grossly normal Attitude: cooperative Thought Content: normal Scores NIH Stroke Scale Level of Conciousness: Alert, keenly responsive Ask month/age: Answers both questions correctly. Open/close eyes, close hand: Performs both tasks correctly Best gaze horizontal: Normal Visual mccallum: No visual loss Facial palsy: Normal symetrical movement Left arm drift: No drift for full 10 sec Right arm drift: No drift for full 10 sec Left leg drift: No drift for full 10 sec Right leg drift: No drift for full 10 sec Limb ataxia: Absent Sensory on face/arms/legs: Normal, no sensory loss Best language: No aphasia, normal Dysarthria: Normal Extinction or inattention: No abnormality Total NIH Stroke scale score: 0 Course Course Course Narrative: Weakness is noted on the right side, but suggested to her baseline. NIHSS is 0. The patient's dizziness has improved with meclizine. Her is concerned she was initially a little more confused than usual. She had no focal numbness or weakness. She had no obvious speech changes. CT revealed an old infarct, no acute findings. She was given potassium for mild hypokalemia. She will be discharged home with meclizine for dizziness. She is advised to recheck with her doctor later this week. Orders Ordered: ED Orders 04/15/19 21:02 XR chest 1V Stat 04/15/19 21:03 CT head/brain wo con Stat 04/15/19 21:30 Complete Blood Count AUTO DIFF Stat Comprehensive Metabolic Panel Stat Prothrombin Time INR Stat Troponin I Stat Discontinued Medications Meclizine HCl (Antivert) 25 mg PO NOW ONE Stop: 04/15/19 21:03 Last Admin: 04/15/19 21:23 Dose: 25 mg Documented by: ADAM Potassium Chloride (Potassium Chloride) 20 meq PO NOW ONE Stop: 04/15/19 22:33 Last Admin: 04/15/19 22:47 Dose: 20 meq Documented by: SEE Vital Signs Vital signs: Vital Signs - 8 hr 04/15/19 20:50 04/15/19 21:39 04/15/19 23:06 Temperature 98.0 F Pulse Rate 58 L 60 56 L Respiratory Rate 14 17 16 Blood Pressure 117/67 116/54 L Blood Pressure [Left Arm] 116/57 L Pulse Oximetry 100 97 99 MDM - Dizziness Lab Data Result diagrams: 04/15/19 21:30 04/15/19 21:30 Labs: Lab Results 04/15/19 04/15/19 04/15/19 Range/Units 21:30 21:30 21:30 WBC 7.7 (4.5-11.0) X10^3/uL RBC 3.82 L (4.0-5.2) X10^6/uL Hgb 12.5 (12.0-16.0) g/dL Hct 36.5 (36-46) % MCV 95.6 (80-100) fL MCH 32.7 (26-34) PG MCHC 34.2 (30-36) % RDW 13.2 (11.6-14.8) % Plt Count 229 (150-400) X10^3/uL Neut % (Auto) 64.9 (50-75) % Lymph % (Auto) 25.1 (25-40) % Tyler % (Auto) 7.7 (3-14) % Eos % (Auto) 1.8 L (2-4) % Baso % (Auto) 0.5 (0-2) % Neut # (Auto) 5000 (6367-1293) /uL Lymph # (Auto) 1900 (5974-2395) /uL Tyler # (Auto) 600 (0-900) /uL Eos # (Auto) 100 (0-450) /uL Baso # (Auto) 0 (0-100) /uL PT 11.0 (10.1-12.7) SECONDS INR 1.0 (0.9-1.3) Sodium 140 (137-145) mmol/L Potassium 3.1 L (3.4-5.1) mmol/L Chloride 103 (98-107) mmol/L Carbon Dioxide 26 (22-32) mmol/L BUN 36 H (7-17) mg/dL Creatinine 1.50 H (0.52-1.04) mg/dL Estimated GFR 33.3 L (>60) mL/min BUN/Creatinine Ratio 24.0 H (6-22) Glucose 141 H (80-110) mg/dL Calcium 9.8 (8.4-10.2) mg/dL Total Bilirubin 1.5 H (0.2-1.3) mg/dL AST 29 (14-36) IU/L ALT 15 (<35) IU/L Alkaline Phosphatase 75 (38-126) U/L Troponin I < 0.012 (0.01-0.034) ng/mL Total Protein 7.3 (6.3-8.2) g/dL Albumin 4.5 (3.5-5.0) g/dL Globulin 2.8 (1.7-4.1) g/dL Albumin/Globulin Ratio 1.6 (1.0-2.8) Imaging Data Chest x-ray: Radiologist's impression: [address] [address] XRay Report Signed Patient: Juliet Tolentino EMR#: [id number] : 1936Acct:[id number] Age/Sex: 83 / FDate of Service: 04/15/19 Loc: ED Accession Number: [id number] Procedure: XR chest 1V Ordering Provider: Damir Gonzalez MD PROCEDURE: XR CHEST 1V INDICATIONS: Dizziness. H/O CVA TECHNIQUE: One view of the chest was acquired. COMPARISON: [facility], , CHEST 2 VIEW, 10/27/2010, 8:04. FINDINGS: Surgical changes and devices: None. Lungs and pleura: Lungs are mildly hyperinflated. Parenchymal opacity medial at the right infrahilar region. Left lung is clear. No pleural effusions or pneumothorax. Mediastinum: Mediastinal contours appear normal. Heart size is mildly enlarged, stable. Bones and chest wall: No suspicious bony lesions. Overlying soft tissues appear unremarkable. IMPRESSION: 1. Mild, stable cardiomegaly without significant congestive heart failure. 2. Chronic mild hyperinflation suggesting underlying emphysema. 3. Possible small consolidation medial right lower lung. Clinical correlation recommended. Dictated by: Audrey Douglas M.D. on 04/15/2019 at 21:35 Approved by: Audrey Douglas M.D. on 04/15/2019 at 21:38 CT scan - head: Radiologist's impression: 127 Damir Gonzalez MD Find Patient Imaging - Juliet Tolentino 83 F 1935 ACTIVITY DATE EXAM STATUS AUTHOR 04/15/19 21:03 Signed Audrey Douglas 04/15/19 21:02 [place] [address] CT Scan Report Signed Patient: Juliet Tolentino EMR#: [id number] : 8Acct:[id number] Age/Sex: 83 / FDate of Service: 04/15/19 Loc: ED Accession Number: [id number] Procedure: CT head/brain wo con Ordering Provider: Damir Gonzalez MD PROCEDURE: CT HEAD/BRAIN WO CON INDICATIONS: Dizziness. H/O CVA TECHNIQUE: Noncontrast 4.5 mm thick angled axial sections acquired from the foramen magnum to the vertex, with coronal and sagittal reformats. For radiation dose reduction, the following was used: automated exposure control, adjustment of mA and/or kV according to patient size. COMPARISON: [facility], MR, MR STROKE, 07/31/2018, 14:59. [facility], CT, CT HEAD/BRAIN WO CON, 07/31/2018, 8:28. FINDINGS: Image quality: Excellent. CSF spaces: Basal cisterns are patent. No extra-axial fluid collections. The ventricles are symmetric in size and shape. Brain: No intracranial bleeds or masses. There is cerebral volume loss for age, with resultant ventricular and sulcal prominence. There has been interval evolution of a left temporoparietal infarct with development of white matter gliosis and focal frontoparietal lacunar infarcts These findings are superimposed on moderate diffuse white matter hypodensity indicative of chronic microvascular ischemic changes. There is intracranial internal carotid artery atherosclerosis. Skull and face: Calvarium and visualized facial bones appear intact, without suspicious lesions. Sinuses: Visualized sinuses and mastoids are clear. IMPRESSION: 1. No CT evidence of acute intracranial hemorrhage or mass effect. 2. Interval evolution of moderate-sized left temporoparietal infarct with resultant white matter changes. Dictated by: Audrey Douglas M.D. on 04/15/2019 at 21:38 Approved by: Audrey Douglas M.D. on 04/15/2019 at 21:45 ECG Data Attestation: I personally reviewed and interpreted this ECG as follows: (Normal sinus rhythm rate 60 beats per minute. Q-waves in 3 and AVF. Normal intervals. No acute ST T wave changes. No ectopy.) Discharge Plan Departure Patient Disposition: Home Clinical Impression: Dizziness, Acute hypokalemia Discharge Date/Time: 04/15/19 23:07 Instructions: DI for Dizziness-Nonvertigo, Hypokalemia Activity Restrictions/Additional Instructions: Continue your current medications. Meclizine every 6 hours as needed for dizziness. Recheck with her doctor later this week, return here as needed. Prescriptions: New meclizine 25 mg tablet 25 mg PO TID PRN (Reason: dizziness) Qty: 20 RF: 0 No Action aspirin 81 mg Tablet,Delayed Release (Dr/Ec) 81 mg PO DAILY Qty: 0 RF: 0 CALCIUM CARBONATE/VITAMIN D3 (Calcium 600 + Vit D3 Tablet) 1 tab PO DAILY Qty: 0 RF: 0 fluticasone propion-salmeterol 230-21 mcg/actuation HFA aerosol inhaler 2 puff INHALATION BID Qty: 32 RF: 3 potassium chloride 10 mEq capsule, extended release 10 meq PO DAILY Qty: 90 RF: 3 ipratropium-albuterol 20-100 mcg/actuation mist 1 puff INHALATION QID Qty: 4 RF: 6 fluticasone propionate 50 mcg/actuation spray,suspension 2 spray Intranasal BEDTIME Qty: 16 RF: 3 hydrochlorothiazide 25 mg tablet 25 mg PO DAILY Qty: 90 RF: 3 atorvastatin 40 mg tablet 40 mg PO DAILY Qty: 90 RF: 3 citalopram 10 mg tablet 10 mg PO DAILY Qty: 90 RF: 3 clopidogrel 75 mg tablet 75 mg PO DAILY Qty: 90 RF: 3 pantoprazole 40 mg tablet,delayed release (DR/EC) 40 mg PO DAILY Qty: 90 RF: 3 metoprolol succinate 50 mg tablet extended release 24 hr 50 mg PO DAILY Qty: 90 RF: 3 Referrals: Geoffrey Melvin MD [Primary Care Provider] -
[2019-04-15 20:50] VITALS: BP 117/67; PULSE 58; RESP 14; TEMP 36.7; O2SAT 100; BMI 21.0
--- NOTE | 2019-04-15 21:02 | DI.RAD.S_ITS ---
PROCEDURE: XR CHEST 1V INDICATIONS: Dizziness. H/O CVA TECHNIQUE: One view of the chest was acquired. COMPARISON: [facility], , CHEST 2 VIEW, 10/27/2010, 8:04. FINDINGS: Surgical changes and devices: None. Lungs and pleura: Lungs are mildly hyperinflated. Parenchymal opacity medial at the right infrahilar region. Left lung is clear. No pleural effusions or pneumothorax. Mediastinum: Mediastinal contours appear normal. Heart size is mildly enlarged, stable. Bones and chest wall: No suspicious bony lesions. Overlying soft tissues appear unremarkable. IMPRESSION: 1. Mild, stable cardiomegaly without significant congestive heart failure. 2. Chronic mild hyperinflation suggesting underlying emphysema. 3. Possible small consolidation medial right lower lung. Clinical correlation recommended. Dictated by: Audrey Douglas M.D. on 04/15/2019 at 21:35 Approved by: Audrey Douglas M.D. on 04/15/2019 at 21:38
--- NOTE | 2019-04-15 21:03 | DI.CT.S_ITS ---
PROCEDURE: CT HEAD/BRAIN WO CON INDICATIONS: Dizziness. H/O CVA TECHNIQUE: Noncontrast 4.5 mm thick angled axial sections acquired from the foramen magnum to the vertex, with coronal and sagittal reformats. For radiation dose reduction, the following was used: automated exposure control, adjustment of mA and/or kV according to patient size. COMPARISON: [facility], MR, MR STROKE, 07/31/2018, 14:59. [facility], CT, CT HEAD/BRAIN WO CON, 07/31/2018, 8:28. FINDINGS: Image quality: Excellent. CSF spaces: Basal cisterns are patent. No extra-axial fluid collections. The ventricles are symmetric in size and shape. Brain: No intracranial bleeds or masses. There is cerebral volume loss for age, with resultant ventricular and sulcal prominence. There has been interval evolution of a left temporoparietal infarct with development of white matter gliosis and focal frontoparietal lacunar infarcts These findings are superimposed on moderate diffuse white matter hypodensity indicative of chronic microvascular ischemic changes. There is intracranial internal carotid artery atherosclerosis. Skull and face: Calvarium and visualized facial bones appear intact, without suspicious lesions. Sinuses: Visualized sinuses and mastoids are clear. IMPRESSION: 1. No CT evidence of acute intracranial hemorrhage or mass effect. 2. Interval evolution of moderate-sized left temporoparietal infarct with resultant white matter changes. Dictated by: Audrey Douglas M.D. on 04/15/2019 at 21:38 Approved by: Audrey Douglas M.D. on 04/15/2019 at 21:45
[2019-04-15] MEDS: MECLIZINE HCL 12.5 MG TABLET 25 MG PO (21:23)
[2019-04-15 21:39] VITALS: BP 116/57; PULSE 60; RESP 17; O2SAT 97
[2019-04-15 21:46] LABS: Add Manual Diff / Slide Review NO; Basophils Absolute Auto 0 /uL (0-100); Basophils Percent Auto 0.5 % (0-2); Eosinophils Absolute Auto 100 /uL (0-450); Eosinophils Percent Auto 1.8 % (2-4); Hematocrit 36.5 % (36-46); Hemoglobin 12.5 g/dL (12.0-16.0); Lymphocytes Absolute Auto 1900 /uL (1100-4500); Lymphocytes Percent Auto 25.1 % (25-40); Mean Corpuscular HGB Conc 34.2 % (30-36); Mean Corpuscular Hemoglobin 32.7 PG (26-34); Mean Corpuscular Volume 95.6 fL (80-100); Monocytes Absolute Auto 600 /uL (0-900); Monocytes Percent Auto 7.7 % (3-14); Neutrophils Absolute Auto 5000 /uL (1500-7000); Neutrophils Percent Auto 64.9 % (50-75); Platelet Count 229 X10^3/uL (150-400); Red Blood Cell Count 3.82 X10^6/uL (4.0-5.2); Red Cell Distribution Width 13.2 % (11.6-14.8); White Blood Cell Count 7.7 X10^3/uL (4.5-11.0)
[2019-04-15 21:54] LABS: Alanine Aminotransferase 15 IU/L (<35); Albumin 4.5 g/dL (3.5-5.0); Albumin Globulin Ratio 1.6 (1.0-2.8); Alkaline Phosphatase 75 U/L (38-126); Aspartate Aminotransferase 29 IU/L (14-36); Bilirubin Total 1.5 mg/dL (0.2-1.3); Blood Urea Nitrogen 36 mg/dL (7-17); Calcium 9.8 mg/dL (8.4-10.2); Carbon Dioxide 26 mmol/L (22-32); Chloride 103 mmol/L (98-107); Estimated Glomerular Filt Rate 33.3 mL/min (>60); Globulin 2.8 g/dL (1.7-4.1); Glucose 141 mg/dL (80-110); HEMOLYSIS < 15 (0-50); Potassium 3.1 mmol/L (3.4-5.1); Sodium 140 mmol/L (137-145); Total Protein 7.3 g/dL (6.3-8.2)
[2019-04-15 22:06] LABS: Troponin I < 0.012 ng/mL (0.01-0.034)
[2019-04-15] MEDS: POTASSIUM CHLORIDE 20 MEQ/15 ML UDC PO (22:47)
[2019-04-15 23:06] VITALS: BP 116/54; PULSE 56; RESP 16; O2SAT 99
== END 2019-04-15 23:07 | disposition home or self-care (01) ==
PROVIDERS: Emergency Provider Emergency Medicine; PCP Internal Medicine
DX: R42 Dizziness and giddiness (principal); E87.6 Hypokalemia; R41.0 Disorientation, unspecified; Z86.73 Personal history of transient ischemic attack (TIA), and cerebral infarction without residual deficits
CPT/HCPCS: 36415; 70450; 71045; 80053; 84484; 85025; 85610; 93005; 99282; 99285

== ENCOUNTER → 2019-06-26 13:38 | Outpatient (CLI) | payer OTHER, SELFPAY ==
[2018-07-31 16:51] VITALS: BMI 26.4
--- NOTE | 2019-06-26 13:39 | DI.US.S_ITS ---
ULTRASOUND OF LEFT BREAST: 06/26/2019 CLINICAL: 6 month follow-up of cysts. Comparison is made to exams dated: 06/26/2019 mammogram, 12/21/2018 ultrasound, 12/21/2018 mammogram, 11/23/2018 mammogram, 11/22/2017 mammogram, and 11/16/2016 mammogram - [facility]. Color flow and real-time ultrasound of the left breast were performed. Bruce scale images of the real-time examination were reviewed. There is a 0.4 cm x 0.4 cm x 0.5 cm round cyst with a thin internal wall in the left breast central to the nipple middle depth 3 cm from the nipple. Septation is no longer well seen. This round cyst is hypoechoic with a well-defined boundary and posterior acoustic enhancement. This abnormality is decreased in size and correlates with mammography findings. There are related rim calcifications. Color flow imaging demonstrates that there is no increase in vascularity. IMPRESSION: BENIGN There is no sonographic evidence of malignancy. The 0.5 cm round cyst in the left breast has decreased in size, is consistent with a minimally complicated cyst and is benign. Return to annual mammogram screening schedule is recommended. Findings and recommendations were conveyed to the patient at time of exam. This exam was interpreted at Station ID: [id number]. Electronically Signed By: Audrey murphy/:06/26/2019 16:17:25 letter sent: Normal Exam Ultrasound BI-RADS: 2 Benign
--- NOTE | 2019-06-26 13:39 | DI.MG.S_ITS ---
UNILATERAL LEFT DIGITAL DIAGNOSTIC MAMMOGRAM 3D/2D: 06/26/2019 CLINICAL: Patient returns for a 6 month follow up of the left breast. Comparison is made to exams dated: 12/21/2018 mammogram, 11/23/2018 mammogram, and 11/22/2017 mammogram - [facility]. The tissue of left breast is heterogeneously dense. This may lower the sensitivity of mammography. There is a stable round equal density mass with a circumscribed margin in the left breast at 1 o'clock anterior depth. There also are multiple stable calcifications in the left breast central to the nipple anterior depth. These are not significantly changed in morphology, distribution, or number. No other significant masses or calcifications are seen in the breast. IMPRESSION: INCOMPLETE: NEEDS ADDITIONAL IMAGING EVALUATION The stable round equal density mass in the left breast at 1 o'clock anterior depth is indeterminate. An ultrasound is recommended. This was performed immediately following this exam. Calcifications in the left breast are stable, and likely benign. This exam was interpreted at Station ID: [id number]. NOTE: For mammograms, a report in lay terms will be sent to the patient. Approximately 15% of breast malignancies will not be visualized mammographically. In the management of a palpable breast mass, a negative mammogram must not discourage biopsy of a clinically suspicious lesion. Electronically Signed By: Audrey murphy/:06/26/2019 14:33:00 ACR BI-RADS Category 0: Incomplete [id number]
== END ==
PROVIDERS: PCP Internal Medicine; Visit Provider Internal Medicine
DX: R92.8 Other abnormal and inconclusive findings on diagnostic imaging of breast (principal); R92.1 Mammographic calcification found on diagnostic imaging of breast; N60.02 Solitary cyst of left breast
CPT/HCPCS: 76642; 77065; G0279

== ENCOUNTER → 2019-07-15 12:20 | Outpatient (CLI) | payer OTHER, SELFPAY ==
[2018-07-31 16:51] VITALS: BMI 26.4
[2019-07-15 14:09] LABS: Blood Urea Nitrogen 33 mg/dL (7-17); Calcium 10.2 mg/dL (8.4-10.2); Carbon Dioxide 29 mmol/L (22-32); Chloride 103 mmol/L (98-107); Estimated Glomerular Filt Rate 33.3 mL/min (>60); Glucose 90 mg/dL (80-110); HEMOLYSIS < 15 (0-50); Potassium 4.8 mmol/L (3.4-5.1); Sodium 143 mmol/L (137-145)
== END ==
PROVIDERS: PCP Internal Medicine; Referring Provider Internal Medicine; Visit Provider Internal Medicine
DX: I10 Essential (primary) hypertension (principal)
CPT/HCPCS: 36415; 80048

== ENCOUNTER → 2019-12-28 09:35 | Outpatient (CLI) | payer OTHER, SELFPAY ==
[2018-07-31 16:51] VITALS: BMI 26.4
--- NOTE | 2019-12-28 | DI.MG.S_ITS ---
BILATERAL DIGITAL SCREENING MAMMOGRAM 3D/2D WITH CAD: 12/28/2019 CLINICAL: Routine screening. Family history of breast cancer. Comparison is made to exams dated: 11/23/2018 mammogram, 11/22/2017 mammogram, 11/16/2016 mammogram, 11/11/2015 mammogram, and 11/04/2014 mammogram - [facility]. The tissue of both breasts is heterogeneously dense. This may lower the sensitivity of mammography. Current study was also evaluated with a Computer Aided Detection (CAD) system. There are benign calcifications in both breasts. No significant masses, calcifications, or other findings are seen in either breast. There has been no significant interval change. IMPRESSION: There is no mammographic evidence of malignancy. A 1 year screening mammogram is recommended. This exam was interpreted at Station ID: [id number]. NOTE: For mammograms, a report in lay terms will be sent to the patient. Approximately 15% of breast malignancies will not be visualized mammographically. In the management of a palpable breast mass, a negative mammogram must not discourage biopsy of a clinically suspicious lesion. Electronically Signed By: Vinicio alfaro/lula:12/30/2019 09:19:58 letter sent: Normal Exam ACR BI-RADS Category 2: Benign Finding(s) 3342F
== END ==
PROVIDERS: PCP Internal Medicine; Referring Provider Internal Medicine; Visit Provider Internal Medicine
DX: Z12.31 Encounter for screening mammogram for malignant neoplasm of breast (principal); Z80.3 Family history of malignant neoplasm of breast
CPT/HCPCS: 77063; 77067

== ENCOUNTER → 2020-05-05 09:06 | Outpatient (CLI) | payer OTHER, SELFPAY ==
[2018-07-31 16:51] VITALS: BMI 26.4
[2020-05-05 10:39] LABS: Alanine Aminotransferase 18 IU/L (<35); Albumin 3.9 g/dL (3.5-5.0); Albumin Globulin Ratio 1.4 (1.0-2.8); Alkaline Phosphatase 69 U/L (38-126); Aspartate Aminotransferase 32 IU/L (14-36); BUN Creatinine Ratio 21.5 (6-22); Bilirubin Total 1.3 mg/dL (0.2-1.3); Blood Urea Nitrogen 35 mg/dL (7-17); Calcium 9.5 mg/dL (8.4-10.2); Carbon Dioxide 34 mmol/L (22-32); Chloride 102 mmol/L (98-107); Cholesterol 156 mg/dL (140-199); Estimated Glomerular Filt Rate 30.2 mL/min (>60); Globulin 2.7 g/dL (1.7-4.1); Glucose 96 mg/dL (80-110); HDL Cholesterol 74 mg/dL (40-60); HEMOLYSIS < 15 (0-50); LDL Cholesterol Calculated 65 mg/dL (<100); Potassium 4.1 mmol/L (3.4-5.1); Sodium 138 mmol/L (137-145); Total Protein 6.6 g/dL (6.3-8.2); Triglycerides 84 mg/dL (35-150)
== END ==
PROVIDERS: PCP Internal Medicine; Referring Provider Internal Medicine; Visit Provider Internal Medicine
DX: E78.5 Hyperlipidemia, unspecified (principal); I10 Essential (primary) hypertension
CPT/HCPCS: 36415; 80053; 80061

== ENCOUNTER → 2020-11-09 11:21 | Outpatient (CLI) | payer OTHER, SELFPAY ==
[2020-05-11 10:56] VITALS: BMI 26.4
[2020-11-09 12:38] LABS: Alanine Aminotransferase 20 IU/L (<35); Albumin 4.1 g/dL (3.5-5.0); Albumin Globulin Ratio 1.3 (1.0-2.8); Alkaline Phosphatase 77 U/L (38-126); Aspartate Aminotransferase 37 IU/L (14-36); BUN Creatinine Ratio 18.6 (6-22); Bilirubin Total 1.2 mg/dL (0.2-1.3); Blood Urea Nitrogen 29 mg/dL (7-17); Calcium 9.8 mg/dL (8.4-10.2); Carbon Dioxide 28 mmol/L (22-32); Chloride 103 mmol/L (98-107); Estimated Glomerular Filt Rate 31.7 mL/min (>60); Globulin 3.1 g/dL (1.7-4.1); Glucose 91 mg/dL (80-110); HEMOLYSIS < 15 (0-50); Sodium 139 mmol/L (137-145); Total Protein 7.2 g/dL (6.3-8.2)
== END ==
PROVIDERS: PCP Internal Medicine; Referring Provider Internal Medicine; Visit Provider Internal Medicine
DX: E78.2 Mixed hyperlipidemia (principal); I10 Essential (primary) hypertension; N18.32 Chronic kidney disease, stage 3b
CPT/HCPCS: 36415; 80053

== ENCOUNTER → 2020-12-30 10:04 | Outpatient (CLI) | payer OTHER, SELFPAY ==
[2020-05-11 10:56] VITALS: BMI 26.4
--- NOTE | 2020-12-30 | DI.MG.S_ITS ---
BILATERAL DIGITAL SCREENING MAMMOGRAM 3D/2D WITH CAD: 12/30/2020 CLINICAL: Routine screening. Family history of breast cancer. Comparison is made to exams dated: 12/28/2019 mammogram, 06/26/2019 mammogram, 12/21/2018 mammogram, 11/23/2018 mammogram, and 11/22/2017 mammogram - [facility]. The tissue of both breasts is heterogeneously dense. This may lower the sensitivity of mammography. Current study was also evaluated with a Computer Aided Detection (CAD) system. There are benign calcifications in both breasts. No significant masses, calcifications, or other findings are seen in either breast. There has been no significant interval change. IMPRESSION: BENIGN There is no mammographic evidence of malignancy. A 1 year screening mammogram is recommended. This exam was interpreted at Station ID: [id number]. NOTE: For mammograms, a report in lay terms will be sent to the patient. Approximately 15% of breast malignancies will not be visualized mammographically. In the management of a palpable breast mass, a negative mammogram must not discourage biopsy of a clinically suspicious lesion. Electronically Signed By: Arpit clemente/lula:12/30/2020 10:33:13 letter sent: Normal Exam ACR BI-RADS Category 2: Benign Finding(s) 3342F
== END ==
PROVIDERS: PCP Internal Medicine; Referring Provider Internal Medicine; Visit Provider Internal Medicine
DX: Z12.31 Encounter for screening mammogram for malignant neoplasm of breast (principal); Z80.3 Family history of malignant neoplasm of breast
CPT/HCPCS: 77063; 77067

== ENCOUNTER → 2021-09-23 11:40 | Outpatient (CLI) | payer OTHER, SELFPAY ==
[2020-05-11 10:56] VITALS: BMI 26.4
[2021-09-23 12:07] LABS: Add Manual Diff / Slide Review NO; Basophils Absolute Auto 0 /uL (0-100); Basophils Percent Auto 0.5 % (0-2); Eosinophils Absolute Auto 100 /uL (0-450); Hematocrit 33.5 % (36-46); Hemoglobin 11.4 g/dL (12.0-16.0); Lymphocytes Absolute Auto 2300 /uL (1100-4500); Lymphocytes Percent Auto 24.6 % (25-40); Mean Corpuscular Hemoglobin 30.8 PG (26-34); Mean Corpuscular Volume 90.7 fL (80-100); Monocytes Absolute Auto 800 /uL (0-900); Monocytes Percent Auto 8.2 % (3-14); Neutrophils Absolute Auto 6300 /uL (1500-7000); Neutrophils Percent Auto 65.7 % (50-75); Platelet Count 263 X10^3/uL (150-400); Red Cell Distribution Width 14.4 % (11.6-14.8); White Blood Cell Count 9.6 X10^3/uL (4.5-11.0)
[2021-09-23 12:26] LABS: Alanine Aminotransferase 16 IU/L (<35); Albumin 4.3 g/dL (3.5-5.0); Albumin Globulin Ratio 1.5 (1.0-2.8); Alkaline Phosphatase 75 U/L (38-126); Aspartate Aminotransferase 33 IU/L (14-36); BUN Creatinine Ratio 20.2 (6-22); Bilirubin Total 1.2 mg/dL (0.2-1.3); Blood Urea Nitrogen 35 mg/dL (7-17); Calcium 9.3 mg/dL (8.4-10.2); Carbon Dioxide 30 mmol/L (22-32); Chloride 103 mmol/L (98-107); Cholesterol 156 mg/dL (140-199); Estimated Glomerular Filt Rate 29 mL/min (>60); Globulin 2.8 g/dL (1.7-4.1); Glucose 84 mg/dL (80-110); HDL Cholesterol 60 mg/dL (40-60); HEMOLYSIS < 15 (0-50); LDL Cholesterol Calculated 69 mg/dL (<100); Potassium 3.9 mmol/L (3.4-5.1); Sodium 141 mmol/L (137-145); Total Protein 7.1 g/dL (6.3-8.2); Triglycerides 133 mg/dL (35-150)
== END ==
PROVIDERS: PCP Internal Medicine; Referring Provider Internal Medicine; Visit Provider Internal Medicine
DX: E78.2 Mixed hyperlipidemia (principal); I10 Essential (primary) hypertension; N18.32 Chronic kidney disease, stage 3b; Z79.899 Other long term (current) drug therapy
CPT/HCPCS: 36415; 80053; 80061; 85025

== ENCOUNTER → 2022-09-27 11:30 | Outpatient (CLI) | payer OTHER, SELFPAY ==
[2020-05-11 10:56] VITALS: BMI 26.4
[2022-09-27 13:25] LABS: Alanine Aminotransferase 15 IU/L (<35); Albumin 4.3 g/dL (3.5-5.0); Albumin Globulin Ratio 1.5 (1.0-2.8); Alkaline Phosphatase 91 U/L (38-126); Aspartate Aminotransferase 28 IU/L (14-36); BUN Creatinine Ratio 16.9 (6-22); Bilirubin Total 1.6 mg/dL (0.2-1.3); Blood Urea Nitrogen 30 mg/dL (7-17); Calcium 9.4 mg/dL (8.4-10.2); Carbon Dioxide 30 mmol/L (22-32); Chloride 100 mmol/L (98-107); Cholesterol 150 mg/dL (140-199); Estimated Glomerular Filt Rate 28 mL/min (>60); Globulin 2.8 g/dL (1.7-4.1); Glucose 86 mg/dL (80-110); HDL Cholesterol 55 mg/dL (40-60); HEMOLYSIS < 15 (0-50); LDL Cholesterol Calculated 71 mg/dL (<100); Potassium 4.1 mmol/L (3.4-5.1); Sodium 139 mmol/L (137-145); Total Protein 7.1 g/dL (6.3-8.2); Triglycerides 121 mg/dL (35-150)
== END ==
PROVIDERS: PCP Internal Medicine; Referring Provider Internal Medicine; Visit Provider Internal Medicine
DX: E78.5 Hyperlipidemia, unspecified (principal); I10 Essential (primary) hypertension; N18.32 Chronic kidney disease, stage 3b
CPT/HCPCS: 36415; 80053; 80061

== ENCOUNTER → 2023-04-03 10:13 | Outpatient (CLI) | payer OTHER, SELFPAY ==
[2020-05-11 10:56] VITALS: BMI 26.4
--- NOTE | 2023-04-03 10:49 | DI.RAD.S_ITS ---
PROCEDURE: XR ACUTE ABDOMEN SERIES INDICATIONS: diarrhea TECHNIQUE: One view chest and two views of the abdomen were acquired. COMPARISON: [facility], , ABDOMEN ACUTE SERIES, 10/16/2015, 14:55. FINDINGS: Surgical changes and devices: Right upper quadrant surgical clips. Partially visualized right hip arthroplasty. Chest: Lungs are clear. Heart size is normal. No pleural effusions. No pneumoperitoneum. Moderate to large hiatal hernia. Abdomen: Bowel gas pattern is normal. No suspicious calcifications. Visualized solid organ contours appear normal. Bones: No suspicious bony lesions. Levocurvature of the spine. Multilevel degenerative changes. Severe degenerative changes of the left hip IMPRESSION: No acute radiographic abnormalities within the chest or abdomen. Moderate to large hiatal hernia. Dictated by: Jsaon Rosario M.D. on 04/03/2023 at 12:21 Approved by: Jason Rosario M.D. on 04/03/2023 at 12:23
[2023-04-03 11:03] LABS: Add Manual Diff / Slide Review NO; Basophils Absolute Auto 0 /uL (0-100); Basophils Percent Auto 0.5 % (0-2); Eosinophils Absolute Auto 100 /uL (0-450); Eosinophils Percent Auto 0.9 % (2-4); Hemoglobin 11.2 g/dL (12.0-16.0); Lymphocytes Absolute Auto 2000 /uL (1100-4500); Lymphocytes Percent Auto 26.6 % (25-40); Mean Corpuscular HGB Conc 33.8 % (30-36); Mean Corpuscular Hemoglobin 30.2 PG (26-34); Mean Corpuscular Volume 89.4 fL (80-100); Monocytes Absolute Auto 900 /uL (0-900); Monocytes Percent Auto 12.2 % (3-14); Neutrophils Absolute Auto 4400 /uL (1500-7000); Neutrophils Percent Auto 59.8 % (50-75); Platelet Count 275 X10^3/uL (150-400); Red Blood Cell Count 3.69 X10^6/uL (4.0-5.2); Red Cell Distribution Width 15.9 % (11.6-14.8); White Blood Cell Count 7.4 X10^3/uL (4.5-11.0)
[2023-04-03 11:51] LABS: TSH w/ Reflex to FT4 1.85 uIU/mL (0.47-4.68)
[2023-04-03 12:56] LABS: Alanine Aminotransferase 13 IU/L (<35); Albumin 4.4 g/dL (3.5-5.0); Albumin Globulin Ratio 1.3 (1.0-2.8); Alkaline Phosphatase 89 U/L (38-126); Aspartate Aminotransferase 26 IU/L (14-36); BUN Creatinine Ratio 18.5 (6-22); Bilirubin Total 1.1 mg/dL (0.2-1.3); Blood Urea Nitrogen 32 mg/dL (7-17); Calcium 10.1 mg/dL (8.4-10.2); Carbon Dioxide 28 mmol/L (22-32); Chloride 100 mmol/L (98-107); Estimated Glomerular Filt Rate 29 mL/min (>60); Globulin 3.3 g/dL (1.7-4.1); Glucose 77 mg/dL (80-110); HEMOLYSIS < 15 (0-50); Potassium 3.5 mmol/L (3.4-5.1); Sodium 140 mmol/L (137-145); Total Protein 7.7 g/dL (6.3-8.2)
[2023-04-05 13:56] LABS: Tissue Transglutaminase IgA <2 U/mL (0-3); Tissue Transglutaminase IgG <2 U/mL (0-5)
[2023-04-10 15:47] LABS: Calprotectin, Stool 169 ug/g (0-120)
== END ==
LOC: LAB 10:14 → RAD 10:48
PROVIDERS: PCP Internal Medicine; Referring Provider Internal Medicine; Visit Provider Internal Medicine
DX: R19.7 Diarrhea, unspecified (principal); K44.9 Diaphragmatic hernia without obstruction or gangrene
CPT/HCPCS: 36415; 74022; 80053; 83516; 83993; 84443; 85025; 86140

== ENCOUNTER 2023-08-02 12:15 | Outpatient (RCR) | payer OTHER, SELFPAY ==
[2020-05-11 10:56] VITALS: BMI 26.4
--- NOTE | 2023-06-20 17:28 | PT.OIE ---
Current Diagnoses Pain in left hip (06/20/23) Pain in right knee (06/20/23) Muscle weakness (generalized) (06/20/23) Unsteadiness on feet (06/20/23) Unspecified abnormalities of gait and mobility (06/20/23) History of falling (06/20/23) Past Medical History (Last Updated 05/15/23 @ 10:02 by Geoffrey Melvin MD) Asthma Chronic cholecystitis Chronic renal failure, stage 3b Essential hypertension History of pulmonary embolism (11/02/11) History of stroke (~07/2018) Hyperlipidemia Mass of breast (11/02/11) Menopausal syndrome (11/02/11) Paroxysmal SVT (supraventricular tachycardia) Tachycardia Past Surgical History (Last Reviewed 04/15/19 @ 22:49 by Damir Gonzalez MD) H/O cataract removal with insertion of prosthetic lens H/O total hip arthroplasty Hx of cholecystectomy Status post arthroscopy Visit Care Team Role Provider Type Geoffrey Melvin MD Attending Provider Physician Family Provider Primary Care Provider Referring Provider Specialty: Internal Medicine Address: [address] [place] [address], [address], [facility] Email: [email or web address] Physical Therapy Initial Evaluation PT-OP-A Visit Information Start: 06/20/23 16:51 Freq: Status: Active Protocol: Document 06/20/23 16:00 DCW (Rec: 06/20/23 17:07 [facility] [id number]) Out-Patient Physical Therapy Visit Information Visit Information Visit Type Initial Evaluation Visit Start Time 16:00 Visit Stop Time 16:45 Total Visit Minutes 45 Visit Number 1 Number of BASKET WEAVER Visits 0 Evaluation Information Evaluation Date 06/20/23 PT-OP-B Current Condition Start: 06/20/23 16:51 Freq: Status: Active Protocol: Document 06/20/23 16:00 DCW (Rec: 06/20/23 17:07 DC [id number]) Current Condition History of Current Condition Current Complaints History of falls, worsening balance/instability History of Current Condition Pt is an 87 year old female presenting with a long- standing history of declining balance, poor activity tolerance, weakness, and falls . Attends with her for today's evaluation. 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 Admits her right knee and left hip now bother her quite a bit. Is normally more stiff and unstable when first standing up from sitting . Has had at least two falls, but was nothing serious. Thinks she may have tripped. Pt has difficulty with history and following directions without repeated instructions and/or tactile cues. Relies on for a lot of history. does state that she doesn't do much throughout the day, they go for a walk that is ~1/5 of a mile daily. Pt cannot think of anything she actually wants to do, does admit she doesn't do much, but there is not anything else she has any desire to do. PT-OP-C Subjective Start: 06/20/23 16:51 Freq: Status: Active Protocol: Document 06/20/23 16:00 DCW (Rec: 06/20/23 17:07 DC [id number]) OP-PT Subjective Patient Comments Patient Comments My knee (right) and hip (left ) hurt when I first stand up. PT-OP-D Balance Start: 06/20/23 16:51 Freq: Status: Active Protocol: Document 06/20/23 16:00 DCW (Rec: 06/20/23 17:07 DCW [id number]) Balance Tests Sanchez Balance Test Sanchez Balance Test Score 40/56 Sanchez Impairment Rating 20 to 39% Impaired (Score 34- 44) Sanchez Balance Assessment Evaluation Sitting to Standing Ability Several Tries w/Hands Unsupported Stance Safely- 2 minutes Sitting Unsupported, Feet on Floor Safely- 2 minutes Standing to Sitting Ability Assist, Control w/Hands Transfer Ability Safely, Hand Use Unsupported Stance- Eyes Closed Safely, 10 seconds Unsupported Stance- Eyes Open Independent, 1 minute Reaching Forward Standing Safely, 5 inches Pick- Up Object From Floor Supervision Look Behind Shoulder - Standing Turns Sideways Only Turning 360 Degrees Turns slowly, but safely Unsupported Stance, Alternating Feet on 4 Steps w/Supervision Stair Unsupported Tandem Stance Holds Tandem- 30 seconds Unilateral Leg Stance Lifts Leg/Unable to Hold Total Score Sanchez Total Score (out of 56 points) 40 Sanchez Impairment Rating 20 to 39% Impaired (Score 34- 44) PT-OP-E Functional Tests Start: 06/20/23 16:51 Freq: Status: Active Protocol: Document 06/20/23 16:00 DCW (Rec: 06/20/23 17:07 [facility] [id number]) Functional Tests Dynamic Gait Index (DGI) Score 13 DGI Impairment Rating 40 to <60% Impaired (Score 10- 14) PT-OP-M Strength Start: 06/20/23 16:51 Freq: Status: Active Protocol: Document 06/20/23 16:00 DCW (Rec: 06/20/23 17:07 [facility] [id number]) Hip Strength Hip Manual Muscle Testing Right Flexion (L2) 4- Good- Extension (S1) 4 Good Abduction 4- Good- Adduction 4+ Good+ External Rotation 4- Good- Internal Rotation 4- Good- Left Flexion (L2) 4 Good Abduction 4- Good- Adduction 4+ Good+ External Rotation 4- Good- Internal Rotation 4- Good- Knee Strength Knee Manual Muscle Testing Right Flexion (S2) 4- Good- Extension (L3) 4- Good- Left Flexion (S2) 4- Good- Extension (L3) 4- Good- Ankle/Foot Strength Ankle and Foot Manual Muscle Testing Right Dorsiflexion (L4) 4+ Good+ Left Dorsiflexion (L4) 4+ Good+ PT-OP-Q Treatments Start: 06/20/23 16:51 Freq: Status: Active Protocol: Document 06/20/23 16:00 DC (Rec: 06/20/23 17:07 [facility] [id number]) Gait Training Gait Activity SPC Description SPC gait training Device Used SPC Level of Assistance CGA, verbal/tactile cues Distance/Duration x100' PT-OP-T Assessment and Plan Start: 06/20/23 16:51 Freq: Status: Active Protocol: Document 06/20/23 16:00 DC (Rec: 06/20/23 17:28 [facility] [id number]) Physical Therapy Assessment Rehab Potential Rehabilitation Potential Good Evaluation Complexity Number of Personal Factors/Comorbidities 3 or More Number of Body Systems Impaired 4 or More Clinical Presentation at Evaluation Unstable Impairments Impairments Activity Tolerance,Balance, Coordination,Functional Activities,Functional Mobility ,Gait,Posture,ROM,Soft Tissue Mobility,Strength Goals Three Impairment Pt does not use an assistive device despite falls history Assisted Goal (LTG) Pt to exhibit ability to ambulate using a single point cane with appropriate two- point technique 80% of the time with no verbal cues in order to improve ability to safely ambulate in the community. LTG Duration 08/19/23 Two Impairment Pt scores as an increased falls risk, per Sanchez (40/56) and DGI () Blasting Worker Goal (LTG) Pt to demonstrate a decreased falls risk by increasing score on the DGI by at least five points to a 1824 LTG Duration 08/19/23 One Impairment Pt does not have an appropriate home exercise program Short Term Goal (STG) Pt to be independent and compliant with an appropriate HEP STG Duration 07/21/23 Assessment Summary Assessment Pt presents with signs and symptoms consistent with referring diagnosis. Pt exhibits an increased risk of falls, per scores on the Sanchez (40/56) and DGI (). Additionally, pt shows bilateral LE weakness, which appears to significantly impact her overall ability to balance. Multiple times during testing, pt began to lean backwards to the point where she had to take a step to stabilize. Pt did appear to have trouble with following instruction, required multiple repeated instructions and tactile cues. Did trial SPC today, after training for sequencing, pt almost immediately demonstrate improved gait speed and less path deviation. Pt should benefit from skilled therapy focusing on balance and gait training, LE strengthening, activity tolerance, and assistive device training. Physical Therapy Plan Frequency and Duration Frequency of Treatment 2x/Week Plan of Care Start Date 06/20/23 Plan of Care End Date 08/19/23 Therapeutic Interventions Therapeutic Interventions Balance Training,Coordination Training,Gait Training,Home Exercise Program,Neuromuscular Re-education,Patient/ Caregiver Education,Self-Care/ Home Management,Soft Tissue Mobilization,Therapeutic Activities,Therapeutic Exercises Modalities Cold Pack/Ice Massage,Electric Stimulation,Hot Packs, Ultrasound Next Visit Focus/Plan Next Note Type Treatment Note Next Visit Plan Balance and gait training, LE strengthening
--- NOTE | 2023-06-20 17:29 | PT.OPPOC ---
Physical, Occupational & Speech Therapy At [facility] Current Diagnoses Pain in left hip (06/20/23) Pain in right knee (06/20/23) Muscle weakness (generalized) (06/20/23) Unsteadiness on feet (06/20/23) Unspecified abnormalities of gait and mobility (06/20/23) History of falling (06/20/23) Visit Care Team Role Provider Type Geoffrey Melvin MD Attending Provider Physician Family Provider Primary Care Provider Referring Provider Specialty: Internal Medicine Address: [address] [place] [address], [address], [facility] Email: [email or web address] Plan Of Care PT-OP-T Assessment and Plan Start: 06/20/23 16:51 Freq: Status: Active Protocol: Document 06/20/23 16:00 DCW (Rec: 06/20/23 17:28 DCW [id number]) Physical Therapy Assessment Rehab Potential Rehabilitation Potential Good Evaluation Complexity Number of Personal Factors/Comorbidities 3 or More Number of Body Systems Impaired 4 or More Clinical Presentation at Evaluation Unstable Impairments Impairments Activity Tolerance,Balance, Coordination,Functional Activities,Functional Mobility ,Gait,Posture,ROM,Soft Tissue Mobility,Strength Goals Three Impairment Pt does not use an assistive device despite falls history Assisted Goal (LTG) Pt to exhibit ability to ambulate using a single point cane with appropriate two- point technique 80% of the time with no verbal cues in order to improve ability to safely ambulate in the community. LTG Duration 08/19/23 Two Impairment Pt scores as an increased falls risk, per Sanchez (40/56) and DGI () Palm Gatherer Goal (LTG) Pt to demonstrate a decreased falls risk by increasing score on the DGI by at least five points to a 18 LTG Duration 08/19/23 One Impairment Pt does not have an appropriate home exercise program Short Term Goal (STG) Pt to be independent and compliant with an appropriate HEP STG Duration 07/21/23 Assessment Summary Assessment Pt presents with signs and symptoms consistent with referring diagnosis. Pt exhibits an increased risk of falls, per scores on the Sanchez (40/56) and DGI (13/24). Additionally, pt shows bilateral LE weakness, which appears to significantly impact her overall ability to balance. Multiple times during testing, pt began to lean backwards to the point where she had to take a step to stabilize. Pt did appear to have trouble with following instruction, required multiple repeated instructions and tactile cues. Did trial SPC today, after training for sequencing, pt almost immediately demonstrate improved gait speed and less path deviation. Pt should benefit from skilled therapy focusing on balance and gait training, LE strengthening, activity tolerance, and assistive device training. Physical Therapy Plan Frequency and Duration Frequency of Treatment 2x/Week Plan of Care Start Date 06/20/23 Plan of Care End Date 08/19/23 Therapeutic Interventions Therapeutic Interventions Balance Training,Coordination Training,Gait Training,Home Exercise Program,Neuromuscular Re-education,Patient/ Caregiver Education,Self-Care/ Home Management,Soft Tissue Mobilization,Therapeutic Activities,Therapeutic Exercises Modalities Cold Pack/Ice Massage,Electric Stimulation,Hot Packs, Ultrasound Next Visit Focus/Plan Next Note Type Treatment Note Next Visit Plan Balance and gait training, LE strengthening Plan of Care Dates Plan of Care Start Date 06/20/23 Plan of Care End Date 08/19/23 Electronically Signed by: Jeffry Atwood, PT 06/20/23 8745 If you are in agreement with this Plan of Care, please return a signed and dated copy. I have reviewed this Plan of Care and certify that the skilled therapy services above are required to meet the patient?s needs. Physician Signature Date Printed Name and Credentials Clinical Instructor Signature Printed Name and Credentials
--- NOTE | 2023-06-20 17:30 | PT.OPPOC ---
Physical, Occupational & Speech Therapy At [facility] Current Diagnoses Pain in left hip (06/20/23) Pain in right knee (06/20/23) Muscle weakness (generalized) (06/20/23) Unsteadiness on feet (06/20/23) Unspecified abnormalities of gait and mobility (06/20/23) History of falling (06/20/23) Visit Care Team Role Provider Type Geoffrey Melvin MD Attending Provider Physician Family Provider Primary Care Provider Referring Provider Specialty: Internal Medicine Address: [address] [place] [address], [address], [facility] Email: [email or web address] Plan Of Care PT-OP-T Assessment and Plan Start: 06/20/23 16:51 Freq: Status: Active Protocol: Document 06/20/23 16:00 DCW (Rec: 06/20/23 17:28 DCW [id number]) Physical Therapy Assessment Rehab Potential Rehabilitation Potential Good Evaluation Complexity Number of Personal Factors/Comorbidities 3 or More Number of Body Systems Impaired 4 or More Clinical Presentation at Evaluation Unstable Impairments Impairments Activity Tolerance,Balance, Coordination,Functional Activities,Functional Mobility ,Gait,Posture,ROM,Soft Tissue Mobility,Strength Goals Three Impairment Pt does not use an assistive device despite falls history Mcc Goal (LTG) Pt to exhibit ability to ambulate using a single point cane with appropriate two- point technique 80% of the time with no verbal cues in order to improve ability to safely ambulate in the community. LTG Duration 08/19/23 Two Impairment Pt scores as an increased falls risk, per Sanchez (40/56) and DGI () Pmo Consultant Goal (LTG) Pt to demonstrate a decreased falls risk by increasing score on the DGI by at least five points to a 18 LTG Duration 08/19/23 One Impairment Pt does not have an appropriate home exercise program Short Term Goal (STG) Pt to be independent and compliant with an appropriate HEP STG Duration 07/21/23 Assessment Summary Assessment Pt presents with signs and symptoms consistent with referring diagnosis. Pt exhibits an increased risk of falls, per scores on the Sanchez (40/56) and DGI (13/24). Additionally, pt shows bilateral LE weakness, which appears to significantly impact her overall ability to balance. Multiple times during testing, pt began to lean backwards to the point where she had to take a step to stabilize. Pt did appear to have trouble with following instruction, required multiple repeated instructions and tactile cues. Did trial SPC today, after training for sequencing, pt almost immediately demonstrate improved gait speed and less path deviation. Pt should benefit from skilled therapy focusing on balance and gait training, LE strengthening, activity tolerance, and assistive device training. Physical Therapy Plan Frequency and Duration Frequency of Treatment 2x/Week Plan of Care Start Date 06/20/23 Plan of Care End Date 08/19/23 Therapeutic Interventions Therapeutic Interventions Balance Training,Coordination Training,Gait Training,Home Exercise Program,Neuromuscular Re-education,Patient/ Caregiver Education,Self-Care/ Home Management,Soft Tissue Mobilization,Therapeutic Activities,Therapeutic Exercises Modalities Cold Pack/Ice Massage,Electric Stimulation,Hot Packs, Ultrasound Next Visit Focus/Plan Next Note Type Treatment Note Next Visit Plan Balance and gait training, LE strengthening Plan of Care Dates Plan of Care Start Date 06/20/23 Plan of Care End Date 08/19/23 Electronically Signed by: Jeffry Atwood, PT 06/20/23 1444 If you are in agreement with this Plan of Care, please return a signed and dated copy. I have reviewed this Plan of Care and certify that the skilled therapy services above are required to meet the patient?s needs. Physician Signature Date Printed Name and Credentials Clinical Instructor Signature Printed Name and Credentials
--- NOTE | 2023-06-23 12:51 | PT.OTN ---
Current Diagnoses Pain in left hip (06/23/23) Pain in right knee (06/23/23) Muscle weakness (generalized) (06/23/23) Unsteadiness on feet (06/23/23) Unspecified abnormalities of gait and mobility (06/23/23) History of falling (06/23/23) Physical Therapy Treatment Note PT-OP-A Visit Information Start: 06/20/23 16:51 Freq: Status: Active Protocol: Document 06/23/23 12:00 DCW (Rec: 06/23/23 12:51 DCW [id number]) Out-Patient Physical Therapy Visit Information Visit Information Visit Type Treatment Note Visit Note PT Sarah provided assistance during heel/toe raises as providing PT was called away momentarily. Visit Start Time 12:00 Visit Stop Time 12:45 Total Visit Minutes 45 Visit Number 2 Number of ENGINE TESTER Visits 0 Evaluation Information Evaluation Date 06/20/23 PT-OP-B Current Condition Start: 06/20/23 16:51 Freq: Status: Active Protocol: Document 06/20/23 16:00 DCW (Rec: 06/20/23 17:07 DCW [id number]) Current Condition History of Current Condition Current Complaints History of falls, worsening balance/instability History of Current Condition Pt is an 87 year old female presenting with a long- standing history of declining balance, poor activity tolerance, weakness, and falls . Attends with her for today's evaluation. 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 Admits her right knee and left hip now bother her quite a bit. Is normally more stiff and unstable when first standing up from sitting . Has had at least two falls, but was nothing serious. Thinks she may have tripped. Pt has difficulty with history and following directions without repeated instructions and/or tactile cues. Relies on for a lot of history. does state that she doesn't do much throughout the day, they go for a walk that is ~1/5 of a mile daily. Pt cannot think of anything she actually wants to do, does admit she doesn't do much, but there is not anything else she has any desire to do. PT-OP-C Subjective Start: 06/20/23 16:51 Freq: Status: Active Protocol: Document 06/23/23 12:00 DCW (Rec: 06/23/23 12:51 DCW [id number]) OP-PT Subjective Patient Comments Patient Comments Pt notes she has not fallen in the snow. PT-OP-D Balance Start: 06/20/23 16:51 Freq: Status: Active Protocol: Document 06/20/23 16:00 DCW (Rec: 06/20/23 17:07 DCW [id number]) Balance Tests Sanchez Balance Test Sanchez Balance Test Score 40/56 Sanchez Impairment Rating 20 to 39% Impaired (Score 34- 44) Sanchez Balance Assessment Evaluation Sitting to Standing Ability Several Tries w/Hands Unsupported Stance Safely- 2 minutes Sitting Unsupported, Feet on Floor Safely- 2 minutes Standing to Sitting Ability Assist, Control w/Hands Transfer Ability Safely, Hand Use Unsupported Stance- Eyes Closed Safely, 10 seconds Unsupported Stance- Eyes Open Independent, 1 minute Reaching Forward Standing Safely, 5 inches Pick- Up Object From Floor Supervision Look Behind Shoulder - Standing Turns Sideways Only Turning 360 Degrees Turns slowly, but safely Unsupported Stance, Alternating Feet on 4 Steps w/Supervision Stair Unsupported Tandem Stance Holds Tandem- 30 seconds Unilateral Leg Stance Lifts Leg/Unable to Hold Total Score Sanchez Total Score (out of 56 points) 40 Sanchez Impairment Rating 20 to 39% Impaired (Score 34- 44) PT-OP-E Functional Tests Start: 06/20/23 16:51 Freq: Status: Active Protocol: Document 06/20/23 16:00 DCW (Rec: 06/20/23 17:07 DC [id number]) Functional Tests Dynamic Gait Index (DGI) Score 1324 DGI Impairment Rating 40 to <60% Impaired (Score 10- 14) PT-OP-M Strength Start: 06/20/23 16:51 Freq: Status: Active Protocol: Document 06/20/23 16:00 DCW (Rec: 06/20/23 17:07 DCW [id number]) Hip Strength Hip Manual Muscle Testing Right Flexion (L2) 4- Good- Extension (S1) 4 Good Abduction 4- Good- Adduction 4+ Good+ External Rotation 4- Good- Internal Rotation 4- Good- Left Flexion (L2) 4 Good Abduction 4- Good- Adduction 4+ Good+ External Rotation 4- Good- Internal Rotation 4- Good- Knee Strength Knee Manual Muscle Testing Right Flexion (S2) 4- Good- Extension (L3) 4- Good- Left Flexion (S2) 4- Good- Extension (L3) 4- Good- Ankle/Foot Strength Ankle and Foot Manual Muscle Testing Right Dorsiflexion (L4) 4+ Good+ Left Dorsiflexion (L4) 4+ Good+ PT-OP-Q Treatments Start: 06/20/23 16:51 Freq: Status: Active Protocol: Document 06/23/23 12:00 DCW (Rec: 06/23/23 12:51 [facility] [id number]) Cardio Equipment Recumbent Elliptical (Biodex) Duration (Minutes) 4 Resistance 5 Seat Position 8 Other Stopped d/t increased knee pain Therapeutic Exercises Sitting Exercises LAQ Sitting Exercise Name LAQ Side bilateral Resistance 4# Standing Exercises Heel raises Standing Exercise Name Heel/toe raises Side bilateral Comments pt was rocking back for toe raises Other Exercises Sit Stands Other Exercise Name Sit<->Stands Reps/Minutes x5 Toe-taps Other Exercise Name Toe-taps Side bilateral Resistance 4# Equipment Used 6 Gait Training Gait Activity SPC Description SPC gait training Device Used SPC Level of Assistance CGA, verbal/tactile cues Distance/Duration x300' Neuro Re-Education Treatment Balance Activities Tandem Details Tandem Stance Hurdles Details Hurdles Comments Fwd/Side-stepping NBOS Details NBOS /c head turns PT-OP-T Assessment and Plan Start: 06/20/23 16:51 Freq: Status: Active Protocol: Document 06/23/23 12:00 DCW (Rec: 06/23/23 12:51 [facility] [id number]) Physical Therapy Assessment Impairments Impairments Activity Tolerance,Balance, Coordination,Functional Activities,Functional Mobility ,Gait,Posture,ROM,Soft Tissue Mobility,Strength Goals Three Impairment Pt does not use an assistive device despite falls history Jail Goal (LTG) Pt to exhibit ability to ambulate using a single point cane with appropriate two- point technique 80% of the time with no verbal cues in order to improve ability to safely ambulate in the community. LTG Duration 08/19/23 Two Impairment Pt scores as an increased falls risk, per Sanchez (40/56) and DGI () Jail Goal (LTG) Pt to demonstrate a decreased falls risk by increasing score on the DGI by at least five points to a LTG Duration 08/19/23 One Impairment Pt does not have an appropriate home exercise program Short Term Goal (STG) Pt to be independent and compliant with an appropriate HEP STG Duration 07/21/23 Assessment Summary Assessment Pt continues to need repeated instruction on most activities , however was able to perform all exercises today with instruction and visual cues. Showing fairly good balance with NBOS and on foam, although continues to have tendency to retro lean, may benefit from further ankle strengthening. Physical Therapy Plan Frequency and Duration Frequency of Treatment 2x/Week Plan of Care Start Date 06/20/23 Plan of Care End Date 08/19/23 Therapeutic Interventions Therapeutic Interventions Balance Training,Coordination Training,Gait Training,Home Exercise Program,Neuromuscular Re-education,Patient/ Caregiver Education,Self-Care/ Home Management,Soft Tissue Mobilization,Therapeutic Activities,Therapeutic Exercises Modalities Cold Pack/Ice Massage,Electric Stimulation,Hot Packs, Ultrasound Next Visit Focus/Plan Next Note Type Treatment Note Next Visit Plan Balance and gait training, LE strengthening
--- NOTE | 2023-06-27 13:00 | PT.OTN ---
Current Diagnoses Pain in left hip (06/27/23) Pain in right knee (06/27/23) Muscle weakness (generalized) (06/27/23) Unsteadiness on feet (06/27/23) Unspecified abnormalities of gait and mobility (06/27/23) History of falling (06/27/23) Physical Therapy Treatment Note PT-OP-A Visit Information Start: 06/20/23 16:51 Freq: Status: Active Protocol: Document 06/27/23 12:18 SP (Rec: 06/27/23 13:05 SP [id number]) Out-Patient Physical Therapy Visit Information Visit Information Visit Type Treatment Note Visit Note present in tx, reports can assist pt with ther ex home. Visit Start Time 12:18 Visit Stop Time 13:00 Total Visit Minutes 42 Visit Number 3 Number of STERILE PRODUCTS PROCESSOR Visits 1 Evaluation Information Evaluation Date 06/20/23 PT-OP-B Current Condition Start: 06/20/23 16:51 Freq: Status: Active Protocol: Document 06/20/23 16:00 DCW (Rec: 06/20/23 17:07 DCW [id number]) Current Condition History of Current Condition Current Complaints History of falls, worsening balance/instability History of Current Condition Pt is an 87 year old female presenting with a long- standing history of declining balance, poor activity tolerance, weakness, and falls . Attends with her for today's evaluation. 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 Admits her right knee and left hip now bother her quite a bit. Is normally more stiff and unstable when first standing up from sitting . Has had at least two falls, but was nothing serious. Thinks she may have tripped. Pt has difficulty with history and following directions without repeated instructions and/or tactile cues. Relies on for a lot of history. does state that she doesn't do much throughout the day, they go for a walk that is ~1/5 of a mile daily. Pt cannot think of anything she actually wants to do, does admit she doesn't do much, but there is not anything else she has any desire to do. PT-OP-C Subjective Start: 06/20/23 16:51 Freq: Status: Active Protocol: Document 06/27/23 12:18 SP (Rec: 06/27/23 13:05 SP [id number]) OP-PT Subjective Patient Comments Patient Comments Pt reports L hip hurting her today. PT-OP-D Balance Start: 06/20/23 16:51 Freq: Status: Active Protocol: Document 06/20/23 16:00 DCW (Rec: 06/20/23 17:07 DCW [id number]) Balance Tests Sanchez Balance Test Sanchez Balance Test Score 40/56 Sanchez Impairment Rating 20 to 39% Impaired (Score 34- 44) Sanchez Balance Assessment Evaluation Sitting to Standing Ability Several Tries w/Hands Unsupported Stance Safely- 2 minutes Sitting Unsupported, Feet on Floor Safely- 2 minutes Standing to Sitting Ability Assist, Control w/Hands Transfer Ability Safely, Hand Use Unsupported Stance- Eyes Closed Safely, 10 seconds Unsupported Stance- Eyes Open Independent, 1 minute Reaching Forward Standing Safely, 5 inches Pick- Up Object From Floor Supervision Look Behind Shoulder - Standing Turns Sideways Only Turning 360 Degrees Turns slowly, but safely Unsupported Stance, Alternating Feet on 4 Steps w/Supervision Stair Unsupported Tandem Stance Holds Tandem- 30 seconds Unilateral Leg Stance Lifts Leg/Unable to Hold Total Score Sanchez Total Score (out of 56 points) 40 Sanchez Impairment Rating 20 to 39% Impaired (Score 34- 44) PT-OP-E Functional Tests Start: 06/20/23 16:51 Freq: Status: Active Protocol: Document 06/20/23 16:00 DCW (Rec: 06/20/23 17:07 DCW [id number]) Functional Tests Dynamic Gait Index (DGI) Score 1324 DGI Impairment Rating 40 to <60% Impaired (Score 10- 14) PT-OP-M Strength Start: 06/20/23 16:51 Freq: Status: Active Protocol: Document 06/20/23 16:00 DCW (Rec: 06/20/23 17:07 DCW [id number]) Hip Strength Hip Manual Muscle Testing Right Flexion (L2) 4- Good- Extension (S1) 4 Good Abduction 4- Good- Adduction 4+ Good+ External Rotation 4- Good- Internal Rotation 4- Good- Left Flexion (L2) 4 Good Abduction 4- Good- Adduction 4+ Good+ External Rotation 4- Good- Internal Rotation 4- Good- Knee Strength Knee Manual Muscle Testing Right Flexion (S2) 4- Good- Extension (L3) 4- Good- Left Flexion (S2) 4- Good- Extension (L3) 4- Good- Ankle/Foot Strength Ankle and Foot Manual Muscle Testing Right Dorsiflexion (L4) 4+ Good+ Left Dorsiflexion (L4) 4+ Good+ PT-OP-Q Treatments Start: 06/20/23 16:51 Freq: Status: Active Protocol: Document 06/27/23 12:18 SP (Rec: 06/27/23 13:05 SP [id number]) Cardio Equipment Recumbent Elliptical ([employer]) Duration (Minutes) 5 Resistance 3 Seat Position 6 Other painfree- 300 steps Therapeutic Exercises Supine Exercises stretching Supine Exercise Name IN PT: piriformis Side left Resistance manual Reps/Minutes 15 SH x2 Comments cued for ok stretch in painfree range, painfull L hip in sitting Sidelying Exercises clamshell Sidelying Exercise Name added to HEP Side left Resistance AROM Reps/Minutes 2x8 reps Comments cues for proper form, assisted cues for carry over home. Sitting Exercises Hip IR band Sitting Exercise Name added to HEP Side bilateral Resistance TB #1 around ankles- provided HO and TB Equipment Used small green ball between B knees- (TP roll home) Reps/Minutes 10 Comments more range R than L, painfree- said assist cues for carry over home LAQ Sitting Exercise Name LAQ- added to HEP Side bilateral Resistance > TB #1 loop at ankles - provided HO and TB Equipment Used kick to therapist hand target Reps/Minutes 2x10 Comments painfree- - said assist cues for carry over home Other Exercises Sit Stands Other Exercise Name Sit<->Stands- added to HEP- Provided HO for home Resistance 1 UE> no UE Reps/Minutes x5 1 UE then no UE Comments cued hip hinge fwd, slow descend Manual Therapy Treatment Soft Tissue Mobilization L hip Body Location L quad, ITB, TFL Mobilization Type Myofascial Release,Strumming Intensity/Depth Moderate Body Position Hooklying Comments gentle STMs, decreased tightness and less tension support report L hip discomfort upon arrival. PT-OP-T Assessment and Plan Start: 06/20/23 16:51 Freq: Status: Active Protocol: Document 06/27/23 12:18 SP (Rec: 06/27/23 13:05 SP [id number]) Physical Therapy Assessment Goals Three Impairment Pt does not use an assistive device despite falls history Custodial Goal (LTG) Pt to exhibit ability to ambulate using a single point cane with appropriate two- point technique 80% of the time with no verbal cues in order to improve ability to safely ambulate in the community. LTG Duration 08/19/23 Two Impairment Pt scores as an increased falls risk, per Sanchez (40/56) and DGI () Drier Operator Goal (LTG) Pt to demonstrate a decreased falls risk by increasing score on the DGI by at least five points to a 18 LTG Duration 08/19/23 One Impairment Pt does not have an appropriate home exercise program Short Term Goal (STG) Pt to be independent and compliant with an appropriate HEP STG Duration 07/21/23 Assessment Summary Assessment Pt responded well to gentle manual and feedback from pt given. Good response to ther ex painfree, tiring. Pt has short term memory, requires cues for set up and proper form during ther ex given as HEP for progression carryover outside therapy, present during tx and stated can give her same support and cues for carry over home progression. Pt reported L hip felt better end tx. Next tx will continue balance, strength and use of SPC for safety gait with in agreement would be beneficial. Physical Therapy Plan Frequency and Duration Frequency of Treatment 2x/Week Plan of Care Start Date 06/20/23 Plan of Care End Date 08/19/23 Therapeutic Interventions Therapeutic Interventions Balance Training,Coordination Training,Gait Training,Home Exercise Program,Neuromuscular Re-education,Patient/ Caregiver Education,Self-Care/ Home Management,Soft Tissue Mobilization,Therapeutic Activities,Therapeutic Exercises Modalities Cold Pack/Ice Massage,Electric Stimulation,Hot Packs, Ultrasound Next Visit Focus/Plan Next Note Type Treatment Note Next Visit Plan Assess respone to ther ex and manual last tx for carry over home HEP. POC: Balance and gait training , LE strengthening
--- NOTE | 2023-06-30 13:03 | PT.OTN ---
Current Diagnoses Pain in left hip (06/30/23) Pain in right knee (06/30/23) Muscle weakness (generalized) (06/30/23) Unsteadiness on feet (06/30/23) Unspecified abnormalities of gait and mobility (06/30/23) History of falling (06/30/23) Physical Therapy Treatment Note PT-OP-A Visit Information Start: 06/20/23 16:51 Freq: Status: Active Protocol: Document 06/30/23 12:15 SP (Rec: 06/30/23 13:07 SP [id number]) Out-Patient Physical Therapy Visit Information Visit Information Visit Type Treatment Note Visit Note present in tx, reports can assist pt with ther ex home. Visit Start Time 12:15 Visit Stop Time 13:03 Visit Number 4 Number of SPINNING BATH PATROLLER Visits 2 Evaluation Information Evaluation Date 06/20/23 PT-OP-B Current Condition Start: 06/20/23 16:51 Freq: Status: Active Protocol: Document 06/20/23 16:00 DCW (Rec: 06/20/23 17:07 DCW [id number]) Current Condition History of Current Condition Current Complaints History of falls, worsening balance/instability History of Current Condition Pt is an 87 year old female presenting with a long- standing history of declining balance, poor activity tolerance, weakness, and falls . Attends with her for today's evaluation. 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 Admits her right knee and left hip now bother her quite a bit. Is normally more stiff and unstable when first standing up from sitting . Has had at least two falls, but was nothing serious. Thinks she may have tripped. Pt has difficulty with history and following directions without repeated instructions and/or tactile cues. Relies on for a lot of history. does state that she doesn't do much throughout the day, they go for a walk that is ~1/5 of a mile daily. Pt cannot think of anything she actually wants to do, does admit she doesn't do much, but there is not anything else she has any desire to do. PT-OP-C Subjective Start: 06/20/23 16:51 Freq: Status: Active Protocol: Document 06/30/23 12:15 SP (Rec: 06/30/23 13:07 SP [id number]) OP-PT Subjective Patient Comments Patient Comments Pt reports doing ok today, no pain. She demonstrates painting on body with sqinting facial expressions when something is bothering her, has difficulty word finding or describing how feels, not consistant many times with body language. PT-OP-D Balance Start: 06/20/23 16:51 Freq: Status: Active Protocol: Document 06/20/23 16:00 DCW (Rec: 06/20/23 17:07 DCW [id number]) Balance Tests Sanchez Balance Test Sanchez Balance Test Score 40/56 Sanchez Impairment Rating 20 to 39% Impaired (Score 34- 44) Sanchez Balance Assessment Evaluation Sitting to Standing Ability Several Tries w/Hands Unsupported Stance Safely- 2 minutes Sitting Unsupported, Feet on Floor Safely- 2 minutes Standing to Sitting Ability Assist, Control w/Hands Transfer Ability Safely, Hand Use Unsupported Stance- Eyes Closed Safely, 10 seconds Unsupported Stance- Eyes Open Independent, 1 minute Reaching Forward Standing Safely, 5 inches Pick- Up Object From Floor Supervision Look Behind Shoulder - Standing Turns Sideways Only Turning 360 Degrees Turns slowly, but safely Unsupported Stance, Alternating Feet on 4 Steps w/Supervision Stair Unsupported Tandem Stance Holds Tandem- 30 seconds Unilateral Leg Stance Lifts Leg/Unable to Hold Total Score Sanchez Total Score (out of 56 points) 40 Sanchez Impairment Rating 20 to 39% Impaired (Score 34- 44) PT-OP-E Functional Tests Start: 06/20/23 16:51 Freq: Status: Active Protocol: Document 06/20/23 16:00 DCW (Rec: 06/20/23 17:07 DC [id number]) Functional Tests Dynamic Gait Index (DGI) Score 13/24 DGI Impairment Rating 40 to <60% Impaired (Score 10- 14) PT-OP-M Strength Start: 06/20/23 16:51 Freq: Status: Active Protocol: Document 06/20/23 16:00 DCW (Rec: 06/20/23 17:07 DCW [id number]) Hip Strength Hip Manual Muscle Testing Right Flexion (L2) 4- Good- Extension (S1) 4 Good Abduction 4- Good- Adduction 4+ Good+ External Rotation 4- Good- Internal Rotation 4- Good- Left Flexion (L2) 4 Good Abduction 4- Good- Adduction 4+ Good+ External Rotation 4- Good- Internal Rotation 4- Good- Knee Strength Knee Manual Muscle Testing Right Flexion (S2) 4- Good- Extension (L3) 4- Good- Left Flexion (S2) 4- Good- Extension (L3) 4- Good- Ankle/Foot Strength Ankle and Foot Manual Muscle Testing Right Dorsiflexion (L4) 4+ Good+ Left Dorsiflexion (L4) 4+ Good+ PT-OP-Q Treatments Start: 06/20/23 16:51 Freq: Status: Active Protocol: Document 06/30/23 12:15 SP (Rec: 06/30/23 13:07 SP [id number]) Cardio Equipment Recumbent Elliptical ([employer]) Duration (Minutes) 5 Resistance 3>2 Seat Position 6 Other painfree- 300 steps Gym Equipment Shuttle Recovery unilateral squat Details tactile cue L knee lateral midline Resistance 25# Reps/Time 2x10, max cues ext/control eccentric flexion each rep bilateral squat Details yellow ball between B knees Resistance 62# 2 teal Reps/Time x15 Therapeutic Exercises Supine Exercises KFO Supine Exercise Name trialed in PT for painfree ROM L hip vs manual/stretching Side left Resistance L>R Reps/Minutes 5 reps x2 Comments tactile cues for painfree range, improvement in ROM stretching Supine Exercise Name IN PT: piriformis, FIg 4 Side left Resistance manual Reps/Minutes 15 SH x2 Comments cued for ok stretch in painfree limited range, painful L hip in sitting-hld Sidelying Exercises clamshell Sidelying Exercise Name reviewed HEP Side left Resistance AROM, RLE AAROM (tends to lift ankle) Reps/Minutes x10 reps max vc/tactile cues for maintain ankle together/ back still/no roll Comments cues for proper form, assisted cues for carry over home. Sitting Exercises LAQ Sitting Exercise Name LAQ- added to HEP Side bilateral Resistance 4# leg wt Equipment Used kick to therapist hand target Reps/Minutes 2x10 Comments painfree- - said assist cues for carry over home Other Exercises Sit Stands Other Exercise Name Sit<->Stands- reviewed HEP Resistance 1 UE 3 reps > no UE Reps/Minutes 3 reps Rue on chair > x5 reps x2 no UE (LOB retro initial STS /s UEs) Comments cued scoot fwdhip hinge fwd come to stand, slow descend- improves with reps Toe-taps Other Exercise Name Toe-taps Side bilateral Resistance 4# Equipment Used 6 step, near but not need rail Reps/Minutes x10 Comments CG-5%A trunk stab, max cues for patterning Gait Training Gait Activity SPC Description SPC gait training Device Used SPC Level of Assistance CGA, verbal/tactile cues Distance/Duration 180 ft and around clinic between stations Treatment Focus patterning in LUE with RLE, Comments Discussed with wooden cane 5 to tall for her (elbow height), stated will go to [employer] after PT to borrow adjustable SPC. Improves 90% consistant patterning in LUE with RLE vs in RUE just drags behind her. More lateral stability with SPC use. Manual Therapy Treatment Soft Tissue Mobilization L hip Body Location L quad, ITB, TFL Mobilization Type Myofascial Release,Strumming Intensity/Depth Moderate Body Position Hooklying Comments gentle STMs, decreased tightness and less tension support report L hip discomfort upon arrival. PT-OP-T Assessment and Plan Start: 06/20/23 16:51 Freq: Status: Active Protocol: Document 06/30/23 12:15 SP (Rec: 06/30/23 13:07 SP [id number]) Physical Therapy Assessment Goals Three Impairment Pt does not use an assistive device despite falls history Mcfp Goal (LTG) Pt to exhibit ability to ambulate using a single point cane with appropriate two- point technique 80% of the time with no verbal cues in order to improve ability to safely ambulate in the community. LTG Duration 08/19/23 Two Impairment Pt scores as an increased falls risk, per Sanchez (40/56) and DGI () Tool Keeper Goal (LTG) Pt to demonstrate a decreased falls risk by increasing score on the DGI by at least five points to a LTG Duration 08/19/23 One Impairment Pt does not have an appropriate home exercise program Short Term Goal (STG) Pt to be independent and compliant with an appropriate HEP 06/27,: added clamshell AROM sidelying, resisted LAQ & IR, STS 1 UE support. STG Duration 07/21/23 progressing 06/30/23 Assessment Summary Assessment Pt requires Max verbal and tactile cues for set up/proper form with guided assistance for all ther ex. She tires quickly with standing exercises, requires seated rest. Improved sequence patterning SPC in LUE with RLE and able to complete some STS without UE support post 3 reps with 1 UE. Discussed with CGA by if doing without UEs due to risk for retro LOB noted x1 during tx, verbalized understood for safety. Physical Therapy Plan Frequency and Duration Frequency of Treatment 2x/Week Plan of Care Start Date 06/20/23 Plan of Care End Date 08/19/23 Therapeutic Interventions Therapeutic Interventions Balance Training,Coordination Training,Gait Training,Home Exercise Program,Neuromuscular Re-education,Patient/ Caregiver Education,Self-Care/ Home Management,Soft Tissue Mobilization,Therapeutic Activities,Therapeutic Exercises Modalities Cold Pack/Ice Massage,Electric Stimulation,Hot Packs, Ultrasound Next Visit Focus/Plan Next Note Type Treatment Note Next Visit Plan Assess respone to ther ex and manual last tx for carry over home HEP. POC: Balance and gait training , LE strengthening
--- NOTE | 2023-07-05 13:00 | PT.OTN ---
Current Diagnoses Pain in left hip (07/05/23) Pain in right knee (07/05/23) Muscle weakness (generalized) (07/05/23) Unsteadiness on feet (07/05/23) Unspecified abnormalities of gait and mobility (07/05/23) History of falling (07/05/23) Physical Therapy Treatment Note PT-OP-A Visit Information Start: 06/20/23 16:51 Freq: Status: Active Protocol: Document 07/05/23 12:17 SP (Rec: 07/05/23 13:03 SP [id number]) Out-Patient Physical Therapy Visit Information Visit Information Visit Type Treatment Note Visit Note present in tx, reports can assist pt with ther ex home. Visit Start Time 12:17 Visit Stop Time 13:00 Visit Number 5 Number of DIGITAL ACCOUNT SUPERVISOR Visits 3 Evaluation Information Evaluation Date 06/20/23 PT-OP-B Current Condition Start: 06/20/23 16:51 Freq: Status: Active Protocol: Document 06/20/23 16:00 DCW (Rec: 06/20/23 17:07 DCW [id number]) Current Condition History of Current Condition Current Complaints History of falls, worsening balance/instability History of Current Condition Pt is an 87 year old female presenting with a long- standing history of declining balance, poor activity tolerance, weakness, and falls . Attends with her for today's evaluation. 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 Admits her right knee and left hip now bother her quite a bit. Is normally more stiff and unstable when first standing up from sitting . Has had at least two falls, but was nothing serious. Thinks she may have tripped. Pt has difficulty with history and following directions without repeated instructions and/or tactile cues. Relies on for a lot of history. does state that she doesn't do much throughout the day, they go for a walk that is ~1/5 of a mile daily. Pt cannot think of anything she actually wants to do, does admit she doesn't do much, but there is not anything else she has any desire to do. PT-OP-C Subjective Start: 06/20/23 16:51 Freq: Status: Active Protocol: Document 07/05/23 12:17 SP (Rec: 07/05/23 13:03 SP [id number]) OP-PT Subjective Patient Comments Patient Comments Pt reports no pain arrival and felt ok after last tx, varified same findings . Pt and went for a walk at [employer] ( 2 laps pt approx 1/10 mile, 4 laps ) and did well. states she refuses using SPC with him. They did pecan picker/ brought the adjustable SPC today got on Fri from [employer]. PT-OP-D Balance Start: 06/20/23 16:51 Freq: Status: Active Protocol: Document 06/20/23 16:00 DCW (Rec: 06/20/23 17:07 DCW [id number]) Balance Tests Sanchez Balance Test Sanchez Balance Test Score 40/56 Sanchez Impairment Rating 20 to 39% Impaired (Score 34- 44) Sanchez Balance Assessment Evaluation Sitting to Standing Ability Several Tries w/Hands Unsupported Stance Safely- 2 minutes Sitting Unsupported, Feet on Floor Safely- 2 minutes Standing to Sitting Ability Assist, Control w/Hands Transfer Ability Safely, Hand Use Unsupported Stance- Eyes Closed Safely, 10 seconds Unsupported Stance- Eyes Open Independent, 1 minute Reaching Forward Standing Safely, 5 inches Pick- Up Object From Floor Supervision Look Behind Shoulder - Standing Turns Sideways Only Turning 360 Degrees Turns slowly, but safely Unsupported Stance, Alternating Feet on 4 Steps w/Supervision Stair Unsupported Tandem Stance Holds Tandem- 30 seconds Unilateral Leg Stance Lifts Leg/Unable to Hold Total Score Sanchez Total Score (out of 56 points) 40 Sanchez Impairment Rating 20 to 39% Impaired (Score 34- 44) PT-OP-E Functional Tests Start: 06/20/23 16:51 Freq: Status: Active Protocol: Document 06/20/23 16:00 DCW (Rec: 06/20/23 17:07 DCW [id number]) Functional Tests Dynamic Gait Index (DGI) Score 1324 DGI Impairment Rating 40 to <60% Impaired (Score 10- 14) PT-OP-M Strength Start: 06/20/23 16:51 Freq: Status: Active Protocol: Document 06/20/23 16:00 DCW (Rec: 06/20/23 17:07 DCW [id number]) Hip Strength Hip Manual Muscle Testing Right Flexion (L2) 4- Good- Extension (S1) 4 Good Abduction 4- Good- Adduction 4+ Good+ External Rotation 4- Good- Internal Rotation 4- Good- Left Flexion (L2) 4 Good Abduction 4- Good- Adduction 4+ Good+ External Rotation 4- Good- Internal Rotation 4- Good- Knee Strength Knee Manual Muscle Testing Right Flexion (S2) 4- Good- Extension (L3) 4- Good- Left Flexion (S2) 4- Good- Extension (L3) 4- Good- Ankle/Foot Strength Ankle and Foot Manual Muscle Testing Right Dorsiflexion (L4) 4+ Good+ Left Dorsiflexion (L4) 4+ Good+ PT-OP-Q Treatments Start: 06/20/23 16:51 Freq: Status: Active Protocol: Document 07/05/23 12:17 SP (Rec: 07/05/23 13:03 SP [id number]) Gym Equipment Shuttle Recovery unilateral squat Details tactile cue L knee lateral midline Resistance 25# dark navy Reps/Time 2x12, max cues ext/control eccentric flexion each rep bilateral squat Details yellow ball between B knees Resistance 62# 1 dark, 1 teal Reps/Time x20 Therapeutic Exercises Sitting Exercises Hip IR band Sitting Exercise Name added to HEP Side bilateral Resistance TB #1 around ankles, use image follow Equipment Used small green ball between B knees- (TP roll home) Reps/Minutes 10 Comments tactile cue for ROM/directions to move to for strengthening LAQ Sitting Exercise Name LAQ- added to HEP Side bilateral Resistance 4# leg wt Equipment Used kick to therapist hand target Reps/Minutes 2x10 Comments painfree- - said tries to help pt at home, suggested use HO/tactile Standing Exercises HS curls Standing Exercise Name inPT Side bilateral Resistance 4# leg wt Equipment Used demo to follow, 1 UE contact table Mod WB Reps/Minutes 2x10 Comments cued pt count out, good form Heel raises Standing Exercise Name Heel/toe raises Side bilateral Resistance 4# leg wt Equipment Used demo to follow, 1 UE contact table Mod WB Reps/Minutes 2x10 Comments cues no lean back with tactile cues at back- improved 1st set pt counting Other Exercises Sit Stands Other Exercise Name Sit<->Stands- reviewed HEP Resistance UE front vs on lap at 18 table- L>R knee pain Equipment Used 20 table painfree no UEs is ok Reps/Minutes 3 reps x2 sets Comments Pt very challenged motor planning with cues scoot fwd come stand 18 table Toe-taps Other Exercise Name Toe-taps Side bilateral Resistance 4# Equipment Used 4 step, near but not need rail Reps/Minutes x10 Comments CG-5%A trunk stab, max cues for patterning Gait Training Gait Activity SPC Description SPC gait training Device Used SPC adjustable from [employer] Level of Assistance CGA, verbal/tactile cues Distance/Duration around clinic between areas Treatment Focus patterning in LUE with RLE Comments Mod cues for proper patterning . Tried to discuss importance and improvement in stability use of SPC but pt not understanding with decreased memory recall. Improves 50% consistant patterning in LUE with RLE with education. PT-OP-T Assessment and Plan Start: 06/20/23 16:51 Freq: Status: Active Protocol: Document 07/05/23 12:17 SP (Rec: 07/05/23 13:03 SP [id number]) Physical Therapy Assessment Goals Three Impairment Pt does not use an assistive device despite falls history [facility] Goal (LTG) Pt to exhibit ability to ambulate using a single point cane with appropriate two- point technique 80% of the time with no verbal cues in order to improve ability to safely ambulate in the community. LTG Duration 08/19/23 Two Impairment Pt scores as an increased falls risk, per Sanchez (40/56) and DGI () [facility] Goal (LTG) Pt to demonstrate a decreased falls risk by increasing score on the DGI by at least five points to a LTG Duration 08/19/23 One Impairment Pt does not have an appropriate home exercise program Short Term Goal (STG) Pt to be independent and compliant with an appropriate HEP 06/27,: added clamshell AROM sidelying, resisted LAQ & IR, STS 1 UE support. STG Duration 07/21/23 progressing 06/30/23 Assessment Summary Assessment Pt reports no pain during gait with but lower endurance compared to need go back to car earlier. Pt requires Max cues for proper form and demonstration to follow during ther ex, discussed with continue at home with HOs and provide tactile cues as DIGITAL ACCOUNT SUPERVISOR did in tx for range ex, verbalized understanding. Pt required increase cuing and assist pt motor planning scoot fwd during STS today off 18 table did fine 20 table. Asked measure height surfaces/chairs home pt uses for carryover in PT. Physical Therapy Plan Frequency and Duration Frequency of Treatment 2x/Week Plan of Care Start Date 06/20/23 Plan of Care End Date 08/19/23 Therapeutic Interventions Therapeutic Interventions Balance Training,Coordination Training,Gait Training,Home Exercise Program,Neuromuscular Re-education,Patient/ Caregiver Education,Self-Care/ Home Management,Soft Tissue Mobilization,Therapeutic Activities,Therapeutic Exercises Modalities Cold Pack/Ice Massage,Electric Stimulation,Hot Packs, Ultrasound Next Visit Focus/Plan Next Note Type Treatment Note Next Visit Plan Recheck and ask pt/ if pt performing HEP, ask how L knee feeling, response to PT. POC: Balance and gait training , LE strengthening
--- NOTE | 2023-07-07 12:00 | PT.OTN ---
Current Diagnoses Pain in left hip (07/07/23) Pain in right knee (07/07/23) Muscle weakness (generalized) (07/07/23) Unsteadiness on feet (07/07/23) Unspecified abnormalities of gait and mobility (07/07/23) History of falling (07/07/23) Physical Therapy Treatment Note PT-OP-A Visit Information Start: 06/20/23 16:51 Freq: Status: Active Protocol: Document 07/07/23 11:15 DCW (Rec: 07/07/23 12:00 DCW [id number]) Out-Patient Physical Therapy Visit Information Visit Information Visit Type Treatment Note Visit Note present in tx, reports can assist pt with ther ex home. Visit Start Time 11:15 Visit Stop Time 12:00 Visit Number 6 Number of BANQUET STEWARD Visits 0 Evaluation Information Evaluation Date 06/20/23 PT-OP-B Current Condition Start: 06/20/23 16:51 Freq: Status: Active Protocol: Document 06/20/23 16:00 DCW (Rec: 06/20/23 17:07 DCW [id number]) Current Condition History of Current Condition Current Complaints History of falls, worsening balance/instability History of Current Condition Pt is an 87 year old female presenting with a long- standing history of declining balance, poor activity tolerance, weakness, and falls . Attends with her for today's evaluation. 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 Admits her right knee and left hip now bother her quite a bit. Is normally more stiff and unstable when first standing up from sitting . Has had at least two falls, but was nothing serious. Thinks she may have tripped. Pt has difficulty with history and following directions without repeated instructions and/or tactile cues. Relies on for a lot of history. does state that she doesn't do much throughout the day, they go for a walk that is ~1/5 of a mile daily. Pt cannot think of anything she actually wants to do, does admit she doesn't do much, but there is not anything else she has any desire to do. PT-OP-C Subjective Start: 06/20/23 16:51 Freq: Status: Active Protocol: Document 07/07/23 11:15 DCW (Rec: 07/07/23 12:00 DCW [id number]) OP-PT Subjective Patient Comments Patient Comments Pt's notes pt didn't do her HEP yesterday, but they 've been regularly walking around [place]. PT-OP-D Balance Start: 06/20/23 16:51 Freq: Status: Active Protocol: Document 06/20/23 16:00 DCW (Rec: 06/20/23 17:07 DCW [id number]) Balance Tests Sanchez Balance Test Sanchez Balance Test Score 40/56 Sanchez Impairment Rating 20 to 39% Impaired (Score 34- 44) Sanchez Balance Assessment Evaluation Sitting to Standing Ability Several Tries w/Hands Unsupported Stance Safely- 2 minutes Sitting Unsupported, Feet on Floor Safely- 2 minutes Standing to Sitting Ability Assist, Control w/Hands Transfer Ability Safely, Hand Use Unsupported Stance- Eyes Closed Safely, 10 seconds Unsupported Stance- Eyes Open Independent, 1 minute Reaching Forward Standing Safely, 5 inches Pick- Up Object From Floor Supervision Look Behind Shoulder - Standing Turns Sideways Only Turning 360 Degrees Turns slowly, but safely Unsupported Stance, Alternating Feet on 4 Steps w/Supervision Stair Unsupported Tandem Stance Holds Tandem- 30 seconds Unilateral Leg Stance Lifts Leg/Unable to Hold Total Score Sanchez Total Score (out of 56 points) 40 Sanchez Impairment Rating 20 to 39% Impaired (Score 34- 44) PT-OP-E Functional Tests Start: 06/20/23 16:51 Freq: Status: Active Protocol: Document 06/20/23 16:00 DCW (Rec: 06/20/23 17:07 DCW [id number]) Functional Tests Dynamic Gait Index (DGI) Score 13/24 DGI Impairment Rating 40 to <60% Impaired (Score 10- 14) PT-OP-M Strength Start: 06/20/23 16:51 Freq: Status: Active Protocol: Document 06/20/23 16:00 DCW (Rec: 06/20/23 17:07 DCW [id number]) Hip Strength Hip Manual Muscle Testing Right Flexion (L2) 4- Good- Extension (S1) 4 Good Abduction 4- Good- Adduction 4+ Good+ External Rotation 4- Good- Internal Rotation 4- Good- Left Flexion (L2) 4 Good Abduction 4- Good- Adduction 4+ Good+ External Rotation 4- Good- Internal Rotation 4- Good- Knee Strength Knee Manual Muscle Testing Right Flexion (S2) 4- Good- Extension (L3) 4- Good- Left Flexion (S2) 4- Good- Extension (L3) 4- Good- Ankle/Foot Strength Ankle and Foot Manual Muscle Testing Right Dorsiflexion (L4) 4+ Good+ Left Dorsiflexion (L4) 4+ Good+ PT-OP-Q Treatments Start: 06/20/23 16:51 Freq: Status: Active Protocol: Document 07/07/23 11:15 DCW (Rec: 07/07/23 12:00 DCW [id number]) Cardio Equipment Recumbent Elliptical (Biodex) Duration (Minutes) 5 Resistance 3 Seat Position 6 Other painfree- 300 steps Gym Equipment Shuttle Recovery unilateral squat Resistance 25# teal Reps/Time 2x12, max cues ext/control eccentric flexion each rep bilateral squat Details yellow ball between B knees Resistance 62# 1 dark, 1 teal Reps/Time x20 Therapeutic Exercises Standing Exercises HS curls Side bilateral Resistance 4# leg wt Equipment Used demo to follow, 1 UE contact table Mod WB Reps/Minutes 2x10 Comments cued pt count out, good form Heel raises Standing Exercise Name Heel/toe raises Side bilateral Resistance 4# leg wt Equipment Used demo to follow, 1 UE contact table Mod WB Reps/Minutes 2x10 Comments cues no lean back with tactile cues at back- improved 1st set pt counting Other Exercises Toe-taps Other Exercise Name Toe-taps Side bilateral Resistance 4# Equipment Used 6 step, rail PRN Reps/Minutes x10 Comments CG-5%A trunk stab, max cues for patterning Gait Training Gait Activity SPC Description SPC gait training Device Used SPC Level of Assistance CGA, verbal/tactile cues Distance/Duration 340' Treatment Focus patterning in LUE with RLE Comments Mod cues for proper patterning . Tried to discuss importance and improvement in stability use of SPC but pt not understanding with decreased memory recall. Improves 50% consistant patterning in LUE with RLE with education. Neuro Re-Education Treatment Balance Activities Foam Details Foam marching Surface Large blue Tandem Details Tandem Stance Equipment // bars Hurdles Details Hurdles Comments Fwd/Side-stepping PT-OP-T Assessment and Plan Start: 06/20/23 16:51 Freq: Status: Active Protocol: Document 07/07/23 11:15 DCW (Rec: 07/07/23 12:00 DON [id number]) Physical Therapy Assessment Impairments Impairments Activity Tolerance,Balance, Coordination,Functional Activities,Functional Mobility ,Gait,Posture,ROM,Soft Tissue Mobility,Strength Goals Three Impairment Pt does not use an assistive device despite falls history Intermediate Goal (LTG) Pt to exhibit ability to ambulate using a single point cane with appropriate two- point technique 80% of the time with no verbal cues in order to improve ability to safely ambulate in the community. LTG Duration 08/19/23 Two Impairment Pt scores as an increased falls risk, per Sanchez (40/56) and DGI () [employer] Specialist Goal (LTG) Pt to demonstrate a decreased falls risk by increasing score on the DGI by at least five points to a LTG Duration 08/19/23 One Impairment Pt does not have an appropriate home exercise program Short Term Goal (STG) Pt to be independent and compliant with an appropriate HEP 06/27,: added clamshell AROM sidelying, resisted LAQ & IR, STS 1 UE support. STG Duration 07/21/23 progressing 06/30/23 Assessment Summary Assessment Pt fairly inconsistent with SPC use outside of therapy. Is showing good improvements with general balance, did not have any instances of retro LOB today. Physical Therapy Plan Frequency and Duration Frequency of Treatment 2x/Week Plan of Care Start Date 06/20/23 Plan of Care End Date 08/19/23 Therapeutic Interventions Therapeutic Interventions Balance Training,Coordination Training,Gait Training,Home Exercise Program,Neuromuscular Re-education,Patient/ Caregiver Education,Self-Care/ Home Management,Soft Tissue Mobilization,Therapeutic Activities,Therapeutic Exercises Modalities Cold Pack/Ice Massage,Electric Stimulation,Hot Packs, Ultrasound Next Visit Focus/Plan Next Note Type Treatment Note Next Visit Plan Recheck and ask pt/ if pt performing HEP, ask how L knee feeling, response to PT. POC: Balance and gait training , LE strengthening
--- NOTE | 2023-07-12 13:06 | PT.OTN ---
Current Diagnoses Pain in left hip (07/12/23) Pain in right knee (07/12/23) Muscle weakness (generalized) (07/12/23) Unsteadiness on feet (07/12/23) Unspecified abnormalities of gait and mobility (07/12/23) History of falling (07/12/23) Physical Therapy Treatment Note PT-OP-A Visit Information Start: 06/20/23 16:51 Freq: Status: Active Protocol: Document 07/12/23 12:15 SP (Rec: 07/12/23 13:09 SP [id number]) Out-Patient Physical Therapy Visit Information Visit Information Visit Type Treatment Note Visit Note present in tx, reports can assist pt with ther ex home. Visit Start Time 12:15 Visit Stop Time 13:06 Visit Number 7 Number of CUSTOMER FIELD REPRESENTATIVE Visits 1 Evaluation Information Evaluation Date 06/20/23 PT-OP-B Current Condition Start: 06/20/23 16:51 Freq: Status: Active Protocol: Document 06/20/23 16:00 DCW (Rec: 06/20/23 17:07 DCW [id number]) Current Condition History of Current Condition Current Complaints History of falls, worsening balance/instability History of Current Condition Pt is an 87 year old female presenting with a long- standing history of declining balance, poor activity tolerance, weakness, and falls . Attends with her for today's evaluation. 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 Admits her right knee and left hip now bother her quite a bit. Is normally more stiff and unstable when first standing up from sitting . Has had at least two falls, but was nothing serious. Thinks she may have tripped. Pt has difficulty with history and following directions without repeated instructions and/or tactile cues. Relies on for a lot of history. does state that she doesn't do much throughout the day, they go for a walk that is ~1/5 of a mile daily. Pt cannot think of anything she actually wants to do, does admit she doesn't do much, but there is not anything else she has any desire to do. PT-OP-C Subjective Start: 06/20/23 16:51 Freq: Status: Active Protocol: Document 07/12/23 12:15 SP (Rec: 07/12/23 13:09 SP [id number]) OP-PT Subjective Patient Comments Patient Comments Pt's reported her L knee has been hurting lately, wondered if should get her a knee brace. PT-OP-D Balance Start: 06/20/23 16:51 Freq: Status: Active Protocol: Document 06/20/23 16:00 DCW (Rec: 06/20/23 17:07 DCW [id number]) Balance Tests Sanchez Balance Test Sanchez Balance Test Score 40/56 Sanchez Impairment Rating 20 to 39% Impaired (Score 34- 44) Sanchez Balance Assessment Evaluation Sitting to Standing Ability Several Tries w/Hands Unsupported Stance Safely- 2 minutes Sitting Unsupported, Feet on Floor Safely- 2 minutes Standing to Sitting Ability Assist, Control w/Hands Transfer Ability Safely, Hand Use Unsupported Stance- Eyes Closed Safely, 10 seconds Unsupported Stance- Eyes Open Independent, 1 minute Reaching Forward Standing Safely, 5 inches Pick- Up Object From Floor Supervision Look Behind Shoulder - Standing Turns Sideways Only Turning 360 Degrees Turns slowly, but safely Unsupported Stance, Alternating Feet on 4 Steps w/Supervision Stair Unsupported Tandem Stance Holds Tandem- 30 seconds Unilateral Leg Stance Lifts Leg/Unable to Hold Total Score Sanchez Total Score (out of 56 points) 40 Sanchez Impairment Rating 20 to 39% Impaired (Score 34- 44) PT-OP-E Functional Tests Start: 06/20/23 16:51 Freq: Status: Active Protocol: Document 06/20/23 16:00 DCW (Rec: 06/20/23 17:07 DCW [id number]) Functional Tests Dynamic Gait Index (DGI) Score 1324 DGI Impairment Rating 40 to <60% Impaired (Score 10- 14) PT-OP-M Strength Start: 06/20/23 16:51 Freq: Status: Active Protocol: Document 06/20/23 16:00 DCW (Rec: 06/20/23 17:07 DCW [id number]) Hip Strength Hip Manual Muscle Testing Right Flexion (L2) 4- Good- Extension (S1) 4 Good Abduction 4- Good- Adduction 4+ Good+ External Rotation 4- Good- Internal Rotation 4- Good- Left Flexion (L2) 4 Good Abduction 4- Good- Adduction 4+ Good+ External Rotation 4- Good- Internal Rotation 4- Good- Knee Strength Knee Manual Muscle Testing Right Flexion (S2) 4- Good- Extension (L3) 4- Good- Left Flexion (S2) 4- Good- Extension (L3) 4- Good- Ankle/Foot Strength Ankle and Foot Manual Muscle Testing Right Dorsiflexion (L4) 4+ Good+ Left Dorsiflexion (L4) 4+ Good+ PT-OP-Q Treatments Start: 06/20/23 16:51 Freq: Status: Active Protocol: Document 07/12/23 12:15 SP (Rec: 07/12/23 13:09 SP [id number]) Cardio Equipment Recumbent Elliptical (Biodex) Duration (Minutes) 6 Resistance 3 Seat Position 6 Other painfree- 322 steps Gym Equipment Shuttle Recovery unilateral squat Resistance 25# teal Reps/Time 2x13 L, , max cues ext/control eccentric flexion each rep bilateral squat Details tactile cues between B knees Resistance 62# 1 dark, 1 teal Reps/Time x20 Therapeutic Exercises Sitting Exercises hip abd Sitting Exercise Name added to HEP Side bilateral Resistance TB #3 squaxin green Reps/Minutes 2 reps x 30 sec each Comments tactile cue lateral thigh to support maintain hip abd R>L LAQ Sitting Exercise Name LAQ- reviewed HEP Side bilateral Resistance 4# leg wt, Teal #2 TB at ankles Equipment Used kick to therapist hand target Reps/Minutes 2x10, x5 review HEP Comments painfree- - said tries to help pt at home, suggested use HO/tactile Other Exercises Sit Stands Other Exercise Name Sit<->Stands- reviewed HEP Resistance UE front vs on lap at 18 table- L>R knee pain Equipment Used BIG chair Reps/Minutes x10 reps Comments cued fwd scoot front chair, wt shift ascend, reach back slow controlled sit Manual Therapy Treatment Soft Tissue Mobilization B knees Body Location quad, patellar tendon Mobilization Type Strumming Intensity/Depth Superficial Body Position Supine Comments good feedback response, Joint Mobilizations patellar glides Joint L>R Direction med/lat, L lat tilting (tends medial tilt) Grade II B knee Joint tibiofemoral glide Direction PA, AP Grade II Body Position Hooklying Comments good feedback PT-OP-T Assessment and Plan Start: 06/20/23 16:51 Freq: Status: Active Protocol: Document 07/12/23 12:15 SP (Rec: 07/12/23 13:09 SP [id number]) Physical Therapy Assessment Goals Three Impairment Pt does not use an assistive device despite falls history Longterm Goal (LTG) Pt to exhibit ability to ambulate using a single point cane with appropriate two- point technique 80% of the time with no verbal cues in order to improve ability to safely ambulate in the community. LTG Duration 08/19/23 Two Impairment Pt scores as an increased falls risk, per Sanchez (40/56) and DGI () Longterm Goal (LTG) Pt to demonstrate a decreased falls risk by increasing score on the DGI by at least five points to a 18 LTG Duration 08/19/23 One Impairment Pt does not have an appropriate home exercise program Short Term Goal (STG) Pt to be independent and compliant with an appropriate HEP 06/27,: added clamshell AROM sidelying, resisted LAQ & IR, STS 1 UE support. STG Duration 07/21/23 progressing 06/30/23 Assessment Summary Assessment Pt decreased/no L knee pain post manual. Reported R knee discomfort during STS demonstrated by rubbing her R knee. R knee pain went away post resisted hip abd and LAQ with max cues and target to complete ROM painfree to. CUSTOMER FIELD REPRESENTATIVE had perform today so can give her cues as needed for tolerant ROM and performance with better understanding. Discussed with that can trial knee sleeve knowing she at times wears CORRY wrap that finds helps. Pt improved more consistant SPC with LLE short distances in gym today, demonstrates almost even elba, no adverse affects to an individual knee end tx. Physical Therapy Plan Frequency and Duration Frequency of Treatment 2x/Week Plan of Care Start Date 06/20/23 Plan of Care End Date 08/19/23 Therapeutic Interventions Therapeutic Interventions Balance Training,Coordination Training,Gait Training,Home Exercise Program,Neuromuscular Re-education,Patient/ Caregiver Education,Self-Care/ Home Management,Soft Tissue Mobilization,Therapeutic Activities,Therapeutic Exercises Modalities Cold Pack/Ice Massage,Electric Stimulation,Hot Packs, Ultrasound Next Visit Focus/Plan Next Note Type Treatment Note Next Visit Plan Recheck bring HOs to write cues in for carryover home. Ask pt/ if pt performing HEP using HOs, ask how L & R knee feeling, response to PT. POC: Balance and gait training , LE strengthening
--- NOTE | 2023-07-17 15:57 | PT.OTN ---
Current Diagnoses Pain in left hip (07/17/23) Pain in right knee (07/17/23) Muscle weakness (generalized) (07/17/23) Unsteadiness on feet (07/17/23) Unspecified abnormalities of gait and mobility (07/17/23) History of falling (07/17/23) Physical Therapy Treatment Note PT-OP-A Visit Information Start: 06/20/23 16:51 Freq: Status: Active Protocol: Document 07/17/23 15:15 DCW (Rec: 07/17/23 15:57 DCW [id number]) Out-Patient Physical Therapy Visit Information Visit Information Visit Type Treatment Note Visit Note present in tx Visit Start Time 15:15 Visit Stop Time 16:00 Visit Number 8 Number of TRIPPER Visits 0 Evaluation Information Evaluation Date 06/20/23 PT-OP-B Current Condition Start: 06/20/23 16:51 Freq: Status: Active Protocol: Document 06/20/23 16:00 DCW (Rec: 06/20/23 17:07 DCW [id number]) Current Condition History of Current Condition Current Complaints History of falls, worsening balance/instability History of Current Condition Pt is an 87 year old female presenting with a long- standing history of declining balance, poor activity tolerance, weakness, and falls . Attends with her for today's evaluation. 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 Admits her right knee and left hip now bother her quite a bit. Is normally more stiff and unstable when first standing up from sitting . Has had at least two falls, but was nothing serious. Thinks she may have tripped. Pt has difficulty with history and following directions without repeated instructions and/or tactile cues. Relies on for a lot of history. does state that she doesn't do much throughout the day, they go for a walk that is ~1/5 of a mile daily. Pt cannot think of anything she actually wants to do, does admit she doesn't do much, but there is not anything else she has any desire to do. PT-OP-C Subjective Start: 06/20/23 16:51 Freq: Status: Active Protocol: Document 07/17/23 15:15 DCW (Rec: 07/17/23 15:57 DCW [id number]) OP-PT Subjective Patient Comments Patient Comments Pt's L knee is still bothering her. notes she hasn' t done her exercises. PT-OP-D Balance Start: 06/20/23 16:51 Freq: Status: Active Protocol: Document 06/20/23 16:00 DCW (Rec: 06/20/23 17:07 DCW [id number]) Balance Tests Sanchez Balance Test Sanchez Balance Test Score 40/56 Sanchez Impairment Rating 20 to 39% Impaired (Score 34- 44) Sanchez Balance Assessment Evaluation Sitting to Standing Ability Several Tries w/Hands Unsupported Stance Safely- 2 minutes Sitting Unsupported, Feet on Floor Safely- 2 minutes Standing to Sitting Ability Assist, Control w/Hands Transfer Ability Safely, Hand Use Unsupported Stance- Eyes Closed Safely, 10 seconds Unsupported Stance- Eyes Open Independent, 1 minute Reaching Forward Standing Safely, 5 inches Pick- Up Object From Floor Supervision Look Behind Shoulder - Standing Turns Sideways Only Turning 360 Degrees Turns slowly, but safely Unsupported Stance, Alternating Feet on 4 Steps w/Supervision Stair Unsupported Tandem Stance Holds Tandem- 30 seconds Unilateral Leg Stance Lifts Leg/Unable to Hold Total Score Sanchez Total Score (out of 56 points) 40 Sanchez Impairment Rating 20 to 39% Impaired (Score 34- 44) PT-OP-E Functional Tests Start: 06/20/23 16:51 Freq: Status: Active Protocol: Document 06/20/23 16:00 DCW (Rec: 06/20/23 17:07 DCW [id number]) Functional Tests Dynamic Gait Index (DGI) Score 1324 DGI Impairment Rating 40 to <60% Impaired (Score 10- 14) PT-OP-M Strength Start: 06/20/23 16:51 Freq: Status: Active Protocol: Document 06/20/23 16:00 DCW (Rec: 06/20/23 17:07 DCW [id number]) Hip Strength Hip Manual Muscle Testing Right Flexion (L2) 4- Good- Extension (S1) 4 Good Abduction 4- Good- Adduction 4+ Good+ External Rotation 4- Good- Internal Rotation 4- Good- Left Flexion (L2) 4 Good Abduction 4- Good- Adduction 4+ Good+ External Rotation 4- Good- Internal Rotation 4- Good- Knee Strength Knee Manual Muscle Testing Right Flexion (S2) 4- Good- Extension (L3) 4- Good- Left Flexion (S2) 4- Good- Extension (L3) 4- Good- Ankle/Foot Strength Ankle and Foot Manual Muscle Testing Right Dorsiflexion (L4) 4+ Good+ Left Dorsiflexion (L4) 4+ Good+ PT-OP-Q Treatments Start: 06/20/23 16:51 Freq: Status: Active Protocol: Document 07/17/23 15:15 DCW (Rec: 07/17/23 15:57 DCW [id number]) Cardio Equipment Recumbent Elliptical (Biodex) Duration (Minutes) 3 Resistance 5->2 Seat Position 5 Other Stopped secondary to B knee pain Gym Equipment Shuttle Recovery unilateral squat Resistance 25# teal Reps/Time x15 bilateral squat Resistance 50# 1 dark, 1 teal Reps/Time x20 Therapeutic Exercises Standing Exercises HS curls Side bilateral Resistance 4# leg wt Reps/Minutes 2x10 Heel raises Standing Exercise Name Heel/toe raises Side bilateral Resistance 4# leg wt Reps/Minutes 2x10 Manual Therapy Treatment Soft Tissue Mobilization B knees Body Location quad, patellar tendon Mobilization Type Strumming Intensity/Depth Superficial Body Position Sitting Joint Mobilizations patellar glides Joint L>R Direction med/lat, L lat tilting (tends medial tilt) Grade II Body Position Sitting B knee Joint tibiofemoral glide Direction PA, AP Grade II Body Position Sitting Neuro Re-Education Treatment Balance Activities Foam Details Foam marching Surface Large blue Tandem Details Tandem Ambulation Equipment // bars Hurdles Details Hurdles Comments Fwd/Side-stepping PT-OP-T Assessment and Plan Start: 06/20/23 16:51 Freq: Status: Active Protocol: Document 07/17/23 15:15 DCW (Rec: 07/17/23 15:57 DCW [id number]) Physical Therapy Assessment Impairments Impairments Activity Tolerance,Balance, Coordination,Functional Activities,Functional Mobility ,Gait,Posture,ROM,Soft Tissue Mobility,Strength Goals Three Impairment Pt does not use an assistive device despite falls history Longterm Goal (LTG) Pt to exhibit ability to ambulate using a single point cane with appropriate two- point technique 80% of the time with no verbal cues in order to improve ability to safely ambulate in the community. LTG Duration 08/19/23 Two Impairment Pt scores as an increased falls risk, per Sanchez (40/56) and DGI () Longterm Goal (LTG) Pt to demonstrate a decreased falls risk by increasing score on the DGI by at least five points to a LTG Duration 08/19/23 One Impairment Pt does not have an appropriate home exercise program Short Term Goal (STG) Pt to be independent and compliant with an appropriate HEP 06/27,: added clamshell AROM sidelying, resisted LAQ & IR, STS 1 UE support. STG Duration 07/21/23 progressing 06/30/23 Assessment Summary Assessment Significantly increased knee pain today at start of session , stopped Biodex due to pt complaints. Good response to joint mobs, able to then better participate in activities today. Physical Therapy Plan Frequency and Duration Frequency of Treatment 2x/Week Plan of Care Start Date 06/20/23 Plan of Care End Date 08/19/23 Therapeutic Interventions Therapeutic Interventions Balance Training,Coordination Training,Gait Training,Home Exercise Program,Neuromuscular Re-education,Patient/ Caregiver Education,Self-Care/ Home Management,Soft Tissue Mobilization,Therapeutic Activities,Therapeutic Exercises Modalities Cold Pack/Ice Massage,Electric Stimulation,Hot Packs, Ultrasound Next Visit Focus/Plan Next Note Type Treatment Note Next Visit Plan Recheck bring HOs to write cues in for carryover home. Ask pt/ if pt performing HEP using HOs, ask how L & R knee feeling, response to PT. POC: Balance and gait training , LE strengthening
--- NOTE | 2023-07-19 13:44 | PT.OTN ---
Current Diagnoses Pain in left hip (07/19/23) Pain in right knee (07/19/23) Muscle weakness (generalized) (07/19/23) Unsteadiness on feet (07/19/23) Unspecified abnormalities of gait and mobility (07/19/23) History of falling (07/19/23) Physical Therapy Treatment Note PT-OP-A Visit Information Start: 06/20/23 16:51 Freq: Status: Active Protocol: Document 07/19/23 13:06 SP (Rec: 07/19/23 13:48 SP [id number]) Out-Patient Physical Therapy Visit Information Visit Information Visit Type Treatment Note Visit Note present in tx 02/12 post eval Visit Start Time 13:06 Visit Stop Time 13:44 Visit Number 9 Number of PRODUCTION EXPERT Visits 1 Evaluation Information Evaluation Date 06/20/23 PT-OP-B Current Condition Start: 06/20/23 16:51 Freq: Status: Active Protocol: Document 06/20/23 16:00 DCW (Rec: 06/20/23 17:07 DCW [id number]) Current Condition History of Current Condition Current Complaints History of falls, worsening balance/instability History of Current Condition Pt is an 87 year old female presenting with a long- standing history of declining balance, poor activity tolerance, weakness, and falls . Attends with her for today's evaluation. 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 Admits her right knee and left hip now bother her quite a bit. Is normally more stiff and unstable when first standing up from sitting . Has had at least two falls, but was nothing serious. Thinks she may have tripped. Pt has difficulty with history and following directions without repeated instructions and/or tactile cues. Relies on for a lot of history. does state that she doesn't do much throughout the day, they go for a walk that is ~1/5 of a mile daily. Pt cannot think of anything she actually wants to do, does admit she doesn't do much, but there is not anything else she has any desire to do. PT-OP-C Subjective Start: 06/20/23 16:51 Freq: Status: Active Protocol: Document 07/19/23 13:06 SP (Rec: 07/19/23 13:48 SP [id number]) OP-PT Subjective Patient Comments Patient Comments Pt reports B knee pain/ stiffness coming to standing if sit to long. and pt went for walk 1 lap around [place], at most has ever 2 laps. PT-OP-D Balance Start: 06/20/23 16:51 Freq: Status: Active Protocol: Document 06/20/23 16:00 DCW (Rec: 06/20/23 17:07 DCW [id number]) Balance Tests Sanchez Balance Test Sanchez Balance Test Score 40/56 Sanchez Impairment Rating 20 to 39% Impaired (Score 34- 44) Sanchez Balance Assessment Evaluation Sitting to Standing Ability Several Tries w/Hands Unsupported Stance Safely- 2 minutes Sitting Unsupported, Feet on Floor Safely- 2 minutes Standing to Sitting Ability Assist, Control w/Hands Transfer Ability Safely, Hand Use Unsupported Stance- Eyes Closed Safely, 10 seconds Unsupported Stance- Eyes Open Independent, 1 minute Reaching Forward Standing Safely, 5 inches Pick- Up Object From Floor Supervision Look Behind Shoulder - Standing Turns Sideways Only Turning 360 Degrees Turns slowly, but safely Unsupported Stance, Alternating Feet on 4 Steps w/Supervision Stair Unsupported Tandem Stance Holds Tandem- 30 seconds Unilateral Leg Stance Lifts Leg/Unable to Hold Total Score Sanchez Total Score (out of 56 points) 40 Sanchez Impairment Rating 20 to 39% Impaired (Score 34- 44) PT-OP-E Functional Tests Start: 06/20/23 16:51 Freq: Status: Active Protocol: Document 06/20/23 16:00 DCW (Rec: 06/20/23 17:07 DCW [id number]) Functional Tests Dynamic Gait Index (DGI) Score 1324 DGI Impairment Rating 40 to <60% Impaired (Score 10- 14) PT-OP-M Strength Start: 06/20/23 16:51 Freq: Status: Active Protocol: Document 06/20/23 16:00 DCW (Rec: 06/20/23 17:07 DCW [id number]) Hip Strength Hip Manual Muscle Testing Right Flexion (L2) 4- Good- Extension (S1) 4 Good Abduction 4- Good- Adduction 4+ Good+ External Rotation 4- Good- Internal Rotation 4- Good- Left Flexion (L2) 4 Good Abduction 4- Good- Adduction 4+ Good+ External Rotation 4- Good- Internal Rotation 4- Good- Knee Strength Knee Manual Muscle Testing Right Flexion (S2) 4- Good- Extension (L3) 4- Good- Left Flexion (S2) 4- Good- Extension (L3) 4- Good- Ankle/Foot Strength Ankle and Foot Manual Muscle Testing Right Dorsiflexion (L4) 4+ Good+ Left Dorsiflexion (L4) 4+ Good+ PT-OP-Q Treatments Start: 06/20/23 16:51 Freq: Status: Active Protocol: Document 07/19/23 13:06 SP (Rec: 07/19/23 13:48 SP [id number]) Gym Equipment Shuttle Recovery unilateral squat Details tactil cues knee alignment R>L Resistance 25# dark navy Reps/Time x15 bilateral squat Details tactil cues knee alignment R>L Resistance 62# 2 teal bands Reps/Time x20 Therapeutic Exercises Standing Exercises HS curls Side bilateral Resistance 4# leg wt Equipment Used rail support light Reps/Minutes 2x10 Comments cued eccentric control Heel raises Standing Exercise Name Heel/toe raises Side bilateral Resistance 4# leg wt Equipment Used rail support light Reps/Minutes 2x10 Comments cued eccentric control Other Exercises resisted side stepping Resistance Tb #3 [place] green Equipment Used near rail Reps/Minutes 10 ft x1 lap Comments cued head up, no UE, increase stride/ GRIFFIN lateral step down Other Exercise Name rail Side bilateral Equipment Used 6 step, rail support BUE easiest, 1 UE little challenge RLE step 2 reps Reps/Minutes x10 Comments cued wt shift B> 1UE, challenge last 2 reps RLE needed BUE. self STMs Other Exercise Name trialed in PT: quad, HS, calf Side bilateral Equipment Used rolling pin Reps/Minutes 2 min total Comments good feedback massage Toe-taps Other Exercise Name Toe-taps Side bilateral Resistance 4# Equipment Used 6 step, rail PRN Reps/Minutes x10 Comments CG-5%A trunk stab, max cues for patterning PT-OP-T Assessment and Plan Start: 06/20/23 16:51 Freq: Status: Active Protocol: Document 07/19/23 13:06 SP (Rec: 07/19/23 13:48 SP [id number]) Physical Therapy Assessment Goals Three Impairment Pt does not use an assistive device despite falls history Bankruptcy Manager Goal (LTG) Pt to exhibit ability to ambulate using a single point cane with appropriate two- point technique 80% of the time with no verbal cues in order to improve ability to safely ambulate in the community. LTG Duration 08/19/23 Two Impairment Pt scores as an increased falls risk, per Sanchez (40/56) and DGI () Jail Goal (LTG) Pt to demonstrate a decreased falls risk by increasing score on the DGI by at least five points to a 18 LTG Duration 08/19/23 One Impairment Pt does not have an appropriate home exercise program Short Term Goal (STG) Pt to be independent and compliant with an appropriate HEP 06/27,: added clamshell AROM sidelying, resisted LAQ & IR, STS 1 UE support. STG Duration 07/21/23 progressing 06/30/23 Assessment Summary Assessment Pt tolerated decreased knee pain post instruction in self STM use of rolling pin to LE musculature. Pt decreased c/ o knee pain during resisted ther ex. Able to complete activities with decreased UE support on rail BUE> 1 UE step mgt and no UE side stepping and alternating taps. Physical Therapy Plan Frequency and Duration Frequency of Treatment 2x/Week Plan of Care Start Date 06/20/23 Plan of Care End Date 08/19/23 Therapeutic Interventions Therapeutic Interventions Balance Training,Coordination Training,Gait Training,Home Exercise Program,Neuromuscular Re-education,Patient/ Caregiver Education,Self-Care/ Home Management,Soft Tissue Mobilization,Therapeutic Activities,Therapeutic Exercises Modalities Cold Pack/Ice Massage,Electric Stimulation,Hot Packs, Ultrasound Next Visit Focus/Plan Next Note Type Treatment Note Next Visit Plan Recheck bring HOs to write cues in for carryover home. Ask pt/ if pt performing HEP using HOs, ask how L & R knee feeling, response to PT. POC: Balance and gait training , LE strengthening
--- NOTE | 2023-07-26 14:29 | PT.OTN ---
Current Diagnoses Pain in left hip (07/26/23) Pain in right knee (07/26/23) Muscle weakness (generalized) (07/26/23) Unsteadiness on feet (07/26/23) Unspecified abnormalities of gait and mobility (07/26/23) History of falling (07/26/23) Physical Therapy Treatment Note PT-OP-A Visit Information Start: 06/20/23 16:51 Freq: Status: Active Protocol: Document 07/26/23 13:45 DCW (Rec: 07/26/23 14:28 DCW [id number]) Out-Patient Physical Therapy Visit Information Visit Information Visit Type Progress Note Visit Note present in tx Visit Start Time 13:45 Visit Stop Time 14:30 Visit Number 10 Number of SCRAP HOOKER Visits 0 Evaluation Information Evaluation Date 06/20/23 PT-OP-B Current Condition Start: 06/20/23 16:51 Freq: Status: Active Protocol: Document 06/20/23 16:00 DCW (Rec: 06/20/23 17:07 DCW [id number]) Current Condition History of Current Condition Current Complaints History of falls, worsening balance/instability History of Current Condition Pt is an 87 year old female presenting with a long- standing history of declining balance, poor activity tolerance, weakness, and falls . Attends with her for today's evaluation. 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 Admits her right knee and left hip now bother her quite a bit. Is normally more stiff and unstable when first standing up from sitting . Has had at least two falls, but was nothing serious. Thinks she may have tripped. Pt has difficulty with history and following directions without repeated instructions and/or tactile cues. Relies on for a lot of history. does state that she doesn't do much throughout the day, they go for a walk that is ~1/5 of a mile daily. Pt cannot think of anything she actually wants to do, does admit she doesn't do much, but there is not anything else she has any desire to do. PT-OP-C Subjective Start: 06/20/23 16:51 Freq: Status: Active Protocol: Document 07/26/23 13:45 DCW (Rec: 07/26/23 14:28 DCW [id number]) OP-PT Subjective Patient Comments Patient Comments Pt admits she's pretty tired today, still having left knee pain. PT-OP-D Balance Start: 06/20/23 16:51 Freq: Status: Active Protocol: Document 06/20/23 16:00 DCW (Rec: 06/20/23 17:07 DCW [id number]) Balance Tests Sanchez Balance Test Sanchez Balance Test Score 40/56 Sanchez Impairment Rating 20 to 39% Impaired (Score 34- 44) Sanchez Balance Assessment Evaluation Sitting to Standing Ability Several Tries w/Hands Unsupported Stance Safely- 2 minutes Sitting Unsupported, Feet on Floor Safely- 2 minutes Standing to Sitting Ability Assist, Control w/Hands Transfer Ability Safely, Hand Use Unsupported Stance- Eyes Closed Safely, 10 seconds Unsupported Stance- Eyes Open Independent, 1 minute Reaching Forward Standing Safely, 5 inches Pick- Up Object From Floor Supervision Look Behind Shoulder - Standing Turns Sideways Only Turning 360 Degrees Turns slowly, but safely Unsupported Stance, Alternating Feet on 4 Steps w/Supervision Stair Unsupported Tandem Stance Holds Tandem- 30 seconds Unilateral Leg Stance Lifts Leg/Unable to Hold Total Score Sanchez Total Score (out of 56 points) 40 Sanchez Impairment Rating 20 to 39% Impaired (Score 34- 44) PT-OP-E Functional Tests Start: 06/20/23 16:51 Freq: Status: Active Protocol: Document 07/26/23 13:45 DCW (Rec: 07/26/23 14:02 DCW [id number]) Functional Tests Dynamic Gait Index (DGI) Score 17 DGI Impairment Rating 20 to <40% Impaired (Score 15- 19) PT-OP-M Strength Start: 06/20/23 16:51 Freq: Status: Active Protocol: Document 06/20/23 16:00 DCW (Rec: 06/20/23 17:07 DCW [id number]) Hip Strength Hip Manual Muscle Testing Right Flexion (L2) 4- Good- Extension (S1) 4 Good Abduction 4- Good- Adduction 4+ Good+ External Rotation 4- Good- Internal Rotation 4- Good- Left Flexion (L2) 4 Good Abduction 4- Good- Adduction 4+ Good+ External Rotation 4- Good- Internal Rotation 4- Good- Knee Strength Knee Manual Muscle Testing Right Flexion (S2) 4- Good- Extension (L3) 4- Good- Left Flexion (S2) 4- Good- Extension (L3) 4- Good- Ankle/Foot Strength Ankle and Foot Manual Muscle Testing Right Dorsiflexion (L4) 4+ Good+ Left Dorsiflexion (L4) 4+ Good+ PT-OP-Q Treatments Start: 06/20/23 16:51 Freq: Status: Active Protocol: Document 07/26/23 13:45 DCW (Rec: 07/26/23 14:28 DCW [id number]) Cardio Equipment Recumbent Elliptical (Biodex) Duration (Minutes) 5 Resistance 3 Seat Position 5 Gym Equipment Shuttle Recovery unilateral squat Details tactil cues knee alignment Resistance 25# dark navy Reps/Time x15 bilateral squat Details tactil cues knee alignment Resistance 62# 2 teal bands Reps/Time x20 Shuttle Balance Red Details WBOS, Staggered Therapeutic Exercises Other Exercises resisted side stepping Resistance Green Equipment Used near rail Reps/Minutes 10 ft x2 lap Comments cued head up Neuro Re-Education Treatment Balance Activities Foam Details NBOS EO/EC Surface Black AirEx Hurdles Details Hurdles Comments Fwd/Side-stepping Other Activities DGI Details PT-OP-T Assessment and Plan Start: 06/20/23 16:51 Freq: Status: Active Protocol: Document 07/26/23 13:45 DCW (Rec: 07/26/23 14:28 DCW [id number]) Physical Therapy Assessment Impairments Impairments Activity Tolerance,Balance, Coordination,Functional Activities,Functional Mobility ,Gait,Posture,ROM,Soft Tissue Mobility,Strength Goals Three Impairment Pt does not use an assistive device despite falls history Intermediate Goal (LTG) Pt to exhibit ability to ambulate using a single point cane with appropriate two- point technique 80% of the time with no verbal cues in order to improve ability to safely ambulate in the community. LTG Duration 08/19/23 Two Impairment Pt scores as an increased falls risk, per Sanchez (40/56) and DGI () Tank Bottom Assembler Goal (LTG) Pt to demonstrate a decreased falls risk by increasing score on the DGI by at least five points to a LTG Duration 08/19/23 One Impairment Pt does not have an appropriate home exercise program Short Term Goal (STG) Pt to be independent and compliant with an appropriate HEP 06/27,: added clamshell AROM sidelying, resisted LAQ & IR, STS 1 UE support. STG Duration 07/21/23 progressing 06/30/23 Assessment Summary Assessment Pt demonstrating good improvement since initial eval , DGI score increased from to . Good response to balance challenges today, even with addition of shuttle balance. Physical Therapy Plan Frequency and Duration Frequency of Treatment 2x/Week Plan of Care Start Date 06/20/23 Plan of Care End Date 08/19/23 Therapeutic Interventions Therapeutic Interventions Balance Training,Coordination Training,Gait Training,Home Exercise Program,Neuromuscular Re-education,Patient/ Caregiver Education,Self-Care/ Home Management,Soft Tissue Mobilization,Therapeutic Activities,Therapeutic Exercises Modalities Cold Pack/Ice Massage,Electric Stimulation,Hot Packs, Ultrasound Next Visit Focus/Plan Next Note Type Treatment Note Next Visit Plan Recheck bring HOs to write cues in for carryover home. Ask pt/ if pt performing HEP using HOs, ask how L & R knee feeling, response to PT. POC: Balance and gait training , LE strengthening
--- NOTE | 2023-07-26 14:32 | PT.OPPN ---
Current Diagnoses Pain in left hip (07/26/23) Pain in right knee (07/26/23) Muscle weakness (generalized) (07/26/23) Unsteadiness on feet (07/26/23) Unspecified abnormalities of gait and mobility (07/26/23) History of falling (07/26/23) Physical Therapy Progress Note PT-OP-A Visit Information Start: 06/20/23 16:51 Freq: Status: Active Protocol: Document 07/26/23 13:45 DCW (Rec: 07/26/23 14:28 DCW [id number]) Out-Patient Physical Therapy Visit Information Visit Information Visit Type Progress Note Visit Note present in tx Visit Start Time 13:45 Visit Stop Time 14:30 Visit Number 10 Number of GATE MORTISER OPERATOR Visits 0 Evaluation Information Evaluation Date 06/20/23 PT-OP-B Current Condition Start: 06/20/23 16:51 Freq: Status: Active Protocol: Document 06/20/23 16:00 DCW (Rec: 06/20/23 17:07 DCW [id number]) Current Condition History of Current Condition Current Complaints History of falls, worsening balance/instability History of Current Condition Pt is an 87 year old female presenting with a long- standing history of declining balance, poor activity tolerance, weakness, and falls . Attends with her for today's evaluation. 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 Admits her right knee and left hip now bother her quite a bit. Is normally more stiff and unstable when first standing up from sitting . Has had at least two falls, but was nothing serious. Thinks she may have tripped. Pt has difficulty with history and following directions without repeated instructions and/or tactile cues. Relies on for a lot of history. does state that she doesn't do much throughout the day, they go for a walk that is ~1/5 of a mile daily. Pt cannot think of anything she actually wants to do, does admit she doesn't do much, but there is not anything else she has any desire to do. PT-OP-C Subjective Start: 06/20/23 16:51 Freq: Status: Active Protocol: Document 07/26/23 13:45 DCW (Rec: 07/26/23 14:28 DCW [id number]) OP-PT Subjective Patient Comments Patient Comments Pt admits she's pretty tired today, still having left knee pain. PT-OP-D Balance Start: 06/20/23 16:51 Freq: Status: Active Protocol: Document 06/20/23 16:00 DCW (Rec: 06/20/23 17:07 DCW [id number]) Balance Tests Sanchez Balance Test Sanchez Balance Test Score 40/56 Sanchez Impairment Rating 20 to 39% Impaired (Score 34- 44) Sanchez Balance Assessment Evaluation Sitting to Standing Ability Several Tries w/Hands Unsupported Stance Safely- 2 minutes Sitting Unsupported, Feet on Floor Safely- 2 minutes Standing to Sitting Ability Assist, Control w/Hands Transfer Ability Safely, Hand Use Unsupported Stance- Eyes Closed Safely, 10 seconds Unsupported Stance- Eyes Open Independent, 1 minute Reaching Forward Standing Safely, 5 inches Pick- Up Object From Floor Supervision Look Behind Shoulder - Standing Turns Sideways Only Turning 360 Degrees Turns slowly, but safely Unsupported Stance, Alternating Feet on 4 Steps w/Supervision Stair Unsupported Tandem Stance Holds Tandem- 30 seconds Unilateral Leg Stance Lifts Leg/Unable to Hold Total Score Sanchez Total Score (out of 56 points) 40 Sanchez Impairment Rating 20 to 39% Impaired (Score 34- 44) PT-OP-E Functional Tests Start: 06/20/23 16:51 Freq: Status: Active Protocol: Document 07/26/23 13:45 DCW (Rec: 07/26/23 14:02 DCW [id number]) Functional Tests Dynamic Gait Index (DGI) Score 17 DGI Impairment Rating 20 to <40% Impaired (Score 15- 19) PT-OP-M Strength Start: 06/20/23 16:51 Freq: Status: Active Protocol: Document 06/20/23 16:00 DCW (Rec: 06/20/23 17:07 DCW [id number]) Hip Strength Hip Manual Muscle Testing Right Flexion (L2) 4- Good- Extension (S1) 4 Good Abduction 4- Good- Adduction 4+ Good+ External Rotation 4- Good- Internal Rotation 4- Good- Left Flexion (L2) 4 Good Abduction 4- Good- Adduction 4+ Good+ External Rotation 4- Good- Internal Rotation 4- Good- Knee Strength Knee Manual Muscle Testing Right Flexion (S2) 4- Good- Extension (L3) 4- Good- Left Flexion (S2) 4- Good- Extension (L3) 4- Good- Ankle/Foot Strength Ankle and Foot Manual Muscle Testing Right Dorsiflexion (L4) 4+ Good+ Left Dorsiflexion (L4) 4+ Good+ PT-OP-T Assessment and Plan Start: 06/20/23 16:51 Freq: Status: Active Protocol: Document 07/26/23 13:45 DCW (Rec: 07/26/23 14:28 DCW [id number]) Physical Therapy Assessment Impairments Impairments Activity Tolerance,Balance, Coordination,Functional Activities,Functional Mobility ,Gait,Posture,ROM,Soft Tissue Mobility,Strength Goals Three Impairment Pt does not use an assistive device despite falls history Flight Kitchen Manager Goal (LTG) Pt to exhibit ability to ambulate using a single point cane with appropriate two- point technique 80% of the time with no verbal cues in order to improve ability to safely ambulate in the community. LTG Duration 08/19/23 Two Impairment Pt scores as an increased falls risk, per Sanchez (40/56) and DGI () Flight Kitchen Manager Goal (LTG) Pt to demonstrate a decreased falls risk by increasing score on the DGI by at least five points to a LTG Duration 08/19/23 One Impairment Pt does not have an appropriate home exercise program Short Term Goal (STG) Pt to be independent and compliant with an appropriate HEP 06/27,: added clamshell AROM sidelying, resisted LAQ & IR, STS 1 UE support. STG Duration 07/21/23 progressing 06/30/23 Assessment Summary Assessment Pt demonstrating good improvement since initial eval , DGI score increased from to . Good response to balance challenges today, even with addition of shuttle balance. Physical Therapy Plan Frequency and Duration Frequency of Treatment 2x/Week Plan of Care Start Date 06/20/23 Plan of Care End Date 08/19/23 Therapeutic Interventions Therapeutic Interventions Balance Training,Coordination Training,Gait Training,Home Exercise Program,Neuromuscular Re-education,Patient/ Caregiver Education,Self-Care/ Home Management,Soft Tissue Mobilization,Therapeutic Activities,Therapeutic Exercises Modalities Cold Pack/Ice Massage,Electric Stimulation,Hot Packs, Ultrasound Next Visit Focus/Plan Next Note Type Treatment Note Next Visit Plan Recheck bring HOs to write cues in for carryover home. Ask pt/ if pt performing HEP using HOs, ask how L & R knee feeling, response to PT. POC: Balance and gait training , LE strengthening
--- NOTE | 2023-07-28 13:43 | PT.OTN ---
Current Diagnoses Pain in left hip (07/28/23) Pain in right knee (07/28/23) Muscle weakness (generalized) (07/28/23) Unsteadiness on feet (07/28/23) Unspecified abnormalities of gait and mobility (07/28/23) History of falling (07/28/23) Physical Therapy Treatment Note PT-OP-A Visit Information Start: 06/20/23 16:51 Freq: Status: Active Protocol: Document 07/28/23 13:03 SP (Rec: 07/28/23 13:53 SP [id number]) Out-Patient Physical Therapy Visit Information Visit Information Visit Type Treatment Note Visit Note present in tx Visit Start Time 13:03 Visit Stop Time 13:43 Visit Number 11 Number of ELECTRIC MOTOR REPAIRMAN Visits 1 Evaluation Information Evaluation Date 06/20/23 PT-OP-B Current Condition Start: 06/20/23 16:51 Freq: Status: Active Protocol: Document 06/20/23 16:00 DCW (Rec: 06/20/23 17:07 DCW [id number]) Current Condition History of Current Condition Current Complaints History of falls, worsening balance/instability History of Current Condition Pt is an 87 year old female presenting with a long- standing history of declining balance, poor activity tolerance, weakness, and falls . Attends with her for today's evaluation. 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 Admits her right knee and left hip now bother her quite a bit. Is normally more stiff and unstable when first standing up from sitting . Has had at least two falls, but was nothing serious. Thinks she may have tripped. Pt has difficulty with history and following directions without repeated instructions and/or tactile cues. Relies on for a lot of history. does state that she doesn't do much throughout the day, they go for a walk that is ~1/5 of a mile daily. Pt cannot think of anything she actually wants to do, does admit she doesn't do much, but there is not anything else she has any desire to do. PT-OP-C Subjective Start: 06/20/23 16:51 Freq: Status: Active Protocol: Document 07/28/23 13:03 SP (Rec: 07/28/23 13:53 SP [id number]) OP-PT Subjective Patient Comments Patient Comments Pt reports they went for a walk at [place] before came. PT-OP-D Balance Start: 06/20/23 16:51 Freq: Status: Active Protocol: Document 06/20/23 16:00 DCW (Rec: 06/20/23 17:07 DCW [id number]) Balance Tests Sanchez Balance Test Sanchez Balance Test Score 40/56 Sanchez Impairment Rating 20 to 39% Impaired (Score 34- 44) Sanchez Balance Assessment Evaluation Sitting to Standing Ability Several Tries w/Hands Unsupported Stance Safely- 2 minutes Sitting Unsupported, Feet on Floor Safely- 2 minutes Standing to Sitting Ability Assist, Control w/Hands Transfer Ability Safely, Hand Use Unsupported Stance- Eyes Closed Safely, 10 seconds Unsupported Stance- Eyes Open Independent, 1 minute Reaching Forward Standing Safely, 5 inches Pick- Up Object From Floor Supervision Look Behind Shoulder - Standing Turns Sideways Only Turning 360 Degrees Turns slowly, but safely Unsupported Stance, Alternating Feet on 4 Steps w/Supervision Stair Unsupported Tandem Stance Holds Tandem- 30 seconds Unilateral Leg Stance Lifts Leg/Unable to Hold Total Score Sanchez Total Score (out of 56 points) 40 Sanchez Impairment Rating 20 to 39% Impaired (Score 34- 44) PT-OP-E Functional Tests Start: 06/20/23 16:51 Freq: Status: Active Protocol: Document 07/26/23 13:45 DCW (Rec: 07/26/23 14:02 DCW [id number]) Functional Tests Dynamic Gait Index (DGI) Score 17/24 DGI Impairment Rating 20 to <40% Impaired (Score 15- 19) PT-OP-M Strength Start: 06/20/23 16:51 Freq: Status: Active Protocol: Document 06/20/23 16:00 DCW (Rec: 06/20/23 17:07 DCW [id number]) Hip Strength Hip Manual Muscle Testing Right Flexion (L2) 4- Good- Extension (S1) 4 Good Abduction 4- Good- Adduction 4+ Good+ External Rotation 4- Good- Internal Rotation 4- Good- Left Flexion (L2) 4 Good Abduction 4- Good- Adduction 4+ Good+ External Rotation 4- Good- Internal Rotation 4- Good- Knee Strength Knee Manual Muscle Testing Right Flexion (S2) 4- Good- Extension (L3) 4- Good- Left Flexion (S2) 4- Good- Extension (L3) 4- Good- Ankle/Foot Strength Ankle and Foot Manual Muscle Testing Right Dorsiflexion (L4) 4+ Good+ Left Dorsiflexion (L4) 4+ Good+ PT-OP-Q Treatments Start: 06/20/23 16:51 Freq: Status: Active Protocol: Document 07/28/23 13:03 SP (Rec: 07/28/23 13:53 SP [id number]) Cardio Equipment Recumbent Elliptical (Biodex) Duration (Minutes) 6 Resistance 3 Seat Position 5 Other LEs only, cued R knee vier lateral // Gym Equipment Shuttle Recovery unilateral squat Details tactil cues knee alignment Resistance 25# dark navy> 37#(teal) 4 reps R> 25# new Reps/Time x15 bilateral squat Details tactil cues knee alignment Resistance 62# 2 teal bands Reps/Time x20 Shuttle Balance Red Details WBOS, Staggered; lateral Reps/Duration no rail support Comments wt shift and stationary balance stationary HTs WBOS CG- Min A with cuing for wtshift into front foot, tends to lean retro and hard time motor plan recovery. Therapeutic Exercises Other Exercises resisted side stepping Resistance [place] #3 Equipment Used hands hover over rail Reps/Minutes 10 ft x2 laps Comments cued head up, trail LE ft clearance Gait Training Gait Activity no AD Device Used 0 Level of Assistance SBA Surface carpet/tile Distance/Duration 340 ft Treatment Focus increase GRIFFIN and stride, arm swing Comments improved stabiltiy post cues for arm swing, increase GRIFFIN. Ed walking center hallway, tends to walk close to R side hallway, occasional lat R lean wt shifts. PT-OP-T Assessment and Plan Start: 06/20/23 16:51 Freq: Status: Active Protocol: Document 07/28/23 13:03 SP (Rec: 07/28/23 13:53 SP [id number]) Physical Therapy Assessment Goals Three Impairment Pt does not use an assistive device despite falls history Therapeutic Case Manager Goal (LTG) Pt to exhibit ability to ambulate using a single point cane with appropriate two- point technique 80% of the time with no verbal cues in order to improve ability to safely ambulate in the community. LTG Duration 08/19/23 Two Impairment Pt scores as an increased falls risk, per Sanchez (40/56) and DGI () Halfway Goal (LTG) Pt to demonstrate a decreased falls risk by increasing score on the DGI by at least five points to a LTG Duration 08/19/23 One Impairment Pt does not have an appropriate home exercise program Short Term Goal (STG) Pt to be independent and compliant with an appropriate HEP 06/27,: added clamshell AROM sidelying, resisted LAQ & IR, STS 1 UE support. STG Duration 07/21/23 progressing 06/30/23 Assessment Summary Assessment Pt challenged with shuttle balance, max cues for counter wt shift more into forefoot for stability, increased support due to difficulty motor plan corrections. Pt was ableto complete resisted side stepping without UE support today and increase stride with cues for arms swing, good cues leaving for carryover home and community gait TS mobility. Physical Therapy Plan Frequency and Duration Frequency of Treatment 2x/Week Plan of Care Start Date 06/20/23 Plan of Care End Date 08/19/23 Therapeutic Interventions Therapeutic Interventions Balance Training,Coordination Training,Gait Training,Home Exercise Program,Neuromuscular Re-education,Patient/ Caregiver Education,Self-Care/ Home Management,Soft Tissue Mobilization,Therapeutic Activities,Therapeutic Exercises Modalities Cold Pack/Ice Massage,Electric Stimulation,Hot Packs, Ultrasound Next Visit Focus/Plan Next Note Type Treatment Note Next Visit Plan Continue balance training for community gait over uneven surfaces in her neighborhood. NExt add uneven mat/incline/ declilne. Recheck bring HOs to write cues in for carryover home. Ask pt/ if pt performing HEP using HOs, ask how L & R knee& hip feeling, response to PT. POC: Balance and gait training , LE strengthening
--- NOTE | 2023-08-02 12:57 | PT.OTN ---
Current Diagnoses Pain in left hip (08/02/23) Pain in right knee (08/02/23) Muscle weakness (generalized) (08/02/23) Unsteadiness on feet (08/02/23) Unspecified abnormalities of gait and mobility (08/02/23) History of falling (08/02/23) Physical Therapy Treatment Note PT-OP-A Visit Information Start: 06/20/23 16:51 Freq: Status: Active Protocol: Document 08/02/23 12:17 SP (Rec: 08/02/23 12:59 SP [id number]) Out-Patient Physical Therapy Visit Information Visit Information Visit Type Treatment Note Visit Note present in tx Visit Start Time 12:17 Visit Stop Time 12:57 Visit Number 12 Number of LEGAL DOCUMENT SPECIALIST Visits 2 Evaluation Information Evaluation Date 06/20/23 PT-OP-B Current Condition Start: 06/20/23 16:51 Freq: Status: Active Protocol: Document 06/20/23 16:00 DCW (Rec: 06/20/23 17:07 DCW [id number]) Current Condition History of Current Condition Current Complaints History of falls, worsening balance/instability History of Current Condition Pt is an 87 year old female presenting with a long- standing history of declining balance, poor activity tolerance, weakness, and falls . Attends with her for today's evaluation. 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 Admits her right knee and left hip now bother her quite a bit. Is normally more stiff and unstable when first standing up from sitting . Has had at least two falls, but was nothing serious. Thinks she may have tripped. Pt has difficulty with history and following directions without repeated instructions and/or tactile cues. Relies on for a lot of history. does state that she doesn't do much throughout the day, they go for a walk that is ~1/5 of a mile daily. Pt cannot think of anything she actually wants to do, does admit she doesn't do much, but there is not anything else she has any desire to do. PT-OP-C Subjective Start: 06/20/23 16:51 Freq: Status: Active Protocol: Document 08/02/23 12:17 SP (Rec: 08/02/23 12:59 SP [id number]) OP-PT Subjective Patient Comments Patient Comments Pt and report, pt stated her R hip was hurting when sitting doing her puzzle. They said havent' been walking outside due to weather cold/wet. PT-OP-D Balance Start: 06/20/23 16:51 Freq: Status: Active Protocol: Document 06/20/23 16:00 DCW (Rec: 06/20/23 17:07 DCW [id number]) Balance Tests Sanchez Balance Test Sanchez Balance Test Score 40/56 Sanchez Impairment Rating 20 to 39% Impaired (Score 34- 44) Sanchez Balance Assessment Evaluation Sitting to Standing Ability Several Tries w/Hands Unsupported Stance Safely- 2 minutes Sitting Unsupported, Feet on Floor Safely- 2 minutes Standing to Sitting Ability Assist, Control w/Hands Transfer Ability Safely, Hand Use Unsupported Stance- Eyes Closed Safely, 10 seconds Unsupported Stance- Eyes Open Independent, 1 minute Reaching Forward Standing Safely, 5 inches Pick- Up Object From Floor Supervision Look Behind Shoulder - Standing Turns Sideways Only Turning 360 Degrees Turns slowly, but safely Unsupported Stance, Alternating Feet on 4 Steps w/Supervision Stair Unsupported Tandem Stance Holds Tandem- 30 seconds Unilateral Leg Stance Lifts Leg/Unable to Hold Total Score Sanchez Total Score (out of 56 points) 40 Sanchez Impairment Rating 20 to 39% Impaired (Score 34- 44) PT-OP-E Functional Tests Start: 06/20/23 16:51 Freq: Status: Active Protocol: Document 07/26/23 13:45 DCW (Rec: 07/26/23 14:02 DCW [id number]) Functional Tests Dynamic Gait Index (DGI) Score DGI Impairment Rating 20 to <40% Impaired (Score 15- 19) PT-OP-M Strength Start: 06/20/23 16:51 Freq: Status: Active Protocol: Document 06/20/23 16:00 DCW (Rec: 06/20/23 17:07 DCW [id number]) Hip Strength Hip Manual Muscle Testing Right Flexion (L2) 4- Good- Extension (S1) 4 Good Abduction 4- Good- Adduction 4+ Good+ External Rotation 4- Good- Internal Rotation 4- Good- Left Flexion (L2) 4 Good Abduction 4- Good- Adduction 4+ Good+ External Rotation 4- Good- Internal Rotation 4- Good- Knee Strength Knee Manual Muscle Testing Right Flexion (S2) 4- Good- Extension (L3) 4- Good- Left Flexion (S2) 4- Good- Extension (L3) 4- Good- Ankle/Foot Strength Ankle and Foot Manual Muscle Testing Right Dorsiflexion (L4) 4+ Good+ Left Dorsiflexion (L4) 4+ Good+ PT-OP-Q Treatments Start: 06/20/23 16:51 Freq: Status: Active Protocol: Document 08/02/23 12:17 SP (Rec: 08/02/23 12:59 SP [id number]) Cardio Equipment Recumbent Elliptical (Biodex) Duration (Minutes) 6 Resistance 3>2 Seat Position 5 Other LEs only, cued R knee vier lateral // Gym Equipment Shuttle Recovery unilateral squat Details tactil cues knee alignment Resistance 37#(teal) unable> R 25# teal/ L 25# navy blue Reps/Time x15 each bilateral squat Details tactil cues R knee alignment lateral with mid foot Resistance 62# 2 teal bands Reps/Time x20 Therapeutic Exercises Supine Exercises bridge Supine Exercise Name 1. repetitive 15 reps 2. Hold 5 SH x5 Side bilateral Resistance AROM Reps/Minutes painfree Comments good form, max cues for set up and performance to follow Sidelying Exercises clamshell Sidelying Exercise Name reviewed HEP Side left Resistance AROM, tactile cues ankle together stationary Reps/Minutes x15 reps max vc/tactile cues for maintain ankle together/ back still/no roll Comments cues for proper form, Standing Exercises step up/back down Side bilateral Resistance AROM Equipment Used bottom step /c b HR Reps/Minutes x10 reps each Comments max tactile & VC for sequencing Neuro Re-Education Treatment Balance Activities uneven incline/decline Equipment 3 hurdles, foam, mat, 6step + wedge Comments CG- Min A PT-OP-T Assessment and Plan Start: 06/20/23 16:51 Freq: Status: Active Protocol: Document 08/02/23 12:17 SP (Rec: 08/02/23 12:59 SP [id number]) Physical Therapy Assessment Goals Three Impairment Pt does not use an assistive device despite falls history Halfway Goal (LTG) Pt to exhibit ability to ambulate using a single point cane with appropriate two- point technique 80% of the time with no verbal cues in order to improve ability to safely ambulate in the community. LTG Duration 08/19/23 Two Impairment Pt scores as an increased falls risk, per Sanchez (40/56) and DGI () Motor Vehicle Lecturer Goal (LTG) Pt to demonstrate a decreased falls risk by increasing score on the DGI by at least five points to a LTG Duration 08/19/23 One Impairment Pt does not have an appropriate home exercise program Short Term Goal (STG) Pt to be independent and compliant with an appropriate HEP 06/27,: added clamshell AROM sidelying, resisted LAQ & IR, STS 1 UE support. STG Duration 07/21/23 progressing 06/30/23 Assessment Summary Assessment Pt challenged motor planning step ups on R, required max tactile trunk wt shift/rot fac and LE tapping fac to complete. She required Min/Mod A initially during trial with uneven mat walking improved to CGA able to add 3 hurdles and foam stones, LOB L x1 Min recovery. Improved stab Mod> Min/CGA midline cues for soft stepping and shift wt into forward foot. Macdonald that was fun. Pt no reports of pain in R hip end tx. Physical Therapy Plan Frequency and Duration Frequency of Treatment 2x/Week Plan of Care Start Date 06/20/23 Plan of Care End Date 08/19/23 Therapeutic Interventions Therapeutic Interventions Balance Training,Coordination Training,Gait Training,Home Exercise Program,Neuromuscular Re-education,Patient/ Caregiver Education,Self-Care/ Home Management,Soft Tissue Mobilization,Therapeutic Activities,Therapeutic Exercises Modalities Cold Pack/Ice Massage,Electric Stimulation,Hot Packs, Ultrasound Next Visit Focus/Plan Next Note Type Treatment Note Next Visit Plan PT to update appts needed/POC due in 2 weeks. Continue balance training for community gait over uneven surfaces in her neighborhood. NExt add uneven mat/incline/ declilne. Recheck bring HOs to write cues in for carryover home. Ask pt/ if pt performing HEP using HOs, ask how L & R knee& hip feeling, response to PT. POC: Balance and gait training , LE strengthening
--- NOTE | 2023-08-04 14:54 | PT-OP ANOTE ---
Pt arrived for her scheduled PT appointment very lethargic and not acting like her usual self. Resting HR was found to be 142-148 on three different devices. No device was picking up any O2 sat. Therapist transported to the ED.
--- NOTE | 2024-07-23 11:19 | PT.OPDS ---
Current Diagnoses Pain in left hip (08/02/23) Pain in right knee (08/02/23) Muscle weakness (generalized) (08/02/23) Unsteadiness on feet (08/02/23) Unspecified abnormalities of gait and mobility (08/02/23) History of falling (08/02/23) Visit Care Team Role Provider Type Geoffrey Melvin MD Attending Provider Physician Family Provider Primary Care Provider Referring Provider Specialty: Internal Medicine Address: [address] [place] [address], [address], [facility] Email: [email or web address] Number Visit Number [id number] Discharge Summary PT-OP-B Current Condition Start: 06/20/23 16:51 Freq: Status: Active Protocol: Document 06/20/23 16:00 DCW (Rec: 06/20/23 17:07 DCW [id number]) Current Condition History of Current Condition Current Complaints History of falls, worsening balance/instability History of Current Condition Pt is an 87 year old female presenting with a long- standing history of declining balance, poor activity tolerance, weakness, and falls . Attends with her for today's evaluation. 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 Admits her right knee and left hip now bother her quite a bit. Is normally more stiff and unstable when first standing up from sitting . Has had at least two falls, but was nothing serious. Thinks she may have tripped. Pt has difficulty with history and following directions without repeated instructions and/or tactile cues. Relies on for a lot of history. does state that she doesn't do much throughout the day, they go for a walk that is ~1/5 of a mile daily. Pt cannot think of anything she actually wants to do, does admit she doesn't do much, but there is not anything else she has any desire to do. PT-OP-C Subjective Start: 06/20/23 16:51 Freq: Status: Active Protocol: Document 08/02/23 12:17 SP (Rec: 08/02/23 12:59 SP [id number]) OP-PT Subjective Patient Comments Patient Comments Pt and report, pt stated her R hip was hurting when sitting doing her puzzle. They said havent' been walking outside due to weather cold/wet. PT-OP-D Balance Start: 06/20/23 16:51 Freq: Status: Active Protocol: Document 06/20/23 16:00 DCW (Rec: 06/20/23 17:07 DCW [id number]) Balance Tests Sanchez Balance Test Sanchez Balance Test Score 40/56 Sanchez Impairment Rating 20 to 39% Impaired (Score 34- 44) Sanchez Balance Assessment Evaluation Sitting to Standing Ability Several Tries w/Hands Unsupported Stance Safely- 2 minutes Sitting Unsupported, Feet on Floor Safely- 2 minutes Standing to Sitting Ability Assist, Control w/Hands Transfer Ability Safely, Hand Use Unsupported Stance- Eyes Closed Safely, 10 seconds Unsupported Stance- Eyes Open Independent, 1 minute Reaching Forward Standing Safely, 5 inches Pick- Up Object From Floor Supervision Look Behind Shoulder - Standing Turns Sideways Only Turning 360 Degrees Turns slowly, but safely Unsupported Stance, Alternating Feet on 4 Steps w/Supervision Stair Unsupported Tandem Stance Holds Tandem- 30 seconds Unilateral Leg Stance Lifts Leg/Unable to Hold Total Score Sanchez Total Score (out of 56 points) 40 Sanchez Impairment Rating 20 to 39% Impaired (Score 34- 44) PT-OP-E Functional Tests Start: 06/20/23 16:51 Freq: Status: Active Protocol: Document 07/26/23 13:45 DCW (Rec: 07/26/23 14:02 DCW [id number]) Functional Tests Dynamic Gait Index (DGI) Score 17/24 DGI Impairment Rating 20 to <40% Impaired (Score 15- 19) PT-OP-M Strength Start: 06/20/23 16:51 Freq: Status: Active Protocol: Document 06/20/23 16:00 DCW (Rec: 06/20/23 17:07 DCW [id number]) Hip Strength Hip Manual Muscle Testing Right Flexion (L2) 4- Good- Extension (S1) 4 Good Abduction 4- Good- Adduction 4+ Good+ External Rotation 4- Good- Internal Rotation 4- Good- Left Flexion (L2) 4 Good Abduction 4- Good- Adduction 4+ Good+ External Rotation 4- Good- Internal Rotation 4- Good- Knee Strength Knee Manual Muscle Testing Right Flexion (S2) 4- Good- Extension (L3) 4- Good- Left Flexion (S2) 4- Good- Extension (L3) 4- Good- Ankle/Foot Strength Ankle and Foot Manual Muscle Testing Right Dorsiflexion (L4) 4+ Good+ Left Dorsiflexion (L4) 4+ Good+ PT-OP-T Assessment and Plan Start: 06/20/23 16:51 Freq: Status: Active Protocol: Document 07/23/24 11:19 DCW (Rec: 07/23/24 11:19 DCW [id number]) Physical Therapy Assessment Assessment Summary Assessment Pt has not been seen in 11 months, and the POC has . Pt will require a new referring to return to skilled PT. Pt will be discharged at this time. Physical Therapy Plan Discharge Physical Therapy Discharge Reasons No Longer Attending PT
== END 2024-08-01 09:07 | disposition home or self-care (01) ==
LOC: PHYS 12:15
PROVIDERS: Family Provider Internal Medicine; PCP Internal Medicine; Referring Provider Internal Medicine; Visit Provider Internal Medicine
DX: R26.9 Unspecified abnormalities of gait and mobility (principal); Z91.81 History of falling; M62.81 Muscle weakness (generalized); M25.552 Pain in left hip; M25.561 Pain in right knee; R26.81 Unsteadiness on feet
CPT/HCPCS: 97110; 97112; 97116; 97140; 97163

== ENCOUNTER 2023-08-04 14:50 | Emergency (ER) | payer OTHER, SELFPAY ==
[2020-05-11 10:56] VITALS: BMI 26.4
[2023-08-04] VITALS (7 sets, daily range): BP systolic 105–137; BP diastolic 58–78; PULSE 88–128; RESP 18–24; TEMP 37.1; O2SAT 95–99; BMI 23.8
--- NOTE | 2023-08-04 15:06 | DI.RAD.S_ITS ---
PROCEDURE: XR CHEST 1V INDICATIONS: chest pain TECHNIQUE: One view of the chest was acquired. COMPARISON: [facility], , XR CHEST 1V, 04/15/2019, 21:03. [facility], , CHEST 2 VIEW, 10/27/2010, 8:04. FINDINGS: Surgical changes and devices: None. Lungs and pleura: Lungs are unchanged from 04/15/19, with chronic mild interstitial prominence and suspected mild lung base scarring.. No pleural effusions or pneumothorax. Mediastinum: Mediastinal contours appear normal. Heart size is normal. Bones and chest wall: No suspicious bony lesions. Overlying soft tissues appear unremarkable. IMPRESSION: No acute cardiopulmonary abnormality is seen. Dictated by: Jonathon Montiel M.D. on 08/04/2023 at 16:13 Approved by: Jonathon Montiel M.D. on 08/04/2023 at 16:14
[2023-08-04 15:14] LABS: Add Manual Diff / Slide Review NO; Basophils Absolute Auto 100 /uL (0-100); Basophils Percent Auto 0.5 % (0-2); Eosinophils Absolute Auto 0 /uL (0-450); Eosinophils Percent Auto 0.1 % (2-4); Hematocrit 31.5 % (36-46); Hemoglobin 10.2 g/dL (12.0-16.0); Lymphocytes Absolute Auto 1700 /uL (1100-4500); Lymphocytes Percent Auto 14.2 % (25-40); Mean Corpuscular HGB Conc 32.2 % (30-36); Mean Corpuscular Hemoglobin 25.6 PG (26-34); Mean Corpuscular Volume 79.5 fL (80-100); Monocytes Absolute Auto 1000 /uL (0-900); Monocytes Percent Auto 7.9 % (3-14); Neutrophils Absolute Auto 9500 /uL (1500-7000); Neutrophils Percent Auto 77.3 % (50-75); Platelet Count 348 X10^3/uL (150-400); Red Blood Cell Count 3.96 X10^6/uL (4.0-5.2); Red Cell Distribution Width 14.5 % (11.6-14.8); White Blood Cell Count 12.3 X10^3/uL (4.5-11.0)
[2023-08-04 15:23] LABS: PTT Partial Thromboplastin Tim 38 SECONDS (25.1-36.5)
[2023-08-04 15:26] LABS: Alanine Aminotransferase 15 IU/L (<35); Albumin 4.5 g/dL (3.5-5.0); Albumin Globulin Ratio 1.3 (1.0-2.8); Alkaline Phosphatase 92 U/L (38-126); Aspartate Aminotransferase 30 IU/L (14-36); BUN Creatinine Ratio 16.5 (6-22); Bilirubin Total 1.6 mg/dL (0.2-1.3); Blood Urea Nitrogen 27 mg/dL (7-17); Calcium 9.8 mg/dL (8.4-10.2); Carbon Dioxide 24 mmol/L (22-32); Chloride 104 mmol/L (98-107); Creatine Kinase 155 U/L (30-135); Estimated Glomerular Filt Rate 30 mL/min (>60); Globulin 3.5 g/dL (1.7-4.1); Glucose 157 mg/dL (80-110); HEMOLYSIS < 15 (0-50); Lipase 109 U/L (23-300); Magnesium 1.3 mg/dL (1.6-2.3); Potassium 3.9 mmol/L (3.4-5.1); Sodium 138 mmol/L (137-145)
[2023-08-04 15:38] LABS: Troponin I < 0.012 ng/mL (0.01-0.034)
--- NOTE | 2023-08-04 15:45 | ED.GENADULT ---
HPI - General Adult General Chief complaint: Weakness Stated complaint: lethargic, pulse 148 brought in by PT Time Seen by Provider: 08/04/23 15:36 Source: patient Mode of arrival: Wheelchair History of Present Illness HPI narrative: 87-year-old female with history of hypertension, hyperlipidemia, renal failure, asthma, stroke, SVT, pulmonary embolism presents with tachycardia, weakness. History clarify from triage notes. She was at an appointment when she developed an episode of tachycardia earlier. She and spouse at bedside state this has happened to her before, and she has history of SVT on metoprolol. She had no other symptoms during this of the mild weakness which has fully resolved. She feels completely asymptomatic now. No lightheadedness, syncope, chest or back or abdominal or flank pain, fevers or chills, nausea or vomiting or diarrhea, changes to bowel or bladder, or any other new concerns. Related Data Home Medications Medication Instructions Recorded Confirmed aspirin 81 mg tablet,delayed 81 mg PO DAILY ##0 11/02/11 05/15/23 release CALCIUM CARBONATE/VITAMIN D3 1 tab PO DAILY ##0 11/03/11 05/15/23 (Calcium 600 + Vit D3 Tablet) Previous Rx's Medication Instructions Recorded citalopram 10 mg tablet 10 mg PO DAILY #90 tabs 12/19/22 clopidogrel 75 mg tablet 75 mg PO DAILY #90 tabs 12/19/22 metoprolol succinate 50 mg 50 mg PO DAILY #90 tabs 12/19/22 tablet,extended release 24 hr hydrochlorothiazide 25 mg tablet 25 mg PO DAILY #90 tabs 02/14/23 Disabled Parking #1 ea 04/03/23 famotidine 40 mg tablet 40 mg PO DAILY #90 tabs 04/03/23 atorvastatin 40 mg tablet 40 mg PO DAILY #90 tabs 06/07/23 Allergies Allergy/AdvReac Type Severity Reaction Status Date / Time cephalexin [CEPHALEXIN] Allergy Mild RASH Verified 05/15/23 09:28 Cephalosporins Allergy Mild RASH Verified 05/15/23 09:28 [CEPHALOSPORINS] Sulfa (Sulfonamide Allergy Mild RASH Verified 05/15/23 09:28 Antibiotics) [SULFA (SULFONAMIDE ANTIBIOTICS)] amoxicillin [AMOXICILLIN] AdvReac Mild rash Verified 05/15/23 09:28 Review of Systems Review of Systems Narrative: Constitutional: no fever, no chills Eyes: no visual disturbance, no discharge Ears, Nose, Mouth, Throat: no rhinorrhea, no sore throat Cardiovascular: no chest pain, +resolved palpitations Respiratory: no cough, no shortness of breath Gastrointestinal: no abdominal pain, no vomiting, no diarrhea Genitourinary: no dysuria, no hematuria Musculoskeletal: no back pain, no neck stiffness Skin: no rash, no wound Neurological: no focal weakness, no focal numbness Patient History Medical History (Updated 08/04/23 @ 17:48 by Lavell Stein MD) Chronic renal failure, stage 3b History of stroke (~07/2018) Paroxysmal SVT (supraventricular tachycardia) Hyperlipidemia Tachycardia History of pulmonary embolism (11/02/11) Mass of breast (11/02/11) Asthma Essential hypertension Menopausal syndrome (11/02/11) Chronic cholecystitis Surgical History H/O cataract removal with insertion of prosthetic lens Hx of cholecystectomy H/O total hip arthroplasty Status post arthroscopy Family History Child Age: 53 Diabetes mellitus Sister Age: 80 Cancer Heart disease Osteoporosis Father Lung disease Mother Lung disease Social History marital status: household members: spouse lives independently: Yes Smoking Status: Never smoker alcohol intake: former Smoking Status: Never smoker alcohol intake frequency: a few times a week Substance Use Type: does not use Exam Narrative Exam Narrative: Const: no acute distress, non toxic appearing; calm, conversant, pleasant Eyes: PERRLA, EOMI ENT: mucous membranes moist Neck: supple, non-tender Resp: no respiratory distress, clear to auscultation bilaterally Card: regular rate and rhythm, no murmurs Abd: non tender diffusely, no rigidity or rebound or guarding Back: no T or L spine tenderness, no CVA tenderness bilaterally Extrem: no deformities, no swelling bilateral lower extremities Neuro: ANOx4, retail sales professional grossly intact, grossly intact sensation and strength all extremities Skin: no rash, warm and dry Initial Vital Signs Initial Vital Signs: Vital Signs Temperature 98.8 F 08/04/23 14:52 Pulse Rate 108 H 08/04/23 14:52 Respiratory Rate 18 08/04/23 14:52 Blood Pressure 105/78 08/04/23 14:52 Pulse Oximetry 95 08/04/23 14:52 Oxygen Delivery Method Room Air 08/04/23 14:52 Course Course Course Narrative: This presentation is highly suggestive of currently resolved SVT, and an asymptomatic, comfortable patient. I will also obtain EKG, labs, chest x-ray and closely reassess. We will assess for electrolyte derangements, MEENA, thyroid abnormality, evidence of pneumonia or pneumothorax, evidence of cardiac injury, intravascular volume depletion, among other conditions. Initial EKG with tachycardia that appears most likely sinus, though SVT not ruled out. No clear acute ischemia or immediately concerning interval prolongation. Repeat EKG normal sinus rhythm without acute ischemia or immediately concerning interval prolongation. CBC with leukocytosis, though no clear evidence of infection, along with anemia slightly worsened from March, with no thrombocytopenia. INR within normal limits. Chemistry notable for hypomagnesemia, for which I am giving 2 g Mag sulfate IV. This could have contributed to increased risk of SVT recurrence. Creatinine similar to prior. Lipase reassuring. TSH reassuring. Troponin reassuring. Radiology review of imaging below, which I agree with on my independent review: FINDINGS: Surgical changes and devices: None. Lungs and pleura: Lungs are unchanged from 04/15/19, with chronic mild interstitial prominence and suspected mild lung base scarring.. No pleural effusions or pneumothorax. Mediastinum: Mediastinal contours appear normal. Heart size is normal. Bones and chest wall: No suspicious bony lesions. Overlying soft tissues appear unremarkable. IMPRESSION: No acute cardiopulmonary abnormality is seen. Dictated by: Jonathon Montiel M.D. on 08/04/2023 at 16:13 Patient currently stable, asymptomatic, with multiple reassuring repeat exams. SVT remains most likely. She is already on metoprolol. She appears stable for follow-up with return precautions. Spouse and patient agree with this. No other new concerns. Repeat exam and vital signs reassuring. Questions answered. Plan reviewed. Patient discharged in stable condition. Orders Ordered: ED Orders 08/04/23 15:05 Complete Blood Count AUTO DIFF Stat Comprehensive Metabolic Panel Stat Lipase Stat Magnesium Stat PTT Partial Thromboplastin José Miguel Stat Prothrombin Time INR Stat TSH [Thyroid Stimulating Hormone] Stat Troponin & CK Cardiac Panel Stat 08/04/23 15:06 XR chest 1V Stat EKG-12 Lead Stat 08/04/23 16:34 EKG-12 Lead Stat Discontinued Medications Magnesium Sulfate (Magnesium Sulfate) 2 gm in 50 mls @ 25 mls/hr IV NOW ONE Stop: 08/04/23 18:35 Last Infusion: 08/04/23 18:22 Dose: Infused Documented By: BRANDY Co-signed By: KIARA Admin: 08/04/23 16:47 Dose: 25 mls/hr Documented By: BRANYD Co-signed By: SERINA Vital Signs Vital signs: Vital Signs - 8 hr 08/04/23 14:52 08/04/23 15:03 08/04/23 15:03 Temperature 98.8 F Pulse Rate 108 H 102 H Respiratory Rate 18 Blood Pressure 105/78 137/64 Pulse Oximetry 95 97 Oxygen Delivery Method Room Air 08/04/23 15:30 08/04/23 15:30 08/04/23 16:00 Temperature Pulse Rate 96 H 90 Respiratory Rate 19 18 Blood Pressure 114/58 L Pulse Oximetry 96 98 Oxygen Delivery Method 08/04/23 16:00 08/04/23 16:30 08/04/23 16:30 Temperature Pulse Rate 128 H Respiratory Rate 24 Blood Pressure 114/61 125/61 Pulse Oximetry 97 Oxygen Delivery Method 08/04/23 17:00 08/04/23 17:00 08/04/23 17:30 Temperature Pulse Rate 128 H 88 Respiratory Rate 22 24 Blood Pressure 124/62 Pulse Oximetry 99 99 Oxygen Delivery Method 08/04/23 17:30 Temperature Pulse Rate Respiratory Rate Blood Pressure 124/68 Pulse Oximetry Oxygen Delivery Method Medical Decision Making Lab Data 08/04/23 15:05 08/04/23 15:05 Labs: Lab Results 08/04/23 Range/Units 15:05 WBC 12.3 H (4.5-11.0) X10^3/uL RBC 3.96 L (4.0-5.2) X10^6/uL Hgb 10.2 L (12.0-16.0) g/dL Hct 31.5 L (36-46) % MCV 79.5 L (80-100) fL MCH 25.6 L (26-34) PG MCHC 32.2 (30-36) % RDW 14.5 (11.6-14.8) % Plt Count 348 (150-400) X10^3/uL Neut % (Auto) 77.3 H (50-75) % Lymph % (Auto) 14.2 L (25-40) % [place] % (Auto) 7.9 (3-14) % Eos % (Auto) 0.1 L (2-4) % Baso % (Auto) 0.5 (0-2) % Neut # (Auto) 9500 H (3513-5252) /uL Lymph # (Auto) 1700 (3576-7432) /uL [place] # (Auto) 1000 H (0-900) /uL Eos # (Auto) 0 (0-450) /uL Baso # (Auto) 100 (0-100) /uL PT 12.0 (9.4-12.5) SECONDS INR 1.0 (0.9-1.3) APTT 38 H (25.1-36.5) SECONDS Sodium 138 (137-145) mmol/L Potassium 3.9 (3.4-5.1) mmol/L Chloride 104 (98-107) mmol/L Carbon Dioxide 24 (22-32) mmol/L BUN 27 H (7-17) mg/dL Creatinine 1.64 H (0.52-1.04) mg/dL Estimated GFR 30 L (>60) mL/min BUN/Creatinine Ratio 16.5 (6-22) Glucose 157 H (80-110) mg/dL Calcium 9.8 (8.4-10.2) mg/dL Magnesium 1.3 L (1.6-2.3) mg/dL Total Bilirubin 1.6 H (0.2-1.3) mg/dL AST 30 (14-36) IU/L ALT 15 (<35) IU/L Alkaline Phosphatase 92 (38-126) U/L Total Creatine Kinase 155 H (30-135) U/L Troponin I < 0.012 (0.01-0.034) ng/mL Total Protein 8.0 (6.3-8.2) g/dL Albumin 4.5 (3.5-5.0) g/dL Globulin 3.5 (1.7-4.1) g/dL Albumin/Globulin Ratio 1.3 (1.0-2.8) Lipase 109 (23-300) U/L TSH 0.615 (0.47-4.68) uIU/mL Discharge Plan Departure Patient Disposition: Home Clinical Impression: Paroxysmal SVT (supraventricular tachycardia) Instructions: Paroxysmal Supraventricular Tachycardia Activity Restrictions/Additional Instructions: It was a pleasure taking care of you today. It is important to fully read and understand the below. Please ask us if you have any questions. I think you may have had an episode of SVT today. This appears to have resolved. You are feeling well now. You have an elevated white cell count and low magnesium. You are anemic. It is very important you see your primary doctor within 3 days we reassess, repeating your labs and discussing further care. No tests or assessments are perfect, and your condition could change booth attendant time. If your symptoms change or worsen, it is very important you immediately seek medical care. If you have any new or worsening pain, feeling her heartbeat fast or funny, shortness of breath, fever, vomiting, confusion, numbness, weakness, or anything else that concerns you, please immediately seek medical care. If you have been prescribed any medications: please read the drug package inserts on how to properly use the medication and any potential side effects. If you had labs (blood tests) or imaging (CT scan or x-rays) done during your visit: please follow up on the results of these with your primary care doctor, as discussed. In addition, please know the results we received today may be preliminary. Our usual practice is to follow up on tests within a few days of a patient's discharge from the Emergency Department and notify you of any changes. These may lead to changes to your treatment plan. However, the best way to obtain and interpret these test results is through your Primary Care Provider. If you need to update your contact information, please stop by the front counter clerk and alert the Registration personnel before you leave the Emergency Department. Thank you for the opportunity to participate in your healthcare. We are always here and happy to see you in the future. Prescriptions: No Action aspirin 81 mg Tablet,Delayed Release (Dr/Ec) 81 mg PO DAILY Qty: 0 CALCIUM CARBONATE/VITAMIN D3 (Calcium 600 + Vit D3 Tablet) 1 tab PO DAILY Qty: 0 citalopram 10 mg tablet 10 mg PO DAILY Qty: 90 3RF clopidogrel 75 mg tablet 75 mg PO DAILY Qty: 90 3RF metoprolol succinate 50 mg tablet extended release 24 hr 50 mg PO DAILY Qty: 90 3RF hydrochlorothiazide 25 mg tablet 25 mg PO DAILY Qty: 90 3RF atorvastatin 40 mg tablet 40 mg PO DAILY Qty: 90 2RF famotidine 40 mg tablet 40 mg PO DAILY Qty: 90 3RF (DME) Disabled Parking See Rx Instructions .ROUTE .MEDSUPPLY Qty: 1 0RF Rx Instructions: Patient qualifies for disabled parking as per the attached form. Referrals: Geoffrey Melvin MD [Primary Care Provider] - Stand Alone Forms: Patient Portal/API
[2023-08-04] MEDS: MAGNESIUM SULFATE 2 GM/50 ML PIGGYBACK IV (16:47)
[2023-08-04 16:53] LABS: Thyroid Stimulating Hormone 0.615 uIU/mL (0.47-4.68)
== END 2023-08-04 18:07 | disposition home or self-care (01) ==
PROVIDERS: Emergency Provider Emergency Medicine; Family Provider Internal Medicine; PCP Internal Medicine
DX: I47.10 Supraventricular tachycardia, unspecified (principal)
CPT/HCPCS: 36415; 71045; 80053; 82550; 83690; 83735; 84443; 84484; 85025; 85610; 85730; 93005; 96365; 96366; 99284; J3475

== ENCOUNTER 2023-09-10 13:23 | Emergency (ER) | payer OTHER, SELFPAY ==
[2020-05-11 10:56] VITALS: BMI 26.4
[2023-09-10 13:41] VITALS: BP 115/51; PULSE 66; RESP 16; TEMP 36.5; O2SAT 98; BMI 23.8
--- NOTE | 2023-09-10 14:00 | ED.EXTPRO ---
HPI - Extremity Problem <Ayanna Poon PA-C - Last Filed: 09/10/23 16:35> General Chief complaint: Extremity Problem,Nontraumatic Stated complaint: terrible pain rt hip Time Seen by Provider: 09/10/23 13:50 Source: patient Mode of arrival: Ambulatory History of Present Illness HPI Narrative: Patient is an 87-year-old female with chronic conditions of renal failure, SVT, pulmonary embolism in 2012, temporoparietal CVA in 2019, HTN presenting for evaluation of right lower extremity discomfort possibly for several months. Her is with her and assisting her with her history. He and she both deny any trauma recently. Her states that she was able to walk a 10th of a mi yesterday. He states that she has been complaining of some right thigh and hip pain for the last several months with occasional movement into her right knee. He states that she had a right hip and left knee replacement in the past. He states they came in today because the pain seems to have gotten worse and she has not walking as easily as normal. He reports she has had still been able to walk around the house, go to the bathroom on her own without assistance. She denies any numbness in her right foot. She denies any specific pain with movements, but points generally to her right thigh and up to her right hip. She denies any chest pain or shortness of breath. Her does report she was seen in the ED for a possible occasion of SVT. He denies any issues since. Related Data Home Medications Medication Instructions Recorded Confirmed aspirin 81 mg tablet,delayed 81 mg PO DAILY ##0 11/02/11 05/15/23 release CALCIUM CARBONATE/VITAMIN D3 1 tab PO DAILY ##0 11/03/11 05/15/23 (Calcium 600 + Vit D3 Tablet) acetaminophen 325 mg capsule 650 mg PO Q6H PRN pain/fever 09/10/23 09/10/23 (Tylenol) Previous Rx's Medication Instructions Recorded citalopram 10 mg tablet 10 mg PO DAILY #90 tabs 12/19/22 clopidogrel 75 mg tablet 75 mg PO DAILY #90 tabs 12/19/22 metoprolol succinate 50 mg 50 mg PO DAILY #90 tabs 12/19/22 tablet,extended release 24 hr hydrochlorothiazide 25 mg tablet 25 mg PO DAILY #90 tabs 02/14/23 Disabled Parking #1 ea 04/03/23 famotidine 40 mg tablet 40 mg PO DAILY #90 tabs 04/03/23 atorvastatin 40 mg tablet 40 mg PO DAILY #90 tabs 06/07/23 Allergies Allergy/AdvReac Type Severity Reaction Status Date / Time amoxicillin [AMOXICILLIN] AdvReac Mild rash Verified 09/10/23 13:41 cephalexin [CEPHALEXIN] AdvReac Mild RASH Verified 09/10/23 13:41 Cephalosporins AdvReac Mild RASH Verified 09/10/23 13:41 [CEPHALOSPORINS] Sulfa (Sulfonamide AdvReac Mild RASH Verified 09/10/23 13:41 Antibiotics) [SULFA (SULFONAMIDE ANTIBIOTICS)] Review of Systems <Ayanna Poon PA-C - Last Filed: 09/10/23 16:35> Review of Systems Narrative: See HPI Patient History <Ayanna Poon PA-C - Last Filed: 09/10/23 16:35> Medical History Chronic renal failure, stage 3b History of stroke (~07/2018) Paroxysmal SVT (supraventricular tachycardia) Hyperlipidemia Tachycardia History of pulmonary embolism (11/02/11) Mass of breast (11/02/11) Asthma Essential hypertension Menopausal syndrome (11/02/11) Chronic cholecystitis Surgical History H/O cataract removal with insertion of prosthetic lens Hx of cholecystectomy H/O total hip arthroplasty Status post arthroscopy Family History Child Age: 53 Diabetes mellitus Sister Age: 80 Cancer Heart disease Osteoporosis Father Lung disease Mother Lung disease Social History marital status: household members: spouse lives independently: Yes Smoking Status: Never smoker alcohol intake: former Smoking Status: Never smoker alcohol intake frequency: a few times a week Substance Use Type: does not use Exam <Ayanna Poon PA-C - Last Filed: 09/10/23 16:35> Initial Vital Signs Initial Vital Signs: Vital Signs Temperature 97.7 F 09/10/23 13:41 Pulse Rate 66 09/10/23 13:41 Respiratory Rate 16 09/10/23 13:41 Blood Pressure 115/51 L 09/10/23 13:41 Pulse Oximetry 98 09/10/23 13:41 Oxygen Delivery Method Room Air 09/10/23 13:41 GENERAL: 87 year old patient appears stated age. Well-developed patient, in no acute distress. HEAD: Atraumatic. Normocephalic. NECK: Trachea midline. Non tender. No cervical lymphadenopathy CARDIOVASCULAR: Regular rate and rhythm without murmurs, gallops, or rubs. RESPIRATORY: Clear to auscultation. Breath sounds equal bilaterally. No wheezes, rales, or rhonchi. EXTREMITIES: No edema or joint tenderness. No edema noted bilaterally, patient has a difficult time following instructions, but she did demonstrate right hip flexion, right hip internal external rotation without reproduction of pain as well as right knee flexion and extension. She was able to ambulate to triage. No bruising or discoloration noted over right knee or right lower extremity. No tenderness to palpation of greater trochanter right hip, no tenderness to palpation of right knee. No lower extremity swelling noted bilaterally posterior tibialis pulse 2 +bilaterally. BACK: Nontender to palpation cervical, thoracic or lumbar spine, no paraspinal tenderness palpated. NEURO: AOx3. SKIN: No rash or erythema of visible areas <Shelly Bishop DO - Last Filed: 09/11/23 19:52> Initial Vital Signs Initial Vital Signs: Vital Signs Temperature 97.7 F 09/10/23 13:41 Pulse Rate 66 09/10/23 13:41 Respiratory Rate 16 09/10/23 13:41 Blood Pressure 115/51 L 09/10/23 13:41 Pulse Oximetry 98 09/10/23 13:41 Oxygen Delivery Method Room Air 09/10/23 13:41 Course <Ayanna Poon PA-C - Last Filed: 09/10/23 16:35> Orders Ordered: ED Orders 09/10/23 14:10 US periph venous low extrem rt Stat XR hip w pel if done RT 2V Stat XR knee RT 3V Stat Vital Signs Vital signs: Vital Signs - 8 hr 09/10/23 13:41 09/10/23 14:07 Temperature 97.7 F Pulse Rate 66 Pulse Rate [Right Dorsalis Pedis] 70 Respiratory Rate 16 Blood Pressure 115/51 L Pulse Oximetry 98 Oxygen Delivery Method Room Air <Shelly Bishop DO - Last Filed: 09/11/23 19:52> Orders Ordered: ED Orders 09/10/23 14:10 US periph venous low extrem rt Stat XR hip w pel if done RT 2V Stat XR knee RT 3V Stat Vital Signs Vital signs: Vital Signs - 8 hr 09/10/23 13:41 09/10/23 14:07 Temperature 97.7 F Pulse Rate 66 Pulse Rate [Right Dorsalis Pedis] 70 Respiratory Rate 16 Blood Pressure 115/51 L Pulse Oximetry 98 Oxygen Delivery Method Room Air MDM - Extremity (Nontraumatic) <Ayanna Poon PA-C - Last Filed: 09/10/23 16:35> Imaging Data Vascular ultrasound right LE: Radiologist's Impression: PROCEDURE: US PERIPH VENOUS LOW EXTREM RT INDICATIONS: Right thigh pain TECHNIQUE: Real-time imaging, as well as color and pulse Doppler interrogation, were performed of the lower extremity deep veins from the inguinal ligament to the popliteal fossa, with documentation of the visualized calf veins. COMPARISON: None. FINDINGS: The common femoral, femoral, popliteal, and the visualized calf veins are normally compressible, and free of intraluminal thrombus. Color and pulse Doppler demonstrate normal phasic intraluminal flow. There is normal augmentation response to distal compression maneuver. IMPRESSION: No findings of lower extremity deep venous thrombosis. Approved by: Camden Arita M.D. on 09/10/2023 at 14:01 knee xray: Radiologist's Impression: PROCEDURE: XR KNEE RT 3V INDICATIONS: right knee pain TECHNIQUE: 3 views of the knee were acquired. COMPARISON: [facility], , KNEE 1-2 VIEWS LEFT, 11/16/2009, 11:00. FINDINGS: Bones: No fractures or dislocations. No suspicious bony lesions. Soft tissues: No joint effusion. No suspicious soft tissue calcifications. IMPRESSION: No acute bony abnormality or significant effusion. Approved by: Camden Arita M.D. on 09/10/2023 at 15:19 Rt Hip and Pelvis XR: Radiologist's Impression: PROCEDURE: XR HIP W PEL IF DONE RT 2V INDICATIONS: Right hip pain TECHNIQUE: 2 views of the hip were acquired. COMPARISON: None. FINDINGS: Bones: Total right hip arthroplasty in good position. No evidence of hardware failure or loosening. Advanced left hip joint space narrowing with subchondral cysts Soft tissues: No suspicious soft tissue calcifications or masses. IMPRESSION: Total right hip arthroplasty in good position. No fracture or hardware failure Approved by: Camden Arita M.D. on 09/10/2023 at 15:18 MDM Narrative Medical decision making narrative: Patient is an 87-year-old female presenting for evaluation of right thigh pain times several months, worsening recently. She denies any chest pain or shortness of breath. She does have a history of pulmonary embolism in 2011 Multiple etiologies for patient's symptoms considered including, but not limited to: Osteoarthritis, avascular necrosis, thrombosis, knee sprain Difficult to elicit detailed history from patient and her . It is clear that she is having some right thigh pain, but uncertain which movements specifically make it worse of the than general movement. I recommend x-rays of right hip and knee for further evaluation as well as ultrasound to rule out clot given her history of CVA and pulmonary embolism. She has not taking anticoagulant, but is taking Plavix and aspirin. X-rays did not show evidence of fracture or dislocation of right hip or knee. Ultrasound did not show any evidence of clot. Discussed results of imaging with patient. Symptoms may be due to a muscle spasm or possibly osteoarthritis. I recommend continue to follow up and evaluation with primary care provider. She may apply ice or heat to right thigh to help improve symptoms as well as continued to perform daily activities as tolerated. Discussed with patient that she can take acetaminophen for pain. Prior Charts reviewed: ER visit 08/04/2023 regarding SVT Patient's symptoms improved over duration of stay with above-stated therapies. Findings and discharge diagnosis discussed with patient/family followed by verbalization of understanding Return precautions discussed with patient/family whom verbalize understanding of diagnosis and plan Discharge Plan Departure Patient Disposition: Home Clinical Impression: Pain in right thigh Activity Restrictions/Additional Instructions: Thank you for coming in today for your care. You were diagnosed with right thigh pain. Could be related to a muscle spasm or possibly osteoarthritis. Imaging today not show any evidence of dislocation or fracture in your right hip or knee. We did ultrasound today and thankfully there was no evidence of a clot. I recommend that you continue follow up with your primary care provider. You may take acetaminophen for pain. You may alternate ice and heat to your right thigh to help improve her discomfort. You may continue daily activities as tolerated. *What to do: *Please follow up with your primary care provider in 2-3 days, call for an appointment. Let them know you were seen in the Emergency Department and that we ask that you be seen in follow up. We will electronically transmit a record of today's note if your PCP is in our system *If you do not have a primary care provider please contact the [facility] Resource line at [phone]. They will ask some questions about your medical history and help get you set up with a doctor in the community. *Return to Emergency Department if you should have any new, worsening or concerning symptoms, such as fever greater than 101 F, shaking chills, worsening pain, lower extremity swelling, numbness in right leg or increased pain or other concerning signs or symptoms. Prescriptions: No Action aspirin 81 mg Tablet,Delayed Release (Dr/Ec) 81 mg PO DAILY Qty: 0 CALCIUM CARBONATE/VITAMIN D3 (Calcium 600 + Vit D3 Tablet) 1 tab PO DAILY Qty: 0 citalopram 10 mg tablet 10 mg PO DAILY Qty: 90 3RF clopidogrel 75 mg tablet 75 mg PO DAILY Qty: 90 3RF metoprolol succinate 50 mg tablet extended release 24 hr 50 mg PO DAILY Qty: 90 3RF hydrochlorothiazide 25 mg tablet 25 mg PO DAILY Qty: 90 3RF atorvastatin 40 mg tablet 40 mg PO DAILY Qty: 90 2RF famotidine 40 mg tablet 40 mg PO DAILY Qty: 90 3RF (DME) Disabled Parking See Rx Instructions .ROUTE .MEDSUPPLY Qty: 1 0RF Rx Instructions: Patient qualifies for disabled parking as per the attached form. acetaminophen [Tylenol] 325 mg Capsule 650 mg PO Q6H PRN (Reason: pain/fever) Referrals: Geoffrey Melvin MD [Primary Care Provider] - Stand Alone Forms: Patient Portal/API ED Sign-out <Shelly Bishop DO - Last Filed: 09/11/23 19:52> Cosign ED Attending Cosrobbieature Attestation: I was immediately available in the department for consultation.
[2023-09-10 14:07] VITALS: PULSE 70
--- NOTE | 2023-09-10 14:10 | DI.RAD.S_ITS ---
PROCEDURE: XR HIP W PEL IF DONE RT 2V INDICATIONS: Right hip pain TECHNIQUE: 2 views of the hip were acquired. COMPARISON: None. FINDINGS: Bones: Total right hip arthroplasty in good position. No evidence of hardware failure or loosening. Advanced left hip joint space narrowing with subchondral cysts Soft tissues: No suspicious soft tissue calcifications or masses. IMPRESSION: Total right hip arthroplasty in good position. No fracture or hardware failure Approved by: Camden Arita M.D. on 09/10/2023 at 15:18
--- NOTE | 2023-09-10 14:10 | DI.US.S_ITS ---
PROCEDURE: US PERIPH VENOUS LOW EXTREM RT INDICATIONS: Right thigh pain TECHNIQUE: Real-time imaging, as well as color and pulse Doppler interrogation, were performed of the lower extremity deep veins from the inguinal ligament to the popliteal fossa, with documentation of the visualized calf veins. COMPARISON: None. FINDINGS: The common femoral, femoral, popliteal, and the visualized calf veins are normally compressible, and free of intraluminal thrombus. Color and pulse Doppler demonstrate normal phasic intraluminal flow. There is normal augmentation response to distal compression maneuver. IMPRESSION: No findings of lower extremity deep venous thrombosis. Approved by: Camden Arita M.D. on 09/10/2023 at 14:01
--- NOTE | 2023-09-10 14:10 | DI.RAD.S_ITS ---
PROCEDURE: XR KNEE RT 3V INDICATIONS: right knee pain TECHNIQUE: 3 views of the knee were acquired. COMPARISON: [facility], , KNEE 1-2 VIEWS LEFT, 11/16/2009, 11:00. FINDINGS: Bones: No fractures or dislocations. No suspicious bony lesions. Soft tissues: No joint effusion. No suspicious soft tissue calcifications. IMPRESSION: No acute bony abnormality or significant effusion. Approved by: Camden Arita M.D. on 09/10/2023 at 15:19
== END 2023-09-10 16:42 | disposition home or self-care (01) ==
PROVIDERS: Emergency Provider Physician Assistant; Family Provider Internal Medicine; PCP Internal Medicine
DX: M79.651 Pain in right thigh (principal)
CPT/HCPCS: 73502; 73562; 93971; 99283

== ENCOUNTER → 2024-01-12 11:52 | Outpatient (CLI) | payer OTHER, SELFPAY ==
[2024-01-09 09:01] VITALS: BMI 26.4
--- NOTE | 2024-01-12 11:53 | DI.RAD.S_ITS ---
PROCEDURE: XR KNEE LT 3V INDICATIONS: left knee pain TECHNIQUE: 3 views of the knee were acquired. COMPARISON: [facility], , XR KNEE RT 3V, 09/10/2023, 14:12. FINDINGS: Bones: No fractures or dislocations. No suspicious bony lesions. Well-aligned, intact left total knee arthroplasty without hardware complication. Soft tissues: No joint effusion. No suspicious soft tissue calcifications. IMPRESSION: Well-aligned, intact left total knee arthroplasty without hardware complication. Dictated by: Alex Arellano M.D. on 01/12/2024 at 18:47 Approved by: Alex Arellano M.D. on 01/12/2024 at 18:47
--- NOTE | 2024-01-12 11:53 | DI.RAD.S_ITS ---
PROCEDURE: XR CHEST 2V INDICATIONS: cough TECHNIQUE: 2 views of the chest were acquired. COMPARISON: [facility], CR, XR CHEST 1V, 08/04/2023, 15:10. [facility], CR, XR CHEST 1V, 04/15/2019, 21:03. FINDINGS: Surgical changes and devices: None. Lungs and pleura: Streaky left basilar opacity, presumably atelectasis. Mild peribronchial cuffing. Mediastinum: Mediastinal contours are normal. Heart size is normal. Bones and chest wall: No suspicious bony abnormalities. Soft tissues appear unremarkable. IMPRESSION: Osteoporosis by Hounsfield units criteria. Dictated by: Alex Arellano M.D. on 01/12/2024 at 18:46 Approved by: Alex Arellano M.D. on 01/12/2024 at 18:46
[2024-01-12 13:52] LABS: Add Manual Diff / Slide Review NO; Basophils Absolute Auto 100 /uL (0-100); Basophils Percent Auto 0.7 % (0-2); Eosinophils Absolute Auto 100 /uL (0-450); Eosinophils Percent Auto 1.8 % (2-4); Hematocrit 24.4 % (36-46); Lymphocytes Absolute Auto 2200 /uL (1100-4500); Lymphocytes Percent Auto 27.5 % (25-40); Mean Corpuscular HGB Conc 32.6 % (30-36); Mean Corpuscular Hemoglobin 22.4 PG (26-34); Mean Corpuscular Volume 68.8 fL (80-100); Monocytes Absolute Auto 1000 /uL (0-900); Monocytes Percent Auto 12.5 % (3-14); Neutrophils Absolute Auto 4700 /uL (1500-7000); Neutrophils Percent Auto 57.5 % (50-75); Platelet Count 314 X10^3/uL (150-400); Red Blood Cell Count 3.55 X10^6/uL (4.0-5.2); Red Cell Distribution Width 18.7 % (11.6-14.8); White Blood Cell Count 8.1 X10^3/uL (4.5-11.0)
[2024-01-12 14:10] LABS: HEMOLYSIS < 15 (0-50); Iron 25 ug/dL (37-170)
[2024-01-12 14:15] LABS: Alanine Aminotransferase 17 IU/L (<35); Albumin 3.9 g/dL (3.5-5.0); Albumin Globulin Ratio 1.6 (1.0-2.8); Alkaline Phosphatase 86 U/L (38-126); Aspartate Aminotransferase 33 IU/L (14-36); Bilirubin Total 1.1 mg/dL (0.2-1.3); Blood Urea Nitrogen 38 mg/dL (7-17); Calcium 9.3 mg/dL (8.4-10.2); Carbon Dioxide 26 mmol/L (22-32); Chloride 99 mmol/L (98-107); Estimated Glomerular Filt Rate 24 mL/min (>60); Globulin 2.5 g/dL (1.7-4.1); Glucose 93 mg/dL (80-110); HEMOLYSIS < 15 (0-50); Potassium 3.8 mmol/L (3.4-5.1); Sodium 136 mmol/L (137-145); Total Protein 6.4 g/dL (6.3-8.2)
[2024-01-12 14:23] LABS: Percent Iron Saturation 5 % (15-50); Total Iron Binding Capacity 477 ug/dL (265-497); Transferrin 368 mg/dL (206-381)
[2024-01-12 14:42] LABS: TSH w/ Reflex to FT4 1.71 uIU/mL (0.47-4.68)
[2024-01-12 15:04] LABS: Acanthocytes 1+; Anisocytosis 2+; Microcytosis 2+; Ovalocytes 1+
== END ==
PROVIDERS: Family Provider Internal Medicine; PCP Internal Medicine; Referring Provider Internal Medicine; Visit Provider Internal Medicine
DX: I10 Essential (primary) hypertension (principal); M25.562 Pain in left knee; R05.9 Cough, unspecified; E78.5 Hyperlipidemia, unspecified; N18.32 Chronic kidney disease, stage 3b; D50.9 Iron deficiency anemia, unspecified; Z96.652 Presence of left artificial knee joint; M81.0 Age-related osteoporosis without current pathological fracture
CPT/HCPCS: 36415; 71046; 73562; 80053; 83540; 83550; 84443; 85025

== ENCOUNTER → 2024-03-22 11:37 | Outpatient (CLI) | payer OTHER, SELFPAY ==
[2024-01-09 09:01] VITALS: BMI 26.4
[2024-03-22 12:26] LABS: Add Manual Diff / Slide Review NO; Basophils Absolute Auto 100 /uL (0-100); Basophils Percent Auto 0.5 % (0-2); Eosinophils Absolute Auto 100 /uL (0-450); Eosinophils Percent Auto 0.8 % (2-4); Hematocrit 24.9 % (36-46); Hemoglobin 7.8 g/dL (12.0-16.0); Lymphocytes Absolute Auto 1900 /uL (1100-4500); Lymphocytes Percent Auto 18.5 % (25-40); Mean Corpuscular HGB Conc 31.3 % (30-36); Mean Corpuscular Hemoglobin 21.2 PG (26-34); Mean Corpuscular Volume 67.9 fL (80-100); Monocytes Absolute Auto 800 /uL (0-900); Monocytes Percent Auto 7.5 % (3-14); Neutrophils Absolute Auto 7500 /uL (1500-7000); Neutrophils Percent Auto 72.7 % (50-75); Platelet Count 409 X10^3/uL (150-400); Red Blood Cell Count 3.67 X10^6/uL (4.0-5.2); Red Cell Distribution Width 18.6 % (11.6-14.8); White Blood Cell Count 10.4 X10^3/uL (4.5-11.0)
[2024-03-22 13:39] LABS: Anisocytosis 2+; Microcytosis 2+; Platelet Estimate Increased on smear; Poikilocytosis 2+
== END ==
PROVIDERS: Family Provider Internal Medicine; PCP Internal Medicine; Referring Provider Surgery; Visit Provider Surgery
DX: D64.9 Anemia, unspecified (principal)
CPT/HCPCS: 36415; 85025

== ENCOUNTER 2024-04-30 14:21 | Day surgery (SDC) | payer OTHER, SELFPAY ==
[2024-04-01 11:58] VITALS: BMI 26.4
== END 2024-04-30 14:25 | disposition home or self-care (01) ==
PROVIDERS: Family Provider Internal Medicine; PCP Internal Medicine; Referring Provider Surgery; Visit Provider Surgery
CPT/HCPCS: J2704

== ENCOUNTER 2024-05-22 07:51 | Day surgery (SDC) | payer OTHER, SELFPAY ==
[2024-04-01 11:58] VITALS: BMI 26.4
== END 2024-05-22 07:55 | disposition home or self-care (01) ==
PROVIDERS: Family Provider Internal Medicine; PCP Internal Medicine; Referring Provider Surgery; Visit Provider Surgery
CPT/HCPCS: J2704

== ENCOUNTER → 2024-06-12 10:17 | Outpatient (CLI) | payer OTHER, SELFPAY ==
[2024-04-01 11:58] VITALS: BMI 26.4
[2024-06-12 11:05] LABS: Add Manual Diff / Slide Review NO; Basophils Absolute Auto 100 /uL (0-100); Basophils Percent Auto 0.7 % (0-2); Eosinophils Absolute Auto 100 /uL (0-450); Eosinophils Percent Auto 1.5 % (2-4); Hematocrit 28.1 % (36-46); Hemoglobin 8.9 g/dL (12.0-16.0); Lymphocytes Absolute Auto 2100 /uL (1100-4500); Lymphocytes Percent Auto 24.7 % (25-40); Mean Corpuscular HGB Conc 31.6 % (30-36); Mean Corpuscular Hemoglobin 21.9 PG (26-34); Mean Corpuscular Volume 69.3 fL (80-100); Monocytes Absolute Auto 500 /uL (0-900); Monocytes Percent Auto 6.5 % (3-14); Neutrophils Absolute Auto 5600 /uL (1500-7000); Neutrophils Percent Auto 66.6 % (50-75); Platelet Count 620 X10^3/uL (150-400); Red Blood Cell Count 4.06 X10^6/uL (4.0-5.2); White Blood Cell Count 8.4 X10^3/uL (4.5-11.0)
[2024-06-12 11:16] LABS: HEMOLYSIS < 15 (0-50); Iron 47 ug/dL (37-170)
[2024-06-12 11:21] LABS: Alanine Aminotransferase 17 IU/L (<35); Albumin Globulin Ratio 1.4 (1.0-2.8); Alkaline Phosphatase 96 U/L (38-126); Aspartate Aminotransferase 29 IU/L (14-36); BUN Creatinine Ratio 16.8 (6-22); Bilirubin Total 0.8 mg/dL (0.2-1.3); Blood Urea Nitrogen 31 mg/dL (7-17); Calcium 9.7 mg/dL (8.4-10.2); Carbon Dioxide 25 mmol/L (22-32); Chloride 103 mmol/L (98-107); Estimated Glomerular Filt Rate 26 mL/min (>60); Globulin 2.9 g/dL (1.7-4.1); Glucose 155 mg/dL (80-110); HEMOLYSIS < 15 (0-50); Potassium 4.1 mmol/L (3.4-5.1); Sodium 138 mmol/L (137-145); Total Protein 6.9 g/dL (6.3-8.2)
[2024-06-12 11:26] LABS: Percent Iron Saturation 10 % (15-50); Total Iron Binding Capacity 461 ug/dL (265-497); Transferrin 415 mg/dL (206-381)
[2024-06-12 11:36] LABS: Anisocytosis 2+; Microcytosis 2+; Ovalocytes 1+
[2024-06-12 11:39] LABS: Schistocytes 1+
== END ==
PROVIDERS: Family Provider Internal Medicine; PCP Internal Medicine; Referring Provider Internal Medicine; Visit Provider Internal Medicine
DX: D50.9 Iron deficiency anemia, unspecified; N18.32 Chronic kidney disease, stage 3b; I12.9 Hypertensive chronic kidney disease with stage 1 through stage 4 chronic kidney disease, or unspecified chronic kidney disease
CPT/HCPCS: 36415; 80053; 83540; 83550; 85025

== ENCOUNTER → 2024-09-09 12:12 | Outpatient (CLI) | payer OTHER, SELFPAY ==
[2024-04-01 11:58] VITALS: BMI 26.4
[2024-09-09 13:21] LABS: Add Manual Diff / Slide Review SLIDE REVIEW; Basophils Absolute Auto 0 /uL (0-100); Basophils Percent Auto 0.4 % (0-2); Eosinophils Absolute Auto 200 /uL (0-450); Eosinophils Percent Auto 1.5 % (2-4); Hematocrit 36.8 % (36-46); Hemoglobin 12.2 g/dL (12.0-16.0); Lymphocytes Absolute Auto 2800 /uL (1100-4500); Mean Corpuscular HGB Conc 33.1 % (30-36); Mean Corpuscular Hemoglobin 27.9 PG (26-34); Mean Corpuscular Volume 84.4 fL (80-100); Monocytes Absolute Auto 1100 /uL (0-900); Neutrophils Absolute Auto 6800 /uL (1500-7000); Neutrophils Percent Auto 62.1 % (50-75); Platelet Count 311 X10^3/uL (150-400); Red Blood Cell Count 4.36 X10^6/uL (4.0-5.2); Red Cell Distribution Width 19.5 % (11.6-14.8); White Blood Cell Count 10.9 X10^3/uL (4.5-11.0)
[2024-09-09 13:35] LABS: Anisocytosis 1+
[2024-09-09 13:36] LABS: Poikilocytosis 1+
[2024-09-09 13:38] LABS: HEMOLYSIS < 15 (0-50); Iron 46 ug/dL (37-170)
[2024-09-09 13:43] LABS: Alanine Aminotransferase 18 IU/L (<35); Albumin 4.3 g/dL (3.5-5.0); Albumin Globulin Ratio 1.4 (1.0-2.8); Alkaline Phosphatase 96 U/L (38-126); Aspartate Aminotransferase 31 IU/L (14-36); BUN Creatinine Ratio 22.4 (6-22); Blood Urea Nitrogen 41 mg/dL (7-17); Calcium 9.7 mg/dL (8.4-10.2); Carbon Dioxide 24 mmol/L (22-32); Chloride 103 mmol/L (98-107); Estimated Glomerular Filt Rate 27 mL/min (>60); Globulin 3.1 g/dL (1.7-4.1); Glucose 115 mg/dL (80-110); HEMOLYSIS < 15 (0-50); Potassium 4.3 mmol/L (3.4-5.1); Sodium 141 mmol/L (137-145); Total Protein 7.4 g/dL (6.3-8.2)
[2024-09-09 13:51] LABS: Percent Iron Saturation 11 % (15-50); Total Iron Binding Capacity 416 ug/dL (265-497); Transferrin 352 mg/dL (206-381)
[2024-09-09 14:13] LABS: TSH w/ Reflex to FT4 1.45 uIU/mL (0.47-4.68)
== END ==
PROVIDERS: Family Provider Internal Medicine; PCP Internal Medicine; Referring Provider Internal Medicine; Visit Provider Internal Medicine
DX: D50.9 Iron deficiency anemia, unspecified (principal); I10 Essential (primary) hypertension
CPT/HCPCS: 36415; 80053; 83540; 83550; 84443; 85025

== ENCOUNTER → 2024-11-07 14:17 | Outpatient (CLI) | payer OTHER, SELFPAY ==
[2024-09-12 14:16] VITALS: BMI 26.4
--- NOTE | 2024-11-07 14:21 | EKG_ITS ---
[facility] [address] [place] [address] Test Date: 2024-11-07 Pat Name: Juliet Tolentino Department: 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
[2024-11-07 15:47] LABS: Alanine Aminotransferase 18 IU/L (<35); Albumin 4.2 g/dL (3.5-5.0); Albumin Globulin Ratio 1.6 (1.0-2.8); Alkaline Phosphatase 95 U/L (38-126); Aspartate Aminotransferase 33 IU/L (14-36); BUN Creatinine Ratio 22.8 (6-22); Bilirubin Total 1.6 mg/dL (0.2-1.3); Blood Urea Nitrogen 34 mg/dL (7-17); Calcium 9.5 mg/dL (8.4-10.2); Carbon Dioxide 24 mmol/L (22-32); Chloride 100 mmol/L (98-107); Estimated Glomerular Filt Rate 34 mL/min (>60); Globulin 2.7 g/dL (1.7-4.1); Glucose 133 mg/dL (70-99); HEMOLYSIS 28 (0-50); Sodium 138 mmol/L (137-145); Total Protein 6.9 g/dL (6.3-8.2)
[2024-11-07 15:58] LABS: Add Manual Diff / Slide Review NO; Basophils Absolute Auto 100 /uL (0-100); Eosinophils Absolute Auto 100 /uL (0-450); Eosinophils Percent Auto 0.9 % (2-4); Hematocrit 35.9 % (36-46); Lymphocytes Absolute Auto 1700 /uL (1100-4500); Mean Corpuscular HGB Conc 33.3 % (30-36); Mean Corpuscular Hemoglobin 29.5 PG (26-34); Mean Corpuscular Volume 88.7 fL (80-100); Monocytes Absolute Auto 700 /uL (0-900); Neutrophils Absolute Auto 7000 /uL (1500-7000); Neutrophils Percent Auto 73.1 % (50-75); Platelet Count 329 X10^3/uL (150-400); Red Blood Cell Count 4.05 X10^6/uL (4.0-5.2); Red Cell Distribution Width 17.3 % (11.6-14.8); White Blood Cell Count 9.5 X10^3/uL (4.5-11.0)
[2024-11-07 16:18] LABS: Hemoglobin A1C% w Est Avg Glu 5.6 % (4.0-6.0)
== END ==
PROVIDERS: Family Provider Internal Medicine; PCP Internal Medicine; Referring Provider Internal Medicine; Visit Provider Orthopaedic Surgery
DX: Z01.812 Encounter for preprocedural laboratory examination (principal); N39.0 Urinary tract infection, site not specified; R73.9 Hyperglycemia, unspecified; Z01.818 Encounter for other preprocedural examination
CPT/HCPCS: 36415; 80053; 83036; 85025; 93005

== ENCOUNTER → 2024-11-08 14:15 | Outpatient (CLI) | payer OTHER, SELFPAY ==
[2024-09-12 14:16] VITALS: BMI 26.4
[2024-11-08 15:42] LABS: Appearance Urine UA CLEAR; Bilirubin Urine UA NEGATIVE (NEGATIVE); Color Urine UA YELLOW; Glucose Urine UA NEGATIVE (Negative); Ketones Urine UA NEGATIVE (NEGATIVE); Leukocyte Esterase Urine UA NEGATIVE (NEGATIVE); Nitrite Urine UA NEGATIVE (Negative); Occult Blood Urine UA NEGATIVE (Negative); Protein Urine UA NEGATIVE (Negative); Urobilinogen Urine UA 0.2 E.U./dL (0.2)
[2024-11-08 15:50] LABS: Bacteria Urine None Seen; Culture Indicated Urine Cult Not Indicated; Hyaline Casts Urine 0-1/LPF; RBC Urine None Seen (0-5/HPF); Squamous Epithelial Cell Urine 0-1 /HPF (0-5/HPF); Urine Volume 10mL (spun); WBC Urine 0-1/HPF (0-5/HPF)
== END ==
PROVIDERS: Family Provider Internal Medicine; PCP Internal Medicine; Referring Provider Orthopaedic Surgery; Visit Provider Orthopaedic Surgery
DX: N39.0 Urinary tract infection, site not specified (principal)
CPT/HCPCS: 81001

== ENCOUNTER → 2025-01-02 11:52 | Outpatient (CLI) | payer OTHER, SELFPAY ==
[2025-01-01 15:09] VITALS: BMI 26.4
--- NOTE | 2025-01-02 11:54 | DI.RAD.S_ITS ---
PROCEDURE: XR CHEST 2V INDICATIONS: cough TECHNIQUE: 2 views of the chest were acquired. COMPARISON: , CR, XR CHEST 2V, 01/12/2024, 12:23. FINDINGS: Heart, mediastinum and pulmonary vascular: Heart is is moderately enlarged but unchanged. Mediastinum is unremarkable. Pulmonary vascular is normal. Lungs: Scattered fibrosis in both lower lobes is similar to the 2023 exam nearly 1 year ago. Scattered calcified granulomas seen in both lungs. A 1 cm nodular density overlies the anterior right 3rd rib . This likely a bone island rather the pulmonary nodule Pleural spaces: Normal-no effusions or pneumothorax. Bones and soft tissues: Normal IMPRESSION: Moderate cardiomegaly and scattered fibrosis in the lower lobes. No definite acute infiltrate 1 cm nodular density right mid lung is likely a bone island within the anterior right 3rd rib rather than a pulmonary nodule. Suggest right rib films Dictated by: Geoffrey Cordova M.D. on 01/03/2025 at 9:26 Approved by: Geoffrey Cordova M.D. on 01/03/2025 at 9:29
== END ==
PROVIDERS: Family Provider Internal Medicine; PCP Internal Medicine; Referring Provider Internal Medicine; Visit Provider Internal Medicine
DX: I51.7 Cardiomegaly (principal); J84.10 Pulmonary fibrosis, unspecified; R91.8 Other nonspecific abnormal finding of lung field; R05.9 Cough, unspecified
CPT/HCPCS: 71046

== ENCOUNTER → 2025-02-10 13:36 | Outpatient (CLI) | payer OTHER, SELFPAY ==
[2025-01-20 18:29] VITALS: BMI 20.3
== END ==
LOC: WC 13:36
PROVIDERS: Family Provider Internal Medicine; PCP Internal Medicine; Referring Provider Orthopaedic Surgery; Visit Provider Surgery
DX: L89.213 Pressure ulcer of right hip, stage 3 (principal); M16.12 Unilateral primary osteoarthritis, left hip; F03.90 Unspecified dementia, unspecified severity, without behavioral disturbance, psychotic disturbance, mood disturbance, and anxiety; I10 Essential (primary) hypertension; Z86.73 Personal history of transient ischemic attack (TIA), and cerebral infarction without residual deficits; J45.909 Unspecified asthma, uncomplicated; Z86.711 Personal history of pulmonary embolism; N18.9 Chronic kidney disease, unspecified; Z79.01 Long term (current) use of anticoagulants; Z74.09 Other reduced mobility; Z88.1 Allergy status to other antibiotic agents; Z88.2 Allergy status to sulfonamides
CPT/HCPCS: 11042; 87070; 87075; 87077; 87205; 99203; 99213

== ENCOUNTER → 2025-02-17 11:25 | Outpatient (CLI) | payer OTHER, SELFPAY ==
[2025-01-20 18:29] VITALS: BMI 20.3
== END ==
LOC: WC 11:26
PROVIDERS: Family Provider Internal Medicine; PCP Internal Medicine; Referring Provider Internal Medicine; Visit Provider Surgery
DX: L89.213 Pressure ulcer of right hip, stage 3 (principal); L53.8 Other specified erythematous conditions; F03.90 Unspecified dementia, unspecified severity, without behavioral disturbance, psychotic disturbance, mood disturbance, and anxiety
CPT/HCPCS: 11042

== ENCOUNTER → 2025-02-24 09:52 | Outpatient (CLI) | payer OTHER, SELFPAY ==
[2025-01-20 18:29] VITALS: BMI 20.3
== END ==
LOC: WC 09:53
PROVIDERS: Family Provider Internal Medicine; PCP Internal Medicine; Referring Provider Internal Medicine; Visit Provider Surgery
DX: L89.213 Pressure ulcer of right hip, stage 3 (principal); M16.12 Unilateral primary osteoarthritis, left hip; F03.90 Unspecified dementia, unspecified severity, without behavioral disturbance, psychotic disturbance, mood disturbance, and anxiety; I10 Essential (primary) hypertension; Z86.73 Personal history of transient ischemic attack (TIA), and cerebral infarction without residual deficits; J45.909 Unspecified asthma, uncomplicated; Z86.711 Personal history of pulmonary embolism; N18.9 Chronic kidney disease, unspecified; Z79.02 Long term (current) use of antithrombotics/antiplatelets; Z74.09 Other reduced mobility; Z88.1 Allergy status to other antibiotic agents; Z88.2 Allergy status to sulfonamides
CPT/HCPCS: 11042; 87070; 87075; 87205; 99213

== ENCOUNTER → 2025-03-03 11:02 | Outpatient (CLI) | payer OTHER, SELFPAY ==
[2025-01-20 18:29] VITALS: BMI 20.3
== END ==
LOC: WC 11:03
PROVIDERS: Family Provider Internal Medicine; PCP Internal Medicine; Referring Provider Internal Medicine; Visit Provider Surgery
DX: L89.213 Pressure ulcer of right hip, stage 3 (principal); F03.90 Unspecified dementia, unspecified severity, without behavioral disturbance, psychotic disturbance, mood disturbance, and anxiety
CPT/HCPCS: 11042

== ENCOUNTER → 2025-03-10 15:25 | Outpatient (CLI) | payer OTHER, SELFPAY ==
[2025-01-20 18:29] VITALS: BMI 20.3
== END ==
LOC: WC 15:26
PROVIDERS: Family Provider Internal Medicine; PCP Internal Medicine; Referring Provider Internal Medicine; Visit Provider Surgery
DX: L89.213 Pressure ulcer of right hip, stage 3 (principal); L53.8 Other specified erythematous conditions; R54 Age-related physical debility; F03.90 Unspecified dementia, unspecified severity, without behavioral disturbance, psychotic disturbance, mood disturbance, and anxiety
CPT/HCPCS: 11042; 99213

== ENCOUNTER → 2025-03-17 13:27 | Outpatient (CLI) | payer OTHER, SELFPAY ==
[2025-01-20 18:29] VITALS: BMI 20.3
== END ==
LOC: WC 13:28
PROVIDERS: Family Provider Internal Medicine; PCP Internal Medicine; Referring Provider Internal Medicine; Visit Provider Surgery
DX: L89.213 Pressure ulcer of right hip, stage 3 (principal); F03.90 Unspecified dementia, unspecified severity, without behavioral disturbance, psychotic disturbance, mood disturbance, and anxiety; R54 Age-related physical debility; L53.8 Other specified erythematous conditions
CPT/HCPCS: 11042

== ENCOUNTER → 2025-03-24 11:04 | Outpatient (CLI) | payer OTHER, SELFPAY ==
[2025-01-20 18:29] VITALS: BMI 20.3
== END ==
LOC: WC 11:05
PROVIDERS: Family Provider Internal Medicine; PCP Internal Medicine; Referring Provider Internal Medicine; Visit Provider Surgery
DX: L89.213 Pressure ulcer of right hip, stage 3 (principal); L53.8 Other specified erythematous conditions; R54 Age-related physical debility
CPT/HCPCS: 11042

== ENCOUNTER → 2025-03-31 10:28 | Outpatient (CLI) | payer OTHER, SELFPAY ==
[2025-01-20 18:29] VITALS: BMI 20.3
== END ==
LOC: WC 10:29
PROVIDERS: Family Provider Internal Medicine; PCP Internal Medicine; Referring Provider Internal Medicine; Visit Provider Surgery
DX: L89.213 Pressure ulcer of right hip, stage 3 (principal); L53.9 Erythematous condition, unspecified
CPT/HCPCS: 99212

== ENCOUNTER → 2025-04-07 14:44 | Outpatient (CLI) | payer OTHER, SELFPAY ==
[2025-01-20 18:29] VITALS: BMI 20.3
== END ==
LOC: WC 14:45
PROVIDERS: Family Provider Internal Medicine; PCP Internal Medicine; Referring Provider Internal Medicine; Visit Provider Surgery
DX: L89.213 Pressure ulcer of right hip, stage 3 (principal); R54 Age-related physical debility; L53.8 Other specified erythematous conditions
CPT/HCPCS: 11042; 99213

== ENCOUNTER → 2025-04-14 15:44 | Outpatient (CLI) | payer OTHER, SELFPAY ==
[2025-01-20 18:29] VITALS: BMI 20.3
== END ==
LOC: WC 15:45
PROVIDERS: Family Provider Internal Medicine; PCP Internal Medicine; Referring Provider Internal Medicine; Visit Provider Surgery
DX: L89.213 Pressure ulcer of right hip, stage 3 (principal); R54 Age-related physical debility; L53.8 Other specified erythematous conditions; F03.90 Unspecified dementia, unspecified severity, without behavioral disturbance, psychotic disturbance, mood disturbance, and anxiety
CPT/HCPCS: 11042

== ENCOUNTER → 2025-04-21 13:12 | Outpatient (CLI) | payer OTHER, SELFPAY ==
[2025-01-20 18:29] VITALS: BMI 20.3
== END ==
LOC: WC 13:13
PROVIDERS: Family Provider Internal Medicine; PCP Internal Medicine; Referring Provider Internal Medicine; Visit Provider Surgery
DX: L89.213 Pressure ulcer of right hip, stage 3 (principal); R54 Age-related physical debility; L53.8 Other specified erythematous conditions
CPT/HCPCS: 11042

== ENCOUNTER → 2025-04-28 10:36 | Outpatient (CLI) | payer OTHER, SELFPAY ==
[2025-01-20 18:29] VITALS: BMI 20.3
== END ==
LOC: WC 10:36
PROVIDERS: Family Provider Internal Medicine; PCP Internal Medicine; Referring Provider Internal Medicine; Visit Provider Surgery
DX: L89.213 Pressure ulcer of right hip, stage 3 (principal); R54 Age-related physical debility; L53.8 Other specified erythematous conditions
CPT/HCPCS: 11042; 87070; 87205

== ENCOUNTER → 2025-05-05 14:23 | Outpatient (CLI) | payer OTHER, SELFPAY ==
[2025-01-20 18:29] VITALS: BMI 20.3
== END ==
LOC: WC 14:48
PROVIDERS: Family Provider Internal Medicine; PCP Internal Medicine; Referring Provider Internal Medicine; Visit Provider Surgery
DX: L89.213 Pressure ulcer of right hip, stage 3 (principal); R54 Age-related physical debility; L53.8 Other specified erythematous conditions
CPT/HCPCS: 11042; 99213

== ENCOUNTER → 2025-05-12 10:45 | Outpatient (CLI) | payer OTHER, SELFPAY ==
[2025-01-20 18:29] VITALS: BMI 20.3
== END ==
LOC: WC 10:45
PROVIDERS: Family Provider Internal Medicine; PCP Internal Medicine; Referring Provider Internal Medicine; Visit Provider Surgery
DX: L89.213 Pressure ulcer of right hip, stage 3 (principal); F03.90 Unspecified dementia, unspecified severity, without behavioral disturbance, psychotic disturbance, mood disturbance, and anxiety; I12.9 Hypertensive chronic kidney disease with stage 1 through stage 4 chronic kidney disease, or unspecified chronic kidney disease; N18.9 Chronic kidney disease, unspecified; Z86.73 Personal history of transient ischemic attack (TIA), and cerebral infarction without residual deficits; J45.909 Unspecified asthma, uncomplicated; Z79.01 Long term (current) use of anticoagulants; Z99.89 Dependence on other enabling machines and devices; Z74.09 Other reduced mobility
CPT/HCPCS: 11042